=== PATIENT | male | born 1975 | race Caucasian/White ===

== ENCOUNTER 2019-06-23 11:01 | Emergency (ER) | payer OTHER, SELFPAY ==
--- NOTE | ~2019-06-23 | XR_ITS ---
XR_[id number]_CR DATE: 06/23/2019 11:54 INDICATION: Patient coughed and heard a pop, lower lateral right rib area. TECHNIQUE: PA chest. 3 views of the right ribs. COMPARISON: None FINDINGS: No rib fracture or bone destruction is evident. There is mild infiltrate or atelectasis in the right lower lung zone. The lungs otherwise appear clear. Normal heart size. No pleural effusion or pulmonary vascular congestion or pneumothorax. No hilar or mediastinal enlargement. IMPRESSION: Nonspecific right lower lung infiltrate or atelectasis No displaced rib fracture is evident Reviewed, dictated and finalized at [facility]. Reviewed, dictated and finalized at [facility]. LITIES DIRECTOR
[2019-06-23 11:10] VITALS: BP 139/75; PULSE 96; RESP 20; TEMP 36.7; O2SAT 91
--- NOTE | 2019-06-23 11:43 | ED.URI ---
HPI - URI/Sore Throat General Chief Complaint: Upper Respiratory Infection Stated Complaint: Hurts to Breathe Time Seen by Provider: 06/23/19 11:38 Source: patient and RN notes reviewed Mode of arrival: ambulatory Limitations: no limitations History of Present Illness HPI Narrative: Patient presents today complaining of right lower rib pain that started acutely after coughing strongly this morning. States he heard and felt a pop. Pain increases with deep breath or coughing. Patient has primary ciliary dyskinesia and is currently on the lung transplant list. He wears 8 L of oxygen at baseline, increases to 10 with ambulation. States he has not been ill recently and has actually been healthy since last September. MD elicited complaint: other (Rib pain) Related Data Home Medications Medication Instructions Recorded Confirmed albuterol sulfate 2.5 mg INHALATION Q4-6H 03/23/19 06/23/19 amlodipine 5 mg tablet 5 mg PO BID 03/23/19 06/23/19 furosemide 80 mg tablet 80 mg PO QAM 03/23/19 06/23/19 ipratropium bromide 0.02 % 2.5 ml CONTINUOUS NEBULIZATION QID 03/23/19 06/23/19 solution for inhalation lansoprazole 30 mg delayed 30 mg PO DAILY 03/23/19 06/23/19 release,disintegrating tablet losartan 50 mg tablet 50 mg PO DAILY 03/23/19 06/23/19 metolazone 5 mg tablet 5 mg PO DAILY 03/23/19 06/23/19 montelukast 10 mg tablet 10 mg PO DAILY 03/23/19 06/23/19 Allergies Allergy/AdvReac Type Severity Reaction Status Date / Time povidone-iodine Allergy Unknown Unknown Verified 06/23/19 11:14 tetracycline Allergy Unknown Unknown Verified 06/23/19 11:14 SOAP Allergy Unknown Unknown Uncoded 06/23/19 11:14 THEOPHYLLINE ANHYDROUS AdvReac Mild GETS Uncoded 10/06/18 17:39 NERVOUS Review of Systems Review of Systems: Narrative: CONSTITUTIONAL: Denies body aches, fever, chills, or sweats. EYES: Denies visual changes, redness, or discharge. ENT: Denies rhinorrhea, congestion, sore throat, or otalgia. CARDIOVASCULAR: Denies chest pain, palpitations, or edema. RESPIRATORY: Denies cough or dyspnea. GASTROINTESTINAL: Denies abdominal pain, nausea, vomiting, or diarrhea. GENITOURINARY: Denies dysuria or hematuria. SKIN: Denies rash, itching, or wounds. MUSCULOSKELETAL: Denies back pain, joint pain, or myalgia. Right rib pain NEUROLOGIC: Denies headache, numbness, tingling, or weakness. PSYCH: Denies depression or anxiety. [facility] Family History Family History Father Hypertension Grandparent Hypertension Cerebrovascular accident Family history of coronary artery disease Family history of malignant neoplasm of urinary bladder Diabetes mellitus Other Family history of malignant neoplasm of breast Social History Social History Smoking status: Never smoker Tobacco type: smokeless tobacco Smokeless tobacco user: chewing tobacco Second hand tobacco smoke exposure: No Alcohol intake: never Gender identity (if verbalized by the patient): Male Comments At time of signature, I have reviewed and agree with nursing past medical, surgical, social and family history unless otherwise noted. Please see nursing chart for further information. There is no relevant family history pertinent to the presenting complaint Exam Narrative: Exam Narrative: GENERAL: Chronically ill-appearing, well-nourished, and in no acute distress. Wearing a nasal cannula. HEAD: Normocephalic, atraumatic. EYES: EOMI. No redness or drainage. Conjunctivae normal. ENT: Mucous membranes pink and moist. NECK: Normal AROM. Supple. No lymphadenopathy. CHEST: No respiratory distress. Rhonchi in the lower lobes. Diminished in the lower lobes. Tenderness to the right lower lateral rib line and soft tissue HEART: Regular rate and rhythm. No murmur appreciated. Normal peripheral pulses. ABDOMEN: Soft, nontender, nondistended, normal active bowel
== END 2019-06-23 12:22 | disposition home or self-care (01) ==
PROVIDERS: Emergency Provider Nurse Practitioner; PCP Family Medicine
DX: S29.011A Strain of muscle and tendon of front wall of thorax, initial encounter (principal); X58.XXXA Exposure to other specified factors, initial encounter; G24.9 Dystonia, unspecified; Z99.81 Dependence on supplemental oxygen; F17.220 Nicotine dependence, chewing tobacco, uncomplicated; J45.909 Unspecified asthma, uncomplicated
CPT/HCPCS: 71101; 99213; G0463

== ENCOUNTER 2020-02-05 10:45 | Observation (INO) | payer BC, SELFPAY ==
[2020-02-05] VITALS (12 sets, daily range): BP systolic 104–151; BP diastolic 61–87; PULSE 86–107; RESP 18–22; TEMP 36.1–36.8; O2SAT 4–100; BMI 37.0
--- NOTE | ~2020-02-05 | XR_ITS ---
EXAMINATION: XR chest 1V portable EXAM DATE: 02/05/2020 12:54 INDICATION: Shortness of breath. TECHNIQUE: Portable AP frontal chest x-ray was obtained. Comparison is made to prior examination from 10/06/2018, 07/10/2018. Correlation was made with chest CT 07/11/2018. FINDINGS: Chronic right lower lobe atelectasis and reticulonodular opacities, most likely chronic inf ectious process. This is improved compared to 10/06/2018. The lungs are otherwise clear. There are no pleural effusions. The cardiomediastinal silhouette is within normal limits. There is no pneumotho rax suspected. The bones and soft tissues are unremarkable. IMPRESSION: Right basilar reticulonodular opacities probably chronic infectious process; correlate wi th prior CT 2019 report. No acute findings suspected. Reviewed, dictated and finalized at location [facility]. IMPRESSION: Right basilar reticulonodular opacities probably chronic infectious process; correlate with prior CT 2019 report. No acute findings suspected.
--- NOTE | 2020-02-05 11:05 | ECG_ITS ---
Measurements Intervals [place] Rate: 101 P: 85 CT: 155 QRS: 80 QRSD: 122 T: 57 QT: 340 QTc: 442 Interpretive Statements SINUS TACHYCARDIA INTRAVENTRICULAR CONDUCTION DELAY BORDERLINE ST ABNORMALITY- ANTEROLAT/INF LEADS BASELINE ARTIFACT- I, II, III, AVR ABNORMAL ECG Electronically Signed On 02-05-2020 11:37:49 CDT by Aguila Issa D.O.
[2020-02-05 11:09] LABS: Glucose Point of Care > 500 (65-105)
[2020-02-05 11:29] LABS: INR 0.9; Prothrombin Time 11.9 Seconds (11.1-14.7)
[2020-02-05 11:30] LABS: Partial Thromboplastin Time 23.8 SECONDS (22.3-36.8)
[2020-02-05 11:30] LABS: Basophils Percent Auto 0.3 % (0.2-1.2); Eosinophils Absolute Auto 0.3 K/mm3 (0-0.3); Eosinophils Percent Auto 3.2 % (0-4.4); Hematocrit 37.1 % (42.0-52.0); Hemoglobin 12.4 g/dL (14.0-18.0); Immature Granulocyte Absolute 0.03 K/mm3 (0.00-0.031); Immature Granulocyte Percent A 0.3 % (0-0.5); Lymphocytes Absolute Auto 2.88 K/mm3 (0.9-3.2); Lymphocytes Percent Auto 31.7 % (18.3-44.2); Mean Corpuscular HGB Conc 33.4 g/dl (32-36); Mean Corpuscular Hemoglobin 28.1 pg (26-34); Mean Corpuscular Volume 83.9 fl (80-100); Monocytes Absolute Auto 0.7 K/mm3 (0.1-0.6); Monocytes Percent Auto 7.5 % (2.6-8.5); Neutrophils Absolute Auto 5.2 K/mm3 (1.3-6.7); Platelet Count Result 296 k/mm3 (150-375); Red Blood Count 4.42 M/mm3 (4.6-6.20); Red Cell Distribution Width 11.9 % (11.5-14.5); White Blood Count 9.1 K/mm3 (4.5-10.0)
[2020-02-05] MEDS: SODIUM CHLORIDE 0.9% IV 1,000 ML 100 ML IV CONT (11:32)
[2020-02-05 11:34] LABS: Alanine Aminotransferase 32 U/L (4-50); Albumin Level 4.4 g/dL (3.5-5.1); Alkaline Phosphatase 149 U/L (38-126); Anion Gap 11.99999 mmol/L (8-16); Aspartate Amino Transferase 36 U/L (17-59); Bilirubin,Total 0.6 mg/dL (0.2-1.3); Blood Urea Nitrogen 63 mg/dL (9-20); CRP 2.2 mg/dL (<1.0); Carbon Dioxide > 40 mmol/L (22-30); Chloride 75 mmol/L (98-107); Estimated CRCL calculation 77 ml/min; Estimated Glomerular Filt Rate 55; Glucose 554 mg/dL (75-110); Potassium 3.8 mmol/L (3.4-5.0); Sodium 127 mmol/L (137-145)
[2020-02-05] MEDS: INSULIN HUMAN REGULAR (*BKC) 100 UNITS/ML 10 UNITS IV PUSH (11:35)
[2020-02-05 11:40] LABS: Alveolar/Arterial O2 Gradient 56.5 mmHg; Base Excess ABG 12.2 mEq/l (+/-2.0); Carboxyhemoglobin 0.1 % THb (0-2.0); Fractional Inspired Oxygen 36 %; Methemoglobin ABG 0.2 %THb (0-1.5); Oxygen Content ABG 17.7 %vol (16.0-22.0); Oxygen Saturation ABG 98.2 % (95.0-100.0); Oxyhemoglobin 97.4 % THb (90.0-100.0); PO2 ABG 121.7 mmHg (80.0-100.0); PO2 FiO2 Ratio Arterial Blood 3.38 %; Reduced Hemoglobin 2.3 %THb (0-5.0); Total Hemoglobin 12.8 g/dL (12.0-18.0); pH ABG 7.389 (7.350-7.450)
[2020-02-05 11:41] LABS: Modified Allen's Test Pass; PCO2 ABG 67.7 mmHg (35.0-45.0); Site Drawn LEFT RADIAL
[2020-02-05 11:42] LABS: Device NASAL CANNULA
[2020-02-05 11:43] LABS: Magnesium 1.8 mg/dL (1.6-2.3); Phosphorus 4.3 mg/dL (2.5-4.5)
[2020-02-05 11:45] LABS: Beta-Hydroxybutyrate/Acetoacetate 0.82 mmol/L (0.02-0.27)
[2020-02-05 11:47] LABS: NT Pro B Type Natriuretic Pept 28 PG/ML (5-100)
--- NOTE | 2020-02-05 11:52 | ED.GENADULT ---
HPI - General Adult General Chief complaint: Recheck/Abnormal Lab/Rx Stated complaint: . family being tested for covid Time Seen by Provider: 02/05/20 10:50 Source: patient, old records reviewed and other Limitations: no limitations History of Present Illness HPI narrative: Patient is a 44-year-old male who presents for request of primary care for having been found to have electrolyte abnormalities coupled with hyperglycemia patient has been having some excessive thirst and urination with some blurred vision and trembling of the hands patient denies similar occurrence in the past notes that he is otherwise felt fine denies illness or other complaints. Patient was found to have electrolyte abnormality and hyperglycemia is noted had follow-up with primary care in the last few days outpatient blood work results led to the patient being referred to the emergency department. On arrival patient has no complaints and denies any pain Related Data Allergies Allergy/AdvReac Type Severity Reaction Status Date / Time povidone-iodine Allergy Unknown Unknown Verified 02/05/20 10:58 tetracycline Allergy Unknown Unknown Verified 02/05/20 10:58 SOAP Allergy Unknown Unknown Uncoded 02/05/20 10:58 THEOPHYLLINE ANHYDROUS AdvReac Mild GETS Uncoded 02/05/20 10:58 NERVOUS Review of Systems Review of Systems: All systems reviewed & are unremarkable except as noted in HPI and below PMFSH Past Medical History Medical History (Updated 02/05/20 @ 12:53 by Jose Luis Machado PA-C) Essential (primary) hypertension Medial epicondylitis, left elbow Primary ciliary dyskinesia Pulmonary emphysema Sleep apnea in adult Tremor of both hands Surgical History Surgical History (Updated 02/05/20 @ 11:54 by Jose Luis Machado PA-C) History of appendectomy History of orthopedic surgery Family History Family History Father Hypertension Grandparent Hypertension Cerebrovascular accident Family history of coronary artery disease Family history of malignant neoplasm of urinary bladder Diabetes mellitus Other Family history of malignant neoplasm of breast Social History Social History Smoking status: Never smoker Tobacco type: smokeless tobacco Smokeless tobacco user: chewing tobacco Second hand tobacco smoke exposure: No Alcohol intake: never Gender identity (if verbalized by the patient): Male Exam Narrative: Exam Narrative: GENERAL: Well-appearing, obese, and in no acute distress. HEAD: Normocephalic, atraumatic. EYES: PERRLA and EOMI. ENT: Nares clear, no rhinorrhea or epistaxis. Mucous membranes moist. Oropharynx without tonsillar hypertrophy exudate or other lesions. CHEST: Clear to auscultation. No respiratory distress. No wheezes rales or rhonchi HEART: Regular rate and rhythm. No murmur heard. Normal peripheral pulses. ABDOMEN: Soft, nontender, distended EXTREMITIES: Normal range of motion. No edema. SKIN: Warm, dry, no rash. NEURO: No focal deficits. Alert and oriented x3. Cranial nerves II through XII grossly intact PSYCH: Normal mood and affect. Course Course Emergency Course: Patient in the room at this time is been hydrated given insulin will be brought into the hospital for his new onset diabetes mellitus is aware of the discussion with hospitalist and agrees the plan Consultations Consultation #1: Discussed case with hospitalist who is agreed to accept the patient Patient to be admitted to medical floor with sliding scale insulin Date: 02/05/20 Time: 12:19 Vital Signs Vital signs: Vital Signs Pulse Rate 106 H 02/05/20 10:54 Respiratory Rate 02/05/20 10:54 Blood Pressure 151/81 H 02/05/20 10:54 Pulse Oximetry 98 02/05/20 10:54 Temperature 98.2 F 02/05/20 11:41 Pulse Rate 106 H 02/05/20 10:54 Respiratory Rate 02/05/20 10:54 Blood Pressure 151/81 H 02/05/20 10:54
[2020-02-05 11:56] LABS: Add Urine Microscopic? YES; Appearance Urine Clear (Clear); Bilirubin Urine Negative (Negative); Blood Urine Negative (Negative); Color Urine Straw (Yellow); Glucose Urine UA 3+ mg/dL (Negative); Ketones Urine Negative (Negative); Leukocyte Esterase Ur Negative LEU/UL (Negative); Nitrate Urine Negative (Negative); Protein Urine Negative (Negative); RBC Urine 0-2 /hpf (0-2); Specific Grav Ur 1.012 (1.001-1.035); Urobilinogen Urine Negative mg/dL (<2.0); WBC Urine 0-3 /hpf
[2020-02-05 12:51] LABS: Lactic Acid Reflex 0.9 mmol/L (0.7-2.1)
[2020-02-05 12:59] LABS: Glucose Point of Care > 500 (65-105)
--- NOTE | 2020-02-05 13:37 | PC.NURSE ---
Called to give report on pt. Was told by Beatris that nurse receiving pt is at lunch and will call me back
--- NOTE | 2020-02-05 14:39 | PM.IMHP ---
H&P: HPI History of Present Illness Date/Time: 02/05/20 14:39 Chief complaint: Hyperglycemia/dehydration/hyponatremia Narrative: Braydon Cole is a 44 year old male with PMHx significant for Primary Ciliary Dyskinesia, Chronic Hypoxic Respiratory Failure on supplemental oxygen by [place], [place], Lung Emphysema, Hand tremor. Patient presented to ED after he had been in to see his PCP for ventral hernia wanted to have it checked labs were ordered and came back abnormal, he was told to come to ED.Patient had elevated blood sugar and low sodium, he has been very thirsty drinking two Gallons of water a day, 1 gallon of milk, no weight loss, but was recently evaluated for lung transplant and was seen by dietitian, he is on a 1400 calorie diet. Denies any fevers, rigors, chills, no n/v/abdominal pain/diarrhea, no chest pain, no pnd, no orthopnea, has had some blurry vision, no cough, no sputum production, no leg swelling. Preliminary work up was significant for a sugar in the 500's. Patient had been started on diuretics as well, he was urinating frequently. Review of Systems Review of Systems: Narrative: No fevers, no weight loss. Constitutional: Constitutional: Reports as per HPI and Reports no additional constitutional complaints ENT: Reports system reviewed and no additional complaints, except as documented and Reports as per HPI Cardiovascular: Cardiovascular: Reports as per HPI and Reports no additional cardiovascular complaints Respiratory: Respiratory: Reports as per HPI and Reports no additional respiratory complaints Gastrointestinal: Gastrointestinal: Reports as per HPI and Reports no additional gastrointestinal complaints Musculoskeletal: Musculoskeletal: Reports no additional musculoskeletal complaints and Reports as per HPI Neurologic: Reports system reviewed and no additional complaints, except as documented and Reports as per HPI [facility] Past Medical History Medical History (Updated 02/05/20 @ 16:46 by Ashlyn Castillo MD) Essential (primary) hypertension Medial epicondylitis, left elbow Primary ciliary dyskinesia Pulmonary emphysema Sleep apnea in adult Tremor of both hands Surgical History Surgical History (Updated 02/05/20 @ 11:54 by Jose Luis Machado PA-C) History of appendectomy History of orthopedic surgery Family History Family History Father Hypertension Grandparent Hypertension Cerebrovascular accident Family history of coronary artery disease Family history of malignant neoplasm of urinary bladder Diabetes mellitus Other Family history of malignant neoplasm of breast Social History Social History Smoking status: Never smoker Tobacco type: smokeless tobacco Smokeless tobacco user: chewing tobacco Second hand tobacco smoke exposure: No Alcohol intake: never Gender identity (if verbalized by the patient): Male Meds Home Medications and Allergies Home Medications Medication Instructions Recorded Confirmed Type meloxicam 15 mg disintegrating 15 mg PO DAILY #30 tablet 07/30/19 02/04/20 Rx tablet lansoprazole 30 mg delayed 30 mg PO DAILY #30 tablet 08/03/19 02/04/20 Rx release,disintegrating tablet montelukast 10 mg tablet 10 mg PO DAILY #30 tablet 08/03/19 02/04/20 Rx ipratropium bromide 0.02 % 2.5 ml CONTINUOUS NEBULIZATION QID 08/06/19 02/04/20 Rx solution for inhalation #150 ml furosemide 80 mg tablet 80 mg PO QAM #30 tablet 10/29/19 02/04/20 Rx metolazone 5 mg tablet 5 mg PO DAILY #30 tablet 10/29/19 02/04/20 Rx albuterol sulfate 2.5 mg INHALATION Q4-6H #200 vial 12/08/19 02/04/20 Rx amlodipine 10 mg tablet 10 mg PO DAILY #90 tablet 12/08/19 02/04/20 Rx modafinil 200 mg tablet 200 mg PO QAM #30 tablet 01/20/20 02/04/20 Rx losartan 50 mg tablet See Rx Instructions .ROUTE 02/01/20 02/04/20 Rx .COMPLEX #90 unspecified Allergies Allergy/AdvReac Ty
[2020-02-05] MEDS: LACTATED RINGERS 1,000 ML 125 ML IV CONT (17:21)
[2020-02-05 17:52] LABS: Basophils Percent Auto 0.4 % (0.2-1.2); Eosinophils Absolute Auto 0.2 K/mm3 (0-0.3); Eosinophils Percent Auto 2.3 % (0-4.4); Hematocrit 36.5 % (42.0-52.0); Hemoglobin 12.4 g/dL (14.0-18.0); Immature Granulocyte Absolute 0.03 K/mm3 (0.00-0.031); Immature Granulocyte Percent A 0.4 % (0-0.5); Lymphocytes Absolute Auto 1.75 K/mm3 (0.9-3.2); Lymphocytes Percent Auto 21.4 % (18.3-44.2); Mean Corpuscular Hemoglobin 28.4 pg (26-34); Mean Corpuscular Volume 83.7 fl (80-100); Mean Platelet Volume 10.2 fl (7.4-10.4); Monocytes Absolute Auto 0.6 K/mm3 (0.1-0.6); Neutrophils Absolute Auto 5.6 K/mm3 (1.3-6.7); Neutrophils Percent Auto 68.5 % (45.5-73.1); Platelet Count Result 255 k/mm3 (150-375); Red Blood Count 4.36 M/mm3 (4.6-6.20); Red Cell Distribution Width 11.8 % (11.5-14.5); White Blood Count 8.2 K/mm3 (4.5-10.0)
[2020-02-05 18:06] LABS: Anion Gap 12.99999 mmol/L (8-16); Blood Urea Nitrogen 66 mg/dL (9-20); Calcium 9.8 mg/dL (8.4-10.2); Carbon Dioxide > 40 mmol/L (22-30); Chloride 75 mmol/L (98-107); Estimated CRCL calculation 76 ml/min; Estimated Glomerular Filt Rate 55; Glucose 489 mg/dL (75-110); Potassium 3.7 mmol/L (3.4-5.0); Sodium 128 mmol/L (137-145)
[2020-02-05] MEDS: INSULIN ASPART (*BKC) 100 UNITS/ML 10 UNITS SUB-Q (18:29)
[2020-02-05 18:38] LABS: Glucose Point of Care 462 (65-105)
--- NOTE | 2020-02-05 18:45 | ADMGEN ---
This patient, Braydon Cole, was admitted to IMU Room 206-01. Patient/family oriented to hospital policies and general routines including ID bracelet, bed and alarms, visiting hours, pain management, procedures, bathroom and other care routines, personal items, smoking policy, room service/diet, and visiting hours. Valuables list has been completed. Information on how to activate the Rapid Response Team has been discussed. Patient/Family are encouraged to report perceived risks to care and to ask questions if they do not understand what they are told or what they should do.
[2020-02-05 21:35] LABS: Glucose Point of Care 278 (65-105)
[2020-02-05] MEDS: ALBUTEROL SULFATE NEB 2.5 MG/3 ML INH (21:57)
[2020-02-05] MEDS: IPRATROPIUM BR 0.02% INH SOLN 0.5 MG/2.5 ML VIAL (21:57)
[2020-02-05] MEDS: MONTELUKAST SODIUM 10 MG TABLET PO (23:01)
[2020-02-05] MEDS: amLODIPine BESYLATE 5 MG TABLET 10 MG PO (23:01)
[2020-02-05] MEDS: FAMOTIDINE 20 MG/2 ML VIAL IV PUSH (23:02)
[2020-02-05 23:23] LABS: Anion Gap 12.99999 mmol/L (8-16); Blood Urea Nitrogen 66 mg/dL (9-20); Calcium 9.9 mg/dL (8.4-10.2); Carbon Dioxide > 40 mmol/L (22-30); Chloride 76 mmol/L (98-107); Estimated CRCL calculation 67 ml/min; Estimated Glomerular Filt Rate 47; Glucose 307 mg/dL (75-110); Potassium 3.4 mmol/L (3.4-5.0); Sodium 129 mmol/L (137-145)
[2020-02-06] VITALS (21 sets, daily range): BP systolic 101–126; BP diastolic 53–64; PULSE 76–101; RESP 16–20; TEMP 36.1–36.6; O2SAT 91–99
[2020-02-06] MEDS: LACTATED RINGERS 1,000 ML 125 ML IV CONT ×2 (03:52→15:01)
[2020-02-06 06:37] LABS: Glucose Point of Care 377 (65-105)
[2020-02-06 08:26] LABS: Glucose Point of Care 360 (65-105)
[2020-02-06] MEDS: ALBUTEROL SULFATE NEB 2.5 MG/0.5 ML INH INHALATION (08:47)
[2020-02-06] MEDS: IPRATROPIUM BR 0.02% INH SOLN 0.5 MG/2.5 ML VIAL INHALATION ×4 (08:48→20:32)
[2020-02-06] MEDS: INSULIN HUMAN NPH (*BKC) 100 UNITS/ML 17 UNITS SUB-Q (08:48)
[2020-02-06] MEDS: INSULIN ASPART (*BKC) 100 UNITS/ML SUB-Q ×3 (08:49→17:26)
[2020-02-06] MEDS: LOSARTAN POTASSIUM 50 MG TABLET PO (10:36)
[2020-02-06] MEDS: PANTOPRAZOLE 40 MG TABLET PO (10:36)
[2020-02-06] MEDS: modafiniL (*CRX) 200 MG TABLET PO (10:39)
[2020-02-06 12:19] LABS: Glucose Point of Care 378 (65-105)
--- NOTE | 2020-02-06 12:39 | PM.IMPN ---
Progress Note: A&P Assessment and Plan (1) Diabetic hyperosmolar non-ketotic state: Code(s): E11.00 - Type 2 diabetes mellitus with hyperosmolarity without nonketotic hyperglycemic-hyperosmolar coma ([facility]) Status: Acute Assessment and Plan: Still with high sugars in the 300 + Continue gentle hydration Accuchecks ACHS Carb consistent diet 1800 (2) Acute dehydration: Code(s): E86.0 - Dehydration Status: Acute Assessment and Plan: Continue gentle hydration. Daily I/O's (3) Acute kidney injury: Code(s): N17.9 - Acute kidney failure, unspecified Status: Acute Assessment and Plan: Daily BMP Continue to monitor Bun/Cr. Holding Lasix and Metolazone (4) Tremor of both hands: Code(s): R25.1 - Tremor, unspecified Status: Acute Assessment and Plan: Unchanged (5) Essential (primary) hypertension: Code(s): I10 - Essential (primary) hypertension Status: Acute Assessment and Plan: Re started home meds (6) Pulmonary emphysema: Code(s): J43.9 - Emphysema, unspecified Status: Acute Assessment and Plan: Continue nebs Stable Does not appear to be excerbated. (7) Primary ciliary dyskinesia: Code(s): Q34.8 - Other specified congenital malformations of respiratory system Status: Acute Assessment and Plan: Supportive care On transplant list Follow up with transplant team (8) Sleep apnea in adult: Code(s): G47.30 - Sleep apnea, unspecified Status: Acute Assessment and Plan: On oxygen by [place] BiPAP at night time Subjective Date/time seen: 02/06/20 12:39 No issues overnight, afebrile. Sugars still in the 300's Review of Systems Constitutional: Constitutional: Reports as per HPI and Reports no additional constitutional complaints Eyes: Eyes: Reports as per HPI ENT: Reports system reviewed and no additional complaints, except as documented and Reports as per HPI Cardiovascular: Cardiovascular: Reports as per HPI and Reports no additional cardiovascular complaints Respiratory: Respiratory: Reports as per HPI and Reports no additional respiratory complaints Gastrointestinal: Gastrointestinal: Reports as per HPI and Reports no additional gastrointestinal complaints Musculoskeletal: Musculoskeletal: Reports no additional musculoskeletal complaints and Reports as per HPI Neurologic: Reports system reviewed and no additional complaints, except as documented and Reports as per HPI Exam Narrative: Exam Narrative: Chronically ill looking. Const: General: no acute distress Nutritional Appearance: overweight Orientation/consciousness: patient oriented x3 HENMT: Head: normocephalic Ears: hearing grossly normal bilaterally Face and sinus: normal facial exam Mouth: Yes Normal oral and palatal mucosa present Eyes: General: appearance normal, both eyes and all related structures Pupils: Equal, round and reactive pupils present EOM: EOMs intact bilaterally Neck: Neck: no lymphadenopathy and no JVD Resp: Effort & Inspection: able to speak in complete sentences Auscultation: diminished lung sounds (Throughout.) Cardio: Rate: regular rate Rhythm: regular rhythm Heart sounds: S1 normal heart sound present and S2 normal heart sound present GI: Inspection: Pannus present and obesity GI Palp: Yes Soft to palpation and Yes No hepatosplenomegaly present Auscultation: normal bowel sounds Skin: General skin exam: normal color Lesions: no lesions Rashes: no rashes Wounds: no wounds Neuro: General: patient oriented x3 Cranial nerves: Yes CN's II-XII intact bilaterally and Yes Equal, round and reactive pupils present Objective Data Vital Signs Vital Signs: Vital Signs - 24 hr 02/05/20 13:36 02/05/20 14:25 02/05/20 14:30 Temperature Pulse Rate 102 H 87 Respiratory Rate 20 18 Blood Pressure 129/70 141/87 H Pulse Oximetry 100 100 4 L 02/05/20 15:00 02/05/20
[2020-02-06] MEDS: ALBUTEROL SULFATE NEB 2.5 MG/3 ML INH INHALATION ×3 (13:00→20:32)
[2020-02-06 13:31] LABS: Basophils Percent Auto 0.3 % (0.2-1.2); Eosinophils Absolute Auto 0.2 K/mm3 (0-0.3); Eosinophils Percent Auto 2.6 % (0-4.4); Hematocrit 34.4 % (42.0-52.0); Hemoglobin 11.7 g/dL (14.0-18.0); Immature Granulocyte Absolute 0.04 K/mm3 (0.00-0.031); Immature Granulocyte Percent A 0.5 % (0-0.5); Lymphocytes Absolute Auto 1.55 K/mm3 (0.9-3.2); Lymphocytes Percent Auto 19.8 % (18.3-44.2); Mean Corpuscular Hemoglobin 28.5 pg (26-34); Mean Corpuscular Volume 83.9 fl (80-100); Mean Platelet Volume 10.5 fl (7.4-10.4); Monocytes Absolute Auto 0.4 K/mm3 (0.1-0.6); Monocytes Percent Auto 5.6 % (2.6-8.5); Neutrophils Absolute Auto 5.6 K/mm3 (1.3-6.7); Neutrophils Percent Auto 71.2 % (45.5-73.1); Platelet Count Result 257 k/mm3 (150-375); Red Cell Distribution Width 11.6 % (11.5-14.5); White Blood Count 7.8 K/mm3 (4.5-10.0)
[2020-02-06 16:33] LABS: Glucose Point of Care 369 (65-105)
[2020-02-06 16:43] LABS: Basophils Percent Auto 0.3 % (0.2-1.2); Eosinophils Absolute Auto 0.2 K/mm3 (0-0.3); Eosinophils Percent Auto 2.3 % (0-4.4); Hematocrit 36.6 % (42.0-52.0); Hemoglobin 12.3 g/dL (14.0-18.0); Immature Granulocyte Absolute 0.03 K/mm3 (0.00-0.031); Immature Granulocyte Percent A 0.4 % (0-0.5); Lymphocytes Absolute Auto 1.49 K/mm3 (0.9-3.2); Lymphocytes Percent Auto 20.5 % (18.3-44.2); Mean Corpuscular HGB Conc 33.6 g/dl (32-36); Mean Corpuscular Hemoglobin 28.9 pg (26-34); Mean Corpuscular Volume 85.9 fl (80-100); Mean Platelet Volume 10.6 fl (7.4-10.4); Monocytes Absolute Auto 0.4 K/mm3 (0.1-0.6); Monocytes Percent Auto 5.9 % (2.6-8.5); Neutrophils Absolute Auto 5.1 K/mm3 (1.3-6.7); Neutrophils Percent Auto 70.6 % (45.5-73.1); Platelet Count Result 262 k/mm3 (150-375); Red Blood Count 4.26 M/mm3 (4.6-6.20); Red Cell Distribution Width 11.8 % (11.5-14.5); White Blood Count 7.3 K/mm3 (4.5-10.0)
[2020-02-06 17:05] LABS: Anion Gap 6.99999 mmol/L (8-16); Blood Urea Nitrogen 52 mg/dL (9-20); Carbon Dioxide > 40 mmol/L (22-30); Chloride 83 mmol/L (98-107); Estimated CRCL calculation 72 ml/min; Estimated Glomerular Filt Rate 51; Glucose 376 mg/dL (75-110); Potassium 3.6 mmol/L (3.4-5.0); Sodium 130 mmol/L (137-145)
[2020-02-06] MEDS: INSULIN HUMAN NPH (*BKC) 100 UNITS/ML 20 UNITS SUB-Q (17:26)
[2020-02-06 20:14] LABS: Anion Gap 7.99999 mmol/L (8-16); Blood Urea Nitrogen 56 mg/dL (9-20); Calcium 9.1 mg/dL (8.4-10.2); Carbon Dioxide > 40 mmol/L (22-30); Chloride 81 mmol/L (98-107); Estimated CRCL calculation 82 ml/min; Estimated Glomerular Filt Rate 60; Glucose 359 mg/dL (75-110); Potassium 3.5 mmol/L (3.4-5.0); Sodium 129 mmol/L (137-145)
[2020-02-06 20:35] LABS: Glucose Point of Care 314 (65-105)
[2020-02-06] MEDS: MONTELUKAST SODIUM 10 MG TABLET PO (21:02)
[2020-02-06] MEDS: amLODIPine BESYLATE 5 MG TABLET 10 MG PO (21:02)
[2020-02-07] VITALS (20 sets, daily range): BP systolic 120–131; BP diastolic 55–68; PULSE 65–103; RESP 18–24; TEMP 36.2–37.1; O2SAT 92–99
[2020-02-07] MEDS: ALBUTEROL SULFATE NEB 2.5 MG/3 ML INH INHALATION ×4 (00:09→12:42)
[2020-02-07] MEDS: LACTATED RINGERS 1,000 ML 125 ML IV CONT ×2 (03:18→10:00)
[2020-02-07] MEDS: LOSARTAN POTASSIUM 50 MG TABLET PO (08:32)
[2020-02-07] MEDS: PANTOPRAZOLE 40 MG TABLET PO (08:32)
[2020-02-07] MEDS: INSULIN ASPART (*BKC) 100 UNITS/ML SUB-Q ×3 (08:32→18:19)
[2020-02-07] MEDS: modafiniL (*CRX) 200 MG TABLET PO (08:32)
[2020-02-07 08:35] LABS: Glucose Point of Care 257 (65-105)
[2020-02-07] MEDS: IPRATROPIUM BR 0.02% INH SOLN 0.5 MG/2.5 ML VIAL INHALATION ×2 (08:43→12:43)
[2020-02-07 08:49] LABS: Basophils Percent Auto 0.5 % (0.2-1.2); Eosinophils Absolute Auto 0.2 K/mm3 (0-0.3); Eosinophils Percent Auto 3.9 % (0-4.4); Hematocrit 34.4 % (42.0-52.0); Hemoglobin 11.2 g/dL (14.0-18.0); Immature Granulocyte Absolute 0.02 K/mm3 (0.00-0.031); Immature Granulocyte Percent A 0.3 % (0-0.5); Lymphocytes Absolute Auto 1.83 K/mm3 (0.9-3.2); Lymphocytes Percent Auto 29.6 % (18.3-44.2); Mean Corpuscular HGB Conc 32.6 g/dl (32-36); Mean Corpuscular Hemoglobin 28.3 pg (26-34); Mean Corpuscular Volume 86.9 fl (80-100); Monocytes Absolute Auto 0.4 K/mm3 (0.1-0.6); Monocytes Percent Auto 7.1 % (2.6-8.5); Neutrophils Absolute Auto 3.6 K/mm3 (1.3-6.7); Neutrophils Percent Auto 58.6 % (45.5-73.1); Platelet Count Result 201 k/mm3 (150-375); Red Blood Count 3.96 M/mm3 (4.6-6.20); Red Cell Distribution Width 11.7 % (11.5-14.5); White Blood Count 6.2 K/mm3 (4.5-10.0)
[2020-02-07 08:59] LABS: Anion Gap 4.99999 mmol/L (8-16); Blood Urea Nitrogen 34 mg/dL (9-20); Carbon Dioxide > 40 mmol/L (22-30); Chloride 88 mmol/L (98-107); Estimated CRCL calculation 97 ml/min; Estimated Glomerular Filt Rate > 60; Glucose 283 mg/dL (75-110); Potassium 3.6 mmol/L (3.4-5.0); Sodium 133 mmol/L (137-145)
--- NOTE | 2020-02-07 12:40 | PM.IMPN ---
Progress Note: A&P Assessment and Plan (1) Diabetic hyperosmolar non-ketotic state: Code(s): E11.00 - Type 2 diabetes mellitus with hyperosmolarity without nonketotic hyperglycemic-hyperosmolar coma ([facility]) Status: Acute Assessment and Plan: Resolved Discontinue iv fluids Daily BMP (2) Acute dehydration: Code(s): E86.0 - Dehydration Status: Acute Assessment and Plan: Resolved (3) Acute kidney injury: Code(s): N17.9 - Acute kidney failure, unspecified Status: Acute Assessment and Plan: Resolved Likely secondary to pre renal azotemia. (4) Tremor of both hands: Code(s): R25.1 - Tremor, unspecified Status: Acute Assessment and Plan: Chronic Continue to monitor (5) Essential (primary) hypertension: Code(s): I10 - Essential (primary) hypertension Status: Acute Assessment and Plan: Continue home meds Lasix and Spironolactone on hold due to above (6) Pulmonary emphysema: Code(s): J43.9 - Emphysema, unspecified Status: Acute Assessment and Plan: Unchanged Breathing treatments Supplemental O2 (7) Primary ciliary dyskinesia: Code(s): Q34.8 - Other specified congenital malformations of respiratory system Status: Acute Assessment and Plan: On transplant list (8) Sleep apnea in adult: Code(s): G47.30 - Sleep apnea, unspecified Status: Acute Assessment and Plan: Continue to use CPAP at night time (9) Hyperosmolar syndrome: Code(s): E87.0 - Hyperosmolality and hypernatremia Status: Acute Assessment and Plan: Resolved. (10) T2DM (type 2 diabetes mellitus): Code(s): E11.9 - Type 2 diabetes mellitus without complications Status: Acute Assessment and Plan: New onset Started on 70/30 Accuchecks [facility] Diabetic teaching A1C = 12 Analysis Evaluator consult in the outpatient setting. Follow up [facility] PCP Subjective Date/time seen: 02/07/20 12:40 Patient seen and examined, discussed plan of care as well. Afebrile, no new issues overnight. Review of Systems Review of Systems: Narrative: Feeling much better. Constitutional: Constitutional: Reports as per HPI and Reports no additional constitutional complaints ENT: Reports system reviewed and no additional complaints, except as documented and Reports as per HPI Cardiovascular: Cardiovascular: Reports as per HPI and Reports no additional cardiovascular complaints Gastrointestinal: Gastrointestinal: Reports as per HPI and Reports no additional gastrointestinal complaints Musculoskeletal: Musculoskeletal: Reports no additional musculoskeletal complaints and Reports as per HPI Neurologic: Reports system reviewed and no additional complaints, except as documented and Reports as per HPI Exam Narrative: Exam Narrative: Sitting in bed NAD. Const: General: comfortable and no acute distress Nutritional Appearance: overweight HENMT: Head: normal to inspection and normocephalic Ears: hearing grossly normal bilaterally General nose exam: Normal external nose present Face and sinus: normal facial exam Mouth: Yes Normal oral and palatal mucosa present Eyes: General: appearance normal, both eyes and all related structures Pupils: Equal, round and reactive pupils present EOM: EOMs intact bilaterally Neck: Neck: normal visual inspection, full ROM, no lymphadenopathy, trachea midline and no JVD Resp: Effort & Inspection: normal respiratory effort Auscultation: diminished lung sounds Other: Throughout Cardio: Jugular venous distension: no JVD Rate: regular rate Rhythm: regular rhythm Heart sounds: S1 normal heart sound present and S2 normal heart sound present GI: Inspection: Pannus present and obesity GI Palp: Yes Soft to palpation and Yes No hepatosplenomegaly present Skin: General skin exam: normal color Lesions: no lesions Rashes: no rashes Wounds: no wounds Neuro: General: pat
[2020-02-07 12:42] LABS: Glucose Point of Care 314 (65-105)
--- NOTE | 2020-02-07 15:29 | PC.NURSE ---
This patient, Braydon Cole, was transferred to [[id number] ] on 02/07/20 at 1515. Personal belongings sent with patient. . Report given to [ RUDY Roberts]. Appropriate documentation sent with patient.
[2020-02-07 16:34] LABS: Basophils Percent Auto 0.3 % (0.2-1.2); Eosinophils Absolute Auto 0.2 K/mm3 (0-0.3); Eosinophils Percent Auto 2.9 % (0-4.4); Hematocrit 32.4 % (42.0-52.0); Hemoglobin 10.6 g/dL (14.0-18.0); Immature Granulocyte Absolute 0.04 K/mm3 (0.00-0.031); Immature Granulocyte Percent A 0.6 % (0-0.5); Lymphocytes Absolute Auto 1.34 K/mm3 (0.9-3.2); Lymphocytes Percent Auto 21.7 % (18.3-44.2); Mean Corpuscular HGB Conc 32.7 g/dl (32-36); Mean Corpuscular Hemoglobin 28.4 pg (26-34); Mean Corpuscular Volume 86.9 fl (80-100); Mean Platelet Volume 10.5 fl (7.4-10.4); Monocytes Absolute Auto 0.4 K/mm3 (0.1-0.6); Monocytes Percent Auto 7.1 % (2.6-8.5); Neutrophils Absolute Auto 4.2 K/mm3 (1.3-6.7); Neutrophils Percent Auto 67.4 % (45.5-73.1); Platelet Count Result 205 k/mm3 (150-375); Red Blood Count 3.73 M/mm3 (4.6-6.20); Red Cell Distribution Width 11.8 % (11.5-14.5); White Blood Count 6.2 K/mm3 (4.5-10.0)
[2020-02-07 17:02] LABS: Anion Gap 5 mmol/L (8-16); Blood Urea Nitrogen 31 mg/dL (9-20); Calcium 8.6 mg/dL (8.4-10.2); Carbon Dioxide 34 mmol/L (22-30); Chloride 91 mmol/L (98-107); Estimated CRCL calculation 106 ml/min; Estimated Glomerular Filt Rate > 60; Glucose 388 mg/dL (75-110); Potassium 4.3 mmol/L (3.4-5.0); Sodium 130 mmol/L (137-145)
[2020-02-07] MEDS: ALBUTEROL SULFATE (*SP) AEROSOL 1 PUFF 2 PUFF INHALATION ×2 (17:30→20:23)
[2020-02-07 17:59] LABS: Glucose Point of Care 348 (65-105)
--- NOTE | 2020-02-07 19:28 | PC.NURSE ---
pt arrived to 3 med surg at 1515. No distress noted. No pain at this time.
[2020-02-07 20:43] LABS: Glucose Point of Care 288 (65-105)
[2020-02-07] MEDS: INSULIN HUMAN NPH (*BKC) 100 UNITS/ML 28 UNITS SUB-Q (22:07)
[2020-02-07] MEDS: amLODIPine BESYLATE 5 MG TABLET 10 MG PO (22:07)
[2020-02-07] MEDS: MONTELUKAST SODIUM 10 MG TABLET PO (22:07)
[2020-02-07 22:22] LABS: Glucose Point of Care 337 (65-105)
[2020-02-08] VITALS (7 sets, daily range): BP systolic 111; BP diastolic 62; PULSE 68–103; RESP 20; TEMP 36.6; O2SAT 90–96
[2020-02-08] MEDS: ALBUTEROL SULFATE (*SP) AEROSOL 1 PUFF 2 PUFF INHALATION ×5 (03:57→15:44)
[2020-02-08 05:59] LABS: Hemoglobin 10.2 g/dL (14.0-18.0); Mean Corpuscular HGB Conc 31.9 g/dl (32-36); Mean Corpuscular Hemoglobin 27.9 pg (26-34); Mean Corpuscular Volume 87.7 fl (80-100); Mean Platelet Volume 10.2 fl (7.4-10.4); Platelet Count Result 198 k/mm3 (150-375); Red Blood Count 3.65 M/mm3 (4.6-6.20); Red Cell Distribution Width 11.8 % (11.5-14.5)
[2020-02-08 06:11] LABS: Anion Gap 4 mmol/L (8-16); Blood Urea Nitrogen 21 mg/dL (9-20); Calcium 8.9 mg/dL (8.4-10.2); Carbon Dioxide 35 mmol/L (22-30); Chloride 95 mmol/L (98-107); Estimated CRCL calculation 97 ml/min; Estimated Glomerular Filt Rate > 60; Glucose 216 mg/dL (75-110); Potassium 3.6 mmol/L (3.4-5.0); Sodium 134 mmol/L (137-145)
[2020-02-08] MEDS: INSULIN ASPART (*BKC) 100 UNITS/ML SUB-Q (08:55)
[2020-02-08] MEDS: LOSARTAN POTASSIUM 50 MG TABLET PO (08:56)
[2020-02-08] MEDS: PANTOPRAZOLE 40 MG TABLET PO (08:56)
[2020-02-08] MEDS: INSULIN HUMAN NPH (*BKC) 100 UNITS/ML 38 UNITS SUB-Q (08:56)
[2020-02-08] MEDS: modafiniL (*CRX) 200 MG TABLET PO (09:00)
--- NOTE | 2020-02-08 10:23 | PM.DS ---
DS: Admitting Diagnosis Admitting Diagnosis Admitting Diagnosis: Hyperglycemia/dehydration/hyponatremia DS: Discharge Diagnosis Discharge Diagnosis (1) T2DM (type 2 diabetes mellitus): Code(s): E11.9 - Type 2 diabetes mellitus without complications Status: Acute Assessment and Plan: Started on Novolog Received diabetic education Will follow up with Bilingual Account Manager at [address] (2) Diabetic hyperosmolar non-ketotic state: Code(s): E11.00 - Type 2 diabetes mellitus with hyperosmolarity without nonketotic hyperglycemic-hyperosmolar coma ([facility]) Status: Acute Assessment and Plan: Resolved. (3) Acute hyperglycemia: Code(s): R73.9 - Hyperglycemia, unspecified Status: Acute Assessment and Plan: Resolved (4) Acute dehydration: Code(s): E86.0 - Dehydration Status: Acute Assessment and Plan: Fluid resuscitated. (5) Acute kidney injury: Code(s): N17.9 - Acute kidney failure, unspecified Status: Acute Assessment and Plan: Back to his baseline. (6) Essential (primary) hypertension: Code(s): I10 - Essential (primary) hypertension Status: Acute Assessment and Plan: Well controlled Continue home meds (7) Pulmonary emphysema: Code(s): J43.9 - Emphysema, unspecified Status: Acute Assessment and Plan: Patient on transplant list Continue supplemental oxygen (8) Primary ciliary dyskinesia: Code(s): Q34.8 - Other specified congenital malformations of respiratory system Status: Acute Assessment and Plan: Unchanged (9) Sleep apnea in adult: Code(s): G47.30 - Sleep apnea, unspecified Status: Acute Assessment and Plan: CPAP at night time. DS: Summary Time Spent with Patient Time attestation: Total time spent providing and/or coordinating discharge services:45 + minutes. Exam Narrative: Exam Narrative: Chronically ill looking, NAD. Const: General: no acute distress Nutritional Appearance: overweight HENMT: Head: normocephalic Ears: hearing grossly normal bilaterally General nose exam: Normal external nose present Face and sinus: normal facial exam Eyes: Pupils: Equal, round and reactive pupils present EOM: EOMs intact bilaterally Neck: Neck: no lymphadenopathy and no JVD Resp: Auscultation: clear to auscultation bilaterally and diminished lung sounds Cardio: Jugular venous distension: no JVD Rate: regular rate Rhythm: regular rhythm Heart sounds: S1 normal heart sound present and S2 normal heart sound present GI: GI Palp: Yes Soft to palpation and Yes No hepatosplenomegaly present Skin: General skin exam: normal color Trauma: no lacerations or abrasions Wounds: no wounds Neuro: Cranial nerves: Yes CN's II-XII intact bilaterally and Yes Equal, round and reactive pupils present Extrem: General: full ROM Other: No edema. DS: Data Data Completed and Pending Labs on day of discharge: Labs from last 24 hours 02/08/20 02/08/20 02/07/20 05:51 05:51 22:03 WBC 5.0 RBC 3.65 L Hgb 10.2 L Hct 32.0 L MCV 87.7 MCH 27.9 MCHC 31.9 L RDW 11.8 Plt Count 198 MPV 10.2 Immature Gran % (Auto) Neut % (Auto) Lymph % (Auto) Gentry % (Auto) Eos % (Auto) Baso % (Auto) Lymph # (Auto) Gentry # (Auto) Eos # (Auto) Baso # (Auto) Abs Immat Gran (auto) Absolute Neuts (auto) Absolute Nucleated RBC Nucleated RBC % Sodium 134 L Potassium 3.6 Chloride 95 L Carbon Dioxide 35 H Anion Gap 4 L BUN 21 H D Creatinine 1.10 Estim Creat Clear Calc 97 Estimated GFR > 60 Glucose 216 H POC Capillary Glucose 337 H Calcium 8.9 02/07/20 02/07/20 02/07/20 20:40 17:35 16:29 WBC RBC Hgb Hct MCV MCH MCHC RDW Plt Count MPV Immature Gran % (Auto) Neut % (Auto) Lymph % (Auto) Gentry % (Auto) Eos
[2020-02-08 10:31] LABS: Glucose Point of Care 228 (65-105)
--- NOTE | 2020-02-08 10:45 | PC.NURSE ---
Called special education paraeducator in response to pt request for further education information.Michelle said she will call this patient over lunch hour to try and help him.
--- NOTE | 2020-02-08 12:42 | PCCDE ---
1045 RECEIV[facility] FROM RUDY KNOWLES THAT PT HAS QUESTIONS ABOUT DM BEFORE DISCHARGE TODAY. 1210: REVIEWED CHART AND NOTED THAT PT HAS BEEN RECEIVING NPH INSTEAD OF 70/30 DISCUSSED WITH MD ON SATURDAY. NOTED BG RANGE YESTERDAY WAS [phone]. CALLED DR DRISCOLL AND CLARIFIED THAT SHE DID INDEED INTEND TO PRESCRIBE PREMIXED INSULIN. RECOMMENDED A RAPID ACTING/NPH COMBO SUCH NOVOLOG MIX 70/30. SPOKE TO PT OVER THE PHONE AND ANSWERED QUESTIONS ABOUT WHEN TO TEST AND TAKE INSULIN. PT STS HE PLANS TO SEE ENDO AT [facility]/ THAT IS WHERE THE REST OF HIS DOCTORS ARE. ENCOURAGED TO MAKE APPT [facility]IE WAIT TIMES CAN BE 90 DAYS. REPORT GIVEN TO RUDY TAYLOR.
[2020-02-08 12:53] LABS: Glucose Point of Care 193 (65-105)
--- NOTE | 2020-02-08 16:16 | PC.NURSE ---
Pt refused to have [employer] Certified Concierge apt made. He was wanting to work through his Lung transplant doctor at [facility] ([place]) [facility].
== END 2020-02-08 13:30 | disposition home or self-care (01) ==
LOC: ANHED 12:53 → ANH3MEDSUR 02-08 10:23 → ANHIMU 02-09 13:12
PROVIDERS: Emergency Medicine Emergency Medical Services; Admitting Provider Internal Medicine; Emergency Provider Emergency Medicine; PCP Family Medicine; Visit Provider Internal Medicine
DX: E11.65 Type 2 diabetes mellitus with hyperglycemia (principal); N17.9 Acute kidney failure, unspecified; E87.1 Hypo-osmolality and hyponatremia; E86.0 Dehydration; E11.00 Type 2 diabetes mellitus with hyperosmolarity without nonketotic hyperglycemic-hyperosmolar coma (NKHHC); E87.8 Other disorders of electrolyte and fluid balance, not elsewhere classified; J43.9 Emphysema, unspecified; I10 Essential (primary) hypertension; G47.33 Obstructive sleep apnea (adult) (pediatric); R25.1 Tremor, unspecified; Q34.8 Other specified congenital malformations of respiratory system
CPT/HCPCS: 36415; 36600; 71045; 80048; 80053; 81001; 82010; 82375; 82805; 82948; 83036; 83050; 83605; 83735; 83880; 84100; 85025; 85027; 85610; 85730; 86140; 87040; 93005; 94640; 96361; 96374; 96375; 99285; A9270; G0378; J1815; J7030; J7120

== ENCOUNTER 2020-02-15 17:29 | Inpatient (IN) | payer BC, SELFPAY ==
--- NOTE | ~2020-02-15 | XR_ITS ---
EXAMINATION: XR chest 1V portable DATE: 02/15/2020 19:12 INDICATION: COPD. Shortness of breath. Potential COVID 19 TECHNIQUE: frontal view of the chest was obtained. COMPARISON: Chest radiograph dated 02/05/2020 FINDINGS: New patchy airspace opacities in the bilateral lower lung zones on the lateral right midlung zone. No pleural effusion or pneumothorax. The cardiomediastinal silhouette is normal. Visualized bones and s oft tissues are unremarkable. IMPRESSION: 1. New patchy bilateral airspace opacities consistent with pneumonia. Reviewed, dictated and finalized at location A.
--- NOTE | ~2020-02-15 | XR_ITS ---
EXAMINATION: XR chest 1V portable EXAM DATE: 02/18/2020 05:57 INDICATION: Hypercapnic respiratory failure. TECHNIQUE: Portable AP frontal chest x-ray was obtained. Comparison is made to prior examination from 02/17/2020. FINDINGS: There is some chronic right basilar reticulonodular opacities, correlate with prior exams. Probable superimposed acute component in the right mid and lower lung zones. Cardiomediastinal silho uette is normal. There is no pneumothorax suspected. There are no pleural effusions. There are no oss eous abnormalities identified. Compared to 02/16, mild continued interval improvement in the acute on chronic airspace disease. IMPRESSION: Improving acute on chronic reticulonodular airspace disease likely infectious process. Reviewed, dictated and finalized at location A.
--- NOTE | ~2020-02-15 | XR_ITS ---
EXAMINATION: XR chest 1V portable EXAM DATE: 02/17/2020 06:00 INDICATION: Hypercapnic respiratory failure. TECHNIQUE: Portable AP frontal chest x-ray was obtained. Comparison is made to prior examination from 02/14, 02/04, 10/06. FINDINGS: There is some chronic right basilar reticulonodular opacities correlate with prior exams. S uperimposed acute component in the right mid and lower lung zones and left lower lung zone had develo ped on examination from 02/14. These are stable or slightly improved compared to that exam. Cardiomedi astinal silhouette is normal. There is no pneumothorax suspected. There are no pleural effusions. The re are no osseous abnormalities identified. IMPRESSION: Acute on chronic reticulonodular airspace disease likely infectious process. Reviewed, dictated and finalized at location A.
--- NOTE | ~2020-02-15 | XR_ITS ---
EXAMINATION: XR chest 1V portable EXAM DATE: 02/21/2020 06:20 INDICATION: Hypercapnic respiratory failure. TECHNIQUE: Portable AP frontal chest x-ray was obtained. Comparison is made to prior examination from 02/19/2020. FINDINGS: There is some chronic right basilar reticulonodular opacities. Probable superimposed acute component in the right mid and lower lung zones. Cardiomediastinal silhouette is normal. There is no pneumothorax suspected. There are no pleural effusions. There are no osseous abnormalities identifie d. Compared to yesterday, no significant interval change. IMPRESSION: Acute on chronic reticulonodular airspace disease likely infectious process. Reviewed, dictated and finalized at location A.
--- NOTE | ~2020-02-15 | XR_ITS ---
EXAMINATION: XR chest 1V portable EXAM DATE: 02/19/2020 06:30 INDICATION: Hypercapnic respiratory failure. TECHNIQUE: Portable AP frontal chest x-ray was obtained. Comparison is made to prior examination from 02/17/2020, 02/17. FINDINGS: There is some chronic right basilar reticulonodular opacities, correlate with prior exams. Probable superimposed acute component in the right mid and lower lung zones. Cardiomediastinal silho uette is normal. There is no pneumothorax suspected. There are no pleural effusions. There are no oss eous abnormalities identified. Compared to yesterday, no significant interval change. IMPRESSION: acute on chronic reticulonodular airspace disease likely infectious process. Reviewed, dictated and finalized at location A.
[2020-02-15 17:35] VITALS: BP 137/80; PULSE 110; RESP 24; TEMP 36.8; O2SAT 81
--- NOTE | 2020-02-15 17:42 | ECG_ITS ---
Measurements Intervals [place] Rate: 110 P: 70 OK: 135 QRS: 82 QRSD: 113 T: 54 QT: 317 QTc: 429 Interpretive Statements SINUS TACHYCARDIA INTRAVENTRICULAR CONDUCTION DELAY BASELINE ARTIFACT- I, II, III, AVR, AVL, AVF, V3-V6 ABNORMAL ECG Electronically Signed On 02-15-2020 21:08:04 CDT by Aguila Issa D.O.
[2020-02-15 17:56] LABS: Basophils Percent Auto 0.4 % (0.2-1.2); Eosinophils Percent Auto 0.4 % (0-4.4); Hematocrit 38.5 % (42.0-52.0); Hemoglobin 11.4 g/dL (14.0-18.0); Immature Granulocyte Absolute 0.14 K/mm3 (0.00-0.031); Immature Granulocyte Percent A 2.1 % (0-0.5); Lymphocytes Absolute Auto 0.79 K/mm3 (0.9-3.2); Lymphocytes Percent Auto 11.6 % (18.3-44.2); Mean Corpuscular HGB Conc 29.6 g/dl (32-36); Mean Corpuscular Hemoglobin 27.5 pg (26-34); Mean Corpuscular Volume 92.8 fl (80-100); Mean Platelet Volume 11.5 fl (7.4-10.4); Monocytes Absolute Auto 0.4 K/mm3 (0.1-0.6); Monocytes Percent Auto 6.5 % (2.6-8.5); Neutrophils Absolute Auto 5.4 K/mm3 (1.3-6.7); Platelet Count Result 216 k/mm3 (150-375); Red Blood Count 4.15 M/mm3 (4.6-6.20); Red Cell Distribution Width 12.3 % (11.5-14.5); White Blood Count 6.8 K/mm3 (4.5-10.0)
[2020-02-15 18:05] LABS: Base Excess ABG 7.4 mEq/l (+/-2.0); Fractional Inspired Oxygen 32 %; HCO3 ABG 35.6 mEq/l (22.0-26.0); Oxygen Content ABG 14.8 %vol (16.0-22.0); Oxyhemoglobin 91.8 % THb (90.0-100.0); PO2 ABG 67.3 mmHg (80.0-100.0); Total Hemoglobin 11.4 g/dL (12.0-18.0); pH ABG 7.314 (7.350-7.450)
[2020-02-15 18:07] LABS: Device NASAL CANNULA; Modified Allen's Test Pass; PCO2 ABG 71.7 mmHg (35.0-45.0); Site Drawn RIGHT RADIAL
[2020-02-15 18:19] VITALS: BP 132/79; PULSE 110; RESP 24; TEMP 37.6; O2SAT 94
--- NOTE | 2020-02-15 18:36 | ED.SOB ---
HPI - SOB/Dyspnea General Chief Complaint: Shortness of Breath/Dyspnea Stated Complaint: sob Time Seen by Provider: 02/15/20 18:21 Source: patient History of Present Illness HPI Narrative: Patient is a 44 y/o male complaining of moderate SOB today. He states that he has chronic SOB and he is home O2 for primary ciliary dyskinesia. He states that exertion aggravates SOB. He denies any cough or fever. His family including his reportedly tested positive for COVID recently. Related Data Home Medications Medication Instructions Recorded Confirmed losartan 50 mg PO DAILY 02/05/20 02/16/20 Allergies Allergy/AdvReac Type Severity Reaction Status Date / Time povidone-iodine Allergy Unknown Unknown Verified 02/09/20 12:29 tetracycline Allergy Unknown Unknown Verified 02/09/20 12:29 SOAP Allergy Unknown Unknown Uncoded 02/09/20 12:29 THEOPHYLLINE ANHYDROUS AdvReac Mild GETS Uncoded 02/09/20 12:29 NERVOUS Review of Systems Constitutional: Constitutional: Denies chills, Denies fever(s), Denies headache(s) and Denies weakness Eyes: Eyes: Denies blurry vision ENT: Denies headache(s) and Denies neck pain Cardiovascular: Cardiovascular: Denies chest pain and Reports dyspnea Respiratory: Respiratory: Denies cough and Reports dyspnea Gastrointestinal: Gastrointestinal: Denies abdominal pain, Denies diarrhea, Denies nausea and Denies vomiting Genitourinary: Genitourinary: Denies hematuria and Denies dysuria Musculoskeletal: Musculoskeletal: Denies back pain and Denies neck pain Neurologic: Denies headache(s) and Denies weakness PMFSH Past Medical History Medical History Essential (primary) hypertension Medial epicondylitis, left elbow Primary ciliary dyskinesia Pulmonary emphysema Sleep apnea in adult Tremor of both hands Surgical History Surgical History History of appendectomy History of orthopedic surgery Family History Family History Father Hypertension Grandparent Hypertension Cerebrovascular accident Family history of coronary artery disease Family history of malignant neoplasm of urinary bladder Diabetes mellitus Other Family history of malignant neoplasm of breast Social History Social History Smoking status: Never smoker Tobacco type: smokeless tobacco Smokeless tobacco user: chewing tobacco Second hand tobacco smoke exposure: No Alcohol intake: never Substance use: never Substance use type: does not use Gender identity (if verbalized by the patient): Male Spiritual care concerns: No Exam Const: General: no acute distress and well developed Orientation/consciousness: oriented to person, oriented to place, oriented to time and patient oriented x3 HENMT: Head: normocephalic Ears: external ears normal General nose exam: Normal external nose present Eyes: General: appearance normal, both eyes and all related structures Conjunctivae: conjunctivae normal Neck: Neck: normal visual inspection and full ROM Chest: Chest palpation & inspection: normal inspection of the chest and no tenderness Resp: Effort & Inspection: normal respiratory effort and tachypneic Cardio: Rate: tachycardic Rhythm: regular rhythm GI: GI Palp: No abdominal tenderness and Yes Soft to palpation Skin: General skin exam: normal color and turgor normal Neuro: General: oriented to person, oriented to place, oriented to time and patient oriented x3 Cognition (Neuro): normal cognition Extrem: General: normal to inspection, full ROM and no pedal edema Psych: Appearance: grossly normal Mental Status: mental status grossly normal Affect: normal affect Course Consultations Consultation #1: Discussed with Dr. Hua, who agrees to admit. Date: 02/15/20 Time: 20:42 Vital Signs
[2020-02-15 19:42] LABS: Anion Gap 8.99999 mmol/L (8-16); Blood Urea Nitrogen 23 mg/dL (9-20); Calcium 8.3 mg/dL (8.4-10.2); Carbon Dioxide > 40 mmol/L (22-30); Chloride 91 mmol/L (98-107); Estimated CRCL calculation 87 ml/min; Estimated Glomerular Filt Rate > 60; Glucose 206 mg/dL (75-110); Potassium 4.9 mmol/L (3.4-5.0); Sodium 140 mmol/L (137-145)
[2020-02-15 20:20] VITALS: BP 142/76; PULSE 106; RESP 22; O2SAT 97
--- NOTE | 2020-02-15 21:46 | PC.NURSE ---
unable to obtain second set of blood cultures after multiple attempts. patient refuses further attempts
[2020-02-15 22:24] VITALS: BP 174/100; PULSE 90; RESP 20; O2SAT 95
[2020-02-15 23:48] VITALS: BP 137/68; PULSE 108; RESP 20; TEMP 37.2; O2SAT 95
[2020-02-16] VITALS (26 sets, daily range): BP systolic 112–153; BP diastolic 56–94; PULSE 74–111; RESP 18–95; TEMP 35.5–36.9; O2SAT 23–97; BMI 35.8
--- NOTE | 2020-02-16 00:31 | PM.IMHP ---
H&P: HPI History of Present Illness Date/Time: 02/16/20 00:31 Chief complaint: pneumonia, acute on chronic respiratory Narrative: This is a 44 year old morbidly obese with known chronic respiratory failure on 4L of oxygen at home when sedentary and 8L of oxygen when doing activity secondary to ciliary dyskinesia who tonight presented to the hospital with increased shortness of breath. The patient denied any fevers, chills, or cough. He also denies any chest pain, palpitations, abdominal pain, LE swelling, nausea, vomiting, diarrhea, rectal bleeding. The patient has been at a hotel for the past 2 weeks as both his and daughter both contracted Coronavirus. today the patient's called him on the phone and found that he sounded somewhat confused. She went to visit him at the hotel and decided to bring him to the hospital as she notice that he did not seem like his usual self. The patient was evaluated emergency room this evening and found to be in acute respiratory failure. The patient has received bronchodilators and chest x-ray that was obtained was suspicious for possible pneumonia. On my encounter with the patient shaina he does appear to be in acute respiratory failure and is complaining of shortness of breath. He denies any other significant symptoms at this time. Review of Systems Review of Systems: All systems reviewed & are unremarkable except as noted in HPI and below PMFSH Past Medical History Medical History Essential (primary) hypertension Medial epicondylitis, left elbow Primary ciliary dyskinesia Pulmonary emphysema Sleep apnea in adult Tremor of both hands Surgical History Surgical History History of appendectomy History of orthopedic surgery Family History Family History Father Hypertension Grandparent Hypertension Cerebrovascular accident Family history of coronary artery disease Family history of malignant neoplasm of urinary bladder Diabetes mellitus Other Family history of malignant neoplasm of breast Social History Social History Smoking status: Never smoker Tobacco type: smokeless tobacco Smokeless tobacco user: chewing tobacco Second hand tobacco smoke exposure: No Alcohol intake: never Substance use: never Substance use type: does not use Gender identity (if verbalized by the patient): Male Spiritual care concerns: No Meds Home Medications and Allergies Home Medications Medication Instructions Recorded Confirmed Type lansoprazole 30 mg delayed 30 mg PO DAILY #30 tablet 08/03/19 02/16/20 Rx release,disintegrating tablet montelukast 10 mg tablet 10 mg PO DAILY #30 tablet 08/03/19 02/16/20 Rx furosemide 80 mg tablet 80 mg PO QAM #30 tablet 10/29/19 02/16/20 Rx metolazone 5 mg tablet 5 mg PO DAILY #30 tablet 10/29/19 02/16/20 Rx albuterol sulfate 2.5 mg INHALATION Q4-6H #200 vial 12/08/19 02/16/20 Rx amlodipine 10 mg tablet 10 mg PO DAILY #90 tablet 12/08/19 02/16/20 Rx modafinil 200 mg tablet 200 mg PO QAM #30 tablet 01/20/20 02/16/20 Rx losartan 50 mg PO DAILY 02/05/20 02/16/20 History insulin asp prt-insulin aspart 28 units SUBCUT DAILY@0630 #0 ml 02/08/20 02/16/20 Rx [Novolog Mix 70-30 U-100 Insuln] ipratropium bromide 0.02 % 2.5 ml CONTINUOUS NEBULIZATION QID 02/09/20 02/16/20 Rx solution for inhalation #150 ml Allergies Allergy/AdvReac Type Severity Reaction Status Date / Time povidone-iodine Allergy Unknown Unknown Verified 02/09/20 12:29 tetracycline Allergy Unknown Unknown Verified 02/09/20 12:29 SOAP Allergy Unknown Unknown Uncoded 02/09/20 12:29 THEOPHYLLINE ANHYDROUS AdvReac Mild GETS Uncoded 02/09/20 12:29 NERVOUS Vital Signs Vital Signs - 24 hr 02/15/20 17:35 02/15/20 18:19 02/15/20 20:20 Temperat
--- NOTE | 2020-02-16 00:32 | ADMGEN ---
This patient, Braydon Cole, was admitted to Intensive Care Unit-7. Patient/family oriented to hospital policies and general routines including ID bracelet, bed and alarms, visiting hours, pain management, procedures, bathroom and other care routines, personal items, smoking policy, room service/diet, and visiting hours. Valuables list has been completed. Information on how to activate the Rapid Response Team has been discussed. Patient/Family are encouraged to report perceived risks to care and to ask questions if they do not understand what they are told or what they should do.
[2020-02-16 00:34] LABS: Alveolar/Arterial O2 Gradient 121.4 mmHg; Base Excess ABG 5.9 mEq/l (+/-2.0); Fractional Inspired Oxygen 40 %; HCO3 ABG 35.2 mEq/l (22.0-26.0); Oxygen Content ABG 14.5 %vol (16.0-22.0); Oxygen Saturation ABG 90.7 % (95.0-100.0); Oxyhemoglobin 91.6 % THb (90.0-100.0); PO2 ABG 70.7 mmHg (80.0-100.0); PO2 FiO2 Ratio Arterial Blood 1.77 %; Total Hemoglobin 11.2 g/dL (12.0-18.0)
[2020-02-16 00:36] LABS: Device NASAL CANNULA; Site Drawn LEFT BRACHIAL; pH ABG 7.256 (7.350-7.450)
[2020-02-16 02:20] LABS: Glucose Point of Care 211 (65-105)
[2020-02-16 02:51] LABS: Base Excess ABG 7.8 mEq/l (+/-2.0); Fractional Inspired Oxygen 50 %; HCO3 ABG 39.4 mEq/l (22.0-26.0); Oxygen Saturation ABG 93.4 % (95.0-100.0); PO2 ABG 82.2 mmHg (80.0-100.0); PO2 FiO2 Ratio Arterial Blood 1.64 %
[2020-02-16 02:54] LABS: PCO2 ABG 94.5 mmHg (35.0-45.0); pH ABG 7.238 (7.350-7.450)
[2020-02-16 02:55] LABS: Device NON-INVASIVE VENT; Modified Allen's Test Pass; Site Drawn RIGHT RADIAL
[2020-02-16 02:56] LABS: Non-Invasive Expiratory Pressure 6 CMH2O; Non-Invasive Inspiratory Pressure 12 CMH2O; Non-Invasive Vent Rate 20 /MIN
[2020-02-16 04:54] LABS: Alveolar/Arterial O2 Gradient 149.7 mmHg; Base Excess ABG 8.9 mEq/l (+/-2.0); Carboxyhemoglobin 0.3 % THb (0-2.0); Fractional Inspired Oxygen 45 %; HCO3 ABG 38.5 mEq/l (22.0-26.0); Methemoglobin ABG 0.5 %THb (0-1.5); Oxygen Content ABG 14.6 %vol (16.0-22.0); Oxygen Saturation ABG 91.9 % (95.0-100.0); Oxyhemoglobin 92.6 % THb (90.0-100.0); PO2 ABG 73.9 mmHg (80.0-100.0); PO2 FiO2 Ratio Arterial Blood 1.64 %; Reduced Hemoglobin 6.6 %THb (0-5.0); Total Hemoglobin 11.2 g/dL (12.0-18.0)
[2020-02-16 04:55] LABS: Modified Allen's Test Pass; PCO2 ABG 85.5 mmHg (35.0-45.0); Site Drawn RIGHT RADIAL; pH ABG 7.271 (7.350-7.450)
[2020-02-16 04:56] LABS: Device NON-INVASIVE VENT; Non-Invasive Expiratory Pressure 10 CMH2O; Non-Invasive Inspiratory Pressure 20 CMH2O; Non-Invasive Vent Rate 20 /MIN
[2020-02-16 06:54] LABS: Basophils Percent Auto 0.2 % (0.2-1.2); Hematocrit 33.3 % (42.0-52.0); Immature Granulocyte Absolute 0.49 K/mm3 (0.00-0.031); Immature Granulocyte Percent A 7.4 % (0-0.5); Lymphocytes Absolute Auto 0.51 K/mm3 (0.9-3.2); Lymphocytes Percent Auto 7.7 % (18.3-44.2); Mean Corpuscular Hemoglobin 27.5 pg (26-34); Mean Corpuscular Volume 91.7 fl (80-100); Mean Platelet Volume 9.9 fl (7.4-10.4); Monocytes Absolute Auto 0.3 K/mm3 (0.1-0.6); Monocytes Percent Auto 5.2 % (2.6-8.5); Neutrophils Absolute Auto 5.2 K/mm3 (1.3-6.7); Neutrophils Percent Auto 79.5 % (45.5-73.1); Platelet Count Result 245 k/mm3 (150-375); Red Blood Count 3.63 M/mm3 (4.6-6.20); Red Cell Distribution Width 12.2 % (11.5-14.5); White Blood Count 6.6 K/mm3 (4.5-10.0)
[2020-02-16 07:07] LABS: Anion Gap 9.99999 mmol/L (8-16); Blood Urea Nitrogen 26 mg/dL (9-20); Calcium 8.5 mg/dL (8.4-10.2); Carbon Dioxide > 40 mmol/L (22-30); Chloride 94 mmol/L (98-107); Estimated CRCL calculation 80 ml/min; Estimated Glomerular Filt Rate 60; Glucose 223 mg/dL (75-110); Potassium 5.7 mmol/L (3.4-5.0); Sodium 144 mmol/L (137-145)
[2020-02-16 08:45] LABS: Alveolar/Arterial O2 Gradient 132.8 mmHg; Base Excess ABG 9.8 mEq/l (+/-2.0); Carboxyhemoglobin 0.3 % THb (0-2.0); Fractional Inspired Oxygen 45 %; HCO3 ABG 40.3 mEq/l (22.0-26.0); Methemoglobin ABG 0.4 %THb (0-1.5); Oxygen Content ABG 14.8 %vol (16.0-22.0); Oxygen Saturation ABG 92.1 % (95.0-100.0); Oxyhemoglobin 92.9 % THb (90.0-100.0); PO2 ABG 77.5 mmHg (80.0-100.0); PO2 FiO2 Ratio Arterial Blood 1.72 %; Reduced Hemoglobin 6.4 %THb (0-5.0); Total Hemoglobin 11.3 g/dL (12.0-18.0)
[2020-02-16] MEDS: ENOXAPARIN 40 MG/0.4 ML SYRINGE SUB-Q (08:45)
[2020-02-16] MEDS: PANTOPRAZOLE SODIUM IV 40 MG VIAL IV PUSH (08:46)
[2020-02-16 08:47] LABS: Device NON-INVASIVE VENT; Modified Allen's Test Pass; PCO2 ABG 97.2 mmHg (35.0-45.0); Site Drawn RIGHT RADIAL; pH ABG 7.236 (7.350-7.450)
[2020-02-16 08:48] LABS: Non-Invasive Expiratory Pressure 10 CMH2O; Non-Invasive Inspiratory Pressure 20 CMH2O; Non-Invasive Vent Rate 20 /MIN
--- NOTE | 2020-02-16 08:50 | PCRCNOTE ---
PT IS UNABLE TO DO MDI AT THIS TIME
[2020-02-16] MEDS: acetaZOLAMIDE SODIUM FOR INJ 500 MG VIAL IV PUSH (09:11)
[2020-02-16] MEDS: methylPREDNISolone SOD SUCC 125 MG VIAL IV PUSH (09:55)
[2020-02-16] MEDS: DORNASE ALFA INH SOLN 1 MG/ML 2.5 ML AMP 2.5 MG INHALATION ×2 (12:15→20:29)
[2020-02-16] MEDS: ALBUTEROL SULFATE NEB 2.5 MG/0.5 ML INH 20 MG (12:15)
--- NOTE | 2020-02-16 12:17 | PM.IMPN ---
Progress Note: A&P Assessment and Plan (1) Acute respiratory failure with hypercapnia: Code(s): J96.02 - Acute respiratory failure with hypercapnia Status: Acute Assessment and Plan: patient acute hypercapnic respiratory failure could be related to emphysema worsening of ciliary dyskinesia - patient on BiPAP, BiPAP setting adjusted - will repeat ABGs, in no distress, started him on Solu-Medrol, Pulmozyme, bronchodilators - will have phlebotomy instructor follow the patient - continue azithromycin and ceftriaxone - chest x-ray showed new patchy bilateral airspace opacities consistent with pneumonia (2) Suspected 2019 novel coronavirus infection: Code(s): Z20.828 - Contact with and (suspected) exposure to other viral communicable diseases Status: Acute Assessment and Plan: patient's family including his has been positive for COVID-19 19, patient has been living in a hotel for the last 2 weeks - SAS-CoV-2 PCR has been obtained and pending - continue airborne, droplet, contact isolation/precautions (3) Chronic anemia: Code(s): D64.9 - Anemia, unspecified Status: Chronic Assessment and Plan: anemia of chronic disease, will continue to monitor hemoglobin (4) Primary ciliary dyskinesia: Code(s): Q34.8 - Other specified congenital malformations of respiratory system Status: Chronic Assessment and Plan: patient history of ciliary dyskinesia on oxygen at home, 4 L nasal cannula when sedentary and on 8 L nasal cannula with activity. - Continue bronchodilators, added Pulmozyme - will have pulmonology evaluate the patient (5) Essential (primary) hypertension: Code(s): I10 - Essential (primary) hypertension Status: Chronic Assessment and Plan: blood pressures have been stable, continue to monitor - will give a dose of Diamox as patient takes furosemide and metolazone at home (6) T2DM (type 2 diabetes mellitus): Qualifiers: Diabetes mellitus terminal worker insulin use: with halfway use Diabetes mellitus complication status: without complication Qualified Code(s): E11.9 - Type 2 diabetes mellitus without complications; Z79.4 - correction (current) use of insulin Code(s): E11.9 - Type 2 diabetes mellitus without complications Status: Chronic Assessment and Plan: continue sliding scale insulin Accu-Cheks Subjective Date/time seen: 02/16/20 12:17 Interval history: hypercarbic respiratory failure, pneumonia, suspect COVID-19 44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 Patient presented to the ED 02/15/2020 with complains of shortness of breath /dyspnea which has been worsening 1 day prior to admission. He denies any cough, fevers pain his family including his were tested positive for COVID-19 he has been living in a hotel for the last 2 weeks. While stocking to his she found that he was somewhat confused and brought into the ED. 02/16/2020: Patient seen and examined this morning, is awake, alert, oriented x3, follows simple commands . Patient remains in hypercapnic respiratory failure with worsening pCO2, on BiPAP, settings were changed. Patient in no respiratory distress, still awake, talking and follows commands and re-evaluate with another ABG later today. Patient denies chest pain, pain, nausea vomiting at this time Review of Systems Review of Systems: All systems reviewed & are unremarkable except as noted in HPI and below Exam Const: General: comfortable and no acute distress HENMT: Other: BiPAP mask in place Eyes: Sclera: sclerae normal Pupils: Equal, round and reactive pupils present Neck: Neck: supple Resp: Other: patient not moving much air bilaterally, mild expiratory wheezes Cardio: Rate: regular rate Rhythm: regular rhythm GI: Other: abdominal is sof
[2020-02-16 12:33] LABS: Alveolar/Arterial O2 Gradient 130.2 mmHg; Base Excess ABG 6.9 mEq/l (+/-2.0); Fractional Inspired Oxygen 45 %; Oxygen Content ABG 15.1 %vol (16.0-22.0); Oxygen Saturation ABG 94.4 % (95.0-100.0); Oxyhemoglobin 94.5 % THb (90.0-100.0); PO2 ABG 87.7 mmHg (80.0-100.0); PO2 FiO2 Ratio Arterial Blood 1.95 %; Total Hemoglobin 11.3 g/dL (12.0-18.0)
[2020-02-16 12:35] LABS: Device NON-INVASIVE VENT; Modified Allen's Test Pass; Non-Invasive Expiratory Pressure 10 CMH2O; Non-Invasive Inspiratory Pressure 20 CMH2O; Non-Invasive Vent Rate 24 /MIN; PCO2 ABG 90.5 mmHg (35.0-45.0); Site Drawn RIGHT RADIAL
[2020-02-16] MEDS: INSULIN ASPART (*BKC) 100 UNITS/ML SUB-Q ×2 (12:42→17:33)
[2020-02-16] MEDS: methylPREDNISolone SOD SUCC 125 MG VIAL 60 MG IV PUSH (12:42)
[2020-02-16 12:52] LABS: Glucose Point of Care 277 (65-105)
[2020-02-16 13:12] LABS: SARS-CoV-2 RNA PCR Positive
--- NOTE | 2020-02-16 13:40 | PM.CNPUL ---
Assessment and Plan Assessment and plan (1) Nosocomial pneumonia: Code(s): J18.9 - Pneumonia, unspecified organism; Y95 - Nosocomial condition Status: Acute Assessment and Plan: - would recommend switching from Ceftriaxone to Cefipime and Vancomycin due to recent hospitalization > 48 hours and severe illness with underlying immune compromised state - continue Azithromycin for atypical coverage - Agree [facility] SARS-CoV-2 testing, if positive, he would benefit from Remdisivir treatment (2) Acute respiratory failure with hypoxia and hypercapnia: Code(s): J96.01 - Acute respiratory failure with hypoxia; J96.02 - Acute respiratory failure with hypercapnia Status: Acute Assessment and Plan: change BIPAP to 20/5 repeat ABG a few hours later. If no improvement clinically and by ABG consider intubation and mechanical ventilation with low tidal volume strategy (3) Primary ciliary dyskinesia: Code(s): Q34.8 - Other specified congenital malformations of respiratory system Status: Chronic Assessment and Plan: - nebulized Albuterol 2.5 mg and Atrovent 0.5 mg Q4h for now History of Present Illness History of Present Illness Consult date: 02/16/20 Chief complaint: pneumonia, acute on chronic respiratory Narrative: 44 y/o male with primary ciliary dyskinesia who was recently hospitalized a few weeks ago here for hyponatremia presents with acute hypercapnic and hypoxic respiratory failure with bilateral multilobar pneumnia worse on the right than the left. He is currently on BIPAP 20/10, systemic steroids were started along with nebulized bronchodilators. Ceftriaxone and Azithromycin have also been started. He's still very lethergic and unable to give me a history. Review of Systems Review of Systems: All systems reviewed & are unremarkable except as noted in HPI and below PMFSH Past Medical History Medical History Essential (primary) hypertension Medial epicondylitis, left elbow Primary ciliary dyskinesia Pulmonary emphysema Sleep apnea in adult Tremor of both hands Surgical History Surgical History History of appendectomy History of orthopedic surgery Family History Family History Father Hypertension Grandparent Hypertension Cerebrovascular accident Family history of coronary artery disease Family history of malignant neoplasm of urinary bladder Diabetes mellitus Other Family history of malignant neoplasm of breast Social History Social History Smoking status: Never smoker Tobacco type: smokeless tobacco Smokeless tobacco user: chewing tobacco Second hand tobacco smoke exposure: No Alcohol intake: never Substance use: never Substance use type: does not use Gender identity (if verbalized by the patient): Male Spiritual care concerns: No Meds Home Medications and Allergies Home Medications Medication Instructions Recorded Confirmed Type lansoprazole 30 mg delayed 30 mg PO DAILY #30 tablet 08/03/19 02/16/20 Rx release,disintegrating tablet montelukast 10 mg tablet 10 mg PO DAILY #30 tablet 08/03/19 02/16/20 Rx furosemide 80 mg tablet 80 mg PO QAM #30 tablet 10/29/19 02/16/20 Rx metolazone 5 mg tablet 5 mg PO DAILY #30 tablet 10/29/19 02/16/20 Rx albuterol sulfate 2.5 mg INHALATION Q4-6H #200 vial 12/08/19 02/16/20 Rx amlodipine 10 mg tablet 10 mg PO DAILY #90 tablet 12/08/19 02/16/20 Rx modafinil 200 mg tablet 200 mg PO QAM #30 tablet 01/20/20 02/16/20 Rx losartan 50 mg PO DAILY 02/05/20 02/16/20 History insulin asp prt-insulin aspart 28 units SUBCUT DAILY@0630 #0 ml 02/08/20 02/16/20 Rx [Novolog Mix 70-30 U-100 Insuln] ipratropium bromide 0.02 % 2.5 ml CONTINUOUS NEBULIZATION QID 02/09/20 02/16/20 Rx solution for inhalation #150 ml
[2020-02-16] MEDS: IPRATROPIUM BR 0.02% INH SOLN 0.5 MG/2.5 ML VIAL INHALATION ×3 (13:58→20:29)
[2020-02-16 16:59] LABS: Alveolar/Arterial O2 Gradient 130.1 mmHg; Base Excess ABG 7.5 mEq/l (+/-2.0); Carboxyhemoglobin 0.3 % THb (0-2.0); Fractional Inspired Oxygen 45 %; HCO3 ABG 37.8 mEq/l (22.0-26.0); Methemoglobin ABG 0.4 %THb (0-1.5); Oxygen Content ABG 15.7 %vol (16.0-22.0); Oxygen Saturation ABG 94.3 % (95.0-100.0); Oxyhemoglobin 94.9 % THb (90.0-100.0); PO2 FiO2 Ratio Arterial Blood 1.93 %; Reduced Hemoglobin 4.4 %THb (0-5.0); Total Hemoglobin 11.7 g/dL (12.0-18.0)
[2020-02-16 17:01] LABS: Device NON-INVASIVE VENT; Modified Allen's Test Pass; Non-Invasive Inspiratory Pressure 20 CMH2O; Non-Invasive Vent Rate 18 /MIN; PCO2 ABG 91.2 mmHg (35.0-45.0); Site Drawn LEFT RADIAL; pH ABG 7.235 (7.350-7.450)
[2020-02-16 17:02] LABS: Non-Invasive Expiratory Pressure 5 CMH2O
[2020-02-16] MEDS: REMDESIVIR 200 MG/NS 250 ML 200 MG/250 ML BAG 250 MG IVPB (17:21)
[2020-02-16 17:30] LABS: Glucose Point of Care 338 (65-105)
[2020-02-16] MEDS: ALBUTEROL SULFATE NEB 2.5 MG/0.5 ML INH 5 MG INHALATION ×2 (17:43→20:28)
[2020-02-16 20:51] LABS: Base Excess ABG 5.2 mEq/l (+/-2.0); Fractional Inspired Oxygen 45 %; HCO3 ABG 33.8 mEq/l (22.0-26.0); Oxygen Content ABG 15.8 %vol (16.0-22.0); Oxygen Saturation ABG 90.7 % (95.0-100.0); Oxyhemoglobin 92.1 % THb (90.0-100.0); PO2 FiO2 Ratio Arterial Blood 1.51 %; Total Hemoglobin 12.2 g/dL (12.0-18.0)
[2020-02-16 20:54] LABS: Device NON-INVASIVE VENT; Modified Allen's Test Pass; Non-Invasive Expiratory Pressure 5 CMH2O; Non-Invasive Inspiratory Pressure 24 CMH2O; Non-Invasive Vent Rate 22 /MIN; Site Drawn LEFT RADIAL
[2020-02-17] VITALS (28 sets, daily range): BP systolic 116–148; BP diastolic 66–90; PULSE 68–98; RESP 16–936; TEMP 35.9–36.6; O2SAT 92–99
[2020-02-17] MEDS: IPRATROPIUM BR 0.02% INH SOLN 0.5 MG/2.5 ML VIAL INHALATION ×5 (00:14→21:25)
[2020-02-17] MEDS: ALBUTEROL SULFATE NEB 2.5 MG/0.5 ML INH 5 MG INHALATION ×5 (00:14→21:25)
[2020-02-17 00:42] LABS: Glucose Point of Care 437 (65-105)
[2020-02-17] MEDS: INSULIN ASPART (*BKC) 100 UNITS/ML 11 UNITS SUB-Q (01:23)
[2020-02-17 04:30] LABS: Alveolar/Arterial O2 Gradient 166.7 mmHg; Carboxyhemoglobin 0.3 % THb (0-2.0); Fractional Inspired Oxygen 45 %; HCO3 ABG 35.6 mEq/l (22.0-26.0); Methemoglobin ABG 0.1 %THb (0-1.5); Oxygen Content ABG 13.6 %vol (16.0-22.0); Oxygen Saturation ABG 93.8 % (95.0-100.0); Oxyhemoglobin 93.5 % THb (90.0-100.0); PO2 ABG 75.9 mmHg (80.0-100.0); PO2 FiO2 Ratio Arterial Blood 1.69 %; Reduced Hemoglobin 6.1 %THb (0-5.0); Total Hemoglobin 10.3 g/dL (12.0-18.0); pH ABG 7.332 (7.350-7.450)
[2020-02-17 04:33] LABS: Device NON-INVASIVE VENT; Modified Allen's Test Pass; PCO2 ABG 68.8 mmHg (35.0-45.0); Site Drawn RIGHT RADIAL
[2020-02-17 04:34] LABS: Non-Invasive Expiratory Pressure 5 CMH2O; Non-Invasive Inspiratory Pressure 24 CMH2O; Non-Invasive Vent Rate 22 /MIN
[2020-02-17 06:36] LABS: D Dimer 0.78 ug/mL (<0.48)
[2020-02-17 06:55] LABS: Alanine Aminotransferase 40 U/L (4-50); Anion Gap 9 mmol/L (8-16); Blood Urea Nitrogen 43 mg/dL (9-20); Calcium 8.5 mg/dL (8.4-10.2); Carbon Dioxide 37 mmol/L (22-30); Chloride 92 mmol/L (98-107); Estimated CRCL calculation 70 ml/min; Estimated Glomerular Filt Rate 51; Glucose 503 mg/dL (75-110); Lactate Dehydrogenase 601 U/L (313-618); Magnesium 2.1 mg/dL (1.6-2.3); Phosphorus 1.6 mg/dL (2.5-4.5); Potassium 4.1 mmol/L (3.4-5.0); Sodium 138 mmol/L (137-145)
[2020-02-17 07:05] LABS: Hematocrit 29.8 % (42.0-52.0); Mean Corpuscular HGB Conc 30.2 g/dl (32-36); Mean Corpuscular Hemoglobin 27.7 pg (26-34); Mean Corpuscular Volume 91.7 fl (80-100); Mean Platelet Volume 10.9 fl (7.4-10.4); Platelet Count Result 256 k/mm3 (150-375); Red Blood Count 3.25 M/mm3 (4.6-6.20); Red Cell Distribution Width 12.1 % (11.5-14.5); White Blood Count 4.1 K/mm3 (4.5-10.0)
[2020-02-17 07:19] LABS: CRP 12.1 mg/dL (<1.0)
[2020-02-17] MEDS: DORNASE ALFA INH SOLN 1 MG/ML 2.5 ML AMP 2.5 MG INHALATION ×2 (08:16→21:26)
[2020-02-17] MEDS: ENOXAPARIN 40 MG/0.4 ML SYRINGE SUB-Q ×2 (09:33→20:57)
[2020-02-17] MEDS: PANTOPRAZOLE SODIUM IV 40 MG VIAL IV PUSH (09:34)
[2020-02-17] MEDS: INSULIN DETEMIR 100 UNITS/ML 8 UNITS SUB-Q ×2 (09:34→20:58)
[2020-02-17] MEDS: INSULIN HUMAN REGULAR (*BKC) 100 UNITS/ML 10 UNITS IV PUSH (11:42)
[2020-02-17 11:47] LABS: Glucose Point of Care 485 (65-105)
--- NOTE | 2020-02-17 13:26 | PM.PNPUL ---
Progress Note: A&P Assessment and Plan (1) Pneumonia: Qualifiers: Laterality: bilateral Lung location: unspecified part of lung Pneumonia type: due to unspecified organism Qualified Code(s): J18.9 - Pneumonia, unspecified organism Code(s): J18.9 - Pneumonia, unspecified organism Status: Acute (2) Acute respiratory failure with hypoxia and hypercapnia: Code(s): J96.01 - Acute respiratory failure with hypoxia; J96.02 - Acute respiratory failure with hypercapnia Status: Acute Assessment and Plan: - change BIPAP settings to 20/5 today from 24/5 - continue duonebs Q6h (3) Nosocomial pneumonia: Code(s): J18.9 - Pneumonia, unspecified organism; Y95 - Nosocomial condition Status: Acute Assessment and Plan: Even though this is COVID-19, he may have superimposed bacterial infection. Due to high risk features and baseline immuncompromised state I would recommend continuing current antibiotics for seven days (4) COVID-19: Code(s): U07.1 - COVID-19 Status: Acute Assessment and Plan: agree wtiht Dexamethasone 6 mg daily for 10 days along with Remdisivir for 5-10 days based on clinical response to lack thereof. Time Spent With Patient Time with patient: 25 - 35 minutes Subjective Date/time seen: 02/17/20 13:26 Interval history: Feeling slightly better today. More awake and alert. Blood gas is improving on current BIPAP settings of 24/5, backup rate of 22. CXR slightly improved today. SARS-CoV-2 is postive and Remdesivir was started yesterday afternoon. Review of Systems Review of Systems: All systems reviewed & are unremarkable except as noted in HPI and below Exam Const: General: in distress Neck: Neck: supple and no JVD Resp: Auscultation: clear to auscultation bilaterally, rhonchi, wheezes and diminished lung sounds Other: right> left Cardio: Rate: regular rate Rhythm: regular rhythm Heart sounds: no murmurs Skin: General skin exam: normal color and no rashes or lesions noted Neuro: Other: lethargic, GCS is 13 Extrem: General: normal to inspection, no edema and no pedal edema Objective Data Vital Signs Vital Signs: Vital Signs - 24 hr 02/16/20 14:00 02/16/20 14:18 02/16/20 14:20 Temperature Pulse Rate 80 82 81 Respiratory Rate 18 18 22 H Blood Pressure Pulse Oximetry 94 02/16/20 16:00 02/16/20 16:46 02/16/20 17:43 Temperature 35.5 C L Pulse Rate 79 80 79 Respiratory Rate 18 18 22 H Blood Pressure 120/56 L Pulse Oximetry 92 96 02/16/20 18:00 02/16/20 20:00 02/16/20 20:35 Temperature 36.2 C L Pulse Rate 84 74 74 Respiratory Rate 22 H 22 H Blood Pressure 112/66 Pulse Oximetry 90 91 02/16/20 20:45 02/16/20 21:05 02/16/20 22:00 Temperature Pulse Rate 74 83 79 Respiratory Rate 22 H 24 H Blood Pressure Pulse Oximetry 02/17/20 00:00 02/17/20 00:15 02/17/20 00:16 Temperature 36.3 C L Pulse Rate 92 96 81 Respiratory Rate 24 H 22 H 20 Blood Pressure 136/90 Pulse Oximetry 98 93 02/17/20 00:25 02/17/20 02:00 02/17/20 04:00 Temperature 36.3 C L Pulse Rate 98 97 87 Respiratory Rate 22 H 18 Blood Pressure 117/88 Pulse Oximetry 92 02/17/20 04:16 02/17/20 04:17 02/17/20 06:00 Temperature Pulse Rate 86 86 90 Respiratory Rate 936 H 23 H Blood Pressure Pulse Oximetry 92 02/17/20 08:00 02/17/20 08:16 02/17/20 08:30 Temperature 35.9 C L Pulse Rate 78 90 79 Respiratory Rate 20 23 H 22 H Blood Pressure 128/72 Pulse Oximetry 98 98 02/17/20 11:37 02/17/20 11:38 Temperature Pulse Rate 74 77 Respiratory Rate 22 H 26 H Blood Pressure Pulse Oximetry 95 Intake/Output Intake/Output: Intake & Output 02/14/20 02/15/20 02/16/20 02/17/20 23:59 23:59 23:59 23:59 Intake Total 300 1050 600 Output Total 1550 2625 Balance 300 -330 -5305 Meds/Results Medications: Active Medications Generic Name Dose Route Start Last A
[2020-02-17] MEDS: INSULIN HUMAN REGULAR (*BKC) 100 UNITS in SODIUM CHLORIDE 0.9% IV 99 ML 8.5 UNITS IV CONT (13:55)
--- NOTE | 2020-02-17 18:17 | PM.IMPN ---
Progress Note: A&P Assessment and Plan (1) Acute respiratory failure with hypercapnia: Code(s): J96.02 - Acute respiratory failure with hypercapnia Status: Acute Assessment and Plan: patient acute hypercapnic respiratory failure could be related to emphysema worsening of ciliary dyskinesia, COVID-19 pneumonia - patient on BiPAP, BiPAP setting adjusted - appreciate pulmonology evaluation and recommendations - BiPAP settings per financial business analyst - continue azithromycin and ceftriaxone - chest x-ray showed new patchy bilateral airspace opacities consistent with pneumonia (2) COVID-19: Code(s): U07.1 - COVID-19 Status: Acute Assessment and Plan: patient's family including his has been positive for COVID-19 19, patient has been living in a hotel for the last 2 weeks - SAS-CoV-2 PCR positive - patient with: 19 pneumonia - LDH is normal, elevated D-dimer and CRP - continue airborne, droplet, contact isolation/precautions - started patient on dexamethasone and Remdesivir on 02/17/2020 (3) Chronic anemia: Code(s): D64.9 - Anemia, unspecified Status: Chronic Assessment and Plan: anemia of chronic disease, will continue to monitor hemoglobin (4) Primary ciliary dyskinesia: Code(s): Q34.8 - Other specified congenital malformations of respiratory system Status: Chronic Assessment and Plan: patient history of ciliary dyskinesia on oxygen at home, 4 L nasal cannula when sedentary and on 8 L nasal cannula with activity. - Continue bronchodilators, added Pulmozyme - pulmonology following (5) Essential (primary) hypertension: Code(s): I10 - Essential (primary) hypertension Status: Chronic Assessment and Plan: blood pressures have been stable, continue to monitor - will give a dose of Diamox as patient takes furosemide and metolazone at home (6) T2DM (type 2 diabetes mellitus): Qualifiers: Diabetes mellitus watermaster insulin use: with watermaster use Diabetes mellitus complication status: without complication Qualified Code(s): E11.9 - Type 2 diabetes mellitus without complications; Z79.4 - MCC (current) use of insulin Code(s): E11.9 - Type 2 diabetes mellitus without complications Status: Chronic Assessment and Plan: continue sliding scale insulin Accu-Cheks - significant hyperglycemia started patient on insulin infusion for better blood sugar control (7) DVT prophylaxis: Code(s): Z29.9 - Encounter for prophylactic measures, unspecified Status: Acute Assessment and Plan: Lovenox subcu 40 mg q.12 Additional Plan discussed with patient updated with his condition and plan of care code status: Full code Subjective Date/time seen: 02/17/20 18:17 Interval history: hypercarbic respiratory failure, pneumonia, suspect COVID-19 44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 Patient presented to the ED 02/15/2020 with complains of shortness of breath /dyspnea which has been worsening 1 day prior to admission. He denies any cough, fevers pain his family including his were tested positive for COVID-19 he has been living in a hotel for the last 2 weeks. While stocking to his she found that he was somewhat confused and brought into the ED. 02/17/2020: Patient seen examined this morning, is awake, alert, oriented, nonfocal, follows simple commands. ABGs with much improved gases. Patient afebrile, good urine output, hemodynamically stable, denies any chest pain, abdominal pain, nausea vomiting at this time - SARS-CoV-2 PCR positive for COVID-19 pneumonia Review of Systems Review of Systems: All systems reviewed & are unremarkable except as noted in HPI and below Exam Const: General: comfortable and no acute distress HENMT: Other: BiPAP mask
[2020-02-17] MEDS: REMDESIVIR 100 MG/NS 250 ML 100 MG/250 ML BAG 250 MG IVPB (18:29)
[2020-02-17 19:54] LABS: Glucose Point of Care 195 (65-105)
[2020-02-17 21:05] LABS: Glucose Point of Care 138 (65-105)
[2020-02-17 23:19] LABS: Glucose Point of Care 380 (65-105)
[2020-02-17 23:19] LABS: Glucose Point of Care 187 (65-105)
[2020-02-17 23:19] LABS: Glucose Point of Care 442 (65-105)
[2020-02-17 23:19] LABS: Glucose Point of Care 348 (65-105)
[2020-02-17 23:19] LABS: Glucose Point of Care 433 (65-105)
[2020-02-17 23:19] LABS: Glucose Point of Care 169 (65-105)
[2020-02-17 23:20] LABS: Glucose Point of Care 290 (65-105)
[2020-02-18] VITALS (31 sets, daily range): BP systolic 102–132; BP diastolic 64–81; PULSE 59–78; RESP 15–28; TEMP 36.2–36.8; O2SAT 92–98
[2020-02-18] MEDS: INSULIN HUMAN REGULAR (*BKC) 100 UNITS in SODIUM CHLORIDE 0.9% IV 99 ML 6.5 UNITS IV CONT (00:02)
[2020-02-18 01:25] LABS: Glucose Point of Care 169 (65-105)
[2020-02-18 01:25] LABS: Glucose Point of Care 133 (65-105)
[2020-02-18 02:35] LABS: Glucose Point of Care 120 (65-105)
--- NOTE | 2020-02-18 02:41 | PCRCNOTE ---
Window of time for administration has passed. See next scheduled administration.
[2020-02-18 03:43] LABS: Glucose Point of Care 123 (65-105)
[2020-02-18 04:41] LABS: Glucose Point of Care 186 (65-105)
[2020-02-18] MEDS: IPRATROPIUM BR 0.02% INH SOLN 0.5 MG/2.5 ML VIAL INHALATION ×7 (04:59→23:05)
[2020-02-18] MEDS: ALBUTEROL SULFATE NEB 2.5 MG/0.5 ML INH 5 MG INHALATION ×4 (05:00→12:50)
[2020-02-18 05:42] LABS: Hematocrit 29.5 % (42.0-52.0); Hemoglobin 9.3 g/dL (14.0-18.0); Mean Corpuscular HGB Conc 31.5 g/dl (32-36); Mean Corpuscular Hemoglobin 28.4 pg (26-34); Mean Corpuscular Volume 89.9 fl (80-100); Mean Platelet Volume 10.3 fl (7.4-10.4); Platelet Count Result 281 k/mm3 (150-375); Red Blood Count 3.28 M/mm3 (4.6-6.20); Red Cell Distribution Width 12.1 % (11.5-14.5); White Blood Count 5.8 K/mm3 (4.5-10.0)
[2020-02-18 05:54] LABS: Alveolar/Arterial O2 Gradient 141.2 mmHg; Base Excess ABG 4.8 mEq/l (+/-2.0); Carboxyhemoglobin 0.3 % THb (0-2.0); Fractional Inspired Oxygen 40 %; HCO3 ABG 30.9 mEq/l (22.0-26.0); Methemoglobin ABG 0.3 %THb (0-1.5); Oxygen Content ABG 17.2 %vol (16.0-22.0); Oxyhemoglobin 95.2 % THb (90.0-100.0); PCO2 ABG 52.3 mmHg (35.0-45.0); PO2 ABG 83.9 mmHg (80.0-100.0); Reduced Hemoglobin 4.2 %THb (0-5.0); Total Hemoglobin 12.8 g/dL (12.0-18.0); pH ABG 7.389 (7.350-7.450)
[2020-02-18 05:55] LABS: Device BIPAP; Expiratory Pressure 5 cmH2O; Inspiratory Pressure 20 cmH2O; Site Drawn RIGHT BRACHIAL
[2020-02-18 06:07] LABS: Alanine Aminotransferase 36 U/L (4-50); Anion Gap 7 mmol/L (8-16); Blood Urea Nitrogen 46 mg/dL (9-20); Calcium 8.9 mg/dL (8.4-10.2); Carbon Dioxide 37 mmol/L (22-30); Chloride 101 mmol/L (98-107); Estimated CRCL calculation 69 ml/min; Estimated Glomerular Filt Rate 51; Glucose 210 mg/dL (75-110); Magnesium 2.3 mg/dL (1.6-2.3); Phosphorus 2.3 mg/dL (2.5-4.5); Potassium 3.5 mmol/L (3.4-5.0); Sodium 145 mmol/L (137-145)
[2020-02-18 06:35] LABS: Glucose Point of Care 193 (65-105)
[2020-02-18 06:35] LABS: Glucose Point of Care 153 (65-105)
[2020-02-18 07:58] LABS: Glucose Point of Care 121 (65-105)
[2020-02-18] MEDS: PANTOPRAZOLE SODIUM IV 40 MG VIAL IV PUSH (08:40)
[2020-02-18] MEDS: ENOXAPARIN 40 MG/0.4 ML SYRINGE SUB-Q ×2 (08:40→20:01)
[2020-02-18] MEDS: DORNASE ALFA INH SOLN 1 MG/ML 2.5 ML AMP 2.5 MG INHALATION ×2 (08:45→19:11)
[2020-02-18 08:50] LABS: Glucose Point of Care 126 (65-105)
--- NOTE | 2020-02-18 13:03 | PM.IMPN ---
Progress Note: A&P Assessment and Plan (1) Acute respiratory failure with hypercapnia: Code(s): J96.02 - Acute respiratory failure with hypercapnia Status: Acute Assessment and Plan: patient acute hypercapnic respiratory failure could be related to emphysema worsening of ciliary dyskinesia, COVID-19 pneumonia - currently on BiPAP, with switched to high-flow nasal cannula with intermittent BiPAP as needed - appreciate pulmonology evaluation and recommendations - continue azithromycin and ceftriaxone - chest x-ray with improving acute on chronic reticulonodular airspace disease, likely infectious process (2) COVID-19: Code(s): U07.1 - COVID-19 Status: Acute Assessment and Plan: patient's family including his has been positive for COVID-19 19, patient has been living in a hotel for the last 2 weeks - SAS-CoV-2 PCR positive - patient with: 19 pneumonia - LDH is normal, elevated D-dimer and CRP - continue airborne, droplet, contact isolation/precautions - started patient on dexamethasone and Remdesivir on 02/17/2020 (3) Chronic anemia: Code(s): D64.9 - Anemia, unspecified Status: Chronic Assessment and Plan: anemia of chronic disease, will continue to monitor hemoglobin (4) Primary ciliary dyskinesia: Code(s): Q34.8 - Other specified congenital malformations of respiratory system Status: Chronic Assessment and Plan: patient history of ciliary dyskinesia on oxygen at home, 4 L nasal cannula when sedentary and on 8 L nasal cannula with activity. - Continue bronchodilators, added Pulmozyme - pulmonology following (5) Essential (primary) hypertension: Code(s): I10 - Essential (primary) hypertension Status: Chronic Assessment and Plan: blood pressures have been stable, continue to monitor - (6) T2DM (type 2 diabetes mellitus): Qualifiers: Diabetes mellitus terminal carman insulin use: with terminal carman use Diabetes mellitus complication status: without complication Qualified Code(s): E11.9 - Type 2 diabetes mellitus without complications; Z79.4 - rat exterminator (current) use of insulin Code(s): E11.9 - Type 2 diabetes mellitus without complications Status: Chronic Assessment and Plan: continue sliding scale insulin Accu-Cheks - significant hyperglycemia started patient on insulin infusion for better blood sugar control (7) DVT prophylaxis: Code(s): Z29.9 - Encounter for prophylactic measures, unspecified Status: Acute Assessment and Plan: Lovenox subcu 40 mg q.12 Additional Plan discussed with patient updated with his condition and plan of care code status: Full code Subjective Date/time seen: 02/18/20 13:03 Interval history: Hypercarbic respiratory failure, pneumonia, SARS-CoV-2 PCR positive for COVID-19 44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 Patient presented to the ED 02/15/2020 with complains of shortness of breath /dyspnea which has been worsening 1 day prior to admission. He denies any cough, fevers pain his family including his were tested positive for COVID-19 he has been living in a hotel for the last 2 weeks. While stocking to his she found that he was somewhat confused and brought into the ED. 02/18/2020: patient seen examined this morning, is much more awake, alert, oriented, nonfocal and follows simple commands. PCO2 was 52 this morning on the ABG ,, urine output has been adequate, hemodynamically, afebrile Review of Systems Review of Systems: All systems reviewed & are unremarkable except as noted in HPI and below Exam Const: General: comfortable, no acute distress and in distress HENMT: Other: BiPAP mask in place Eyes: Sclera: sclerae normal Pupils: Equal, round and reactive pupils present Neck: Neck: suppl
--- NOTE | 2020-02-18 14:59 | PM.PNPUL ---
Progress Note: A&P Assessment and Plan (1) Pneumonia: Qualifiers: Laterality: bilateral Lung location: unspecified part of lung Pneumonia type: due to unspecified organism Qualified Code(s): J18.9 - Pneumonia, unspecified organism Code(s): J18.9 - Pneumonia, unspecified organism Status: Acute (2) Acute respiratory failure with hypoxia and hypercapnia: Code(s): J96.01 - Acute respiratory failure with hypoxia; J96.02 - Acute respiratory failure with hypercapnia Status: Acute Assessment and Plan: - ABG has normalized, recommend changing his BIPAP back to home settings of 16/11 cm H20 QHS and while napping. - continue daily AM ABGs - continue duonebs Q6h - PT/OT and mobilzation, up into chair daily - avoid sedatives and narcotics if possible (3) Nosocomial pneumonia: Code(s): J18.9 - Pneumonia, unspecified organism; Y95 - Nosocomial condition Status: Acute Assessment and Plan: Even though this is COVID-19, he may have superimposed bacterial infection. Due to high risk features and baseline immuncompromised state I would recommend continuing current antibiotics for seven days (4) COVID-19: Code(s): U07.1 - COVID-19 Status: Acute Assessment and Plan: agree wtiht Dexamethasone 6 mg daily for 10 days along with Remdisivir for 5-10 days based on clinical response to lack thereof. Time Spent With Patient Time with patient: 25 - 35 minutes Subjective Date/time seen: 02/18/20 14:59 Interval history: Feeling better. Off BIPAP when seen this afternoon and on high flow, napping. Says he's feeling better. Appetite is still poor, no significant sputum production. He says he wears BIPAP at home for [place] with pressures of 16/11 cm H20 Review of Systems Review of Systems: All systems reviewed & are unremarkable except as noted in HPI and below Exam Const: General: in distress Neck: Neck: supple and no JVD Resp: Auscultation: rhonchi, wheezes and diminished lung sounds Other: right> left Cardio: Rate: regular rate Rhythm: regular rhythm Heart sounds: no murmurs Skin: General skin exam: normal color and no rashes or lesions noted Neuro: Other: lethargic, GCS is 13 Extrem: General: normal to inspection, no edema and no pedal edema Objective Data Vital Signs Vital Signs: Vital Signs - 24 hr 02/17/20 16:00 02/17/20 16:19 02/17/20 16:22 Temperature 36.6 C Pulse Rate 84 79 79 Respiratory Rate 16 21 H 22 H Blood Pressure 141/77 H Pulse Oximetry 94 94 02/17/20 17:50 02/17/20 18:00 02/17/20 19:45 Temperature 36.2 C L Pulse Rate 68 86 70 Respiratory Rate 22 H 20 Blood Pressure 133/82 Pulse Oximetry 94 97 02/17/20 20:00 02/17/20 21:26 02/17/20 21:28 Temperature Pulse Rate 85 72 72 Respiratory Rate 22 H 22 H Blood Pressure Pulse Oximetry 98 02/17/20 21:34 02/17/20 22:00 02/18/20 00:00 Temperature 36.4 C L Pulse Rate 70 70 76 Respiratory Rate 22 H 17 22 H Blood Pressure 148/70 H 123/76 Pulse Oximetry 98 97 02/18/20 02:00 02/18/20 04:00 02/18/20 04:56 Temperature 36.4 C Pulse Rate 67 74 64 Respiratory Rate 21 H 17 23 H Blood Pressure 128/68 122/79 Pulse Oximetry 97 95 95 02/18/20 05:00 02/18/20 05:19 02/18/20 06:00 Temperature Pulse Rate 59 L 76 73 Respiratory Rate 23 H 24 H 20 Blood Pressure 117/72 Pulse Oximetry 92 02/18/20 07:42 02/18/20 08:00 02/18/20 08:45 Temperature 36.5 C Pulse Rate 68 78 Respiratory Rate 22 H 23 H Blood Pressure 132/71 Pulse Oximetry 96 96 02/18/20 08:50 02/18/20 08:55 02/18/20 09:55 Temperature Pulse Rate 72 76 76 Respiratory Rate 28 H 20 20 Blood Pressure Pulse Oximetry 97 92 02/18/20 10:00 02/18/20 12:00 02/18/20 14:00 Temperature 36.2 C L Pulse Rate 76 67 70 Respiratory Rate 15 15 18 Blood Pressure 125/75 124/69 102/64 Pulse Oximetry 97 98 92 Intake/Output Intake/Output: Intake & Output 02/14
[2020-02-18] MEDS: ALBUTEROL SULFATE NEB 2.5 MG/0.5 ML INH INHALATION ×3 (16:00→23:05)
[2020-02-18] MEDS: INSULIN HUMAN REGULAR (*BKC) 100 UNITS in SODIUM CHLORIDE 0.9% IV 99 ML 11.9 UNITS IV CONT (16:25)
[2020-02-18] MEDS: REMDESIVIR 100 MG/NS 250 ML 100 MG/250 ML BAG 250 MG IVPB (16:39)
[2020-02-18 16:53] LABS: Vancomycin Trough 19.4 ug/mL (10.0-20.0)
[2020-02-18 18:47] LABS: Glucose Point of Care 192 (65-105)
[2020-02-18 18:47] LABS: Glucose Point of Care 96 (65-105)
[2020-02-18 18:47] LABS: Glucose Point of Care 173 (65-105)
[2020-02-18 18:47] LABS: Glucose Point of Care 120 (65-105)
[2020-02-18 18:47] LABS: Glucose Point of Care 177 (65-105)
[2020-02-18 18:47] LABS: Glucose Point of Care 145 (65-105)
[2020-02-18 18:47] LABS: Glucose Point of Care 151 (65-105)
[2020-02-18 18:47] LABS: Glucose Point of Care 156 (65-105)
[2020-02-18 18:47] LABS: Glucose Point of Care 133 (65-105)
[2020-02-18 18:47] LABS: Glucose Point of Care 124 (65-105)
[2020-02-18 20:25] LABS: Glucose Point of Care 100 (65-105)
[2020-02-18 20:49] LABS: Glucose Point of Care 166 (65-105)
[2020-02-18 22:00] LABS: Glucose Point of Care 206 (65-105)
[2020-02-19] VITALS (28 sets, daily range): BP systolic 109–143; BP diastolic 48–98; PULSE 63–88; RESP 13–22; TEMP 36.4–36.7; O2SAT 89–100
[2020-02-19 00:22] LABS: Glucose Point of Care 130 (65-105)
[2020-02-19 02:08] LABS: Glucose Point of Care 92 (65-105)
[2020-02-19] MEDS: ALBUTEROL SULFATE NEB 2.5 MG/0.5 ML INH INHALATION ×4 (04:23→19:56)
[2020-02-19] MEDS: IPRATROPIUM BR 0.02% INH SOLN 0.5 MG/2.5 ML VIAL INHALATION ×4 (04:23→19:57)
[2020-02-19 04:41] LABS: Alveolar/Arterial O2 Gradient 112.3 mmHg; Base Excess ABG 4.7 mEq/l (+/-2.0); Carboxyhemoglobin 0.3 % THb (0-2.0); Fractional Inspired Oxygen 35 %; HCO3 ABG 28.8 mEq/l (22.0-26.0); Methemoglobin ABG 0.3 %THb (0-1.5); Oxygen Content ABG 14.5 %vol (16.0-22.0); Oxygen Saturation ABG 97.2 % (95.0-100.0); Oxyhemoglobin 95.9 % THb (90.0-100.0); PCO2 ABG 41.2 mmHg (35.0-45.0); PO2 ABG 89.4 mmHg (80.0-100.0); PO2 FiO2 Ratio Arterial Blood 2.55 %; Reduced Hemoglobin 3.5 %THb (0-5.0); Total Hemoglobin 10.7 g/dL (12.0-18.0); pH ABG 7.463 (7.350-7.450)
[2020-02-19 04:42] LABS: Device BIPAP; Expiratory Pressure 11 cmH2O; Inspiratory Pressure 16 cmH2O; Modified Allen's Test Pass; Site Drawn RIGHT RADIAL
[2020-02-19 04:44] LABS: Hematocrit 27.4 % (42.0-52.0); Hemoglobin 8.5 g/dL (14.0-18.0); Mean Corpuscular Hemoglobin 27.8 pg (26-34); Mean Corpuscular Volume 89.5 fl (80-100); Mean Platelet Volume 10.2 fl (7.4-10.4); Platelet Count Result 331 k/mm3 (150-375); Red Blood Count 3.06 M/mm3 (4.6-6.20); Red Cell Distribution Width 12.3 % (11.5-14.5); White Blood Count 8.6 K/mm3 (4.5-10.0)
[2020-02-19 04:56] LABS: D Dimer 0.39 ug/mL (<0.48)
[2020-02-19 05:08] LABS: Glucose Point of Care 116 (65-105)
[2020-02-19 06:06] LABS: Glucose Point of Care 125 (65-105)
[2020-02-19] MEDS: INSULIN HUMAN REGULAR (*BKC) 100 UNITS in SODIUM CHLORIDE 0.9% IV 99 ML 5.4 UNITS IV CONT (07:55)
[2020-02-19] MEDS: FUROSEMIDE INJ 40 MG/4 ML VIAL IV PUSH (08:12)
[2020-02-19] MEDS: PANTOPRAZOLE SODIUM IV 40 MG VIAL IV PUSH (08:13)
[2020-02-19] MEDS: ENOXAPARIN 40 MG/0.4 ML SYRINGE SUB-Q ×2 (08:13→20:28)
[2020-02-19] MEDS: DORNASE ALFA INH SOLN 1 MG/ML 2.5 ML AMP 2.5 MG INHALATION ×2 (08:23→19:56)
[2020-02-19 10:05] LABS: Alanine Aminotransferase 32 U/L (4-50); Anion Gap 9 mmol/L (8-16); Blood Urea Nitrogen 40 mg/dL (9-20); CRP 3.3 mg/dL (<1.0); Calcium 8.9 mg/dL (8.4-10.2); Carbon Dioxide 34 mmol/L (22-30); Chloride 97 mmol/L (98-107); Estimated CRCL calculation 75 ml/min; Estimated Glomerular Filt Rate 55; Glucose 168 mg/dL (75-110); Lactate Dehydrogenase 512 U/L (313-618); Magnesium 1.8 mg/dL (1.6-2.3); Phosphorus 3.2 mg/dL (2.5-4.5); Potassium 3.7 mmol/L (3.4-5.0); Sodium 140 mmol/L (137-145)
[2020-02-19] MEDS: INSULIN DETEMIR 100 UNITS/ML 40 UNITS SUB-Q ×2 (10:30→20:28)
[2020-02-19 11:58] LABS: Glucose Point of Care 128 (65-105)
[2020-02-19 11:58] LABS: Glucose Point of Care 203 (65-105)
[2020-02-19 11:58] LABS: Glucose Point of Care 181 (65-105)
--- NOTE | 2020-02-19 12:07 | WPDINTPN ---
Progress Note: A&P Assessment and Plan (1) Acute respiratory failure with hypercapnia: Code(s): J96.02 - Acute respiratory failure with hypercapnia Status: Acute Assessment and Plan: patient acute hypercapnic respiratory failure could be related to emphysema worsening of ciliary dyskinesia, COVID-19 pneumonia - currently on high flow 8 L nasal cannula, BiPAP at home settings at night. - appreciate pulmonology evaluation and recommendations - continue azithromycin and ceftriaxone - chest x-ray with improving acute on chronic reticulonodular airspace disease, likely infectious process (2) COVID-19: Code(s): U07.1 - COVID-19 Status: Acute Assessment and Plan: patient's family including his has been positive for COVID-19 19, patient has been living in a hotel for the last 2 weeks - SAS-CoV-2 PCR positive - patient with: 19 pneumonia - LDH is normal, elevated D-dimer and CRP - continue airborne, droplet, contact isolation/precautions - started patient on dexamethasone and Remdesivir on 02/17/2020 (3) Chronic anemia: Code(s): D64.9 - Anemia, unspecified Status: Chronic Assessment and Plan: Hemoglobin stable, will continue to monitor (4) Primary ciliary dyskinesia: Code(s): Q34.8 - Other specified congenital malformations of respiratory system Status: Chronic Assessment and Plan: patient history of ciliary dyskinesia on oxygen at home, 4 L nasal cannula when sedentary and on 8 L nasal cannula with activity. - Continue bronchodilators, added Pulmozyme - pulmonology following (5) Essential (primary) hypertension: Code(s): I10 - Essential (primary) hypertension Status: Chronic Assessment and Plan: blood pressures have been stable, continue to monitor (6) T2DM (type 2 diabetes mellitus): Qualifiers: Diabetes mellitus group home insulin use: with group home use Diabetes mellitus complication status: without complication Qualified Code(s): E11.9 - Type 2 diabetes mellitus without complications; Z79.4 - ad terminal makeup operator (current) use of insulin Code(s): E11.9 - Type 2 diabetes mellitus without complications Status: Chronic (7) DVT prophylaxis: Code(s): Z29.9 - Encounter for prophylactic measures, unspecified Status: Acute Assessment and Plan: patient has been on insulin infusion for the last 48 hours, will switch to Levemir 40 units subcu q.12 hours - continue monitor blood sugars closely Additional Plan discussed with patient updated with his condition and plan of care - will get PT/OT to follow the patient - up in chair code status: Full code critical care time spent: 33 minutes Subjective Date/time seen: 02/19/20 12:07 Interval history: Hypercarbic respiratory failure, pneumonia, SARS-CoV-2 PCR positive for COVID-19 44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 Patient presented to the ED 02/15/2020 with complains of shortness of breath /dyspnea which has been worsening 1 day prior to admission. He denies any cough, fevers pain his family including his were tested positive for COVID-19 he has been living in a hotel for the last 2 weeks. While stocking to his she found that he was somewhat confused and brought into the ED. 02/19/2020: Patient is awake, alert, oriented, nonfocal, follows simple commands. PCO2 1 ABGs this morning was 41. Patient wants to sit up in the chair and use the restroom. patient did wear his BiPAP with home settings overnight. Is currently on 8 L high-flow oxygen. Urine output has been adequate, hemodynamically stable, afebrile. Review of Systems Review of Systems: All systems reviewed & are unremarkable except as noted in HPI and below Exam Const: General: comfortable, no acute distress and in distress HENMT:
[2020-02-19] MEDS: INSULIN ASPART (*BKC) 100 UNITS/ML SUB-Q (12:29)
--- NOTE | 2020-02-19 13:23 | PCPTNOTE ---
Attempted PT eval at 13:20- just received and eating his lunch. Will try later.
[2020-02-19] MEDS: REMDESIVIR 100 MG/NS 250 ML 100 MG/250 ML BAG 250 MG IVPB (16:09)
[2020-02-19] MEDS: INSULIN ASPART (*BKC) 100 UNITS/ML 10 UNITS SUB-Q (17:45)
--- NOTE | 2020-02-19 17:45 | PM.IMPN ---
Progress Note: A&P Assessment and Plan (1) Acute respiratory failure with hypercapnia: Code(s): J96.02 - Acute respiratory failure with hypercapnia Status: Acute Assessment and Plan: Repeat ABG demonstrated worsening hypercapnia. The patient will be admitted to IMU. We will initiate BiPAP support and obtain another ABG in 1 hour. Will titrate BiPAP and consider endotracheal intubation and mechanical ventilation if necessary overnight. Continue bronchodilators. We will initiate dexamethasone 6 mg IV daily. NPO overnight. RT assess and treat. 02/19/20 17:45 patient is a 44-year-old male with history of primary ciliary dyskinesia and chronic respiratory failure on home oxygen and BiPAP he presented emergency department with hypercapnic respiratory failure patient was found to be positive for COVID-19 has been treated with dexamethasone and remdesivir he seen by recruiting administrator and cupola melter helper symptoms are improving, I spoke with alisia over the phone outside is last currently sitting in the chair is feeling much better compared to when he arrived, he denies any fevers, spoke with cupola melter helper his clinically has improved and will be transferred out of ICU to medical floor will continue to monitor. (2) Suspected 2019 novel coronavirus infection: Code(s): Z20.828 - Contact with and (suspected) exposure to other viral communicable diseases Status: Deleted Assessment and Plan: Patient has been swab for ambrosio virus. Continue droplet isolation. Continue supportive care. COVID results are pending. (3) Chronic anemia: Code(s): D64.9 - Anemia, unspecified Status: Chronic Assessment and Plan: Likely anemia of chronic disease. No signs of acute blood loss at this time. Monitor H&H. Transfuse p.r.n.. (4) Primary ciliary dyskinesia: Code(s): Q34.8 - Other specified congenital malformations of respiratory system Status: Chronic (5) Pulmonary emphysema: Qualifiers: Emphysema type: unspecified Qualified Code(s): J43.9 - Emphysema, unspecified Code(s): J43.9 - Emphysema, unspecified Status: Chronic Assessment and Plan: continue bronchodilators. (6) Essential (primary) hypertension: Code(s): I10 - Essential (primary) hypertension Status: Chronic Assessment and Plan: Monitor blood pressure. Continue home losartan and amlodipine. (7) T2DM (type 2 diabetes mellitus): Qualifiers: Diabetes mellitus nursing home insulin use: with manager terminal use Diabetes mellitus complication status: without complication Qualified Code(s): E11.9 - Type 2 diabetes mellitus without complications; Z79.4 - manager terminal (current) use of insulin Code(s): E11.9 - Type 2 diabetes mellitus without complications Status: Chronic Assessment and Plan: Accu-Cheks, sliding scale insulin coverage, hypoglycemia protocol. Resume home insulin therapy when the patient is eating again. Subjective Date/time seen: 02/19/20 17:45 patient is a 44-year-old male with history of primary ciliary dyskinesia and chronic respiratory failure on home oxygen and BiPAP he presented emergency department with hypercapnic respiratory failure patient was found to be positive for COVID-19 has been treated with dexamethasone and remdesivir he seen by recruiting administrator and cupola melter helper symptoms are improving, I spoke with alisia over the phone outside is last currently sitting in the chair is feeling much better compared to when he arrived, he denies any fevers, spoke with cupola melter helper his clinically has improved and will be transferred out of ICU to medical floor will continue to monitor. Review of Systems Review of Systems: All systems reviewed & are unremarkable except as noted in HPI and below Exam Narrative: Exam Narrative: patient is sitting in the chair I spoke with the patient is feeling much better not a short of breath as when he arrived Const: General
[2020-02-19 17:54] LABS: Glucose Point of Care 403 (65-105)
--- NOTE | 2020-02-19 19:02 | PC.NURSE ---
Pt arrived to floor 1845.
[2020-02-19 21:44] LABS: Glucose Point of Care 345 (65-105)
[2020-02-20] VITALS (16 sets, daily range): BP systolic 117–129; BP diastolic 59–84; PULSE 57–84; RESP 18–20; TEMP 36.4–37.1; O2SAT 94–100
[2020-02-20] MEDS: IPRATROPIUM BR 0.02% INH SOLN 0.5 MG/2.5 ML VIAL INHALATION ×4 (02:21→20:52)
[2020-02-20] MEDS: ALBUTEROL SULFATE NEB 2.5 MG/0.5 ML INH INHALATION ×4 (02:21→20:51)
[2020-02-20 06:21] LABS: Mean Corpuscular HGB Conc 31.4 g/dl (32-36); Mean Corpuscular Hemoglobin 27.8 pg (26-34); Mean Corpuscular Volume 88.6 fl (80-100); Platelet Count Result 297 k/mm3 (150-375); Red Blood Count 3.95 M/mm3 (4.6-6.20); Red Cell Distribution Width 12.2 % (11.5-14.5); White Blood Count 10.4 K/mm3 (4.5-10.0)
[2020-02-20 06:44] LABS: Alanine Aminotransferase 26 U/L (4-50); Anion Gap 8 mmol/L (8-16); Blood Urea Nitrogen 45 mg/dL (9-20); Carbon Dioxide 33 mmol/L (22-30); Chloride 97 mmol/L (98-107); Estimated CRCL calculation 79 ml/min; Estimated Glomerular Filt Rate 60; Glucose 232 mg/dL (75-110); Magnesium 1.9 mg/dL (1.6-2.3); Phosphorus 4.1 mg/dL (2.5-4.5); Potassium 4.2 mmol/L (3.4-5.0); Sodium 138 mmol/L (137-145)
[2020-02-20] MEDS: DORNASE ALFA INH SOLN 1 MG/ML 2.5 ML AMP 2.5 MG INHALATION ×2 (08:17→20:51)
[2020-02-20 08:27] LABS: Glucose Point of Care 195 (65-105)
[2020-02-20] MEDS: INSULIN DETEMIR 100 UNITS/ML 40 UNITS SUB-Q ×2 (09:13→20:14)
[2020-02-20] MEDS: PANTOPRAZOLE SODIUM IV 40 MG VIAL IV PUSH (09:15)
[2020-02-20] MEDS: ENOXAPARIN 40 MG/0.4 ML SYRINGE SUB-Q ×2 (09:16→20:13)
--- NOTE | 2020-02-20 12:14 | PM.PNPUL ---
Progress Note: A&P Assessment and Plan (1) Pneumonia: Qualifiers: Laterality: bilateral Lung location: unspecified part of lung Pneumonia type: due to unspecified organism Qualified Code(s): J18.9 - Pneumonia, unspecified organism Code(s): J18.9 - Pneumonia, unspecified organism Status: Acute (2) Acute respiratory failure with hypoxia and hypercapnia: Code(s): J96.01 - Acute respiratory failure with hypoxia; J96.02 - Acute respiratory failure with hypercapnia Status: Acute Assessment and Plan: - ABG has normalized, recommend changing his BIPAP back to home settings of 16/11 cm H20 QHS and while napping. - continue daily AM ABGs - continue duonebs Q6h - PT/OT and mobilzation, up into chair daily - avoid sedatives and narcotics if possible (3) Nosocomial pneumonia: Code(s): J18.9 - Pneumonia, unspecified organism; Y95 - Nosocomial condition Status: Acute Assessment and Plan: Even though this is COVID-19, he may have superimposed bacterial infection. Due to high risk features and baseline immuncompromised state I would recommend continuing current antibiotics for seven days (4) COVID-19: Code(s): U07.1 - COVID-19 Status: Acute Assessment and Plan: - five days of Remdisivir is adquate, no need for more than that in my opinion - continue dexamethasone 6 mg, switch to PO dose for total of 7 days - continue duonebs Q6h - can switch to Augmentin and oral azithromycin to complete total of 7 days of antibiotics - ready to be discharged from pulmonary point of view. May need PT/OT assessment prior to discharge Time Spent With Patient Time with patient: 15 - 25 minutes Subjective Date/time seen: 02/20/20 12:14 Interval history: Doing well. Appetite is improving. He is down to 4 liters nasal cannula which is his baseline at home. He is on 8 liters on exertion and 4 liters at rest at home. Review of Systems Review of Systems: All systems reviewed & are unremarkable except as noted in HPI and below Exam Const: General: comfortable and no acute distress Eyes: General: appearance normal, both eyes and all related structures Neck: Neck: supple and no JVD Resp: Auscultation: no crackles, no rales, no rhonchi, no wheezes and diminished lung sounds Cardio: Rate: regular rate Rhythm: regular rhythm Heart sounds: no murmurs GI: Auscultation: normal bowel sounds : Male General Exam: Yes normal external exam Skin: General skin exam: normal color and no rashes or lesions noted Neuro: Speech: normal speech Extrem: General: normal to inspection Psych: Mental Status: mental status grossly normal Objective Data Vital Signs Vital Signs: Vital Signs - 24 hr 02/19/20 12:20 02/19/20 14:00 02/19/20 16:00 Temperature 36.5 C Pulse Rate 75 72 67 Respiratory Rate 18 17 17 Blood Pressure 143/67 H 109/48 L Pulse Oximetry 96 96 02/19/20 19:50 02/19/20 19:58 02/19/20 19:59 Temperature Pulse Rate 77 77 77 Respiratory Rate 18 18 18 Blood Pressure Pulse Oximetry 95 02/19/20 20:00 02/19/20 23:45 02/20/20 00:00 Temperature 36.7 C 36.6 C Pulse Rate 65 69 57 L Respiratory Rate 18 18 20 Blood Pressure 130/66 124/78 Pulse Oximetry 100 97 100 02/20/20 02:21 02/20/20 02:22 02/20/20 04:00 Temperature 36.8 C Pulse Rate 84 68 60 Respiratory Rate 20 20 18 Blood Pressure 129/84 Pulse Oximetry 96 100 02/20/20 08:00 02/20/20 08:17 02/20/20 08:35 Temperature 36.8 C Pulse Rate 68 68 68 Respiratory Rate 18 18 18 Blood Pressure 118/65 Pulse Oximetry 96 100 02/20/20 09:14 02/20/20 10:17 Temperature Pulse Rate Respiratory Rate Blood Pressure Pulse Oximetry 96 94 Intake/Output Intake/Output: Intake & Output 02/17/20 02/18/20 02/19/20 02/20/20 23:59 23:59 23:59 23:59 Intake Total 1700 3330 3358.0 970 Output Total 3425 1175 3350 Balance -1725 2155 8.0 970 Meds/Results Medications:
[2020-02-20 13:20] LABS: Glucose Point of Care 402 (65-105)
[2020-02-20] MEDS: INSULIN DETEMIR 100 UNITS/ML 20 UNITS SUB-Q (13:37)
[2020-02-20] MEDS: INSULIN ASPART (*BKC) 100 UNITS/ML SUB-Q ×2 (13:37→17:40)
--- NOTE | 2020-02-20 13:42 | PM.IMPN ---
Progress Note: A&P Assessment and Plan (1) Acute respiratory failure with hypercapnia: Code(s): J96.02 - Acute respiratory failure with hypercapnia Status: Acute Assessment and Plan: 02/20/20 13:42 Repeat ABG demonstrated worsening hypercapnia. The patient will be admitted to IMU. We will initiate BiPAP support and obtain another ABG in 1 hour. Will titrate BiPAP and consider endotracheal intubation and mechanical ventilation if necessary overnight. Continue bronchodilators. We will initiate dexamethasone 6 mg IV daily. NPO overnight. RT assess and treat. 02/19/20 17:45 patient is a 44-year-old male with history of primary ciliary dyskinesia and chronic respiratory failure on home oxygen and BiPAP he presented emergency department with hypercapnic respiratory failure patient was found to be positive for COVID-19 has been treated with dexamethasone and remdesivir he seen by maintenance porter and back sizer symptoms are improving, On 02/18 patient's symptoms had improved he was seen by maintenance porter and back sizer and moved out of ICU. today on 02/19 patient on medical floor under isolation is feeling much better not a short of breath as when he arrived he denies any fever or chills he has been afebrile, has been treated with dexamethasone 5/10 and patient will complete remdesivir 5 day course today, beside COVID pneumonia patient also has superimposed bilateral pneumonia and being treated with cefepime, azithromycin and vancomycin, still requiring 5 L of oxygen nasal cannula, patient is seen by maintenance porter, will have a PT OT evaluate the patient and do the discharge planning. (2) Suspected 2019 novel coronavirus infection: Code(s): Z20.828 - Contact with and (suspected) exposure to other viral communicable diseases Status: Deleted Assessment and Plan: Patient has been swab for ambrosio virus. Continue droplet isolation. Continue supportive care. COVID results are pending. (3) Chronic anemia: Code(s): D64.9 - Anemia, unspecified Status: Chronic Assessment and Plan: Likely anemia of chronic disease. No signs of acute blood loss at this time. Monitor H&H. Transfuse p.r.n.. (4) Primary ciliary dyskinesia: Code(s): Q34.8 - Other specified congenital malformations of respiratory system Status: Chronic (5) Pulmonary emphysema: Qualifiers: Emphysema type: unspecified Qualified Code(s): J43.9 - Emphysema, unspecified Code(s): J43.9 - Emphysema, unspecified Status: Chronic Assessment and Plan: continue bronchodilators. (6) Essential (primary) hypertension: Code(s): I10 - Essential (primary) hypertension Status: Chronic Assessment and Plan: Monitor blood pressure. Continue home losartan and amlodipine. (7) T2DM (type 2 diabetes mellitus): Qualifiers: Diabetes mellitus rn long term care insulin use: with rn long term care use Diabetes mellitus complication status: without complication Qualified Code(s): E11.9 - Type 2 diabetes mellitus without complications; Z79.4 - supervisor intermediates (current) use of insulin Code(s): E11.9 - Type 2 diabetes mellitus without complications Status: Chronic Assessment and Plan: Accu-Cheks, sliding scale insulin coverage, hypoglycemia protocol. Resume home insulin therapy when the patient is eating again. Subjective Date/time seen: 02/20/20 13:42 Repeat ABG demonstrated worsening hypercapnia. The patient will be admitted to IMU. We will initiate BiPAP support and obtain another ABG in 1 hour. Will titrate BiPAP and consider endotracheal intubation and mechanical ventilation if necessary overnight. Continue bronchodilators. We will initiate dexamethasone 6 mg IV daily. NPO overnight. RT assess and treat. 02/19/20 17:45 patient is a 44-year-old male with history of primary ciliary dyskinesia and chronic respiratory failure on home oxygen and BiPAP he present
[2020-02-20] MEDS: REMDESIVIR 100 MG/NS 250 ML 100 MG/250 ML BAG 250 MG IVPB (16:43)
[2020-02-20] MEDS: LOSARTAN POTASSIUM 50 MG TABLET PO (16:43)
[2020-02-20 21:57] LABS: Glucose Point of Care 296 (65-105)
[2020-02-21] VITALS (12 sets, daily range): BP systolic 103–110; BP diastolic 53–63; PULSE 66–78; RESP 18–20; TEMP 36.6–36.8; O2SAT 92–96
[2020-02-21 00:22] LABS: Glucose Point of Care 307 (65-105)
[2020-02-21] MEDS: ALBUTEROL SULFATE NEB 2.5 MG/0.5 ML INH INHALATION ×3 (01:36→13:59)
[2020-02-21] MEDS: IPRATROPIUM BR 0.02% INH SOLN 0.5 MG/2.5 ML VIAL INHALATION ×3 (01:36→13:59)
[2020-02-21 02:43] LABS: Hematocrit 30.7 % (42.0-52.0); Mean Corpuscular HGB Conc 32.6 g/dl (32-36); Mean Corpuscular Hemoglobin 28.2 pg (26-34); Mean Corpuscular Volume 86.5 fl (80-100); Platelet Count Result 284 k/mm3 (150-375); Red Blood Count 3.55 M/mm3 (4.6-6.20); Red Cell Distribution Width 12.2 % (11.5-14.5)
[2020-02-21 02:58] LABS: Anion Gap 6 mmol/L (8-16); Blood Urea Nitrogen 46 mg/dL (9-20); Calcium 9.3 mg/dL (8.4-10.2); Carbon Dioxide 31 mmol/L (22-30); Chloride 97 mmol/L (98-107); Estimated CRCL calculation 85 ml/min; Estimated Glomerular Filt Rate > 60; Glucose 225 mg/dL (75-110); Lactate Dehydrogenase 478 U/L (313-618); Magnesium 1.6 mg/dL (1.6-2.3); Phosphorus 3.2 mg/dL (2.5-4.5); Potassium 4.6 mmol/L (3.4-5.0); Sodium 134 mmol/L (137-145)
[2020-02-21 02:59] LABS: D Dimer 0.45 ug/mL (<0.48)
[2020-02-21 03:12] LABS: Alveolar/Arterial O2 Gradient 180.8 mmHg; Base Excess ABG 6.1 mEq/l (+/-2.0); Carboxyhemoglobin 0.2 % THb (0-2.0); Fractional Inspired Oxygen 40 %; HCO3 ABG 32.4 mEq/l (22.0-26.0); Methemoglobin ABG 0.3 %THb (0-1.5); Oxygen Content ABG 12.8 %vol (16.0-22.0); Oxyhemoglobin 75.9 % THb (90.0-100.0); PCO2 ABG 54.8 mmHg (35.0-45.0); PO2 FiO2 Ratio Arterial Blood 1.04 %; Reduced Hemoglobin 23.6 %THb (0-5.0); pH ABG 7.389 (7.350-7.450)
[2020-02-21 03:17] LABS: Oxygen Saturation ABG 75.3 % (95.0-100.0); PO2 ABG 41.4 mmHg (80.0-100.0)
[2020-02-21 03:18] LABS: Device NON-INVASIVE VENT; Modified Allen's Test Pass; Site Drawn RIGHT RADIAL
[2020-02-21 03:19] LABS: Non-Invasive Expiratory Pressure 11 CMH2O; Non-Invasive Inspiratory Pressure 16 CMH2O; Non-Invasive Vent Rate 4 /MIN
[2020-02-21 03:22] LABS: Vancomycin Trough 11.7 ug/mL (10.0-20.0)
--- NOTE | 2020-02-21 04:08 | PC.NURSE ---
Addendum entered by Racheal Mcdonald RN 02/21/20 04:09: Patient is getting daily ABGs drawn by respiratory therapy. On 02/20 at 0335 Nikolai LYN notified this nurse of critical o2 sat and critical Po2 because of venous blood in the ABG draw. Notified Dr. Shafer at 0405 and ordered a ABG redraw. Patient refused redraw. Original Note: Patient is getting ABG
--- NOTE | 2020-02-21 04:10 | PCRCNOTE ---
Patient refused second ABG
[2020-02-21 08:29] LABS: Glucose Point of Care 179 (65-105)
[2020-02-21] MEDS: DORNASE ALFA INH SOLN 1 MG/ML 2.5 ML AMP 2.5 MG INHALATION (08:48)
[2020-02-21] MEDS: INSULIN DETEMIR 100 UNITS/ML 40 UNITS SUB-Q (08:59)
[2020-02-21] MEDS: PANTOPRAZOLE SODIUM IV 40 MG VIAL IV PUSH (08:59)
[2020-02-21] MEDS: LOSARTAN POTASSIUM 50 MG TABLET PO (09:00)
[2020-02-21] MEDS: ENOXAPARIN 40 MG/0.4 ML SYRINGE SUB-Q (09:00)
[2020-02-21 13:03] LABS: Glucose Point of Care 344 (65-105)
[2020-02-21] MEDS: INSULIN ASPART (*BKC) 100 UNITS/ML SUB-Q (13:55)
--- NOTE | 2020-02-21 14:01 | PM.DS ---
DS: Admitting Diagnosis Admitting Diagnosis Admitting Diagnosis: pneumonia, acute on chronic respiratory DS: Discharge Diagnosis Discharge Diagnosis (1) Acute respiratory failure with hypercapnia: Code(s): J96.02 - Acute respiratory failure with hypercapnia Status: Acute Assessment and Plan: 02/20/20 13:42 Repeat ABG demonstrated worsening hypercapnia. The patient will be admitted to IMU. We will initiate BiPAP support and obtain another ABG in 1 hour. Will titrate BiPAP and consider endotracheal intubation and mechanical ventilation if necessary overnight. Continue bronchodilators. We will initiate dexamethasone 6 mg IV daily. NPO overnight. RT assess and treat. 02/19/20 17:45 patient is a 44-year-old male with history of primary ciliary dyskinesia and chronic respiratory failure on home oxygen and BiPAP he presented emergency department with hypercapnic respiratory failure patient was found to be positive for COVID-19 has been treated with dexamethasone and remdesivir he seen by zipper ironer and glueline worker symptoms are improving, On 02/18 patient's symptoms had improved he was seen by zipper ironer and glueline worker and moved out of ICU. today on 02/19 patient on medical floor under isolation is feeling much better not a short of breath as when he arrived he denies any fever or chills he has been afebrile, has been treated with dexamethasone 5/10 and patient will complete remdesivir 5 day course today, beside COVID pneumonia patient also has superimposed bilateral pneumonia and being treated with cefepime, azithromycin and vancomycin, still requiring 5 L of oxygen nasal cannula, patient is seen by zipper ironer, will have a PT OT evaluate the patient and do the discharge planning. (2) Suspected 2019 novel coronavirus infection: Code(s): Z20.828 - Contact with and (suspected) exposure to other viral communicable diseases Status: Deleted Assessment and Plan: Patient has been swab for amborsio virus. Continue droplet isolation. Continue supportive care. COVID results are pending. (3) Chronic anemia: Code(s): D64.9 - Anemia, unspecified Status: Chronic Assessment and Plan: Likely anemia of chronic disease. No signs of acute blood loss at this time. Monitor H&H. Transfuse p.r.n.. (4) Primary ciliary dyskinesia: Code(s): Q34.8 - Other specified congenital malformations of respiratory system Status: Chronic (5) Pulmonary emphysema: Qualifiers: Emphysema type: unspecified Qualified Code(s): J43.9 - Emphysema, unspecified Code(s): J43.9 - Emphysema, unspecified Status: Chronic Assessment and Plan: continue bronchodilators. (6) Essential (primary) hypertension: Code(s): I10 - Essential (primary) hypertension Status: Chronic Assessment and Plan: Monitor blood pressure. Continue home losartan and amlodipine. (7) T2DM (type 2 diabetes mellitus): Qualifiers: Diabetes mellitus marine oil terminal superintendent insulin use: with marine oil terminal superintendent use Diabetes mellitus complication status: without complication Qualified Code(s): E11.9 - Type 2 diabetes mellitus without complications; Z79.4 - oil heaterman (current) use of insulin Code(s): E11.9 - Type 2 diabetes mellitus without complications Status: Chronic Assessment and Plan: Accu-Cheks, sliding scale insulin coverage, hypoglycemia protocol. Resume home insulin therapy when the patient is eating again. DS: Summary Hospital Course Reason for hospitalization: Chief complaint: pneumonia, acute on chronic respiratory Narrative: This is a 44 year old morbidly obese with known chronic respiratory failure on 4L of oxygen at home when sedentary and 8L of oxygen when doing activity secondary to ciliary dyskinesia who tonight presented to the hospital with increased shortness of breath. The patient denied any fevers, chills, or cough. He also denies a
== END 2020-02-21 15:50 | disposition home or self-care (01) | DRG 177 ==
LOC: ANHED 21:14 → ANHICU 22:39 → ANH3MEDSUR 02-21 14:01 → ANHICU 02-23 15:14
PROVIDERS: Emergency Medicine; Internal Medicine; Internal Medicine Critical Care Medicine; Admitting Provider Family Medicine; Emergency Provider Emergency Medicine; PCP Family Medicine; Visit Provider Family Medicine
DX: U07.1 COVID-19 (principal); J12.89 Other viral pneumonia; J96.22 Acute and chronic respiratory failure with hypercapnia; J96.21 Acute and chronic respiratory failure with hypoxia; E87.1 Hypo-osmolality and hyponatremia; J43.9 Emphysema, unspecified; D63.8 Anemia in other chronic diseases classified elsewhere; E11.9 Type 2 diabetes mellitus without complications; I10 Essential (primary) hypertension; G47.30 Sleep apnea, unspecified; Q34.8 Other specified congenital malformations of respiratory system; F17.220 Nicotine dependence, chewing tobacco, uncomplicated; E66.01 Morbid (severe) obesity due to excess calories; Z68.35 Body mass index [BMI] 35.0-35.9, adult; Z79.4 Long term (current) use of insulin; Z99.81 Dependence on supplemental oxygen
CPT/HCPCS: 36415; 36600; 71045; 80048; 80202; 82375; 82728; 82805; 83050; 83615; 83735; 84100; 84460; 85025; 85027; 85055; 85380; 86140; 87040; 87635; 93005; 94002; 94003; 94640; 97110; 97116; 97161; 97165; 99291; A9270; C9113; C9803; J0456; J0692; J0696; J1100; J1120; J1650; J1815; J1940; J2930; J3370; U0003

== ENCOUNTER → 2020-03-04 15:10 | Outpatient (CLI) | payer BC, SELFPAY ==
--- NOTE | ~2020-03-04 | CT_ITS ---
EXAMINATION: CT abdomen pelvis w con EXAM DATE: 03/04/2020 16:09 INDICATION: Abdominal and pelvic swelling, mass, lump. History appendectomy. TECHNIQUE: Spiral CT of the abdomen and pelvis was performed following intravenous injection of 100 m L Omnipaque 350. Axial, coronal and sagittal images were reviewed. The dose-length product (DLP) fo r this examination was 1087.54 mGy-cm. The exposure was tailored according to patient size (auto mA exposure control), and iterative reconstruction (ASIR) was used as additional dose reduction techniqu e. Comparison is made to prior examination from 07/11/2018. FINDINGS: The liver, spleen, adrenal glands and pancreas are unremarkable. Multiple stones contained in the gallbladder fossa, without apparent surrounding gallbladder wall identified. Absent left ki dney. The right kidney is unremarkable, no hydronephrosis. The prostate is unremarkable. The bladde r is unremarkable. There is no retroperitoneal or pelvic lymphadenopathy. There is small umbilical fat-containing hernia. Small inguinal fat-containing hernias. The appendix is not positively visualized. There is no pericecal inflammatory change to suggest appe ndicitis. The stomach and small bowel are unremarkable. There is expected amount of colonic stool. No free intraperitoneal gas. Trace right pleural effusion unchanged. Again there is extensive bibasilar reticulonodular airspace disease most consistent with endobronchia l spread of chronic infectious process. There is some regions of confluence, unchanged at the right l mitzi base, improvement in some previously seen in the left lung base but development of new regions. F ungal infection, Tuberculosis or ANN should be considered. There are no osteoblastic or osteolytic le sions identified. IMPRESSION: 1. Small umbilical fat-containing hernia. 2. Absent left kidney. 3. Chronic basilar bronchiectasis, tree-in-bud pattern airspace disease with waxing, waning regions of confluence. 4. Small fat-containing hernias. Reviewed, dictated and finalized at location A. IMPRESSION: 1. Small umbilical fat-containing hernia. 2. Absent left kidney. 3. Chronic basilar bronchiectasis, tree-in-bud pattern airspace disease with w axing, waning regions of confluence. 4. Small fat-containing hernias.
[2020-03-04 15:37] LABS: Estimated Glomerular Filt Rate > 60
== END ==
PROVIDERS: Visit Provider Family Medicine
DX: K42.9 Umbilical hernia without obstruction or gangrene (principal); K44.9 Diaphragmatic hernia without obstruction or gangrene
CPT/HCPCS: 74177; Q9967

== ENCOUNTER 2020-03-24 08:40 | Outpatient (CLI) | payer BC, SELFPAY ==
--- NOTE | 2020-04-03 15:21 | WPDSIXMINUTE ---
Six Minute Walk Six Minute Walk: The patients O2 sats started at 93% and dropped as low as 89% Total walk distance 900 feet conclusion: Although there was exertional hypoxia, he did meet criteria for home oxygen therapy. Would recommend repeating annually or if symptoms decline.
== END 2020-03-24 08:41 | disposition home or self-care (01) ==
PROVIDERS: PCP Family Medicine; Visit Provider Family Medicine
DX: J43.9 Emphysema, unspecified (principal); Q34.8 Other specified congenital malformations of respiratory system; J96.01 Acute respiratory failure with hypoxia; J96.02 Acute respiratory failure with hypercapnia
CPT/HCPCS: 94618

== ENCOUNTER → 2021-06-08 09:31 | Outpatient (CLI) | payer BC, SELFPAY ==
[2021-06-08 21:13] LABS: SARS-CoV-2 RNA PCR Negative
== END ==
PROVIDERS: PCP Family Medicine; Visit Provider Nurse Practitioner Family
DX: R68.89 Other general symptoms and signs (principal); Z20.822 Contact with and (suspected) exposure to COVID-19
CPT/HCPCS: C9803; U0003; U0005

== ENCOUNTER 2021-09-28 08:33 | Emergency (ER) | payer BC, SELFPAY ==
[2021-09-28] VITALS (23 sets, daily range): BP systolic 110–166; BP diastolic 68–98; PULSE 97–113; RESP 18–26; TEMP 36.2; O2SAT 76–100
--- NOTE | ~2021-09-28 | XR_ITS ---
EXAMINATION: XR chest 1V portable INDICATION: Hypoxia TECHNIQUE: Portable AP chest at 0917 hours COMPARISON: 02/21/2020 FINDINGS: There are patchy bilateral airspace opacities. There is no pleural effusion or pneumothorax . The heart size is normal for technique. IMPRESSION: 1. Patchy bilateral airspace opacities, consistent with pneumonia and/or pulmonary edema. Reviewed, dictated and finalized at location A. IMPRESSION: 1. Patchy bilateral airspace opacities, consistent with pneumonia and/or pulmon dori edema.
--- NOTE | 2021-09-28 08:36 | ECG_ITS ---
Measurements Intervals [place] Rate: 109 P: 66 MD: 128 QRS: 88 QRSD: 121 T: 67 QT: 322 QTc: 435 Interpretive Statements SINUS TACHYCARDIA INTRAVENTRICULAR CONDUCTION DELAY MINIMAL Q WAVES- INFERIOR LEADS BASELINE WANDER- I, II, III, AVR ABNORMAL ECG Electronically Signed On 09-28-2021 9:15:56 CDT by Aguila Issa D.O.
[2021-09-28 08:49] LABS: Alveolar/Arterial O2 Gradient 410.4 mmHg; Base Excess ABG 19.6 mEq/l (+/-2.0); Fractional Inspired Oxygen 100 %; HCO3 ABG 51.7 mEq/l (22.0-26.0); Oxygen Content ABG 16.1 %vol (16.0-22.0); Oxygen Saturation ABG 98.9 % (95.0-100.0); Oxyhemoglobin 98.2 % THb (90.0-100.0); PO2 ABG 182.5 mmHg (80.0-100.0); PO2 FiO2 Ratio Arterial Blood 1.83 %; Total Hemoglobin 11.4 g/dL (12.0-18.0)
[2021-09-28 08:51] LABS: Device NON-REBREATHER MASK; Modified Allen's Test Pass; PCO2 ABG 120.1 mmHg (35.0-45.0); Site Drawn LEFT RADIAL; pH ABG 7.252 (7.350-7.450)
--- NOTE | 2021-09-28 08:51 | ED.SOB ---
HPI - SOB/Dyspnea General Chief Complaint: Shortness of Breath/Dyspnea Stated Complaint: SOB Time Seen by Provider: 09/28/21 08:51 Source: patient, family, EMS and RN notes reviewed Mode of arrival: EMS Limitations: clinical condition History of Present Illness HPI Narrative: 46 years old white male came to the emergency room because of difficulty breathing and shortness of breath started last night. His home AC went out yesterday, try to fix it without any success. Patient was not able to sleep all night long because of the hot house. This morning his shortness of breath got worse. History of primary ciliary dyskinesia, COPD, diabetes, sleep apnea, hyperosmolar syndrome, kidney failure. Patient was at [facility] for 2 weeks 1 month ago for similar symptoms Related Data Home Medications Medication Instructions Recorded Confirmed furosemide 20 mg tablet 20 mg PO QAM tablet 08/25/21 09/20/21 albuterol sulfate 90 mcg/actuation 1 inh INHALATION Q4H PRN 09/11/21 09/20/21 aerosol inhaler Allergies Allergy/AdvReac Type Severity Reaction Status Date / Time povidone-iodine Allergy Unknown rash Verified 09/28/21 08:35 tetracycline Allergy Unknown Rash Verified 09/28/21 08:35 SOAP Allergy Unknown Rash Uncoded 09/11/21 10:31 THEOPHYLLINE ANHYDROUS AdvReac Mild GETS Uncoded 08/07/21 09:28 NERVOUS PMFSH Past Medical History Medical History Abdominal wall hernia Change in vision Decreased renal function Essential (primary) hypertension Hyperosmolar syndrome Localized edema Poor concentration Primary ciliary dyskinesia Pulmonary emphysema Sleep apnea in adult Tremor of both hands Type 2 diabetes mellitus with hyperglycemia Surgical History Surgical History History of appendectomy History of knee surgery History of nasal surgery History of orthopedic surgery History of tonsillectomy and adenoidectomy Family History Family History Father Hypertension Grandparent Hypertension Cerebrovascular accident Family history of coronary artery disease Family history of malignant neoplasm of urinary bladder Diabetes mellitus Mother Cholecystectomy planned Sibling Thyroid cancer Other Family history of malignant neoplasm of breast Social History Social History Tobacco type: cigarettes Second hand tobacco smoke exposure: Yes Alcohol intake: former Substance use: never Substance use type: does not use Additional occupation/education comments: disabled Gender identity (if verbalized by the patient): Male Sexual Orientation (if Verbalized by the Patient): Straight or Heterosexual Spiritual care concerns: No Course Consultations Consultation #1: DR LIRIANO, ICU, [facility] Date: 09/28/21 Time: 10:16 Vital Signs Vital signs: Vital Signs Temperature 36.2 C L 09/28/21 08:29 Pulse Rate 113 H 09/28/21 08:29 Respiratory Rate 24 H 09/28/21 08:29 Blood Pressure 154/90 H 09/28/21 08:29 Pulse Oximetry 76 L 09/28/21 08:29 Temperature 36.2 C L 09/28/21 08:29 Pulse Rate 106 H 09/28/21 08:37 Respiratory Rate 24 H 09/28/21 08:29 Blood Pressure 154/90 H 09/28/21 08:29 Pulse Oximetry 76 L 09/28/21 08:29 MDM - SOB/Dyspnea ABG Data ABG results: 09/28/21 08:41 Puncture Site Left radial ABG pH 7.252 L* ABG pCO2 120.1 H* ABG pO2 182.5 H ABG PO2/FiO2 Ratio 1.83 ABG HCO3 51.7 H ABG O2 Saturation 98.9 ABG O2 Content 16.1 ABG Base Excess 19.6 A-a Gradient 410.4 Oxyhemoglobin 98.2 Total Hemoglobin 11.4 L O2 Delivery Device Non-rebreather mask O2 Liters/Min 15.0 FiO2 100 Imaging Data Radiologist's impression: Impressions Chest X-Ray 09/28/21 09:24 IMPRESSION: 1. Patchy bilateral airspace opacities
[2021-09-28 08:57] LABS: Basophils Percent Auto 0.3 % (0.2-1.2); Eosinophils Absolute Auto 0.1 K/mm3 (0-0.3); Eosinophils Percent Auto 0.8 % (0-4.4); Hematocrit 36.9 % (42.0-52.0); Hemoglobin 10.4 g/dL (14.0-18.0); Immature Granulocyte Absolute 0.05 K/mm3 (0.00-0.031); Immature Granulocyte Percent A 0.5 % (0-0.5); Lymphocytes Absolute Auto 1.45 K/mm3 (0.9-3.2); Lymphocytes Percent Auto 15.2 % (18.3-44.2); Mean Corpuscular HGB Conc 28.2 g/dl (32-36); Mean Corpuscular Hemoglobin 26.9 pg (26-34); Mean Corpuscular Volume 95.3 fl (80-100); Mean Platelet Volume 10.1 fl (7.4-10.4); Monocytes Absolute Auto 0.6 K/mm3 (0.1-0.6); Monocytes Percent Auto 6.2 % (2.6-8.5); Neutrophils Absolute Auto 7.4 K/mm3 (1.3-6.7); Platelet Count Result 212 k/mm3 (150-375); Red Blood Count 3.87 M/mm3 (4.6-6.20); Red Cell Distribution Width 13.3 % (11.5-14.5); White Blood Count 9.6 K/mm3 (4.5-10.0)
[2021-09-28 09:08] LABS: Lactic Acid Reflex 0.8 mmol/L (0.7-2.0)
[2021-09-28 09:11] LABS: Alanine Aminotransferase 19 U/L (6-50); Albumin Level 4.5 g/dL (3.5-5.1); Alkaline Phosphatase 98 U/L (38-126); Aspartate Amino Transferase 29 U/L (17-59); Bilirubin,Total 0.4 mg/dL (0.2-1.3); Blood Urea Nitrogen 29 mg/dL (9-20); Calcium 8.9 mg/dL (8.4-10.2); Carbon Dioxide > 40 mmol/L (22-30); Chloride 89 mmol/L (98-107); Estimated CRCL calculation 90 ml/min; Estimated Glomerular Filt Rate > 60; Glucose 183 mg/dL (65-110); Hypochromasia 2+ (NORMAL); Platelet Estimate Adequate (Adequate); Potassium 4.4 mmol/L (3.4-5.0); Sodium 141 mmol/L (137-145)
[2021-09-28 09:19] LABS: Troponin I 0.013 ng/mL (0.000-0.034)
[2021-09-28 09:33] LABS: SARS-CoV-2 RNA PCR Negative
--- NOTE | 2021-09-28 09:34 | PC.NURSE ---
called lab to confirm redraw sent and add on of c-reactive pro.
[2021-09-28 09:47] LABS: CRP 2.2 mg/dL (<1.0)
[2021-09-28 09:50] LABS: Prothrombin Time 13.8 Seconds (11.1-14.7)
[2021-09-28 09:51] LABS: INR 1.1; Partial Thromboplastin Time 26.1 SECONDS (22.3-36.8)
[2021-09-28 10:04] LABS: Alveolar/Arterial O2 Gradient 179.3 mmHg; Base Excess ABG 16.5 mEq/l (+/-2.0); Fractional Inspired Oxygen 50 %; HCO3 ABG 47.1 mEq/l (22.0-26.0); Oxygen Content ABG 13.8 %vol (16.0-22.0); Oxyhemoglobin 89.3 % THb (90.0-100.0); PO2 ABG 62.3 mmHg (80.0-100.0); PO2 FiO2 Ratio Arterial Blood 1.25 %
[2021-09-28 10:05] LABS: Device NON-INVASIVE VENT; Modified Allen's Test Pass; Oxygen Saturation ABG 86.9 % (95.0-100.0); PCO2 ABG 102.1 mmHg (35.0-45.0); Site Drawn LEFT RADIAL; pH ABG 7.282 (7.350-7.450)
[2021-09-28 10:06] LABS: Non-Invasive Expiratory Pressure 6 CMH2O; Non-Invasive Inspiratory Pressure 12 CMH2O; Non-Invasive Vent Rate 16 /MIN
[2021-09-28 10:15] LABS: D Dimer 0.45 ug/mL (<0.48)
--- NOTE | 2021-09-28 10:28 | PC.NURSE ---
Jai 84Barbara at [facility] accepted transfer to [id number] at [facility] 11a Trip # [id number]
== END 2021-09-28 10:47 | disposition short-term general hospital (02) ==
PROVIDERS: Emergency Provider Emergency Medicine; PCP Family Medicine
DX: J96.22 Acute and chronic respiratory failure with hypercapnia (principal); J96.21 Acute and chronic respiratory failure with hypoxia; J18.9 Pneumonia, unspecified organism; E11.9 Type 2 diabetes mellitus without complications; I10 Essential (primary) hypertension; F17.200 Nicotine dependence, unspecified, uncomplicated; Z20.822 Contact with and (suspected) exposure to COVID-19
CPT/HCPCS: 36415; 36600; 71045; 80053; 82805; 83605; 84484; 85025; 85380; 85610; 85730; 86140; 87040; 93005; 96365; 99291; C9803; J1956; U0003; U0005

== ENCOUNTER → 2022-02-08 10:10 | Outpatient (CLI) | payer BC, SELFPAY ==
--- NOTE | ~2022-02-08 | XR_ITS ---
EXAMINATION: XR foot RT min 3V DATE: 02/08/2022 10:22 INDICATION: Right foot pain TECHNIQUE: Dorsoplantar, lateral, and 2 oblique views of the right foot were obtained. COMPARISON: 04/07/2019 FINDINGS: There is no fracture, dislocation, or subluxation. The bones, soft tissues, and joint space s are normal. IMPRESSION: 1. No acute osseous abnormality. Reviewed, dictated and finalized at location A.
== END ==
PROVIDERS: PCP Family Medicine; Visit Provider Family Medicine
DX: M79.671 Pain in right foot (principal)
CPT/HCPCS: 73630

== ENCOUNTER 2022-02-20 08:51 | Outpatient (CLI) | payer BC, SELFPAY ==
--- NOTE | ~2022-02-20 | NM_ITS ---
EXAMINATION: NM bone scan limited area DATE: 02/20/2022 13:20 INDICATION: One month of plantar right foot pain. Assess for osteomyelitis or stress fracture. TECHNIQUE: 23.8 mCi Tc-99m HDP by intravenous route. Scintigrams of the bilateral feet and ankles we re obtained in angiographic, blood pool, and delayed phases. COMPARISON: Right foot radiographs dated 02/08/2022 FINDINGS: Normal symmetric distribution of soft tissue activity at the bilateral feet and ankles on the angiogr aphic and immediate blood pool images with no hyperemic foci to suggest infection or fracture. There is mild uptake at the right midfoot which may be related to mild osteoarthritis at the second and thi rd tarsal metatarsal joints as seen on the prior radiographs. IMPRESSION: 1. No hyperemic foci on the angiographic or immediate blood pool images to suggest acute inflammator y process such as osteomyelitis or fracture. 2. Mild increased delayed uptake in the right midfoot which may relate to the mild osteoarthritis at the second and third metatarsophalangeal joints as seen on prior radiographs. Reviewed, dictated and finalized at location A. IMPRESSION: 1. No hyperemic foci on the angiographic or immediate blood pool images to sug gest acute inflammatory process such as osteomyelitis or fracture. 2. Mild increased delayed uptake in the right midfoot which may relate to the m ild osteoarthritis at the second and third metatarsophalangeal joints as seen o n prior radiographs.
== END 2022-02-20 08:52 | disposition home or self-care (01) ==
LOC: ANHIMG 08:54
PROVIDERS: PCP Family Medicine; Visit Provider Family Medicine
DX: M79.671 Pain in right foot (principal); Z87.312 Personal history of (healed) stress fracture
CPT/HCPCS: 78300; A9561

== ENCOUNTER 2022-03-27 13:42 | Inpatient (IN) | payer BC, MEDICARE, SELFPAY ==
[2022-03-27] VITALS (16 sets, daily range): BP systolic 107–175; BP diastolic 51–94; PULSE 110–126; RESP 16–34; TEMP 36.8–37.7; O2SAT 88–100; BMI 40.7
--- NOTE | ~2022-03-27 | CT_ITS ---
EXAMINATION: CT diagnostic chest wo con DATE: 03/27/2022 17:26 INDICATION: Pneumonia TECHNIQUE: Computed tomography (CT) of the chest was performed in stomach indicating the intravenous contrast. Automated exposure control and iterative reconstruction technique were employed. The dose-l ength product was 689.13 mGy-cm. COMPARISON: X-ray, same date, CT chest 07/11/2018 FINDINGS: CHEST: Respiratory motion artifact. Thoracic aorta: No significant dilation or calcification. Lung parenchyma and airways: Diffuse bilateral tree-in-bud opacities, most severe in the inferior por tions of the right upper lobe, right middle lobe, and right lower lobe, with focal areas of atelectas is or consolidation and bronchiectasis in the right middle lobe and dependent right lower lobe. Right lower lobe consolidation likely represents a component of rounded atelectasis. Thoracic inlet, axillae and chest wall: No thyroid or soft tissue mass. No axillary lymphadenopathy. Mediastinum: Mediastinal lymphadenopathy. Heart and pericardium: Normal heart size. No pericardial effusion. Coronary artery calcifications: Absent. Pleura: No effusion or mass. Upper abdomen: No significant finding. Thoracic bones: No acute osseous finding in the chest. IMPRESSION: Worsening chronic endobronchial spread of atypical infection. Mediastinal lymphadenopathy. Reviewed, dictated and finalized at location K. DELIVERER IMPRESSION: Worsening chronic endobronchial spread of atypical infection. Mediastinal lymph adenopathy.
--- NOTE | ~2022-03-27 | XR_ITS ---
EXAMINATION: XR chest 2V Exam Date/Time: 03/27/2022 14:28 HAIR MIXER HISTORY: sob, WHEEZING, COUGH. HX COPD Comparison: CT abdomen and pelvis 03/04/2020, CT chest 07/11/2018, x-ray chest 09/28/2021. RESULT: Lines, tubes, and devices: None. Lungs and pleura: Worsened mid and lower lung reticulonodular opacities, worse on the right patchy s ubsegmental airspace disease in the bilateral lower lungs, also worse on the right. Cardiomediastinal silhouette: Stable. Other: No acute osseous or upper abdominal finding. IMPRESSION: Worsened bilateral mid and lower lung opacities, likely reflecting worsened chronic endobronchial spr ead of atypical infection (fungal, tuberculous, ANN, etc.). Reviewed, dictated and finalized at location K. MIXER IMPRESSION: Worsened bilateral mid and lower lung opacities, likely reflecting worsened chr onic endobronchial spread of atypical infection (fungal, tuberculous, ANN, etc. ).
--- NOTE | 2022-03-27 13:56 | ECG_ITS ---
Measurements Intervals [place] Rate: 120 P: 63 NM: 136 QRS: 77 QRSD: 112 T: 57 QT: 302 QTc: 428 Interpretive Statements SINUS TACHYCARDIA INTRAVENTRICULAR CONDUCTION DELAY BASELINE ARTIFACT- AVR, AVL, AVF, V1-V2 ABNORMAL ECG COMPARED TO ECG 09/28/2021 08:35:15 NO SIGNIFICANT CHANGES Electronically Signed On 03-27-2022 16:23:56 SHOT MAN by Aguila Issa D.O.
--- NOTE | 2022-03-27 14:12 | PC.NURSE ---
patient on non-rebreather mask at this time 15L. patient reports that he has been told by his lung care group to not be placed on bi-pap due to it making him worse overall. patient is alert x4 and EDP is aware.
[2022-03-27 14:16] LABS: Basophils Percent Auto 0.2 % (0.2-1.2); Eosinophils Absolute Auto 0.1 K/mm3 (0-0.3); Eosinophils Percent Auto 0.6 % (0-4.4); Hematocrit 36.6 % (42.0-52.0); Hemoglobin 10.5 g/dL (14.0-18.0); Immature Granulocyte Absolute 0.08 K/mm3 (0.00-0.031); Immature Granulocyte Percent A 0.7 % (0-0.5); Lymphocytes Absolute Auto 1.67 K/mm3 (0.9-3.2); Lymphocytes Percent Auto 14.6 % (18.3-44.2); Mean Corpuscular HGB Conc 28.7 g/dl (32-36); Mean Corpuscular Hemoglobin 26.4 pg (26-34); Mean Platelet Volume 9.4 fl (7.4-10.4); Monocytes Absolute Auto 0.8 K/mm3 (0.1-0.6); Monocytes Percent Auto 6.9 % (2.6-8.5); Neutrophils Absolute Auto 8.8 K/mm3 (1.3-6.7); Platelet Count Result 199 k/mm3 (150-375); Red Blood Count 3.98 M/mm3 (4.6-6.20); Red Cell Distribution Width 12.7 % (11.5-14.5); White Blood Count 11.4 K/mm3 (4.5-10.0)
[2022-03-27 14:21] LABS: Alveolar/Arterial O2 Gradient 531.1 mmHg; Base Excess ABG 17.2 mEq/l (+/-2.0); Carboxyhemoglobin 0.2 % THb (0-2.0); Fractional Inspired Oxygen 100 %; HCO3 ABG 46.7 mEq/l (22.0-26.0); Methemoglobin ABG 0.1 %THb (0-1.5); Oxygen Content ABG 15.4 %vol (16.0-22.0); Oxygen Saturation ABG 96.2 % (95.0-100.0); Oxyhemoglobin 96.1 % THb (90.0-100.0); PO2 ABG 93.2 mmHg (80.0-100.0); PO2 FiO2 Ratio Arterial Blood 0.93 %; Reduced Hemoglobin 3.6 %THb (0-5.0); Total Hemoglobin 11.3 g/dL (12.0-18.0); pH ABG 7.339 (7.350-7.450)
--- NOTE | 2022-03-27 14:23 | ED.SOB ---
HPI - SOB/Dyspnea General Chief Complaint: Shortness of Breath/Dyspnea Stated Complaint: sob, low 02 sats Time Seen by Provider: 03/27/22 14:08 Related Data Home Medications Medication Instructions Recorded Confirmed albuterol sulfate 90 mcg/actuation 1 inh inhalation Q4H PRN 09/11/21 03/14/22 aerosol inhaler (ProAir HFA) Allergies Allergy/AdvReac Type Severity Reaction Status Date / Time povidone-iodine Allergy Unknown rash Verified 03/27/22 14:05 tetracycline Allergy Unknown Rash Verified 03/27/22 14:05 SOAP Allergy Unknown Rash Uncoded 03/27/22 14:05 THEOPHYLLINE ANHYDROUS AdvReac Mild GETS Uncoded 03/27/22 14:05 NERVOUS PMFSH Past Medical History Medical History Abdominal wall hernia Change in vision Decreased renal function Essential (primary) hypertension Hyperosmolar syndrome Localized edema Poor concentration Primary ciliary dyskinesia Pulmonary emphysema Sleep apnea in adult Tremor of both hands Type 2 diabetes mellitus with hyperglycemia Surgical History Surgical History History of appendectomy History of knee surgery History of nasal surgery History of orthopedic surgery History of tonsillectomy and adenoidectomy Family History Family History Father Hypertension Grandparent Hypertension Cerebrovascular accident Family history of coronary artery disease Family history of malignant neoplasm of urinary bladder Diabetes mellitus Mother Cholecystectomy planned Sibling Thyroid cancer Other Family history of malignant neoplasm of breast Social History Social History Smoking status: Former smoker Tobacco type: cigarettes Second hand tobacco smoke exposure: Yes Alcohol intake: former Substance use: never Substance use type: does not use Additional occupation/education comments: disabled Gender identity (if verbalized by the patient): Male Sexual Orientation (if Verbalized by the Patient): Straight or Heterosexual Spiritual care concerns: No Course Course Emergency Course: Patient came to the emergency room with shortness of breath and the hypoxia on his chronic 8 L by nasal cannula, work-up showed bilateral atypical pneumonia, acute hypoxic, hypercapnic respiratory failure, patient got better on 100% nonrebreather, albuterol, Atrovent inhaler, cefepime, vancomycin and azithromycin started. Patient is improving, currently on 8 L by nasal cannula with saturation at 93 to 94% he feels much better, looks better than on arrival. No bed available at [facility] for transfer at this time. Patient will be admitted to IMU in the meantime. Patient and going back home to BRING his trilogy machine. Patient have the home setting for his trilogy machine. Consultations Consultation #1: DR BRICEÑO, image assembler at [facility], accepted patient transfer, waiting for a bed. Patient sputum culture in the past showed Pseudomonas, start cefepime, Vanco and azithromycin AVAPS setting during his hospitalization at [facility] at that time was: SaO2 50%, RR 12, TV 500, peak 10, minimum inspiratory pressure 12, maximum inspiratory pressure 20 Date: 03/27/22 Time: 16:02 Consultation #2: DR ABARCA Patient will be okay to be admitted to IMU. Date: 03/27/22 Time: 16:03 Consultation #3: Casi/nurse practitioner accepted patient admission Date: 03/27/22 Time: 18:00 Vital Signs Vital signs: Vital Signs Temperature 36.8 C 03/27/22 13:53 Pulse Rate 126 H 03/27/22 13:53 Respiratory Rate 28 H 03/27/22 13:53 Blood Pressure 131/70 03/27/22 13:53 Pulse Oximetry 88 L 03/27/22 13:53 Oxygen Delivery Nasal Cannula 03/27/22 13:53 Oxygen Flow Rate 8 03/27/22 13:53 Temperature 36.8 C 03/27/22 13:53 Pulse Rate 117 H 03/27/22
[2022-03-27 14:27] LABS: Device NON-REBREATHER MASK; Modified Allen's Test Pass; PCO2 ABG 88.7 mmHg (35.0-45.0); Site Drawn LEFT RADIAL
[2022-03-27 14:31] LABS: Alanine Aminotransferase 30 U/L (6-50); Albumin Level 4.3 g/dL (3.5-5.1); Alkaline Phosphatase 115 U/L (38-126); Aspartate Amino Transferase 27 U/L (17-59); Bilirubin,Total 0.6 mg/dL (0.2-1.3); Blood Urea Nitrogen 19 mg/dL (9-20); Calcium 8.2 mg/dL (8.4-10.2); Carbon Dioxide > 40 mmol/L (22-30); Chloride 86 mmol/L (98-107); Estimated CRCL calculation 90 ml/min; Estimated Glomerular Filt Rate > 60; Glucose 223 mg/dL (65-110); Potassium 4.2 mmol/L (3.4-5.0); Sodium 139 mmol/L (137-145)
--- NOTE | 2022-03-27 14:32 | PCRCNOTE ---
NO BIPAP FOR NOW PER DR. ALBRIGHT. PT. STATES HIS LUNG SAYS BIPAP IT MAKES HIM WORSE.
[2022-03-27 14:53] LABS: NT Pro B Type Natriuretic Pept 176 pg/mL (5-100); Troponin I < 0.012 ng/mL (0.000-0.034)
[2022-03-27 14:54] LABS: SARS-CoV-2 RNA PCR Negative
[2022-03-27 15:11] LABS: Influenza A QL RT-PCR Negative (Negative); Influenza B QL RT-PCR Negative (Negative); RSV RNA, RT-PCR Negative (Negative)
[2022-03-27 16:17] LABS: INR 1.1
[2022-03-27 16:18] LABS: Partial Thromboplastin Time 31.2 SECONDS (22.3-36.8)
[2022-03-27] MEDS: ALBUTEROL SULFATE NEB 2.5 MG/3 ML INH 5 MG INHALATION (16:26)
[2022-03-27] MEDS: IPRATROPIUM BR 0.02% INH SOLN 0.5 MG/2.5 ML VIAL INHALATION (16:26)
--- NOTE | 2022-03-27 16:37 | PC.NURSE ---
Dinner tray ordered for patient at this time, heart healthy
[2022-03-27 18:02] LABS: Procalcitonin 0.3 ng/mL
[2022-03-27 18:21] LABS: Troponin I 0.022 ng/mL (0.000-0.034)
--- NOTE | 2022-03-27 19:00 | PM.IMHP ---
H&P: HPI History of Present Illness Date/Time: 03/27/22 19:00 Chief Complaint: Shortness of breath. Narrative: This is a 46-year-old male with primary ciliary dyskinesia, chronic hypoxic and hypercarbic respiratory failure, nonischemic cardiomyopathy, hypertension, type 2 diabetes mellitus, and GERD who presented to the emergency department from home for evaluation of shortness of breath. He is supposed to be on 5 liters of oxygen however he admits that he feels better when it is on 8 liters and that is typically what he uses throughout the day. He does vest therapy twice a day, scheduled nebulizers 4 times a day, and he uses a trilogy at nighttime. This seems to keep him pretty stable and he has not been hospitalized recently. It should be noted that he was previously hospitalized at [place] several years ago at which time he required intubation. In any event his son came home last week with upper respiratory symptoms and the last couple of days the patient has not been feeling well with chills, nausea, occasional emesis, and a productive cough. He made appointment with his doctor today to get tested for COVID and influenza ( both were negative) however at that time he was found to have an SpO2 of 74% on his 8 liters and he was instead directed to the emergency department. He was placed on a non-rebreather on arrival with improvement in his shortness of breath and oxygen saturations. Chest x-ray showed worsened bilateral mid and lower lung opacities and a subsequent chest CT showed worsening chronic endobronchial spread of atypical infection and mediastinal lymphadenopathy. Due to his complicated history, transfer was initiated to [place] and he was accepted by Dr. Lavonne Sanchez recommended treating the patient with cefepime, vancomycin, and azithromycin as the patient apparently has a history of Pseudomonas in his sputum. He also gave AVAPS settings ( tidal volume 500, peak 10, minimum inspiratory pressure 12, maximum inspiratory pressure 20, rate 12). As no bed is projected to be available until tomorrow he is being admitted to the IMU for close monitoring and aggressive care. At the time my evaluation he is once again feeling nauseated and he had an episode of emesis while I was in the room. He continues to have a productive cough which is occasionally productive of dark brown, yellow, green, and even creamy colored sputum. He has not had a documented fever. He denies chest pain and pleuritic pain although he has sensations of racing heart since receiving a continuous nebulizer in the ER. No diarrhea. Review of Systems Review of Systems: Twelve systems were reviewed and are negative except for as per HPI. [facility], [facility] Past Medical History Medical History (Updated 03/27/22 @ 21:53 by Melanie Lanier PA-C) Abdominal wall hernia Chronic respiratory failure with hypoxia and hypercapnia Congenital solitary kidney Essential (primary) hypertension Gastroesophageal reflux disease Nonischemic cardiomyopathy per report, this is poorly documented in our system. Primary ciliary dyskinesia Pulmonary emphysema Sleep apnea in adult Type 2 diabetes mellitus Surgical History Surgical History History of appendectomy History of knee surgery History of nasal surgery History of orthopedic surgery History of tonsillectomy and adenoidectomy Family History Family History Father Hypertension Grandparent Hypertension Cerebrovascular accident Family history of coronary artery disease Family history of malignant neoplasm of urinary bladder Diabetes mellitus Mother Cholecystectomy planned Sibling Thyroid cancer Other Family history of malignant neoplasm of breast Social History Social History (Updated 03/27/22 @ 21:49 by Melanie Lanier PA-C) Social History: Surrogate medical decision maker: Sujey Cole, spouse. Code
[2022-03-27] MEDS: ONDANSETRON INJ 4 MG/2 ML VIAL (19:39)
[2022-03-27 21:05] LABS: Glucose Point of Care 252 mg/dl (65-105)
--- NOTE | 2022-03-27 21:23 | ADMGEN ---
This patient, Braydon Cole, was admitted to IMU Room 201-01 at 1945. Patient/family oriented to hospital policies and general routines including ID bracelet, bed and alarms, visiting hours, pain management, procedures, bathroom and other care routines, personal items, smoking policy, room service/diet, and visiting hours. Information on how to activate the Rapid Response Team has been discussed. Patient/Family are encouraged to report perceived risks to care and to ask questions if they do not understand what they are told or what they should do.
--- NOTE | 2022-03-27 21:42 | PCRCNOTE ---
Pt refused AVAPS after wearing it for five minutes @2135, RT placed pt back on NRB 15 liters sp02 97% RR-16. No increased WOB or SOB present at this time. pt wants to wear his home unit but his oxygen needed want allow him to do so. pt was found on home unit by RN with 8 liters bleed in sp02 68% at 2100. RT placed pt on NRB 15 Liters saturation improved sp02 96% @ 2105.
[2022-03-27 22:11] LABS: Alveolar/Arterial O2 Gradient 501.2 mmHg; Base Excess ABG 11.3 mEq/l (+/-2.0); Carboxyhemoglobin 0.3 % THb (0-2.0); Fractional Inspired Oxygen 100 %; HCO3 ABG 41.4 mEq/l (22.0-26.0); Methemoglobin ABG 0.3 %THb (0-1.5); Oxygen Content ABG 15.3 %vol (16.0-22.0); Oxygen Saturation ABG 97.4 % (95.0-100.0); PO2 ABG 117.8 mmHg (80.0-100.0); PO2 FiO2 Ratio Arterial Blood 1.18 %; Reduced Hemoglobin 2.4 %THb (0-5.0); Total Hemoglobin 11.1 g/dL (12.0-18.0)
[2022-03-27 22:16] LABS: Device NON-REBREATHER MASK; Modified Allen's Test Pass; Site Drawn RIGHT RADIAL; pH ABG 7.262 (7.350-7.450)
--- NOTE | 2022-03-27 22:35 | PCRCNOTE ---
Pt found with his home BIPAP unit on after RT informed him his oxygen level demand increased. Pt on home BIPAP with 10 liters bleed in sp02 87%. Pt is noncompliant to any suggested/ordered respiratory therapy. RT will continue to monitor pt and inform RN and MD on pt status.
[2022-03-27] MEDS: INSULIN GLARGINE (*BKC) 100 UNITS/ML 64 UNITS SUB-Q (22:40)
--- NOTE | 2022-03-27 22:47 | PCRCNOTE ---
RT increased pt oxygen to 15 L with his home BIPAP unit, sp02 97%, RR-16. Pt is alert x4.
--- NOTE | 2022-03-27 22:51 | PCRCNOTE ---
PT refused CPT therapy.
[2022-03-28] VITALS (27 sets, daily range): BP systolic 101–139; BP diastolic 60–78; PULSE 78–114; RESP 14–24; TEMP 36.3–37.2; O2SAT 90–100
[2022-03-28] MEDS: ALBUTEROL SULFATE NEB 2.5 MG/3 ML INH 5 MG INHALATION ×3 (04:34→11:19)
[2022-03-28] MEDS: IPRATROPIUM BR 0.02% INH SOLN 0.5 MG/2.5 ML VIAL INHALATION ×5 (04:34→20:33)
[2022-03-28 05:19] LABS: Hematocrit 33.4 % (42.0-52.0); Hemoglobin 9.8 g/dL (14.0-18.0); Mean Corpuscular HGB Conc 29.3 g/dl (32-36); Mean Corpuscular Hemoglobin 26.8 pg (26-34); Mean Corpuscular Volume 91.3 fl (80-100); Mean Platelet Volume 10.5 fl (7.4-10.4); Platelet Count Result 216 k/mm3 (150-375); Red Blood Count 3.66 M/mm3 (4.6-6.20); Red Cell Distribution Width 13.2 % (11.5-14.5); White Blood Count 10.7 K/mm3 (4.5-10.0)
[2022-03-28 05:23] LABS: Alveolar/Arterial O2 Gradient 248.1 mmHg; Base Excess ABG 18.2 mEq/l (+/-2.0); Carboxyhemoglobin 0.3 % THb (0-2.0); Fractional Inspired Oxygen 80 %; HCO3 ABG 50.5 mEq/l (22.0-26.0); Methemoglobin ABG 0.4 %THb (0-1.5); Oxyhemoglobin 97.8 % THb (90.0-100.0); PO2 ABG 193.5 mmHg (80.0-100.0); PO2 FiO2 Ratio Arterial Blood 2.42 %; Reduced Hemoglobin 1.5 %THb (0-5.0); Total Hemoglobin 11.3 g/dL (12.0-18.0)
[2022-03-28 05:27] LABS: pH ABG 7.232 (7.350-7.450)
[2022-03-28 05:28] LABS: Modified Allen's Test Pass; PCO2 ABG 122.7 mmHg (35.0-45.0); Site Drawn RIGHT RADIAL
[2022-03-28 05:29] LABS: Device OTHER DEVICE
[2022-03-28 05:44] LABS: Blood Urea Nitrogen 26 mg/dL (9-20); Calcium 7.9 mg/dL (8.4-10.2); Carbon Dioxide > 40 mmol/L (22-30); Chloride 87 mmol/L (98-107); Estimated CRCL calculation 65 ml/min; Estimated Glomerular Filt Rate 44; Glucose 159 mg/dL (65-110); Potassium 4.4 mmol/L (3.4-5.0); Sodium 140 mmol/L (137-145)
--- NOTE | 2022-03-28 05:44 | PC.NURSE ---
Called Dr. Castillo and updated the regarding the patient's blood gas results. Patient informed, once again, of the importance of keeping the AVAPS on in order to improve his ABG results.
[2022-03-28] MEDS: DORNASE ALFA INH SOLN 1 MG/ML 2.5 ML AMP 2.5 MG INHALATION (07:53)
[2022-03-28 08:39] LABS: Glucose Point of Care 226 mg/dl (65-105)
[2022-03-28 08:48] LABS: Alveolar/Arterial O2 Gradient 19.4 mmHg; Base Excess ABG 17.8 mEq/l (+/-2.0); Fractional Inspired Oxygen 30 %; HCO3 ABG 48.6 mEq/l (22.0-26.0); Oxygen Content ABG 14.5 %vol (16.0-22.0); Oxygen Saturation ABG 90.8 % (95.0-100.0); Oxyhemoglobin 92.6 % THb (90.0-100.0); PO2 ABG 71.2 mmHg (80.0-100.0); PO2 FiO2 Ratio Arterial Blood 2.37 %; Total Hemoglobin 11.1 g/dL (12.0-18.0)
[2022-03-28 08:50] LABS: Modified Allen's Test Pass; PCO2 ABG 104.9 mmHg (35.0-45.0); Site Drawn RIGHT RADIAL; pH ABG 7.284 (7.350-7.450)
[2022-03-28 08:53] LABS: Non-Invasive Expiratory Pressure 10 CMH2O; Non-Invasive Vent Rate 18 /MIN
[2022-03-28 08:54] LABS: Device NON-INVASIVE VENT
--- NOTE | 2022-03-28 09:58 | PM.IMPN ---
Progress Note: A&P Assessment and Plan (1) Acute on chronic respiratory failure with hypoxia and hypercapnia: Code(s): J96.21 - Acute and chronic respiratory failure with hypoxia; J96.22 - Acute and chronic respiratory failure with hypercapnia Status: Acute (2) Pulmonary infection: Code(s): J18.9 - Pneumonia, unspecified organism Status: Acute (3) Primary ciliary dyskinesia: Code(s): Q34.8 - Other specified congenital malformations of respiratory system Status: Chronic (4) Type 2 diabetes mellitus: Code(s): E11.9 - Type 2 diabetes mellitus without complications Status: Acute (5) Viral upper respiratory infection: Code(s): J06.9 - Acute upper respiratory infection, unspecified Status: Acute (6) Essential (primary) hypertension: Code(s): I10 - Essential (primary) hypertension Status: Chronic Plan # Acute on chronic hypoxic hypercapnic respiratory failure on trilogy home settings. Increased oxygen requirement normally at 5 L nasal cannula baseline on 8 L was found to be in 70% SpO2. Chest x-ray with worsening bilateral mid and lower lung opacities likely reflecting worsened chronic endobronchial spread of atypical infection fungal tuberculosis ANN etc. CT chest with worsening chronic endobronchial spread of atypical infection with mediastinal lymphadenopathy noted. Continue oxygen supplementation and trilogy as ordered. Pulmonary consultation Awaiting transfer to [place] excepted by escalator installer there # bilateral pneumonia: Broad-spectrum antibiotics empirically azithromycin cefepime and vancomycin. Sputum culture vest therapy as ordered with scheduled bronchodilators. # type 2 diabetes mellitus home medication continue to monitor Accu-Cheks # SABRINA creatinine bumped up to 1.7 today. On admission it was 1 2. Will hold metolazone and losartan today. Recheck in a.m. # hypertension # hyperlipidemia # DVT prophylaxis start Lovenox # history of primary ciliary dyskinesia # nonischemic cardiomyopathy # GERD # full code Subjective Date/time seen: 03/28/22 09:58 Interval history: HPI:This is a 46-year-old male with primary ciliary dyskinesia, chronic hypoxic and hypercarbic respiratory failure, nonischemic cardiomyopathy, hypertension, type 2 diabetes mellitus, and GERD who presented to the emergency department from home for evaluation of shortness of breath. He is supposed to be on 5 liters of oxygen however he admits that he feels better when it is on 8 liters and that is typically what he uses throughout the day. He does vest therapy twice a day, scheduled nebulizers 4 times a day, and he uses a trilogy at nighttime. This seems to keep him pretty stable and he has not been hospitalized recently.? It should be noted that he was previously hospitalized at [place] several years ago at which time he required intubation. In any event his son came home last week with upper respiratory symptoms and the last couple of days the patient has not been feeling well with chills, nausea, occasional emesis, and a productive cough. He made appointment with his doctor today to get tested for COVID and influenza ( both were negative) however at that time he was found to have an SpO2 of 74% on his 8 liters and he was instead directed to the emergency department. He was placed on a non-rebreather on arrival with improvement in his shortness of breath and oxygen saturations. Chest x-ray showed worsened bilateral mid and lower lung opacities and a subsequent chest CT showed worsening chronic endobronchial spread of atypical infection and mediastinal lymphadenopathy. Due to his complicated history, transfer was initiated to [place] and he was accepted by Dr. Banerjee? Laura recommended treating the patient with cefepime, vancomycin, and azithromycin as the patient apparently has a history of Pseudomonas in his sputum.? He also gave AVAPS settings ( tidal volume 500, peak 10, minimum inspiratory pressure 12
[2022-03-28] MEDS: INSULIN ASPART (*BKC) 100 UNITS/ML SUB-Q ×2 (10:35→17:18)
[2022-03-28] MEDS: FAMOTIDINE 20 MG TABLET 40 MG PO (10:36)
[2022-03-28] MEDS: MONTELUKAST SODIUM 10 MG TABLET PO (10:36)
[2022-03-28] MEDS: ATORVASTATIN 20 MG TABLET PO (10:36)
[2022-03-28] MEDS: modafiniL (*CRX) 200 MG TABLET PO (10:52)
[2022-03-28] MEDS: ENOXAPARIN 40 MG/0.4 ML SYRINGE SUB-Q (10:52)
[2022-03-28] MEDS: ALBUTEROL SULFATE NEB 2.5 MG/3 ML INH INHALATION ×3 (11:16→20:33)
[2022-03-28 11:22] LABS: Glucose Point of Care 203 mg/dl (65-105)
--- NOTE | 2022-03-28 12:40 | PM.CNPUL ---
Assessment and Plan Assessment and plan (1) Pulmonary infection: Code(s): J18.9 - Pneumonia, unspecified organism Status: Acute Assessment and Plan: Patient presents with a 1 week history of worsening cough, congestion, dyspnea on exertion after being exposed to his kids who had cough and congestion. Patient had a white blood cell count of 11.4, procalcitonin is 0.3, negative COVID RT PCR, negative RSV RT PCR, negative influenza swab. Blood cultures are negative, urine Legionella, urine pneumococcal and serum mycoplasma IgM studies are pending. Patient has a history of Pseudomonas in his sputum from the [facility] report. Will continue vancomycin, cefepime and azithromycin all started on 03/27/2022. the patient tells me his baseline is 8 L with rest and with ambulation and we will maintain his oxygenation with noninvasive ventilation or high flow nasal cannula to maintain saturations greater than 88%. Patient receives his respiratory care at [facility] and they have accepted the patient in transfer and we are awaiting a bed. (2) Acute on chronic respiratory failure with hypoxia and hypercapnia: Code(s): J96.21 - Acute and chronic respiratory failure with hypoxia; J96.22 - Acute and chronic respiratory failure with hypercapnia Status: Acute Assessment and Plan: Patient has a history of hypoxemic and hypercarbic respiratory failure with a blood gas on on 4 L of 7.38//67. He has been taking on a noninvasive ventilator with an AVAPS mode and per the reported [place] he is on a rate of 12, tidal volume 500, peep of 10, minimal inspiratory pressure 12, maximal inspiratory pressure 20 and he tells me he uses 8 L bleed in. We will attempt to call IV respiratory care to obtain a recent download to confirm the settings. Currently the patient is awaken says that he is breathing back to his normal and we will attempt to discontinue the noninvasive ventilation through the day and use it at night. Regarding his bronchiectasis will continue albuterol and ipratropium nebulizers q.4 hours. Patient is also on dornase and I will continue this and reassess tomorrow. History of Present Illness History of Present Illness Consult date: 03/28/22 Chief complaint: Atypical Pneumonia,Acute Hypoxic,Hypercapnic Resp Narrative: 03/28/2022: This is a new pulmonary consult for acute on chronic hypercarbic and hypoxemic respiratory failure. 46-year-old man with a history of primary ciliary dyskinesia followed at [facility] and last seen on 12/06/2021. That note states the patient has severe bronchiectasis and severe obstructive abnormality. spirometry on 01/07/2019 list an FVC of 2.47 L, 51% predicted. An FEV1 of 0.83 L, 21% predicted. Patient had a blood gas on 12/06 2021 on 4 L nasal cannula the pH of 7.38/78/67. The patient is maintained on home noninvasive ventilator with an AVAPS mode. the impression and plan for the notes state that he feels significantly improved since being switched to a VATS. Ultimately Mr. Johnston rule require lung transplantation. We again discussed attempts at weight loss and hopefully the 0 does M back will be of some benefit we card to this. Per the patient's was in the room now they have been evaluated by the lung transplant team and he does qualify but he is not actively listed as his activity level has been good and he is overweight. One week ago the patient was exposed to his children who had cough and congestion and he developed shortness of breath, low-grade fever and worsening dyspnea on exertion to only 10 ft. He denied hemoptysis or chest pain. stated he was also lethargic. He was wearing his noninvasive ventilation at night and with naps. Patient presented to the emergency room on 03 27 with a white blood cell count of 11.4, creatinine of 1.20 and a blood gas on 15 L nasal cannula 7.34/89/93. COVID RT PCR, RSV RT PCR, inf
[2022-03-28] MEDS: INSULIN GLARGINE (*BKC) 100 UNITS/ML 64 UNITS SUB-Q (17:19)
[2022-03-28] MEDS: INSULIN ASPART (*BKC) 100 UNITS/ML 15 UNITS SUB-Q (17:19)
[2022-03-28] MEDS: ACETAMINOPHEN ELIXIR 325 MG/10.15 ML UDC 650 MG PO (17:19)
[2022-03-28 17:57] LABS: Glucose Point of Care 208 mg/dl (65-105)
--- NOTE | 2022-03-28 20:16 | PM.TDS ---
Transfer Discharge Sum: Prov Provider Date of admission: 03/27/22 18:00 Primary care physician: El Breen MD Admitting clinician: Janny Lui MD Consults: 03/28/22 Consult to Physician Routine Comment: Consulting Provider: Dante Shelley Reason for consultation: Hypercabnia Has provider been notified: Yes DS: Admitting Diagnosis Discharge Date 03/29/22 Admitting Diagnosis pneumonia, resp failure DS: Discharge Diagnosis Discharge Diagnosis (1) Acute on chronic respiratory failure with hypoxia and hypercapnia: Code(s): J96.21 - Acute and chronic respiratory failure with hypoxia; J96.22 - Acute and chronic respiratory failure with hypercapnia Status: Acute (2) Pulmonary infection: Code(s): J18.9 - Pneumonia, unspecified organism Status: Acute (3) Primary ciliary dyskinesia: Code(s): Q34.8 - Other specified congenital malformations of respiratory system Status: Chronic (4) Type 2 diabetes mellitus: Code(s): E11.9 - Type 2 diabetes mellitus without complications Status: Acute (5) Viral upper respiratory infection: Code(s): J06.9 - Acute upper respiratory infection, unspecified Status: Acute (6) Essential (primary) hypertension: Code(s): I10 - Essential (primary) hypertension Status: Chronic Transfer Discharge Sum: Med Medications Active and Home Medications: Home Medications metolazone 5 mg tablet 5 mg PO DAILY #90 tabs 08/01/21 [Rx Confirmed 03/27/22] albuterol sulfate 90 mcg/actuation aerosol inhaler (ProAir HFA) 1 inh inhalation Q4H PRN Shortness Of Breath Or Wheezing 09/11/21 [History Confirmed 03/27/22] glucagon 3 mg/actuation nasal spray (Baqsimi) 3 mg intranasal ONCE PRN hypoglycemia #1 ea 10/10/21 [Rx Confirmed 03/27/22] atorvastatin 20 mg tablet 20 mg PO DAILY #30 tabs 11/10/21 [Rx Confirmed 03/27/22] famotidine 40 mg tablet 40 mg PO DAILY #90 tabs 12/08/21 [Rx Confirmed 03/27/22] losartan 50 mg tablet 50 mg PO DAILY #90 tabs 12/27/21 [Rx Confirmed 03/27/22] modafinil 200 mg tablet (Provigil) 200 mg PO QAM #90 tabs 12/27/21 [Rx Confirmed 03/27/22] montelukast 10 mg tablet (Singulair) 10 mg PO DAILY #90 tabs 12/27/21 [Rx Confirmed 03/27/22] insulin glargine-yfgn 100 unit/mL (3 mL) subcutaneous pen (Semglee (insulin glargine-yfgn) Pen) 64 unit (0.64 mL) subcut QPM 90 days #57.6 mL 03/14/22 [Rx Confirmed 03/27/22] semaglutide 1 mg/dose (4 mg/3 mL) subcutaneous pen injector (Ozempic) 1 mg (0.75 mL) subcut WEEKLY 84 days #9 mL 03/21/22 [Rx Confirmed 03/27/22] insulin aspart U-100 100 unit/mL (3 mL) subcutaneous pen See Rx Instructions .Route .COMPLEX 03/27/22 [History Confirmed 03/27/22] ipratropium 0.5 mg-albuterol 3 mg (2.5 mg base)/3 mL nebulization soln 3 ml inhalation QID PRN Shortness Of Breath Or Wheezing 03/27/22 [History Confirmed 03/27/22] Transfer Discharge Sum: Hosp Hospital Course Hospital course: Braydon Cole is a 46 year old male # Acute on chronic hypoxic hypercapnic respiratory failure on [facility] home settings.? Increased oxygen requirement normally at 5 L nasal cannula baseline on 8 L was found to be in 70% SpO2.? Chest x-ray with worsening bilateral mid and lower lung opacities likely reflecting worsened chronic endobronchial spread of atypical infection fungal tuberculosis ANN etc.? CT chest with worsening chronic endobronchial spread of atypical infection with mediastinal lymphadenopathy noted.? Continue oxygen supplementation and trilogy as ordered.? Pulmonary consulted during the hosptial stay. started on broad spectrum antibiotcs. vest therapy as well as scheduled bronchodilators. he has his usual pulmonary care at [place] and hence planned for transfer to [facility], accepted at [facility] and was trasnferred on 03/28/2022. # bilateral pneumonia: Broad-spectrum antibiotics empirically azithromycin cefepime and vancomycin.? Sputum culture vest therapy as ordered with scheduled bronchodilators. # typ
[2022-03-28 20:49] LABS: Glucose Point of Care 245 mg/dl (65-105)
--- NOTE | 2022-03-28 23:05 | PC.NURSE ---
2230 [facility] called with a bed. Report was called to RUDY Smith. Patient going to room 8412. Sujey, , called and given an update. Patient's belongings packed up and awaiting ambulance for transport
[2022-03-29] VITALS: BP 117/55; PULSE 101; PULSE 102; PULSE 94; RESP 18; RESP 20; TEMP 36.7; O2SAT 93; O2SAT 96
--- NOTE | 2022-03-29 01:21 | PC.NURSE ---
0110 [facility] here to take patient to [facility]. asset protection managerArmin made aware. RUDY Smith informed that patient is en route.
[2022-03-30 23:14] LABS: Pneumococcal Antigen Urine Not Detected (Not Detected)
[2022-03-31 18:59] LABS: Mycoplasma IgM Antibody Titer 169 U/mL (<770)
[2022-03-31 20:07] LABS: Legionella pneumophila Ag Ur Not Detected (Not Detected)
== END 2022-03-29 00:15 | disposition short-term general hospital (02) | DRG 189 ==
LOC: ANHED 17:57 → ANHIMU 19:01
PROVIDERS: Physician Assistant; Admitting Provider Hospitalist; Emergency Provider Emergency Medicine; PCP Family Medicine; Visit Provider Internal Medicine
DX: J96.21 Acute and chronic respiratory failure with hypoxia (principal); J14 Pneumonia due to Hemophilus influenzae; E87.0 Hyperosmolality and hypernatremia; I42.8 Other cardiomyopathies; Q60.0 Renal agenesis, unilateral; J96.22 Acute and chronic respiratory failure with hypercapnia; I10 Essential (primary) hypertension; J06.9 Acute upper respiratory infection, unspecified; J43.9 Emphysema, unspecified; E11.9 Type 2 diabetes mellitus without complications; R25.1 Tremor, unspecified; G47.30 Sleep apnea, unspecified; Z20.822 Contact with and (suspected) exposure to COVID-19; Q34.8 Other specified congenital malformations of respiratory system; Z87.891 Personal history of nicotine dependence; Z99.81 Dependence on supplemental oxygen; Z79.4 Long term (current) use of insulin
CPT/HCPCS: 36415; 36600; 71046; 71250; 80048; 80053; 82375; 82805; 82948; 83050; 83605; 83880; 84145; 84484; 85025; 85027; 85610; 85730; 86738; 87040; 87070; 87077; 87205; 87449; 87502; 87634; 87899; 93005; 94640; 94660; 94669; 96365; 96367; 96375; 99291; A9270; J0456; J0692; J1650; J1815; J2405; J3370; U0003; U0005

== ENCOUNTER 2022-05-10 08:20 | Outpatient (CLI) | payer BC, SELFPAY ==
[2022-05-10] VITALS (8 sets, daily range): PULSE 108–126; O2SAT 78–92
--- NOTE | 2022-05-10 09:19 | HOMEO2EVAL ---
Evaluation was performed at [facility] Home Oxygen Evaluation RC: Home Oxygen (O2) Evaluation Start: 05/10/22 09:13 Freq: Status: Active Protocol: RPE Activity Type Activity Date Activity User E-sign Co-sign Detail Recorded Client Recorded Date Recorded By Document 05/10/22 08:30 LORI [id number] 05/10/22 09:19 LORI Document 05/10/22 08:31 LORI [id number] 05/10/22 09:19 LORI Document 05/10/22 08:32 LORI [id number] 05/10/22 09:19 LORI Document 05/10/22 08:33 LORI [email or web address] 05/10/22 09:19 LORI Document 05/10/22 08:36 LORI [email or web address] 05/10/22 09:19 LORI Document 05/10/22 08:38 LORI [email or web address] 05/10/22 09:19 LORI Document 05/10/22 08:40 LORI [email or web address] 05/10/22 09:19 LORI Document 05/10/22 08:45 LORI [id number] 05/10/22 09:19 LORI 05/10/22 05/10/22 05/10/22 08:30 08:31 08:32 Home O2 Evaluation [Oxygen] -Test Phase Resting Resting Resting -Oxygen Delivery Room Air Nasal Cannula Nasal Cannula -Oxygen Flow Rate (L/min) 2 3 [Pulse Oximetry] -Pulse Oximetry (90-100 %) 88 L 88 L 88 L [Pulse Rate] -Pulse Rate (60-100 beats/min) 108 H [Exercise] -Ambulation Distance (meters) [Comments] -Home Oxygen Evaluation Comments [Charges] -Treatment Charges O2 Evaluation - Outpatient 05/10/22 05/10/22 05/10/22 08:33 08:36 08:38 Home O2 Evaluation [Oxygen] -Test Phase Resting Exercise Exercise -Oxygen Delivery Nasal Cannula Nasal Cannula Nasal Cannula -Oxygen Flow Rate (L/min) 4 4 6 [Pulse Oximetry] -Pulse Oximetry (90-100 %) 92 78 L 82 L [Pulse Rate] -Pulse Rate (60-100 beats/min) 126 H [Exercise] -Ambulation Distance (meters) [Comments] -Home Oxygen Evaluation Comments [Charges] -Treatment Charges 05/10/22 05/10/22 08:40 08:45 Home O2 Evaluation [Oxygen] -Test Phase Exercise Resting -Oxygen Delivery Nasal Cannula Nasal Cannula -Oxygen Flow Rate (L/min) 8 4 [Pulse Oximetry] -Pulse Oximetry (90-100 %) 89 L 91 [Pulse Rate] -Pulse Rate (60-100 beats/min) 111 H [Exercise] -Ambulation Distance (meters) 500 [Comments] -Home Oxygen Evaluation Comments ATTEMPTED TO USE AN OXIMIZER , OXYGEN CONSERVING DEVICE. DIDNT ALLOW LITER FLOW TO STAY BELOW 8 WITH EXERTION. PT REQUIRES 4 L REST AND 6-8 LITERS WITH EXERTION. PT WALKED 6 MINUTES WITH BREAKS FOR O2 TITRATION [Charges] -Treatment Charges
--- NOTE | 2022-05-10 09:23 | PCRCNOTE ---
FAXED HOME O2 EVAL TO [facility].
== END 2022-05-10 08:21 | disposition home or self-care (01) ==
LOC: ANHPFT 08:21
PROVIDERS: PCP Family Medicine; Visit Provider Nurse Practitioner Family
DX: J96.21 Acute and chronic respiratory failure with hypoxia (principal); J96.22 Acute and chronic respiratory failure with hypercapnia
CPT/HCPCS: 94618

== ENCOUNTER 2022-05-11 08:46 | Emergency (ER) | payer BC, SELFPAY ==
[2022-05-11] VITALS (43 sets, daily range): BP systolic 106–165; BP diastolic 66–97; PULSE 86–115; RESP 14–34; TEMP 36.2; O2SAT 87–100
--- NOTE | ~2022-05-11 | XR_ITS ---
Portable chest x-ray Comparison: 03/27/2022 Clinical History: Hypoxia Findings: There is hazy bibasilar airspace disease, right worse than left. Cardiomediastinal silhou ette is stable. Bones and soft tissues are unremarkable. Impression: Hazy bibasilar airspace disease, improved from prior exam. Correlate for mild pulmonary edema versus residual pneumonia. Underlying chronic interstitial disease is a consideration. Reviewed, dictated and finalized at location . [facility] [employer] Impression: Hazy bibasilar airspace disease, improved from prior exam. Correlate for mild p ulmonary edema versus residual pneumonia. Underlying chronic interstitial disea se is a consideration.
--- NOTE | 2022-05-11 09:01 | ECG_ITS ---
Measurements Intervals [place] Rate: 98 P: 77 HI: 146 QRS: 81 QRSD: 114 T: 66 QT: 337 QTc: 430 Interpretive Statements SINUS RHYTHM MODERATE INTRAVENTRICULAR CONDUCTION DELAY [110+ ms QRS DURATION] ABNORMAL ECG COMPARED TO ECG 03/27/2022 13:57:34 NO SIGNIFICANT CHANGE Electronically Signed On 05-11-2022 19:58:26 ADJUNCT BUSINESS INSTRUCTOR by Dante Wright M.D.
--- NOTE | 2022-05-11 09:16 | ED.AMS ---
HPI - Altered Mental Status General Chief Complaint: Altered Mental Status Stated Complaint: altered Time Seen by Provider: 05/11/22 09:01 History of Present Illness HPI narrative: Patient is a 47-year-old male with a history of primary ciliary dyskinesia complicated by chronic respiratory failure on 8 L nasal cannula baseline, hyperlipidemia, diabetes, hypertension presenting with altered mental status. History is obtained primarily from the patient's . She states that starting yesterday he seemed a little more confused than normal. States that this sometimes happens whenever his CO2 was too high. Today, he continued to be somewhat confused and then he had 2 episodes where he was too weak to walk and his knees buckled and he fell to the ground. Patient's states he did not strike his head or lose consciousness. She became concerned and checked his pulse ox and found it to be 84% on his baseline 8 L nasal cannula so brought him in for evaluation. Currently, the patient reports cough and shortness of breath. He denies headache, chills, chest pain, lightheadedness, abdominal pain, nausea or vomiting, diarrhea, leg swelling. Related Data Home Medications Medication Instructions Recorded Confirmed albuterol sulfate 90 mcg/actuation 1 inh inhalation Q4H PRN Shortness 09/11/21 04/25/22 aerosol inhaler (ProAir HFA) Of Breath Or Wheezing insulin aspart U-100 100 unit/mL See Rx Instructions .Route .COMPLEX 03/27/22 04/25/22 (3 mL) subcutaneous pen ipratropium 0.5 mg-albuterol 3 mg 3 ml inhalation QID PRN Shortness 03/27/22 04/25/22 (2.5 mg base)/3 mL nebulization Of Breath Or Wheezing soln Allergies Allergy/AdvReac Type Severity Reaction Status Date / Time povidone-iodine Allergy Unknown rash Verified 05/11/22 09:10 tetracycline Allergy Unknown Rash Verified 05/11/22 09:10 theophylline AdvReac Mild Nervousness Verified 05/11/22 09:19 Review of Systems Review of Systems: All systems reviewed & are unremarkable except as noted in HPI and below PMFSH Past Medical History Medical History Abdominal wall hernia Chronic respiratory failure with hypoxia and hypercapnia Congenital solitary kidney Essential (primary) hypertension Gastroesophageal reflux disease Nonischemic cardiomyopathy per report, this is poorly documented in our system. Primary ciliary dyskinesia Pulmonary emphysema Sleep apnea in adult Type 2 diabetes mellitus Surgical History Surgical History History of appendectomy History of knee surgery History of nasal surgery History of orthopedic surgery History of tonsillectomy and adenoidectomy Family History Family History Father Hypertension Grandparent Hypertension Cerebrovascular accident Family history of coronary artery disease Family history of malignant neoplasm of urinary bladder Diabetes mellitus Mother Cholecystectomy planned H/O: hysterectomy Sibling Thyroid cancer Diverticulitis Other Family history of malignant neoplasm of breast Social History Social History Social History: Surrogate medical decision maker: Sujey Mirston, spouse. Code status: Full code. Smoking status: Former smoker Tobacco type: cigarettes Smokeless tobacco user: chewing tobacco Second hand tobacco smoke exposure: No Alcohol intake: former Substance use: never Substance use type: does not use Lack of Transportation: No Lack of Food: Never True Current Housing: I Have Housing Concerned About Future Housing: No Difficulty Paying Gas/Electric Bills: No Difficulty Paying for Meds: No Currently Unemployed: No Education: Associate Degree Difficulty w/ Childcare or Family Care: No Additional living arrangements comments: The patient delfino
[2022-05-11 09:19] LABS: Basophils Percent Auto 0.2 % (0.2-1.2); Eosinophils Percent Auto 0.4 % (0-4.4); Hematocrit 35.5 % (42.0-52.0); Immature Granulocyte Absolute 0.09 K/mm3 (0.00-0.031); Immature Granulocyte Percent A 0.8 % (0-0.5); Lymphocytes Absolute Auto 1.57 K/mm3 (0.9-3.2); Lymphocytes Percent Auto 14.4 % (18.3-44.2); Mean Corpuscular HGB Conc 28.2 g/dl (32-36); Mean Corpuscular Hemoglobin 26.5 pg (26-34); Mean Corpuscular Volume 93.9 fl (80-100); Monocytes Absolute Auto 0.5 K/mm3 (0.1-0.6); Monocytes Percent Auto 4.9 % (2.6-8.5); Neutrophils Absolute Auto 8.6 K/mm3 (1.3-6.7); Neutrophils Percent Auto 79.3 % (45.5-73.1); Platelet Count Result 247 k/mm3 (150-375); Red Blood Count 3.78 M/mm3 (4.6-6.20); Red Cell Distribution Width 13.1 % (11.5-14.5); White Blood Count 10.9 K/mm3 (4.5-10.0)
[2022-05-11 09:29] LABS: Prothrombin Time 12.6 Seconds (11.1-14.7)
[2022-05-11 09:35] LABS: Add Urine Microscopic? YES; Appearance Urine Clear (Clear); Bilirubin Urine Negative (Negative); Blood Urine 1+ (Negative); Color Urine Light Yellow (Yellow); Glucose Urine UA Negative (Negative); Ketones Urine Negative (Negative); Leukocyte Esterase Ur Negative LEU/UL (Negative); Nitrate Urine Negative (Negative); Protein Urine 2+ mg/dL (Negative); Specific Grav Ur >= 1.030 (1.001-1.035); Urobilinogen Urine 0.2 mg/dL (<2.0)
[2022-05-11] MEDS: ALBUTEROL SULFATE NEB 2.5 MG/3 ML INH 10 MG INHALATION (09:35)
[2022-05-11] MEDS: IPRATROPIUM BR 0.02% INH SOLN 0.5 MG/2.5 ML VIAL INHALATION (09:37)
[2022-05-11 09:44] LABS: Hypochromasia 1+ (NORMAL); Platelet Estimate Adequate (Adequate); Schistocytes None Seen (NORMAL)
[2022-05-11 09:45] LABS: Stomatocytes 2+ (NORMAL)
[2022-05-11 09:52] LABS: Bacteria Urine Trace /hpf; RBC Urine 0-2 /hpf (0-2); WBC Urine 0-3 /hpf
[2022-05-11 09:54] LABS: Lactic Acid Reflex 1.2 mmol/L (0.7-2.0)
[2022-05-11 10:02] LABS: Base Excess ABG 21.8 mEq/l (+/-2.0); Fractional Inspired Oxygen 52 %; HCO3 ABG 54.8 mEq/l (22.0-26.0); Oxygen Saturation ABG 99.5 % (95.0-100.0); Oxyhemoglobin 98.3 % THb (90.0-100.0); PO2 ABG 301.6 mmHg (80.0-100.0); Total Hemoglobin 10.3 g/dL (12.0-18.0)
[2022-05-11 10:08] LABS: pH ABG 7.199 (7.350-7.450)
[2022-05-11 10:09] LABS: Device HIGH FLOW NASAL CANN; Modified Allen's Test Pass; PCO2 ABG 143.8 mmHg (35.0-45.0); Site Drawn LEFT RADIAL
[2022-05-11 10:18] LABS: Alanine Aminotransferase 21 U/L (6-50); Albumin Level 4.5 g/dL (3.5-5.1); Alkaline Phosphatase 100 U/L (38-126); Anion Gap 18 mmol/L (8-16); Aspartate Amino Transferase 24 U/L (17-59); Bilirubin,Total 0.3 mg/dL (0.2-1.3); Blood Urea Nitrogen 29 mg/dL (9-20); Calcium 9.1 mg/dL (8.4-10.2); Carbon Dioxide 39 mmol/L (22-30); Chloride 91 mmol/L (98-107); Estimated CRCL calculation 70 ml/min; Estimated Glomerular Filt Rate 50; Glucose 168 mg/dL (65-110); Sodium 148 mmol/L (137-145)
[2022-05-11 10:30] LABS: NT Pro B Type Natriuretic Pept 258 pg/mL (5-100); Troponin I 0.034 ng/mL (0.000-0.034)
[2022-05-11 10:38] LABS: Influenza A QL RT-PCR Negative (Negative); Influenza B QL RT-PCR Negative (Negative); RSV RNA, RT-PCR Negative (Negative); SARS-CoV-2 RNA PCR Negative
--- NOTE | 2022-05-11 11:18 | PC.NURSE ---
1100 Assumed pt care from Valeria Burleson RN
[2022-05-11 13:22] LABS: Alveolar/Arterial O2 Gradient 170.5 mmHg; Base Excess ABG 19.7 mEq/l (+/-2.0); Fractional Inspired Oxygen 50 %; HCO3 ABG 50.2 mEq/l (22.0-26.0); Oxygen Content ABG 13.3 %vol (16.0-22.0); Oxygen Saturation ABG 89.6 % (95.0-100.0); Oxyhemoglobin 91.5 % THb (90.0-100.0); PO2 ABG 67.5 mmHg (80.0-100.0); PO2 FiO2 Ratio Arterial Blood 1.35 %; Total Hemoglobin 10.3 g/dL (12.0-18.0)
[2022-05-11 13:25] LABS: pH ABG 7.296 (7.350-7.450)
[2022-05-11 13:26] LABS: Modified Allen's Test Pass; PCO2 ABG 105.3 mmHg (35.0-45.0); Site Drawn LEFT RADIAL
[2022-05-11 13:27] LABS: Device NON-INVASIVE VENT; Non-Invasive Expiratory Pressure 12 CMH2O; Non-Invasive Inspiratory Pressure 20 CMH2O
--- NOTE | 2022-05-11 15:14 | PC.NURSE ---
1505 Spoke with Amira, shipping and receiving coordinator from [facility], updated her on pt status for room placement.
[2022-05-11 19:25] LABS: Base Excess ABG 18.7 mEq/l (+/-2.0); Fractional Inspired Oxygen 52 %; HCO3 ABG 47.3 mEq/l (22.0-26.0); Oxygen Content ABG 10.6 %vol (16.0-22.0); PO2 FiO2 Ratio Arterial Blood 0.81 %; Total Hemoglobin 9.8 g/dL (12.0-18.0); pH ABG 7.361 (7.350-7.450)
[2022-05-11 19:30] LABS: PCO2 ABG 85.4 mmHg (35.0-45.0)
[2022-05-11 19:31] LABS: Oxygen Saturation ABG 72.4 % (95.0-100.0); PO2 ABG 42.1 mmHg (80.0-100.0)
[2022-05-11 19:32] LABS: Device OTHER DEVICE; Modified Allen's Test Pass; Site Drawn LEFT RADIAL
--- NOTE | 2022-05-11 23:11 | PC.NURSE ---
Report received from RUDY Oliveira. Assumed care of patient at this time.
[2022-05-12] VITALS (33 sets, daily range): BP systolic 120–152; BP diastolic 74–93; PULSE 70–106; RESP 15–45; O2SAT 91–100
--- NOTE | 2022-05-12 00:26 | PC.NURSE ---
Patient states he is feeling better at this time. Patient resting on stretcher wearing own cpap/bipap. Call light within reach.
[2022-05-12 06:54] LABS: Alveolar/Arterial O2 Gradient 184.4 mmHg; Base Excess ABG 18.1 mEq/l (+/-2.0); Fractional Inspired Oxygen 50 %; HCO3 ABG 46.8 mEq/l (22.0-26.0); Oxygen Content ABG 13.5 %vol (16.0-22.0); Oxygen Saturation ABG 94.3 % (95.0-100.0); Oxyhemoglobin 93.6 % THb (90.0-100.0); PO2 ABG 77.7 mmHg (80.0-100.0); PO2 FiO2 Ratio Arterial Blood 1.55 %; Total Hemoglobin 10.2 g/dL (12.0-18.0); pH ABG 7.364 (7.350-7.450)
[2022-05-12 06:59] LABS: Modified Allen's Test Pass; PCO2 ABG 83.9 mmHg (35.0-45.0); Site Drawn LEFT RADIAL
[2022-05-12 12:21] LABS: Alveolar/Arterial O2 Gradient 18.9 mmHg; Base Excess ABG 18.3 mEq/l (+/-2.0); Fractional Inspired Oxygen 32 %; HCO3 ABG 47.2 mEq/l (22.0-26.0); Oxygen Content ABG 13.9 %vol (16.0-22.0); Oxygen Saturation ABG 97.3 % (95.0-100.0); Oxyhemoglobin 96.7 % THb (90.0-100.0); PO2 ABG 107.1 mmHg (80.0-100.0); PO2 FiO2 Ratio Arterial Blood 3.35 %; Total Hemoglobin 10.1 g/dL (12.0-18.0); pH ABG 7.351 (7.350-7.450)
[2022-05-12 12:22] LABS: PCO2 ABG 87.3 mmHg (35.0-45.0)
[2022-05-12 12:23] LABS: Device NASAL CANNULA; Modified Allen's Test Pass; Site Drawn LEFT RADIAL
[2022-05-12] MEDS: CIPROFLOXACIN 500 MG TAB PO (14:56)
[2022-05-14 09:18] LABS: Device NON-INVASIVE VENT
== END 2022-05-12 15:20 | disposition home or self-care (01) ==
PROVIDERS: Emergency Medicine; Emergency Provider Emergency Medicine; PCP Family Medicine
DX: J96.02 Acute respiratory failure with hypercapnia (principal); J96.01 Acute respiratory failure with hypoxia; Q34.8 Other specified congenital malformations of respiratory system; Z99.81 Dependence on supplemental oxygen; Z20.822 Contact with and (suspected) exposure to COVID-19
CPT/HCPCS: 36415; 36600; 51701; 71045; 80053; 81001; 82805; 83605; 83880; 84484; 85025; 85610; 85730; 87637; 93005; 94002; 94640; 96365; 96366; 96367; 96368; 99284; A9270; J0456; J0692; J3370

== ENCOUNTER 2022-05-29 07:06 | Inpatient (IN) | payer BC, MEDICARE, SELFPAY ==
[2022-05-29] VITALS (41 sets, daily range): BP systolic 130–187; BP diastolic 69–131; PULSE 92–123; RESP 16–26; TEMP 37–37.4; O2SAT 88–100; BMI 40.2
--- NOTE | ~2022-05-29 | XR_ITS ---
EXAMINATION: XR chest 1V portable DATE: 05/30/2022 05:58 INDICATION: Hypercapnic respiratory failure. TECHNIQUE: A single frontal view of the chest was obtained. COMPARISON: Chest single view 05/29/2022, chest CT 03/27/2022 FINDINGS: There is a reticulonodular pattern in the mid and lower lung zones. There are airspace opac ities in the lower lung zones. No pleural effusion or pneumothorax. The heart size is normal. IMPRESSION: 1. Stable diffuse lung disease with a basilar predominance, consistent with chronic pneumonia. Reviewed, dictated and finalized at location A. PHONE DIRECTORY DELIVERER IMPRESSION: 1. Stable diffuse lung disease with a basilar predominance, consistent with chr onic pneumonia.
--- NOTE | ~2022-05-29 | XR_ITS ---
EXAMINATION: XR chest 1V portable DATE: 05/29/2022 08:43 INDICATION: Shortness of breath. TECHNIQUE: A single frontal view of the chest was obtained on 2 radiographs. COMPARISON: Chest single view 05/11/2022, chest CT 03/27/2022, 07/11/2018 FINDINGS: There is a diffuse reticulonodular pattern in the lungs with a lower lung predominance. The re are airspace opacities in right lower lung zone. No pleural effusion or pneumothorax. The heart si ze is normal. IMPRESSION: 1. Diffuse lung disease with a lower lung predominance, consistent with chronic pneumonia. Reviewed, dictated and finalized at location A. SULFIDE OPERATOR
--- NOTE | ~2022-05-29 | CT_ITS ---
EXAMINATION: CT brain wo con INDICATION: Altered mental status COMPARISON: None TECHNIQUE: Standard unenhanced head CT. The dose-length product (DLP) was 605.33 mGy-cm. The mA was a djusted according to patient size. Iterative reconstruction technique was employed. FINDINGS: There is no intracranial hemorrhage, acute infarction, or abnormal mass lesion. The ventric les are normal. There is no abnormal mass effect or midline shift. The adair-white matter differentiat ion is normal. The basal cisterns are patent. The orbits are normal. There are surgical changes in th e maxillary sinuses. High density material in the left maxillary sinuses consistent with chronic sinu sitis. There is mucosal thickening of the sphenoid sinuses and ethmoid air cells. IMPRESSION: 1. No acute intracranial abnormality. 2. Sinus disease. Reviewed, dictated and finalized at location L. EAR REACTOR ENGINEER
--- NOTE | ~2022-05-29 | XR_ITS ---
EXAMINATION: XR chest 1V portable DATE: 05/31/2022 05:32 INDICATION: Hypercapnic respiratory failure. TECHNIQUE: A single frontal view of the chest was obtained. COMPARISON: Chest single view 05/30/2022, chest CT 03/27/2022 FINDINGS: There is a reticulonodular pattern in the lungs with a lower lung predominance. There are m ild airspace opacities in right lower lung zone. No pleural effusion or pneumothorax. The heart size is normal. IMPRESSION: 1. Stable diffuse lung disease with a lower lung predominance, consistent with chronic pneumonia. Reviewed, dictated and finalized at location A. NESS SERVICES ASSISTANT
--- NOTE | 2022-05-29 07:23 | ECG_ITS ---
Measurements Intervals [place] Rate: 96 P: 87 WA: 143 QRS: 93 QRSD: 112 T: 81 QT: 335 QTc: 425 Interpretive Statements SINUS RHYTHM RIGHT AXIS DEVIATION INTRAVENTRICULAR CONDUCTION DELAY BASELINE WANDER- II, III BORDERLINE ECG COMPARED TO ECG 05/11/2022 08:57:52 NO SIGNIFICANT CHANGES Electronically Signed On 05-29-2022 9:13:02 EXECUTIVE VICE PRESIDENT BUSINESS DEVELOPMENT by Aguila Issa D.O.
--- NOTE | 2022-05-29 07:26 | ED.GENADULT ---
HPI - General Adult General Chief complaint: Altered Mental Status Stated complaint: CONFUSION,?ELEVATED CO2 Time Seen by Provider: 05/29/22 07:15 Source: RN notes reviewed and old records reviewed History of Present Illness HPI narrative: Patient presents emergency department from home for altered mental status. Patient has primary ciliary dyskinesia and is chronically on 8 L nasal cannula. He is followed by Dr. Grant at [facility]. Per the and the patient's carbon dioxide levels rise he becomes a little more confused she states that this morning take a little longer than normal to wake him up and he seemed a little more shaky than normal and then caused her to be concerned and brought him to the emergency department the patient is currently awake and alert x4 and has no complaints he denies any recent illness and was most recently admitted to the hospital over [place] for hypercapnia. He denies any fevers or chills chest pain abdominal pain nausea or vomiting Related Data Home Medications Medication Instructions Recorded Confirmed albuterol sulfate 90 mcg/actuation 1 inh inhalation Q4H PRN Shortness 09/11/21 04/25/22 aerosol inhaler (ProAir HFA) Of Breath Or Wheezing insulin aspart U-100 100 unit/mL See Rx Instructions .Route .COMPLEX 03/27/22 04/25/22 (3 mL) subcutaneous pen ipratropium 0.5 mg-albuterol 3 mg 3 ml inhalation QID PRN Shortness 03/27/22 04/25/22 (2.5 mg base)/3 mL nebulization Of Breath Or Wheezing soln Allergies Allergy/AdvReac Type Severity Reaction Status Date / Time povidone-iodine Allergy Unknown rash Verified 05/11/22 09:10 tetracycline Allergy Unknown Rash Verified 05/11/22 09:10 theophylline AdvReac Mild Nervousness Verified 05/11/22 09:19 Review of Systems Review of Systems: Gen.: Denies fevers or chills ENT: Denies congestion Respiratory: See HPI CV: Denies chest pain or palpitations GI: Denies abdominal pain nausea, emesis or diarrhea Musculoskeletal: Denies back pain or muscle pain Neuro: Denies numbness, tingling, weakness or focal weakness Skin: Denies rash Except as documented, all other systems reviewed and negative PMFSH Past Medical History Medical History Abdominal wall hernia Chronic respiratory failure with hypoxia and hypercapnia Congenital solitary kidney Essential (primary) hypertension Gastroesophageal reflux disease Nonischemic cardiomyopathy per report, this is poorly documented in our system. Primary ciliary dyskinesia Pulmonary emphysema Sleep apnea in adult Type 2 diabetes mellitus Surgical History Surgical History History of appendectomy History of knee surgery History of nasal surgery History of orthopedic surgery History of tonsillectomy and adenoidectomy Family History Family History Father Hypertension Grandparent Hypertension Cerebrovascular accident Family history of coronary artery disease Family history of malignant neoplasm of urinary bladder Diabetes mellitus Mother Cholecystectomy planned H/O: hysterectomy Sibling Thyroid cancer Diverticulitis Other Family history of malignant neoplasm of breast Social History Social History Social History: Surrogate medical decision maker: Sujey Cole, spouse. Code status: Full code. Smoking status: Former smoker Tobacco type: cigarettes Smokeless tobacco user: chewing tobacco Second hand tobacco smoke exposure: No Alcohol intake: former Substance use: never Substance use type: does not use Lack of Transportation: No Lack of Food: Never True Current Housing: I Have Housing Concerned About Future Housing: No Difficulty Paying Gas/Electric Bills: No Difficulty Paying for Meds: No Currently Unemployed: No Ed
[2022-05-29 07:39] LABS: Glucose Point of Care 229 mg/dl (65-105)
[2022-05-29 07:52] LABS: Alveolar/Arterial O2 Gradient 179.4 mmHg; Base Excess ABG 15.2 mEq/l (+/-2.0); Carboxyhemoglobin 0.3 % THb (0-2.0); Fractional Inspired Oxygen 50 %; HCO3 ABG 46.7 mEq/l (22.0-26.0); Methemoglobin ABG 0.3 %THb (0-1.5); Oxygen Content ABG 10.3 %vol (16.0-22.0); PO2 FiO2 Ratio Arterial Blood 0.86 %; Reduced Hemoglobin 27.1 %THb (0-5.0); Total Hemoglobin 10.1 g/dL (12.0-18.0)
[2022-05-29 07:54] LABS: PCO2 ABG 119.1 mmHg (35.0-45.0); pH ABG 7.211 (7.350-7.450)
[2022-05-29 07:55] LABS: Oxygen Saturation ABG 64.3 % (95.0-100.0); Oxyhemoglobin 72.3 % THb (90.0-100.0); PO2 ABG 43.1 mmHg (80.0-100.0)
[2022-05-29 07:56] LABS: Device NASAL CANNULA; Modified Allen's Test Pass; Site Drawn RIGHT RADIAL
[2022-05-29] MEDS: ALBUTEROL SULFATE NEB 2.5 MG/3 ML INH 5 MG INHALATION (08:17)
[2022-05-29] MEDS: IPRATROPIUM BR 0.02% INH SOLN 0.5 MG/2.5 ML VIAL INHALATION ×3 (08:17→20:22)
[2022-05-29 08:18] LABS: Influenza A QL RT-PCR Negative (Negative); Influenza B QL RT-PCR Negative (Negative); SARS-CoV-2 RNA PCR Negative
[2022-05-29 08:23] LABS: Basophils Percent Auto 0.3 % (0.2-1.2); Eosinophils Absolute Auto 0.2 K/mm3 (0-0.3); Hematocrit 32.2 % (42.0-52.0); Hemoglobin 9.1 g/dL (14.0-18.0); Immature Granulocyte Absolute 0.12 K/mm3 (0.00-0.031); Immature Granulocyte Percent A 1.3 % (0-0.5); Lymphocytes Absolute Auto 1.78 K/mm3 (0.9-3.2); Lymphocytes Percent Auto 18.8 % (18.3-44.2); Mean Corpuscular HGB Conc 28.3 g/dl (32-36); Mean Corpuscular Hemoglobin 26.8 pg (26-34); Mean Corpuscular Volume 94.7 fl (80-100); Mean Platelet Volume 10.1 fl (7.4-10.4); Monocytes Absolute Auto 0.5 K/mm3 (0.1-0.6); Monocytes Percent Auto 5.3 % (2.6-8.5); Neutrophils Absolute Auto 6.9 K/mm3 (1.3-6.7); Neutrophils Percent Auto 72.3 % (45.5-73.1); Platelet Count Result 194 k/mm3 (150-375); Red Cell Distribution Width 13.1 % (11.5-14.5); White Blood Count 9.5 K/mm3 (4.5-10.0)
[2022-05-29] MEDS: ONDANSETRON INJ 4 MG/2 ML VIAL IV PUSH (08:25)
[2022-05-29 08:33] LABS: Alanine Aminotransferase 24 U/L (6-50); Albumin Level 4.2 g/dL (3.5-5.1); Alkaline Phosphatase 103 U/L (38-126); Aspartate Amino Transferase 23 U/L (17-59); Bilirubin,Total 0.2 mg/dL (0.2-1.3); Blood Urea Nitrogen 33 mg/dL (9-20); Calcium 9.1 mg/dL (8.4-10.2); Carbon Dioxide > 40 mmol/L (22-30); Chloride 87 mmol/L (98-107); Estimated CRCL calculation 77 ml/min; Estimated Glomerular Filt Rate 55; Glucose 239 mg/dL (65-110); Sodium 140 mmol/L (137-145)
[2022-05-29 08:51] LABS: Anisocytosis 1+ (NORMAL); Basophilic Stippling 1+ (NORMAL); Hypochromasia 1+ (NORMAL); Platelet Estimate Adequate (Adequate); Schistocytes None Seen (NORMAL); Stomatocytes 1+ (NORMAL)
[2022-05-29 10:25] LABS: Alveolar/Arterial O2 Gradient 146.8 mmHg; Base Excess ABG 25.3 mEq/l (+/-2.0); Carboxyhemoglobin 0.3 % THb (0-2.0); Fractional Inspired Oxygen 50 %; HCO3 ABG 57.7 mEq/l (22.0-26.0); Methemoglobin ABG 0.1 %THb (0-1.5); PO2 ABG 60.6 mmHg (80.0-100.0); PO2 FiO2 Ratio Arterial Blood 1.21 %; Reduced Hemoglobin 11.9 %THb (0-5.0); Total Hemoglobin 10.5 g/dL (12.0-18.0)
[2022-05-29 10:29] LABS: PCO2 ABG 132.5 mmHg (35.0-45.0); pH ABG 7.257 (7.350-7.450)
[2022-05-29 10:30] LABS: Oxygen Saturation ABG 83.8 % (95.0-100.0)
[2022-05-29 10:31] LABS: Device NON-INVASIVE VENT; Modified Allen's Test Pass; Non-Invasive Expiratory Pressure 12 CMH2O; Non-Invasive Inspiratory Pressure 20 CMH2O; Non-Invasive Vent Rate 20 /MIN; Oxyhemoglobin 87.7 % THb (90.0-100.0); Site Drawn RIGHT RADIAL
[2022-05-29 11:34] LABS: Lactic Acid Reflex 0.7 mmol/L (0.7-2.0)
--- NOTE | 2022-05-29 12:55 | WPDCNINT ---
Assessment and Plan Assessment and plan (1) Altered mental status: Code(s): R41.82 - Altered mental status, unspecified Status: Acute Assessment and Plan: Altered mental status most likely related to hypercapnic respiratory failure secondary to primary ciliary dyskinesia, possible pneumonia, hypercapnia -according the patient was slow to respond this morning along with confusion. -will continue to monitor -will obtain CT head -continue to monitor (2) Acute and chronic respiratory failure with hypercapnia: Code(s): J96.22 - Acute and chronic respiratory failure with hypercapnia Status: Acute Assessment and Plan: Patient presented with altered mental status, hypercapnic respiratory failure -Our ER physician discussed with [facility] agency trainer who has accepted the patient under Dr. Bradley, will transfer patient to [facility] when bed is available -they also recommended patient be placed on AVAPS mode of ventilation and start vancomycin and cefepime since he has a history of growing Pseudomonas respiratory cultures -ABGs and chest x-ray reviewed -will repeat ABGs after he has been placed on AVAPS -will start patient on bronchodilators, azelastine, fluticasone, saline 0.65 nasal solution, (he takes these at home) -CPT with vest therapy (also does this at home) (3) Primary ciliary dyskinesia: Code(s): Q34.8 - Other specified congenital malformations of respiratory system Status: Chronic Assessment and Plan: As above (4) Type 2 diabetes mellitus: Code(s): E11.9 - Type 2 diabetes mellitus without complications Status: Acute Assessment and Plan: Continue sliding scale insulin and Accu-Chek (5) Hyperlipidemia LDL goal <100: Code(s): E78.5 - Hyperlipidemia, unspecified Status: Acute Assessment and Plan: On atorvastatin you, will restart once patient starts taking p.o. (6) SABRINA (acute kidney injury): Code(s): N17.9 - Acute kidney failure, unspecified Status: Acute Assessment and Plan: Could be related to hypoxia, decreased oral intake and hypovolemia, also patient on metolazone, losartan at home -creatinine is increased to 1.4 on admission (baseline is 1.0-1.20) -will gently hydrate with maintenance IV fluid normal saline at 75 mL for 1 L -continue to monitor renal function, electrolytes and urine output (7) Essential (primary) hypertension: Code(s): I10 - Essential (primary) hypertension Status: Chronic Assessment and Plan: Patient has a history hypertension, on ventilatory and losartan at home -given his elevation in creatinine and, will continue to hold these medications for now -p.r.n. hydralazine Plan DVT prophylaxis: Lovenox SQ Stress ulcer prophylaxis: Protonix Nutrition: NPO for now Discussed with patient's , Sujey at bedside and updated her with patient's condition and plan of care. She is aware that the ER physician discussed with [facility] and he has been axillary in the ICU, awaiting bed Code Status: Full code Critical Care Time Spent: 48 minute Due to a high probability of clinically significant, life threatening deterioration, the patient required my highest level of preparedness to intervene emergently and I personally spent this critical care time directly and personally managing the patient. This critical care time included obtaining a history; examining the patient; pulse oximetry; ordering and review of studies; arranging urgent treatment with development of a management plan; evaluation of patient's response to treatment; frequent reassessment; and discussions with other providers. It was exclusive of separately billable procedures and treating other patients and teaching time. Please see Assessment and Plan section and the rest of the note for further information on patient assessment and treatment This dictation may have been done utilizin
--- NOTE | 2022-05-29 13:02 | ADMGEN ---
This patient, Braydon Cole, was admitted to Intensive Care Unit-3 at 1250. Patient/family oriented to hospital policies and general routines including ID bracelet, bed and alarms, visiting hours, pain management, procedures, bathroom and other care routines, personal items, smoking policy, room service/diet, and visiting hours. Information on how to activate the Rapid Response Team has been discussed. Patient/Family are encouraged to report perceived risks to care and to ask questions if they do not understand what they are told or what they should do.
[2022-05-29 13:26] LABS: Glucose Point of Care 285 mg/dl (65-105)
[2022-05-29] MEDS: SODIUM CHLORIDE 0.9% IV 1,000 ML 75 ML IV CONT (13:53)
[2022-05-29 14:43] LABS: Base Excess ABG 28.1 mEq/l (+/-2.0); Fractional Inspired Oxygen 50 %; HCO3 ABG 61.8 mEq/l (22.0-26.0); Oxyhemoglobin 89.1 % THb (90.0-100.0); PO2 ABG 64.1 mmHg (80.0-100.0); PO2 FiO2 Ratio Arterial Blood 1.28 %; Total Hemoglobin 10.3 g/dL (12.0-18.0)
[2022-05-29 14:47] LABS: PCO2 ABG 155.9 mmHg (35.0-45.0); pH ABG 7.216 (7.350-7.450)
[2022-05-29 14:49] LABS: Modified Allen's Test Pass; Oxygen Saturation ABG 83.9 % (95.0-100.0); Site Drawn RIGHT RADIAL
[2022-05-29 14:50] LABS: Expiratory Pressure 11 cmH2O
[2022-05-29 14:51] LABS: Device BIPAP; Inspiratory Pressure 18 cmH2O
[2022-05-29] MEDS: hydrALAZINE HCL 20 MG/ML VIAL 10 MG IV PUSH (15:09)
--- NOTE | 2022-05-29 15:30 | PM.IMHP ---
H&P: HPI History of Present Illness Date/Time: 05/29/22 15:30 Chief Complaint: Confusion. Narrative: This is a 46-year-old male with primary ciliary dyskinesia, chronic hypoxic and hypercarbic respiratory failure, hypertension, type 2 diabetes mellitus, nonischemic cardiomyopathy, and GERD who presented to the emergency department from home for evaluation of confusion. He is currently on NIPPV and is still somewhat somnolent albeit improving and most majority of found history is obtained via a review of his electronic medical records as well as history provided by his . Braydon was difficult to wake up this morning and once awake he was confused, slow to respond, and he had difficulty staying awake. He has acted in this way previously when his carbon dioxide levels were elevated and she brought him in for evaluation. ABG on arrival to the ER showed a pH of 7.21, pCO2 119, bicarb 46 and he was started on BiPAP 20/12 rate of 20. PH improved on subsequent blood gas though his pCO2 continued to rise. Case was discussed with [facility] MIC[facility] team and he was accepted under Dr. Bradley though no beds are currently available and he is being admitted to our ICU in the interim. He recommended transitioning the patient to AVAPS and starting cefepime and vancomycin due to the patient's history of Pseudomonas. At the time my evaluation he will open his eyes to name and follow simple commands. He has been afebrile with stable vital signs. Review of Systems Review of Systems: Unable to assess accurately given somnolence. [facility] Past Medical History Medical History (Updated 05/29/22 @ 21:33 by Melanie Lanier PA-C) Abdominal wall hernia Chronic respiratory failure with hypoxia and hypercapnia Congenital solitary kidney Essential (primary) hypertension Gastroesophageal reflux disease Insulin dependent type 2 diabetes mellitus Nonischemic cardiomyopathy per report, this is poorly documented in our system. Primary ciliary dyskinesia Pseudomonas infection Pulmonary emphysema Renal failure Sleep apnea in adult Surgical History Surgical History History of appendectomy History of knee surgery History of nasal surgery History of orthopedic surgery History of tonsillectomy and adenoidectomy Family History Family History Father Hypertension Grandparent Hypertension Cerebrovascular accident Family history of coronary artery disease Family history of malignant neoplasm of urinary bladder Diabetes mellitus Mother Cholecystectomy planned H/O: hysterectomy Sibling Thyroid cancer Diverticulitis Other Family history of malignant neoplasm of breast Social History Social History Social History: Surrogate medical decision maker: Sujey Cole, spouse. Code status: Full code. Smoking status: Never smoker Tobacco type: cigarettes Smokeless tobacco user: chewing tobacco Second hand tobacco smoke exposure: No Alcohol intake: never Substance use: never Substance use type: does not use Lack of Transportation: No Lack of Food: Never True Current Housing: I Have Housing Concerned About Future Housing: No Difficulty Paying Gas/Electric Bills: No Difficulty Paying for Meds: No Currently Unemployed: No Education: Associate Degree Difficulty w/ Childcare or Family Care: No Additional living arrangements comments: The patient lives with his and children in [place]. Additional occupation/education comments: Disabled. Spiritual care concerns: No Meds Home Medications and Allergies Home Medications Medication Instructions Recorded Confirmed Type metolazone 5 mg tablet 5 mg PO DAILY #90 tabs 08/01/21 05/29/22 Rx albuterol sulfate 90 mcg/actuation 1 inh inhalation Q4H PRN Shortness 09/11/21 05/29/22 History aerosol inha
--- NOTE | 2022-05-29 16:53 | PM.CNPUL ---
Assessment and Plan Assessment and plan (1) Pulmonary infection: Code(s): J18.9 - Pneumonia, unspecified organism Status: Acute Assessment and Plan: Patient has a history of Pseudomonas in his sputum from the [facility] report. COVID and influenza RT PCR studies negativ Will continue vancomycin and cefepime and azithromycin all started on 03/27/2022. Patient receives his respiratory care at [facility] and they have accepted the patient in transfer and we are awaiting a bed. (2) Acute on chronic respiratory failure with hypoxia and hypercapnia: Code(s): J96.21 - Acute and chronic respiratory failure with hypoxia; J96.22 - Acute and chronic respiratory failure with hypercapnia Status: Acute Assessment and Plan: Patient has a history of hypoxemic and hypercarbic respiratory failure with a blood gas on 11/18/2021 on 4 L of 7.38/78/67. He has been using a noninvasive ventilator with an AVAPS mode and per the report On last admission from [place] he is on a rate of 12, tidal volume 500, peep of 10, minimal inspiratory pressure 12, maximal inspiratory pressure 20 and he tells me he uses 8 L bleed in. Currently the patient is in the ICU on full face mask with an AVAPS mode rate of 16, tidal volume set 540, tidal volume on the machine 1000 mL, minute ventilation 20, EPAP 10, minimal inspiratory pressure 18, maximal inspiratory pressure 25, 60% FiO2, inspiratory time 0.75, rise of 1 which is our fast this and 99% sats. repeat blood gas in 1 hour. Discussed with school custodian, Dr. Santiago. will follow with you. History of Present Illness History of Present Illness Consult date: 05/29/22 Chief complaint: Acute Respiratory Failure w/Hypercapnia Narrative: 05/29/2022: This is a new pulmonary consult for primary ciliary dyskinesia with acute on chronic hypercarbic and hypoxemic respiratory failure. Previously patient seen on 03/28/2022 46-year-old man with a history of primary ciliary dyskinesia followed at [facility] and last seen on 12/06/2021.? That note states the patient has severe bronchiectasis and severe obstructive abnormality. ? spirometry on 01/07/2019 list an FVC of 2.47 L, 51% predicted.? An FEV1 of 0.83 L, 21% predicted.? Patient had a blood gas on 12/06/2021 on 4 L nasal cannula the pH of 7.38/78/67. ? The patient is maintained on home noninvasive ventilator with an AVAPS mode.? The impression and plan for the notes state that he feels significantly improved since being switched to AVAPS.? Ultimately Mr. Cole will require lung transplantation.? We again discussed attempts at weight loss. ? Per the patient's was in the room now they have been evaluated by the lung transplant team and he does qualify but he is not actively listed as his activity level has been good and he is overweight. patient was transferred to [facility] on 03/28/2022. Of 05/29/2021 the patient had altered mental status and was brought to the emergency room and his blood gas was 7.21/119/43 on 7 L nasal cannula. He was started on BiPAP 20/12 50% FiO2 and blood gas was 7.25/132/60. [facility] was contacted and he was accepted in transfer but awaiting a bed. The Pulmonary team at [facility] suggested placing him on a VATS mode of ventilation and treating him with Vanco and cefepime. His COVID and influenza test were negative. Patient was transferred to the ICU and had a blood gas on AVAPS of 7.22/156/64 and the school custodian increased his tidal volume from 500-540, decreased his EPAP and decreased his respiratory rate and repeat blood gas is pending. Currently the patient is in the ICU on full face mask with an AVAPS mode rate of 16, tidal volume set 540, tidal volume on the machine 1000 mL, minute ventilation 20, EPAP 10, minimal inspiratory pressure 18, maximal inspiratory pressure 25, 60% FiO2, inspiratory time 0.75, rise of 1 which is our fast this and 99% sats. The p
[2022-05-29] MEDS: SALINE 0.65% NAS SOLN 44 ML BTL 1 SPRAY NASAL (18:00)
[2022-05-29 18:10] LABS: Glucose Point of Care 199 mg/dl (65-105)
[2022-05-29] MEDS: INSULIN GLARGINE (*BKC) 100 UNITS/ML 64 UNITS SUB-Q (18:10)
[2022-05-29 18:13] LABS: Iron 50 ug/dL (49-181)
[2022-05-29 18:23] LABS: Percent Iron Saturation 12 % (20-50)
[2022-05-29 18:32] LABS: Alveolar/Arterial O2 Gradient 213.1 mmHg; Fractional Inspired Oxygen 60 %; HCO3 ABG 59.8 mEq/l (22.0-26.0); Oxygen Content ABG 13.3 %vol (16.0-22.0); Oxygen Saturation ABG 92.1 % (95.0-100.0); Oxyhemoglobin 93.3 % THb (90.0-100.0); PO2 ABG 76.8 mmHg (80.0-100.0); PO2 FiO2 Ratio Arterial Blood 1.28 %; Total Hemoglobin 10.1 g/dL (12.0-18.0)
[2022-05-29 18:34] LABS: pH ABG 7.296 (7.350-7.450)
[2022-05-29 18:35] LABS: Modified Allen's Test Pass; PCO2 ABG 125.4 mmHg (35.0-45.0)
[2022-05-29 18:37] LABS: Device NON-INVASIVE VENT; Non-Invasive Inspiratory Pressure 25 CMH2O; Non-Invasive Vent Rate 16 /MIN; Site Drawn RIGHT RADIAL
[2022-05-29 18:38] LABS: Non-Invasive Expiratory Pressure 10 CMH2O
[2022-05-29 18:45] LABS: Thyroid Stimulating Hormone Reflex 0.752 uIU/mL (0.465-4.68)
[2022-05-29 19:10] LABS: Folic Acid 6.9 ng/mL (2.76->20)
[2022-05-29] MEDS: FLUTICASONE PROPIONATE 0.05% NA SPR 16 GM BTL (*BKC) 1 SPRAY NASAL (20:45)
[2022-05-29] MEDS: AZELASTINE HCL NASAL 0.1% 137 MCG/SPR 30 ML BTL 1 SPRAY NASAL (20:45)
[2022-05-30] VITALS (28 sets, daily range): BP systolic 114–143; BP diastolic 60–80; PULSE 74–104; RESP 16–22; TEMP 36.4–37.1; O2SAT 64–97
[2022-05-30 00:23] LABS: Glucose Point of Care 175 mg/dl (65-105)
[2022-05-30] MEDS: IPRATROPIUM BR 0.02% INH SOLN 0.5 MG/2.5 ML VIAL INHALATION ×4 (02:30→20:26)
[2022-05-30 05:45] LABS: Glucose Point of Care 177 mg/dl (65-105)
[2022-05-30 05:49] LABS: Alveolar/Arterial O2 Gradient 109.6 mmHg; Carboxyhemoglobin 0.3 % THb (0-2.0); Fractional Inspired Oxygen 40 %; HCO3 ABG 54.5 mEq/l (22.0-26.0); Methemoglobin ABG 0.3 %THb (0-1.5); Oxygen Content ABG 13.1 %vol (16.0-22.0); Oxygen Saturation ABG 90.8 % (95.0-100.0); Oxyhemoglobin 91.6 % THb (90.0-100.0); PO2 ABG 65.8 mmHg (80.0-100.0); PO2 FiO2 Ratio Arterial Blood 1.65 %; Reduced Hemoglobin 7.8 %THb (0-5.0); Total Hemoglobin 10.1 g/dL (12.0-18.0); pH ABG 7.374 (7.350-7.450)
[2022-05-30 05:53] LABS: Device NON-INVASIVE VENT; Modified Allen's Test Pass; PCO2 ABG 95.5 mmHg (35.0-45.0); Site Drawn RIGHT RADIAL
[2022-05-30 05:54] LABS: Non-Invasive Expiratory Pressure 10 CMH2O; Non-Invasive Vent Rate 16 /MIN
[2022-05-30 06:43] LABS: Basophils Percent Auto 0.3 % (0.2-1.2); Eosinophils Absolute Auto 0.2 K/mm3 (0-0.3); Hematocrit 29.4 % (42.0-52.0); Hemoglobin 8.5 g/dL (14.0-18.0); Immature Granulocyte Absolute 0.08 K/mm3 (0.00-0.031); Immature Granulocyte Percent A 1.1 % (0-0.5); Lymphocytes Absolute Auto 1.21 K/mm3 (0.9-3.2); Mean Corpuscular HGB Conc 28.9 g/dl (32-36); Mean Corpuscular Hemoglobin 27.2 pg (26-34); Mean Corpuscular Volume 94.2 fl (80-100); Mean Platelet Volume 9.7 fl (7.4-10.4); Monocytes Absolute Auto 0.5 K/mm3 (0.1-0.6); Monocytes Percent Auto 6.1 % (2.6-8.5); Neutrophils Absolute Auto 5.7 K/mm3 (1.3-6.7); Neutrophils Percent Auto 74.5 % (45.5-73.1); Platelet Count Result 171 k/mm3 (150-375); Red Blood Count 3.12 M/mm3 (4.6-6.20); Red Cell Distribution Width 13.2 % (11.5-14.5); White Blood Count 7.6 K/mm3 (4.5-10.0)
[2022-05-30 07:00] LABS: Alanine Aminotransferase 20 U/L (6-50); Albumin Level 3.8 g/dL (3.5-5.1); Alkaline Phosphatase 91 U/L (38-126); Aspartate Amino Transferase 19 U/L (17-59); Bilirubin,Total 0.4 mg/dL (0.2-1.3); Blood Urea Nitrogen 27 mg/dL (9-20); Calcium 8.5 mg/dL (8.4-10.2); Carbon Dioxide > 40 mmol/L (22-30); Chloride 88 mmol/L (98-107); Estimated CRCL calculation 83 ml/min; Estimated Glomerular Filt Rate 59; Glucose 180 mg/dL (65-110); Magnesium 1.1 mg/dL (1.6-2.3); Phosphorus 2.2 mg/dL (2.5-4.5); Potassium 4.2 mmol/L (3.4-5.0); Sodium 140 mmol/L (137-145)
[2022-05-30 07:02] LABS: Hypochromasia 1+ (NORMAL); Platelet Estimate Adequate (Adequate); Schistocytes None Seen (NORMAL); Stomatocytes 2+ (NORMAL)
[2022-05-30] MEDS: MAGNESIUM SULFATE 3GM/D5W100ML 3 GM/100 ML BAG IVPB (07:42)
[2022-05-30] MEDS: LOSARTAN POTASSIUM 50 MG TABLET PO (08:29)
[2022-05-30] MEDS: FLUTICASONE PROPIONATE 0.05% NA SPR 16 GM BTL (*BKC) 1 SPRAY NASAL ×2 (08:29→21:30)
[2022-05-30] MEDS: AZELASTINE HCL NASAL 0.1% 137 MCG/SPR 30 ML BTL 1 SPRAY NASAL ×2 (08:29→21:30)
[2022-05-30] MEDS: ATORVASTATIN 20 MG TABLET PO (08:29)
[2022-05-30] MEDS: FAMOTIDINE 20 MG TABLET 40 MG PO (08:29)
[2022-05-30] MEDS: MONTELUKAST SODIUM 10 MG TABLET PO (08:29)
[2022-05-30] MEDS: ENOXAPARIN 40 MG/0.4 ML SYRINGE SUB-Q (08:30)
[2022-05-30] MEDS: modafiniL (*CRX) 200 MG TABLET PO (08:31)
--- NOTE | 2022-05-30 10:35 | PM.PNPUL ---
Progress Note: A&P Assessment and Plan (1) Pulmonary infection: Code(s): J18.9 - Pneumonia, unspecified organism Status: Acute Assessment and Plan: 05/29 Patient has a history of Pseudomonas in his sputum from the [facility] report. COVID and influenza RT PCR studies negative. Will continue vancomycin and cefepime both started on 05/29/2021. Patient receives his respiratory care at [facility] and they have accepted the patient in transfer and we are awaiting a bed. 05/30 Patient remains afebrile, white blood cell count 7.6 and chest x-ray is stable. Today is day 2 vancomycin and cefepime. (2) Acute on chronic respiratory failure with hypoxia and hypercapnia: Code(s): J96.21 - Acute and chronic respiratory failure with hypoxia; J96.22 - Acute and chronic respiratory failure with hypercapnia Status: Acute Assessment and Plan: Patient has a history of hypoxemic and hypercarbic respiratory failure with a blood gas on 11/18/2021 on 4 L of 7.38/78/67. He has been using a noninvasive ventilator with an AVAPS mode and per the report On last admission from [place] he is on a rate of 12, tidal volume 500, peep of 10, minimal inspiratory pressure 12, maximal inspiratory pressure 20 and he tells me he uses 8 L bleed in. Currently the patient is in the ICU on full face mask with an AVAPS mode rate of 16, tidal volume set 540, tidal volume on the machine 1000 mL, minute ventilation 20, EPAP 10, minimal inspiratory pressure 18, maximal inspiratory pressure 25, 60% FiO2, inspiratory time 0.75, rise of 1 which is our fast this and 99% sats. repeat blood gas in 1 hour. Repeat ABG demonstrated pH of 7.30/125/77 05/30 patient wore the noninvasive ventilator with the AVAPS mode overnight and his blood gas this morning was 7.37/96/66. Patient is awake and alert tells me he is feeling better. He has no wheezing on exam. His white blood cell count is 7.6, his creatinine is 1.30. His chest x-ray shows diffuse interstitial alveolar infiltrates with no change. will try the patient off of the noninvasive ventilator as tolerated through the day. Consider decreasing the minimal inspiratory pressure to 11 as his tidal volumes were in the 900 range with a minimal inspiratory pressure of 18. Awaiting transfer to [facility]. Discussed with window draper, Dr. Santiago. will sign off, call with questions. Subjective Date/time seen: 05/30/22 10:35 Interval history: 05/29/2022:? This is a new pulmonary consult for primary ciliary dyskinesia with acute on chronic hypercarbic and hypoxemic respiratory failure. ? Previously patient seen as inpatient consult on 03/28/2022 46-year-old man with a history of primary ciliary dyskinesia followed at [facility] and last seen on 12/06/2021.? That note states the patient has severe bronchiectasis and severe obstructive abnormality. ? spirometry on 01/07/2019 list an FVC of 2.47 L, 51% predicted.? An FEV1 of 0.83 L, 21% predicted.? Patient had a blood gas on 12/06/2021 on 4 L nasal cannula the pH of 7.38/78/67. ? The patient is maintained on home noninvasive ventilator with an AVAPS mode.? The impression and plan for the notes state that he feels significantly improved since being switched to AVAPS.? Ultimately Mr. Cole will require lung transplantation.? We again discussed attempts at weight loss. ? Per the patient's was in the room now they have been evaluated by the lung transplant team and he does qualify but he is not actively listed as his activity level has been good and he is overweight.? patient was transferred to [facility] on 03/28/2022. ? Of 05/29/2021 the patient had altered mental status and was brought to the emergency room and his blood gas was 7.21/119/43 on 7 L nasal cannula.? He was started on BiPAP 20/12 50% FiO2 and blood gas was 7.25/132/60.? [facility] was contacted and he was accepted in transfer but awaiting a bed.? The
--- NOTE | 2022-05-30 10:52 | WPDINTPN ---
Progress Note: A&P Assessment and Plan (1) Altered mental status: Code(s): R41.82 - Altered mental status, unspecified Status: Acute Assessment and Plan: Altered mental status most likely related to hypercapnic respiratory failure secondary to primary ciliary dyskinesia, possible pneumonia, hypercapnia -according the patient was slow to respond this morning along with confusion. -will continue to monitor -05/29/2022: CT brain - no acute intracranial abnormalities, sinus disease -continue to monitor (2) Acute and chronic respiratory failure with hypercapnia: Code(s): J96.22 - Acute and chronic respiratory failure with hypercapnia Status: Acute Assessment and Plan: Patient presented with altered mental status, hypercapnic respiratory failure -Our ER physician discussed with [facility] method consultant who has accepted the patient under Dr. Bradley, will transfer patient to [facility] when bed is available -they also recommended patient be placed on AVAPS mode of ventilation and start vancomycin and cefepime since he has a history of growing Pseudomonas respiratory cultures -ABGs and chest x-ray reviewed -ABGs improving on AVAPS -will switch to Vapotherm, alternated with AVAPS -continue bronchodilators, azelastine, fluticasone, saline 0.65 nasal solution, (he takes these at home) -CPT with vest therapy (also does this at home) -appreciate pulmonology following the patient (3) Primary ciliary dyskinesia: Code(s): Q34.8 - Other specified congenital malformations of respiratory system Status: Chronic Assessment and Plan: As above (4) Type 2 diabetes mellitus: Code(s): E11.9 - Type 2 diabetes mellitus without complications Status: Acute Assessment and Plan: Continue sliding scale insulin and Accu-Chek (5) Hyperlipidemia LDL goal <100: Code(s): E78.5 - Hyperlipidemia, unspecified Status: Acute Assessment and Plan: On atorvastatin at home, will restart once patient starts taking p.o. (6) SABRINA (acute kidney injury): Code(s): N17.9 - Acute kidney failure, unspecified Status: Acute Assessment and Plan: Could be related to hypoxia, decreased oral intake and hypovolemia, also patient on metolazone, losartan at home -creatinine is increased to 1.4 on admission (baseline is 1.0-1.20) -give patient 1 L IV fluids at 75 mL/hour -creatinine back to baseline -continue to monitor renal function, electrolytes and urine output (7) Essential (primary) hypertension: Code(s): I10 - Essential (primary) hypertension Status: Chronic Assessment and Plan: Patient has a history hypertension, on ventilatory and losartan at home -given his elevation in creatinine and, will continue to hold these medications for now -p.r.n. hydralazine Plan DVT prophylaxis: Lovenox SQ Stress ulcer prophylaxis: Protonix Nutrition: Start clear liquid diet Discussed with patient's , Sujey at bedside and updated her with patient's condition and plan of care. She is aware that patient is waiting for a bed at [facility] Code Status: Full code Critical Care Time Spent: 34 minutes Due to a high probability of clinically significant, life threatening deterioration, the patient required my highest level of preparedness to intervene emergently and I personally spent this critical care time directly and personally managing the patient. This critical care time included obtaining a history; examining the patient; pulse oximetry; ordering and review of studies; arranging urgent treatment with development of a management plan; evaluation of patient's response to treatment; frequent reassessment; and discussions with other providers. It was exclusive of separately billable procedures and treating other patients and teaching time. Please see Assessment and Plan section and the rest of the note for further information on alton
[2022-05-30 11:44] LABS: Glucose Point of Care 284 mg/dl (65-105)
[2022-05-30] MEDS: SALINE 0.65% NAS SOLN 44 ML BTL 1 SPRAY NASAL ×2 (11:45→18:21)
[2022-05-30] MEDS: INSULIN ASPART (*BKC) 100 UNITS/ML SUB-Q ×2 (11:45→21:27)
[2022-05-30] MEDS: ALBUTEROL SULFATE NEB 2.5 MG/3 ML INH INHALATION ×2 (14:36→20:26)
[2022-05-30 16:40] LABS: Glucose Point of Care 168 mg/dl (65-105)
[2022-05-30] MEDS: INSULIN GLARGINE (*BKC) 100 UNITS/ML 64 UNITS SUB-Q (18:21)
[2022-05-30 20:41] LABS: Glucose Point of Care 231 mg/dl (65-105)
[2022-05-30 23:47] LABS: Vancomycin Trough 26.2 ug/mL (10.0-20.0)
[2022-05-31] VITALS (72 sets, daily range): BP systolic 123–165; BP diastolic 50–101; PULSE 72–110; RESP 13–24; TEMP 36.8–37.4; O2SAT 86–98
[2022-05-31] MEDS: ALBUTEROL SULFATE NEB 2.5 MG/3 ML INH INHALATION ×4 (02:34→20:53)
[2022-05-31] MEDS: IPRATROPIUM BR 0.02% INH SOLN 0.5 MG/2.5 ML VIAL INHALATION ×4 (02:34→20:53)
[2022-05-31 04:30] LABS: Basophils Percent Auto 0.3 % (0.2-1.2); Eosinophils Absolute Auto 0.3 K/mm3 (0-0.3); Eosinophils Percent Auto 4.3 % (0-4.4); Hematocrit 28.3 % (42.0-52.0); Hemoglobin 8.7 g/dL (14.0-18.0); Immature Granulocyte Absolute 0.03 K/mm3 (0.00-0.031); Immature Granulocyte Percent A 0.4 % (0-0.5); Lymphocytes Absolute Auto 1.26 K/mm3 (0.9-3.2); Lymphocytes Percent Auto 18.9 % (18.3-44.2); Mean Corpuscular HGB Conc 30.7 g/dl (32-36); Mean Corpuscular Hemoglobin 26.9 pg (26-34); Mean Corpuscular Volume 87.3 fl (80-100); Mean Platelet Volume 9.4 fl (7.4-10.4); Monocytes Absolute Auto 0.5 K/mm3 (0.1-0.6); Monocytes Percent Auto 6.7 % (2.6-8.5); Neutrophils Absolute Auto 4.6 K/mm3 (1.3-6.7); Neutrophils Percent Auto 69.4 % (45.5-73.1); Platelet Count Result 167 k/mm3 (150-375); Red Blood Count 3.24 M/mm3 (4.6-6.20); Red Cell Distribution Width 13.3 % (11.5-14.5); White Blood Count 6.7 K/mm3 (4.5-10.0)
[2022-05-31 04:42] LABS: Alanine Aminotransferase 20 U/L (6-50); Albumin Level 3.9 g/dL (3.5-5.1); Alkaline Phosphatase 92 U/L (38-126); Aspartate Amino Transferase 24 U/L (17-59); Bilirubin,Total 0.4 mg/dL (0.2-1.3); Blood Urea Nitrogen 29 mg/dL (9-20); Calcium 8.8 mg/dL (8.4-10.2); Carbon Dioxide > 40 mmol/L (22-30); Chloride 88 mmol/L (98-107); Estimated CRCL calculation 72 ml/min; Estimated Glomerular Filt Rate 50; Glucose 140 mg/dL (65-110); Magnesium 1.5 mg/dL (1.6-2.3); Phosphorus 2.8 mg/dL (2.5-4.5); Potassium 3.5 mmol/L (3.4-5.0); Sodium 140 mmol/L (137-145)
[2022-05-31 05:44] LABS: Base Excess ABG 23.7 mEq/l (+/-2.0); Carboxyhemoglobin 0.2 % THb (0-2.0); Fractional Inspired Oxygen 40 %; HCO3 ABG 51.5 mEq/l (22.0-26.0); Methemoglobin ABG 0.4 %THb (0-1.5); Oxygen Content ABG 12.6 %vol (16.0-22.0); Oxygen Saturation ABG 92.6 % (95.0-100.0); Oxyhemoglobin 91.8 % THb (90.0-100.0); PO2 ABG 66.7 mmHg (80.0-100.0); PO2 FiO2 Ratio Arterial Blood 1.67 %; Reduced Hemoglobin 7.6 %THb (0-5.0); Total Hemoglobin 9.7 g/dL (12.0-18.0); pH ABG 7.434 (7.350-7.450)
[2022-05-31 05:47] LABS: Device OTHER DEVICE; Modified Allen's Test Pass; PCO2 ABG 78.7 mmHg (35.0-45.0); Site Drawn LEFT RADIAL
[2022-05-31] MEDS: MAGNESIUM SULF 2 GM/WATER 50ML 2 GM/50 ML BAG IVPB (08:29)
[2022-05-31] MEDS: FAMOTIDINE 20 MG TABLET 40 MG PO (08:34)
[2022-05-31] MEDS: ENOXAPARIN 40 MG/0.4 ML SYRINGE SUB-Q (08:34)
[2022-05-31] MEDS: AZELASTINE HCL NASAL 0.1% 137 MCG/SPR 30 ML BTL 1 SPRAY NASAL ×2 (08:35→20:10)
[2022-05-31] MEDS: MONTELUKAST SODIUM 10 MG TABLET PO (08:35)
[2022-05-31] MEDS: ATORVASTATIN 20 MG TABLET PO (08:35)
[2022-05-31] MEDS: POTASSIUM CHLORIDE 20 MEQ TABLET 40 MEQ PO (08:35)
[2022-05-31] MEDS: modafiniL (*CRX) 200 MG TABLET PO (08:35)
[2022-05-31] MEDS: LOSARTAN POTASSIUM 50 MG TABLET PO (08:35)
[2022-05-31] MEDS: FLUTICASONE PROPIONATE 0.05% NA SPR 16 GM BTL (*BKC) 1 SPRAY NASAL ×2 (08:36→20:10)
[2022-05-31 08:49] LABS: Glucose Point of Care 146 mg/dl (65-105)
--- NOTE | 2022-05-31 08:53 | WPDINTPN ---
Progress Note: A&P Assessment and Plan (1) Altered mental status: Code(s): R41.82 - Altered mental status, unspecified Status: Acute Assessment and Plan: Altered mental status most likely related to hypercapnic respiratory failure secondary to primary ciliary dyskinesia, possible pneumonia, hypercapnia -according the patient was slow to respond this morning along with confusion. -will continue to monitor -05/29/2022: CT brain - no acute intracranial abnormalities, sinus disease -continue to monitor (2) Acute and chronic respiratory failure with hypercapnia: Code(s): J96.22 - Acute and chronic respiratory failure with hypercapnia Status: Acute Assessment and Plan: Patient presented with altered mental status, hypercapnic respiratory failure -Our ER physician discussed with [facility] chief engineer who has accepted the patient under Dr. Bradley, will transfer patient to [facility] when bed is available -they also recommended patient be placed on AVAPS mode of ventilation, - continue vancomycin and cefepime (05/29/22) since he has a history of growing Pseudomonas respiratory cultures -ABGs and chest x-ray reviewed -ABGs improving on AVAPS -continue Vapotherm, alternate with AVAPS while asleep during the day and night -continue bronchodilators, azelastine, fluticasone, (he takes these at home) -continue modafinil and and montelukast -CPT with vest therapy (also does this at home) -appreciate pulmonology following the patient (3) Primary ciliary dyskinesia: Code(s): Q34.8 - Other specified congenital malformations of respiratory system Status: Chronic Assessment and Plan: As above (4) Type 2 diabetes mellitus: Code(s): E11.9 - Type 2 diabetes mellitus without complications Status: Acute Assessment and Plan: Continue sliding scale insulin and Accu-Cheks (5) Hyperlipidemia LDL goal <100: Code(s): E78.5 - Hyperlipidemia, unspecified Status: Acute Assessment and Plan: Start atorvastatin (6) SABRINA (acute kidney injury): Code(s): N17.9 - Acute kidney failure, unspecified Status: Acute Assessment and Plan: Could be related to hypoxia, decreased oral intake and hypovolemia, also patient on metolazone, losartan at home -creatinine is increased to 1.4 on admission (baseline is 1.0-1.20) -creatinine had normalized but this morning it is 1.5 -patient tolerating p.o. diet, will continue to monitor -urine output has been adequate -continue to monitor renal function, electrolytes and urine output (7) Essential (primary) hypertension: Code(s): I10 - Essential (primary) hypertension Status: Chronic Assessment and Plan: Patient has a history hypertension, on ventilatory and losartan at home -given his elevation in creatinine and, will continue to hold these medications for now -p.r.n. hydralazine Plan DVT prophylaxis: Lovenox SQ Stress ulcer prophylaxis: Protonix Nutrition: Regular diet Discussed with patient's , Sujey at bedside and updated her with patient's condition and plan of care. She is aware that patient is waiting for a bed at [facility] Code Status: Full code Critical Care Time Spent: 33 minutes Due to a high probability of clinically significant, life threatening deterioration, the patient required my highest level of preparedness to intervene emergently and I personally spent this critical care time directly and personally managing the patient. This critical care time included obtaining a history; examining the patient; pulse oximetry; ordering and review of studies; arranging urgent treatment with development of a management plan; evaluation of patient's response to treatment; frequent reassessment; and discussions with other providers. It was exclusive of separately billable procedures and treating other patients and teaching time. Please see Assessment and P
[2022-05-31 11:42] LABS: Glucose Point of Care 286 mg/dl (65-105)
[2022-05-31] MEDS: INSULIN ASPART (*BKC) 100 UNITS/ML SUB-Q (11:42)
[2022-05-31 16:40] LABS: Glucose Point of Care 177 mg/dl (65-105)
[2022-05-31] MEDS: INSULIN GLARGINE (*BKC) 100 UNITS/ML 64 UNITS SUB-Q (18:14)
[2022-05-31 21:22] LABS: Glucose Point of Care 177 mg/dl (65-105)
[2022-06-01] VITALS (101 sets, daily range): BP systolic 123–151; BP diastolic 65–96; PULSE 66–120; RESP 8–38; TEMP 36.8–37.4; O2SAT 81–100
[2022-06-01] MEDS: SALINE 0.65% NAS SOLN 44 ML BTL 1 SPRAY NASAL ×2 (00:08→05:05)
[2022-06-01] MEDS: ALBUTEROL SULFATE NEB 2.5 MG/3 ML INH INHALATION ×4 (01:42→21:05)
[2022-06-01] MEDS: IPRATROPIUM BR 0.02% INH SOLN 0.5 MG/2.5 ML VIAL INHALATION ×4 (01:42→21:06)
[2022-06-01] MEDS: ATORVASTATIN 20 MG TABLET PO (09:49)
[2022-06-01] MEDS: FAMOTIDINE 20 MG TABLET 40 MG PO (09:49)
[2022-06-01] MEDS: LOSARTAN POTASSIUM 50 MG TABLET PO (09:49)
[2022-06-01] MEDS: MONTELUKAST SODIUM 10 MG TABLET PO (09:49)
[2022-06-01] MEDS: FLUTICASONE PROPIONATE 0.05% NA SPR 16 GM BTL (*BKC) 1 SPRAY NASAL ×2 (09:50→20:37)
[2022-06-01] MEDS: ENOXAPARIN 40 MG/0.4 ML SYRINGE SUB-Q (09:50)
[2022-06-01] MEDS: AZELASTINE HCL NASAL 0.1% 137 MCG/SPR 30 ML BTL 1 SPRAY NASAL ×2 (09:50→20:37)
[2022-06-01] MEDS: modafiniL (*CRX) 200 MG TABLET PO (09:53)
[2022-06-01 09:58] LABS: Glucose Point of Care 186 mg/dl (65-105)
[2022-06-01 10:22] LABS: Basophils Percent Auto 0.3 % (0.2-1.2); Eosinophils Absolute Auto 0.3 K/mm3 (0-0.3); Eosinophils Percent Auto 4.6 % (0-4.4); Hematocrit 31.7 % (42.0-52.0); Hemoglobin 9.5 g/dL (14.0-18.0); Immature Granulocyte Absolute 0.05 K/mm3 (0.00-0.031); Immature Granulocyte Percent A 0.7 % (0-0.5); Lymphocytes Absolute Auto 1.71 K/mm3 (0.9-3.2); Lymphocytes Percent Auto 25.5 % (18.3-44.2); Mean Corpuscular Hemoglobin 26.8 pg (26-34); Mean Corpuscular Volume 89.3 fl (80-100); Mean Platelet Volume 9.4 fl (7.4-10.4); Monocytes Absolute Auto 0.5 K/mm3 (0.1-0.6); Monocytes Percent Auto 6.7 % (2.6-8.5); Neutrophils Absolute Auto 4.2 K/mm3 (1.3-6.7); Neutrophils Percent Auto 62.2 % (45.5-73.1); Platelet Count Result 177 k/mm3 (150-375); Red Blood Count 3.55 M/mm3 (4.6-6.20); Red Cell Distribution Width 13.6 % (11.5-14.5); White Blood Count 6.7 K/mm3 (4.5-10.0)
[2022-06-01 10:49] LABS: Alanine Aminotransferase 25 U/L (6-50); Albumin Level 4.4 g/dL (3.5-5.1); Alkaline Phosphatase 119 U/L (38-126); Aspartate Amino Transferase 30 U/L (17-59); Bilirubin,Total 0.7 mg/dL (0.2-1.3); Blood Urea Nitrogen 32 mg/dL (9-20); Calcium 9.4 mg/dL (8.4-10.2); Carbon Dioxide > 40 mmol/L (22-30); Chloride 87 mmol/L (98-107); Estimated CRCL calculation 71 ml/min; Estimated Glomerular Filt Rate 50; Glucose 183 mg/dL (65-110); Magnesium 1.5 mg/dL (1.6-2.3); Potassium 4.3 mmol/L (3.4-5.0); Sodium 134 mmol/L (137-145)
[2022-06-01] MEDS: INSULIN ASPART (*BKC) 100 UNITS/ML SUB-Q ×2 (11:56→16:40)
[2022-06-01 12:03] LABS: Glucose Point of Care 216 mg/dl (65-105)
--- NOTE | 2022-06-01 14:33 | PM.IMPN ---
Progress Note: A&P Assessment and Plan (1) Altered mental status: Code(s): R41.82 - Altered mental status, unspecified Status: Acute Assessment and Plan: Altered mental status most likely related to hypercapnic respiratory failure secondary to primary ciliary dyskinesia, possible pneumonia, hypercapnia 05/29/2022: CT brain - no acute intracranial abnormalities, sinus disease Back to his normal baseline mental status now. (2) Acute and chronic respiratory failure with hypercapnia: Code(s): J96.22 - Acute and chronic respiratory failure with hypercapnia Status: Acute Assessment and Plan: Patient presented with altered mental status, hypercapnic respiratory failure -Our ER physician discussed with [facility] makeup artistry instructor who has accepted the patient under Dr. Bradley, will transfer patient to [facility] when bed is available -they also recommended patient be placed on AVAPS mode of ventilation, - continue vancomycin and cefepime (05/29/22) since he has a history of growing Pseudomonas respiratory cultures -ABGs and chest x-ray reviewed -ABGs improving on AVAPS -continue Vapotherm, alternate with AVAPS while asleep during the day and night. Will try to taper down Vapotherm to oxygen via nasal cannula 8 L which is his baseline -continue bronchodilators, azelastine, fluticasone, (he takes these at home) MRSA swab negative. Will stop vancomycin and continue on cefepime for now. -continue modafinil and and montelukast -CPT with vest therapy (also does this at home) -appreciate pulmonology following the patient (3) Primary ciliary dyskinesia: Code(s): Q34.8 - Other specified congenital malformations of respiratory system Status: Chronic Assessment and Plan: As above (4) Type 2 diabetes mellitus: Code(s): E11.9 - Type 2 diabetes mellitus without complications Status: Acute Assessment and Plan: Continue sliding scale insulin and Accu-Cheks Lantus and lispro. She states she uses pump at home Advised to get the pump and will check the settings and restart potentially while he is in the hospital. (5) Hyperlipidemia LDL goal <100: Code(s): E78.5 - Hyperlipidemia, unspecified Status: Acute Assessment and Plan: On atorvastatin (6) SABRINA (acute kidney injury): Code(s): N17.9 - Acute kidney failure, unspecified Status: Acute Assessment and Plan: Could be related to hypoxia, decreased oral intake and hypovolemia, also patient on metolazone, losartan at home -creatinine is increased to 1.4 on admission (baseline is 1.0-1.20) Renal function at baseline continue to monitor -patient tolerating p.o. diet, will continue to monitor -urine output has been adequate -continue to monitor renal function, electrolytes and urine output (7) Essential (primary) hypertension: Code(s): I10 - Essential (primary) hypertension Status: Chronic Assessment and Plan: Patient has a history hypertension, on ventilatory and losartan at home -given his elevation in creatinine and, will continue to hold these medications for now -p.r.n. hydralazine Plan DVT prophylaxis: Lovenox SQ Stress ulcer prophylaxis: Protonix Nutrition: Regular diet Chronic anemia baseline hemoglobin 9-10 Hypo magnesemia: Replace Code Status: Full code Subjective Date/time seen: 06/01/22 14:33 Interval history: No overnight events. Remains on Vapotherm. BiPAP at night. Cruz his trilogy unit from home. ABG is improved. Awake and alert. He also uses insulin pump which was removed on admission. Denies any abdominal pain nausea vomiting. Minimal cough. Which is chronic. Denies shortness of breath at rest. Shortness of breath on exertion which is chronic. Remains afebrile. Review of Systems Review of Systems: All systems reviewed & are unremarkable except as noted in HPI and below Exam Narrative: General: Young gentleman,
[2022-06-01 16:47] LABS: Glucose Point of Care 210 mg/dl (65-105)
[2022-06-01] MEDS: INSULIN GLARGINE (*BKC) 100 UNITS/ML 64 UNITS SUB-Q (18:56)
[2022-06-01 20:48] LABS: Glucose Point of Care 199 mg/dl (65-105)
[2022-06-02] VITALS (104 sets, daily range): BP systolic 91–162; BP diastolic 63–88; PULSE 67–177; RESP 10–28; TEMP 36.6–36.8; O2SAT 81–100
[2022-06-02] MEDS: SALINE 0.65% NAS SOLN 44 ML BTL 1 SPRAY NASAL ×3 (00:59→23:40)
[2022-06-02] MEDS: IPRATROPIUM BR 0.02% INH SOLN 0.5 MG/2.5 ML VIAL INHALATION ×4 (02:46→20:16)
[2022-06-02] MEDS: ALBUTEROL SULFATE NEB 2.5 MG/3 ML INH INHALATION ×4 (02:46→20:16)
[2022-06-02 03:41] LABS: Basophils Percent Auto 0.4 % (0.2-1.2); Eosinophils Absolute Auto 0.3 K/mm3 (0-0.3); Eosinophils Percent Auto 3.7 % (0-4.4); Hematocrit 32.2 % (42.0-52.0); Hemoglobin 9.9 g/dL (14.0-18.0); Immature Granulocyte Absolute 0.06 K/mm3 (0.00-0.031); Immature Granulocyte Percent A 0.7 % (0-0.5); Lymphocytes Absolute Auto 2.07 K/mm3 (0.9-3.2); Mean Corpuscular HGB Conc 30.7 g/dl (32-36); Mean Corpuscular Volume 87.7 fl (80-100); Mean Platelet Volume 9.9 fl (7.4-10.4); Monocytes Absolute Auto 0.5 K/mm3 (0.1-0.6); Monocytes Percent Auto 5.8 % (2.6-8.5); Neutrophils Absolute Auto 5.3 K/mm3 (1.3-6.7); Neutrophils Percent Auto 64.4 % (45.5-73.1); Platelet Count Result 216 k/mm3 (150-375); Red Blood Count 3.67 M/mm3 (4.6-6.20); Red Cell Distribution Width 13.6 % (11.5-14.5); White Blood Count 8.3 K/mm3 (4.5-10.0)
[2022-06-02 03:54] LABS: Alanine Aminotransferase 27 U/L (6-50); Albumin Level 4.5 g/dL (3.5-5.1); Alkaline Phosphatase 109 U/L (38-126); Anion Gap 7 mmol/L (8-16); Aspartate Amino Transferase 29 U/L (17-59); Bilirubin,Total 0.5 mg/dL (0.2-1.3); Blood Urea Nitrogen 40 mg/dL (9-20); Calcium 9.7 mg/dL (8.4-10.2); Carbon Dioxide 39 mmol/L (22-30); Chloride 91 mmol/L (98-107); Estimated CRCL calculation 67 ml/min; Estimated Glomerular Filt Rate 47; Glucose 209 mg/dL (65-110); Magnesium 1.5 mg/dL (1.6-2.3); Potassium 4.4 mmol/L (3.4-5.0); Sodium 137 mmol/L (137-145)
[2022-06-02] MEDS: modafiniL (*CRX) 200 MG TABLET PO (09:15)
[2022-06-02] MEDS: FLUTICASONE PROPIONATE 0.05% NA SPR 16 GM BTL (*BKC) 1 SPRAY NASAL ×2 (09:15→21:05)
[2022-06-02] MEDS: AZELASTINE HCL NASAL 0.1% 137 MCG/SPR 30 ML BTL 1 SPRAY NASAL ×2 (09:15→21:05)
[2022-06-02] MEDS: ATORVASTATIN 20 MG TABLET PO (09:16)
[2022-06-02] MEDS: ENOXAPARIN 40 MG/0.4 ML SYRINGE SUB-Q (09:16)
[2022-06-02] MEDS: FAMOTIDINE 20 MG TABLET 40 MG PO (09:16)
[2022-06-02] MEDS: MONTELUKAST SODIUM 10 MG TABLET PO (09:16)
[2022-06-02] MEDS: LOSARTAN POTASSIUM 50 MG TABLET PO (09:16)
[2022-06-02 09:24] LABS: Glucose Point of Care 151 mg/dl (65-105)
[2022-06-02] MEDS: MAGNESIUM SULF 2 GM/WATER 50ML 2 GM/50 ML BAG IVPB (10:14)
[2022-06-02] MEDS: INSULIN ASPART (*BKC) 100 UNITS/ML SUB-Q (12:12)
--- NOTE | 2022-06-02 14:23 | PM.IMPN ---
Progress Note: A&P Assessment and Plan (1) Altered mental status: Code(s): R41.82 - Altered mental status, unspecified Status: Acute Assessment and Plan: Altered mental status most likely related to hypercapnic respiratory failure secondary to primary ciliary dyskinesia, possible pneumonia, hypercapnia 05/29/2022: CT brain - no acute intracranial abnormalities, sinus disease Back to his normal baseline mental status now. (2) Acute and chronic respiratory failure with hypercapnia: Code(s): J96.22 - Acute and chronic respiratory failure with hypercapnia Status: Acute Assessment and Plan: Patient presented with altered mental status, hypercapnic respiratory failure -Our ER physician discussed with [facility] boarding mother who has accepted the patient under Dr. Bradley, will transfer patient to [facility] when bed is available -they also recommended patient be placed on AVAPS mode of ventilation, - continue vancomycin and cefepime (05/29/22) since he has a history of growing Pseudomonas respiratory cultures -ABGs and chest x-ray reviewed -ABGs improving on AVAPS -continue Vapotherm, alternate with AVAPS while asleep during the day and night. Will try to taper down Vapotherm to oxygen via nasal cannula 8 L which is his baseline -continue bronchodilators, azelastine, fluticasone, (he takes these at home) MRSA swab negative. Will stop vancomycin and continue on cefepime for now. -continue modafinil and and montelukast -CPT with vest therapy (also does this at home) -appreciate pulmonology following the patient (3) Primary ciliary dyskinesia: Code(s): Q34.8 - Other specified congenital malformations of respiratory system Status: Chronic Assessment and Plan: As above (4) Type 2 diabetes mellitus: Code(s): E11.9 - Type 2 diabetes mellitus without complications Status: Acute Assessment and Plan: Continue sliding scale insulin and Accu-Cheks Lantus and lispro. She states she uses pump at home Advised to get the pump and will check the settings and restart potentially while he is in the hospital. Reviewed endocrinology note. Since he is back on semglee and NovoLog at. Will recheck with patient if he needs to go back on the pump. (5) Hyperlipidemia LDL goal <100: Code(s): E78.5 - Hyperlipidemia, unspecified Status: Acute Assessment and Plan: On atorvastatin (6) SABRINA (acute kidney injury): Code(s): N17.9 - Acute kidney failure, unspecified Status: Acute Assessment and Plan: Could be related to hypoxia, decreased oral intake and hypovolemia, also patient on metolazone, losartan at home -creatinine is increased to 1.4 on admission (baseline is 1.0-1.20) Renal function at baseline continue to monitor -patient tolerating p.o. diet, will continue to monitor -urine output has been adequate -continue to monitor renal function, electrolytes and urine output (7) Essential (primary) hypertension: Code(s): I10 - Essential (primary) hypertension Status: Chronic Assessment and Plan: Patient has a history hypertension, on ventilatory and losartan at home -given his elevation in creatinine and, will continue to hold these medications for now -p.r.n. hydralazine Plan DVT prophylaxis: Lovenox SQ Stress ulcer prophylaxis: Protonix Nutrition: Regular diet Chronic anemia baseline hemoglobin 9-10 Hypo magnesemia: Replace Code Status: Full code Subjective Date/time seen: 06/02/22 14:23 Interval history: No overnight events. Feels well. His back on his home oxygen level 8 liter/minute. Ambulating. Denies any cough or fever chills. Labs reviewed. Discussed with the nursing staff. He brought his insulin pump. He gets 2 units per hour basal does. One is to 7 insulin to carb ratio. Review of Systems Review of Systems: All systems reviewed & are unremarkable except as noted in HPI and below
[2022-06-02 16:32] LABS: Glucose Point of Care 199 mg/dl (65-105)
--- NOTE | 2022-06-02 16:43 | PCRCNOTE ---
Pt was re-evaluated for home O2 needs, pt was titrated to 6L NC during the day. Pt qualified for 6L at rest and with activity for home O2 needs.
[2022-06-02 18:19] LABS: Glucose Point of Care 285 mg/dl (65-105)
[2022-06-02] MEDS: INSULIN GLARGINE (*BKC) 100 UNITS/ML 64 UNITS SUB-Q (18:29)
[2022-06-02 19:31] LABS: Glucose Point of Care 228 mg/dl (65-105)
[2022-06-03] VITALS (71 sets, daily range): BP systolic 115–146; BP diastolic 70–77; PULSE 70–103; RESP 12–24; TEMP 36.8–37.2; O2SAT 85–100
[2022-06-03] MEDS: IPRATROPIUM BR 0.02% INH SOLN 0.5 MG/2.5 ML VIAL INHALATION ×3 (02:30→14:48)
[2022-06-03] MEDS: ALBUTEROL SULFATE NEB 2.5 MG/3 ML INH INHALATION ×3 (02:30→14:48)
[2022-06-03 04:24] LABS: Basophils Percent Auto 0.5 % (0.2-1.2); Eosinophils Absolute Auto 0.4 K/mm3 (0-0.3); Eosinophils Percent Auto 4.7 % (0-4.4); Hematocrit 31.4 % (42.0-52.0); Hemoglobin 9.6 g/dL (14.0-18.0); Immature Granulocyte Absolute 0.07 K/mm3 (0.00-0.031); Immature Granulocyte Percent A 0.9 % (0-0.5); Lymphocytes Absolute Auto 1.75 K/mm3 (0.9-3.2); Lymphocytes Percent Auto 21.6 % (18.3-44.2); Mean Corpuscular HGB Conc 30.6 g/dl (32-36); Mean Corpuscular Hemoglobin 27.4 pg (26-34); Mean Corpuscular Volume 89.5 fl (80-100); Mean Platelet Volume 9.8 fl (7.4-10.4); Monocytes Absolute Auto 0.6 K/mm3 (0.1-0.6); Monocytes Percent Auto 6.9 % (2.6-8.5); Neutrophils Absolute Auto 5.3 K/mm3 (1.3-6.7); Neutrophils Percent Auto 65.4 % (45.5-73.1); Platelet Count Result 215 k/mm3 (150-375); Red Blood Count 3.51 M/mm3 (4.6-6.20); Red Cell Distribution Width 14.1 % (11.5-14.5); White Blood Count 8.1 K/mm3 (4.5-10.0)
[2022-06-03 04:36] LABS: Alanine Aminotransferase 35 U/L (6-50); Albumin Level 4.6 g/dL (3.5-5.1); Alkaline Phosphatase 110 U/L (38-126); Anion Gap 6 mmol/L (8-16); Aspartate Amino Transferase 34 U/L (17-59); Bilirubin,Total 0.4 mg/dL (0.2-1.3); Blood Urea Nitrogen 44 mg/dL (9-20); Calcium 8.9 mg/dL (8.4-10.2); Carbon Dioxide 36 mmol/L (22-30); Chloride 94 mmol/L (98-107); Estimated CRCL calculation 63 ml/min; Estimated Glomerular Filt Rate 44; Glucose 203 mg/dL (65-110); Magnesium 1.9 mg/dL (1.6-2.3); Potassium 4.3 mmol/L (3.4-5.0); Sodium 136 mmol/L (137-145)
[2022-06-03] MEDS: SALINE 0.65% NAS SOLN 44 ML BTL 1 SPRAY NASAL (05:35)
[2022-06-03 06:21] LABS: Alveolar/Arterial O2 Gradient 203.4 mmHg; Base Excess ABG 8.4 mEq/l (+/-2.0); Fractional Inspired Oxygen 50 %; HCO3 ABG 35.6 mEq/l (22.0-26.0); Oxygen Saturation ABG 95.3 % (95.0-100.0); Oxyhemoglobin 93.9 % THb (90.0-100.0); PO2 ABG 81.2 mmHg (80.0-100.0); PO2 FiO2 Ratio Arterial Blood 1.62 %; Total Hemoglobin 11.3 g/dL (12.0-18.0); pH ABG 7.364 (7.350-7.450)
[2022-06-03 06:23] LABS: Device OTHER DEVICE; Modified Allen's Test Pass; PCO2 ABG 63.9 mmHg (35.0-45.0); Site Drawn RIGHT RADIAL
[2022-06-03] MEDS: INSULIN ASPART (*BKC) 100 UNITS/ML SUB-Q (08:05)
[2022-06-03] MEDS: FLUTICASONE PROPIONATE 0.05% NA SPR 16 GM BTL (*BKC) 1 SPRAY NASAL (08:07)
[2022-06-03] MEDS: ATORVASTATIN 20 MG TABLET PO (08:07)
[2022-06-03] MEDS: AZELASTINE HCL NASAL 0.1% 137 MCG/SPR 30 ML BTL 1 SPRAY NASAL (08:07)
[2022-06-03] MEDS: LOSARTAN POTASSIUM 50 MG TABLET PO (08:07)
[2022-06-03] MEDS: MONTELUKAST SODIUM 10 MG TABLET PO (08:07)
[2022-06-03] MEDS: FAMOTIDINE 20 MG TABLET 40 MG PO (08:07)
[2022-06-03] MEDS: ENOXAPARIN 40 MG/0.4 ML SYRINGE SUB-Q (08:08)
[2022-06-03 08:11] LABS: Glucose Point of Care 208 mg/dl (65-105)
[2022-06-03] MEDS: modafiniL (*CRX) 200 MG TABLET PO (08:12)
--- NOTE | 2022-06-03 10:21 | PM.DS ---
DS: Admitting Diagnosis Discharge Date 06/03/2022 Admitting Diagnosis altere mental status DS: Discharge Diagnosis Discharge Diagnosis (1) Altered mental status: Code(s): R41.82 - Altered mental status, unspecified Status: Acute (2) Acute and chronic respiratory failure with hypercapnia: Code(s): J96.22 - Acute and chronic respiratory failure with hypercapnia Status: Acute (3) Primary ciliary dyskinesia: Code(s): Q34.8 - Other specified congenital malformations of respiratory system Status: Chronic (4) Type 2 diabetes mellitus: Code(s): E11.9 - Type 2 diabetes mellitus without complications Status: Acute (5) Hyperlipidemia LDL goal <100: Code(s): E78.5 - Hyperlipidemia, unspecified Status: Acute (6) SABRINA (acute kidney injury): Code(s): N17.9 - Acute kidney failure, unspecified Status: Acute (7) Essential (primary) hypertension: Code(s): I10 - Essential (primary) hypertension Status: Chronic DS: Summary Hospital Course Hospital Course: # Altered mental status: Altered mental status most likely related to hypercapnic respiratory failure secondary to primary ciliary dyskinesia, possible pneumonia, hypercapnia 05/29/2022: CT brain -? no acute intracranial abnormalities, sinus disease Back to his normal baseline mental status now. # Acute and chronic respiratory failure with hypercapnia: Patient presented with altered mental status, hypercapnic respiratory failure -Our ER physician discussed with [facility] fire lieutenant marine who has accepted the patient under Dr. Bradley, will transfer patient to [facility] when bed is available; however patient imporved. -they also recommended patient be placed on AVAPS mode of ventilation, - continue? vancomycin and cefepime (05/29/22) since he has a history of growing Pseudomonas respiratory cultures -ABGs and chest x-ray reviewed -ABGs improving on AVAPS -continue Vapotherm, alternate with AVAPS while asleep during the day and night.? Will try to taper down Vapotherm to oxygen via nasal cannula 8 L which is his baseline; which was back to his baseline by the time of discharge. -continue bronchodilators, azelastine, fluticasone,? (he takes these at home) MRSA swab negative.? stoped vancomycin. switch to cefdinir to complete 7 days course of treatment for pneumonia. -continue modafinil and and montelukast -CPT with vest therapy (also does this at home) -appreciate pulmonology following the patient # Primary ciliary dyskinesia: As above # Type 2 diabetes mellitus on insulin: Continue sliding scale insulin and Accu-Cheks Lantus and lispro.? She states she uses pump at home which was started since April. he will resume insulin pump at home as previously prescribed and fu with endocrinology. # Hyperlipidemia LDL goal <100: On atorvastatin # SABRINA (acute kidney injury): Could be related to hypoxia, decreased oral intake and hypovolemia, also patient on metolazone, losartan at home -creatinine is increased to 1.4 on admission (baseline is 1.0-1.20). slightly up cr. lower losartan at discahrge. stop metolazone. recehck andmonitor as op basis. # Essential (primary) hypertension: Patient has a history hypertension, on metolazone and losartan at home. lower losartan at discahge due to mild renal insufficiency. # DVT prophylaxis:? Lovenox SQ # Chronic anemia baseline hemoglobin 9-10 # Hypo magnesemia:? Replace # Code Status:? Full code Time Spent with Patient Time attestation: Total time spent providing and/or coordinating discharge services:50 mins Exam Narrative: General: Young gentleman, with morbid obesity, in no acute distress HEENT:? pupils are equal and reactive, sclera is clear Neck:? Thick neck, no cervical lymphadenopathy Respiratory:? Decreased breath sounds bilaterally, no wheezing, no rales Cardiac:? S1-S2 is normal, regular rate and rhythm Abdomen:? Soft, nontender, no
[2022-06-03 12:08] LABS: Glucose Point of Care 198 mg/dl (65-105)
== END 2022-06-03 16:00 | disposition home or self-care (01) | DRG 189 ==
LOC: ANHED 09:01 → ANHICU 11:40
PROVIDERS: Internal Medicine; Physician Assistant; Admitting Provider Family Medicine; Emergency Provider Emergency Medicine; PCP Family Medicine; Visit Provider Internal Medicine
DX: J96.22 Acute and chronic respiratory failure with hypercapnia (principal); J18.9 Pneumonia, unspecified organism; N17.9 Acute kidney failure, unspecified; I42.8 Other cardiomyopathies; J96.21 Acute and chronic respiratory failure with hypoxia; R41.82 Altered mental status, unspecified; Q34.8 Other specified congenital malformations of respiratory system; E11.9 Type 2 diabetes mellitus without complications; E78.5 Hyperlipidemia, unspecified; I10 Essential (primary) hypertension; D64.9 Anemia, unspecified; E83.42 Hypomagnesemia; K21.9 Gastro-esophageal reflux disease without esophagitis; G47.30 Sleep apnea, unspecified; Z20.822 Contact with and (suspected) exposure to COVID-19; Z79.51 Long term (current) use of inhaled steroids; Z79.4 Long term (current) use of insulin; Z79.899 Other long term (current) drug therapy; Z91.041 Radiographic dye allergy status; Z87.891 Personal history of nicotine dependence; Z82.49 Family history of ischemic heart disease and other diseases of the circulatory system; Z80.52 Family history of malignant neoplasm of bladder; Z82.3 Family history of stroke; Z80.3 Family history of malignant neoplasm of breast
CPT/HCPCS: 36415; 36600; 70450; 71045; 80053; 80202; 82375; 82607; 82728; 82746; 82805; 82948; 83050; 83540; 83550; 83605; 83735; 84100; 84443; 85025; 87040; 87081; 87636; 93005; 94002; 94618; 94640; 94660; 94669; 96374; 96375; 97161; 97165; 99285; A9270; G0378; J0360; J0692; J1650; J1815; J2405; J3370; J3475; J7030

== ENCOUNTER 2022-06-11 21:03 | Emergency (ER) | payer BC, SELFPAY ==
--- NOTE | ~2022-06-11 | XR_ITS ---
Portable chest x-ray Comparison: 05/31/2022 Clinical History: Dyspnea Findings: There is minimal residual haziness at the right lung base as compared to prior exam. Left lung is clear. Cardiomediastinal silhouette is stable. Bones and soft tissues are unremarkable. Impression: Probable minimal residual interstitial pattern at the right lung base. Correlate for COPD or other ch ronic interstitial disease, versus possibly minimal interstitial edema or atypical infection. Reviewed, dictated and finalized at location . RONMENTAL SERVICES AIDE Impression: Probable minimal residual interstitial pattern at the right lung base. Correlat e for COPD or other chronic interstitial disease, versus possibly minimal inter stitial edema or atypical infection.
[2022-06-11 21:07] VITALS: BP 174/96; PULSE 107; RESP 20; TEMP 36.8; O2SAT 97
[2022-06-12] VITALS (72 sets, daily range): BP systolic 135–211; BP diastolic 67–107; PULSE 93–123; RESP 12–29; O2SAT 89–100
--- NOTE | 2022-06-12 01:25 | ECG_ITS ---
Measurements Intervals [place] Rate: 100 P: 74 VA: 143 QRS: 83 QRSD: 110 T: 76 QT: 335 QTc: 434 Interpretive Statements SINUS TACHYCARDIA BASELINE ARTIFACT- I, AVR, AVL, AVF, V1-V2 BORDERLINE ECG COMPARED TO ECG 05/29/2022 08:48:28 SINUS TACHYCARDIA NOW PRESENT Electronically Signed On 06-12-2022 7:49:36 REHABILITATION CLERK by Aguila Issa D.O.
[2022-06-12] MEDS: IPRATROPIUM BR 0.02% INH SOLN 0.5 MG/2.5 ML VIAL INHALATION (01:33)
[2022-06-12] MEDS: ALBUTEROL SULFATE NEB 2.5 MG/3 ML INH 5 MG INHALATION (01:33)
[2022-06-12] MEDS: ONDANSETRON INJ 4 MG/2 ML VIAL (01:47)
[2022-06-12] MEDS: methylPREDNISolone SOD SUCC 125 MG VIAL IV PUSH (01:48)
[2022-06-12 01:52] LABS: Alveolar/Arterial O2 Gradient 398.5 mmHg; Base Excess ABG 19.9 mEq/l (+/-2.0); Fractional Inspired Oxygen 100 %; HCO3 ABG 53.4 mEq/l (22.0-26.0); Oxygen Content ABG 15.1 %vol (16.0-22.0); Oxygen Saturation ABG 98.4 % (95.0-100.0); Oxyhemoglobin 97.7 % THb (90.0-100.0); PO2 ABG 167.2 mmHg (80.0-100.0); PO2 FiO2 Ratio Arterial Blood 1.67 %; Total Hemoglobin 10.7 g/dL (12.0-18.0)
[2022-06-12 01:54] LABS: PCO2 ABG 147.3 mmHg (35.0-45.0); Site Drawn RIGHT RADIAL; pH ABG 7.177 (7.350-7.450)
[2022-06-12 01:55] LABS: Device NON-REBREATHER MASK; Modified Allen's Test Unable to perform
[2022-06-12 01:57] LABS: Basophils Percent Auto 0.4 % (0.2-1.2); Eosinophils Absolute Auto 0.2 K/mm3 (0-0.3); Eosinophils Percent Auto 2.3 % (0-4.4); Hematocrit 33.1 % (42.0-52.0); Hemoglobin 9.6 g/dL (14.0-18.0); Immature Granulocyte Absolute 0.11 K/mm3 (0.00-0.031); Immature Granulocyte Percent A 1.2 % (0-0.5); Lymphocytes Absolute Auto 1.72 K/mm3 (0.9-3.2); Mean Corpuscular Hemoglobin 27.1 pg (26-34); Mean Corpuscular Volume 93.5 fl (80-100); Mean Platelet Volume 10.1 fl (7.4-10.4); Monocytes Absolute Auto 0.5 K/mm3 (0.1-0.6); Monocytes Percent Auto 5.1 % (2.6-8.5); Nucleated Red Blood Cells Perc 0.2 % (0.0-0.2); Platelet Count Result 285 k/mm3 (150-375); Red Blood Count 3.54 M/mm3 (4.6-6.20); Red Cell Distribution Width 13.2 % (11.5-14.5); White Blood Count 9.6 K/mm3 (4.5-10.0)
--- NOTE | 2022-06-12 02:06 | PCRCNOTE ---
pt has home trilogy. settings: VT 500/INSP TIME 1.5/RR 12/RISE 3/EPAP MIN 11/EPAP MAX 11/PS MAX 7/PS MIN 4/WITH 7 LPM BLEED IN pt was on these settings when RT came into room. pt became sick to stomach, trilogy removed and pt vomited. pt placed on 5 LPM NC while vomiting where pt desatted into the 70's. pt placed on NRB and recovered back to 100% sp02. RN gave pt MD denny requested pt be put on BIPAP due to pc02 being increased and home trilogy only having a rate of 12. pt placed on 30/11 RR 20.
[2022-06-12 02:11] LABS: INR 1.1; Prothrombin Time 13.4 Seconds (11.1-14.7)
[2022-06-12 02:12] LABS: Partial Thromboplastin Time 27.9 SECONDS (22.3-36.8)
[2022-06-12 02:16] LABS: Alanine Aminotransferase 27 U/L (6-50); Albumin Level 4.7 g/dL (3.5-5.1); Alkaline Phosphatase 119 U/L (38-126); Aspartate Amino Transferase 22 U/L (17-59); Bilirubin,Total 0.4 mg/dL (0.2-1.3); Blood Urea Nitrogen 25 mg/dL (9-20); Calcium 9.2 mg/dL (8.4-10.2); Carbon Dioxide > 40 mmol/L (22-30); Chloride 90 mmol/L (98-107); Estimated CRCL calculation 87 ml/min; Estimated Glomerular Filt Rate > 60; Glucose 255 mg/dL (65-110); Magnesium 1.3 mg/dL (1.6-2.3); Potassium 5.6 mmol/L (3.4-5.0); Sodium 139 mmol/L (137-145)
[2022-06-12 02:26] LABS: NT Pro B Type Natriuretic Pept 154 pg/mL (19.9-100); Troponin I < 0.012 ng/mL (0.000-0.034)
[2022-06-12 02:50] LABS: Procalcitonin 0.1 ng/mL
[2022-06-12 02:56] LABS: Influenza A QL RT-PCR Negative (Negative); Influenza B QL RT-PCR Negative (Negative); RSV RNA, RT-PCR Negative (Negative); SARS-CoV-2 RNA PCR Negative
[2022-06-12] MEDS: MAGNESIUM SULF 2 GM/WATER 50ML 2 GM/50 ML BAG IVPB (03:00)
[2022-06-12 03:01] LABS: Atypical Lymphocytes Present; Microcytosis 2+ (NORMAL); Schistocytes None Seen (NORMAL); Stomatocytes 1+ (NORMAL)
[2022-06-12 03:02] LABS: Hypochromasia 2+ (NORMAL); Platelet Estimate Adequate (Adequate)
[2022-06-12 03:41] LABS: Alveolar/Arterial O2 Gradient 128.1 mmHg; Base Excess ABG 19.7 mEq/l (+/-2.0); Fractional Inspired Oxygen 50 %; HCO3 ABG 53.2 mEq/l (22.0-26.0); Oxygen Content ABG 13.7 %vol (16.0-22.0); Oxyhemoglobin 88.3 % THb (90.0-100.0); PO2 ABG 64.8 mmHg (80.0-100.0)
[2022-06-12 03:44] LABS: Oxygen Saturation ABG 83.8 % (95.0-100.0); PCO2 ABG 145.4 mmHg (35.0-45.0); pH ABG 7.181 (7.350-7.450)
[2022-06-12 03:45] LABS: Device NON-INVASIVE VENT; Modified Allen's Test Unable to perform; Site Drawn RIGHT RADIAL
--- NOTE | 2022-06-12 04:23 | PC.NURSE ---
Spoke with [facility] access center and informed that patient has been accepted for a bed at [facility] ICU. Access center will call back when a bed becomes available.
--- NOTE | 2022-06-12 05:03 | ED.GENADULT ---
HPI - General Adult General Chief complaint: Shortness of Breath/Dyspnea Stated complaint: SOB Time Seen by Provider: 06/12/22 01:20 History of Present Illness HPI narrative: Patient is a 47-year-old gentleman who presents the emergency department with chief complaint of shortness of breath. Patient reports he has prior history of intrinsic lung disease and is followed by pulmonology at [place]. Patient states he uses 8 L of oxygen at home and uses a trilogy at night. Patient states been progressively more short of breath and this feels similar to whenever he gets exacerbations. Related Data Home Medications Medication Instructions Recorded Confirmed albuterol sulfate 90 mcg/actuation 1 inh inhalation Q4H PRN Shortness 09/11/21 05/29/22 aerosol inhaler (ProAir HFA) Of Breath Or Wheezing insulin aspart U-100 100 unit/mL See Rx Instructions .Route .COMPLEX 03/27/22 05/29/22 (3 mL) subcutaneous pen ipratropium 0.5 mg-albuterol 3 mg 3 ml inhalation QID PRN Shortness 03/27/22 05/29/22 (2.5 mg base)/3 mL nebulization Of Breath Or Wheezing soln azelastine 137 mcg (0.1 %) nasal 1 spray intranasal BID 05/29/22 05/29/22 spray aerosol fluticasone furoate 50 1 inh inhalation BID 05/29/22 05/29/22 mcg/actuation blister powder for inhalation semaglutide 1 mg/dose (4 mg/3 mL) 4 mg subcut WEEKLY 05/29/22 05/29/22 subcutaneous pen injector (Ozempic) Allergies Allergy/AdvReac Type Severity Reaction Status Date / Time povidone-iodine Allergy Unknown rash Verified 06/11/22 21:04 tetracycline Allergy Unknown Rash Verified 06/11/22 21:04 theophylline AdvReac Mild Nervousness Verified 06/11/22 21:04 Review of Systems Review of Systems: A 10 system review of systems was completed on the patient and is negative except for what is stated in the HPI. Nursing and ancillary documentation was reviewed. FOR[facility]LY [facility], [facility] Past Medical History Medical History Abdominal wall hernia Chronic respiratory failure with hypoxia and hypercapnia Congenital solitary kidney Essential (primary) hypertension Gastroesophageal reflux disease Insulin dependent type 2 diabetes mellitus Nonischemic cardiomyopathy per report, this is poorly documented in our system. Primary ciliary dyskinesia Pseudomonas infection Pulmonary emphysema Renal failure Sleep apnea in adult Surgical History Surgical History History of appendectomy History of knee surgery History of nasal surgery History of orthopedic surgery History of tonsillectomy and adenoidectomy Family History Family History Father Hypertension Grandparent Hypertension Cerebrovascular accident Family history of coronary artery disease Family history of malignant neoplasm of urinary bladder Diabetes mellitus Mother Cholecystectomy planned H/O: hysterectomy Sibling Thyroid cancer Diverticulitis Other Family history of malignant neoplasm of breast Social History Social History Social History: Surrogate medical decision maker: Sujey Cole, spouse. Code status: Full code. Smoking status: Never smoker Tobacco type: cigarettes Smokeless tobacco user: chewing tobacco Second hand tobacco smoke exposure: No Alcohol intake: never Substance use: never Substance use type: does not use Lack of Transportation: No Lack of Food: Never True Current Housing: I Have Housing Concerned About Future Housing: No Difficulty Paying Gas/Electric Bills: No Difficulty Paying for Meds: No Currently Unemployed: No Education: Associate Degree Difficulty w/ Childcare or Family Care: No Living arrangements: with family Additional living arrangements comments: The patient lives with his and children in [place].
[2022-06-12 06:19] LABS: Troponin I < 0.012 ng/mL (0.000-0.034)
--- NOTE | 2022-06-12 07:28 | PC.NURSE ---
Patient scooted to the end of his bed and stood up. Patient was unsteady and found by RUDY Daniel and KYRA Mariscal tech. They assisted patient up to use urinal. Patient not speaking or answering any questions. Patient assisted back onto stretcher and pulled up on stretcher. Patient reconnected to monitors and soiled pants and underwear removed. Fall prevention pad placed under patient.
[2022-06-12 09:16] LABS: Alveolar/Arterial O2 Gradient 128.4 mmHg; Base Excess ABG 17.3 mEq/l (+/-2.0); Fractional Inspired Oxygen 50 %; HCO3 ABG 50.1 mEq/l (22.0-26.0); Oxygen Content ABG 13.4 %vol (16.0-22.0); Oxyhemoglobin 91.2 % THb (90.0-100.0); PO2 ABG 71.5 mmHg (80.0-100.0); PO2 FiO2 Ratio Arterial Blood 1.43 %; Total Hemoglobin 10.4 g/dL (12.0-18.0)
[2022-06-12 09:18] LABS: pH ABG 7.174 (7.350-7.450)
[2022-06-12 09:19] LABS: Device NON-INVASIVE VENT; Modified Allen's Test Pass; Oxygen Saturation ABG 87.4 % (95.0-100.0); PCO2 ABG 139.2 mmHg (35.0-45.0); Site Drawn RIGHT RADIAL
[2022-06-12 09:20] LABS: Non-Invasive Vent Rate 20 /MIN
[2022-06-12 09:21] LABS: Non-Invasive Expiratory Pressure 10 CMH2O
[2022-06-12 10:46] LABS: Appearance Urine Clear (Clear); Bacteria Urine Trace /hpf; Bilirubin Urine Negative (Negative); Blood Urine Trace-lysed (Negative); Color Urine Yellow (Yellow); Glucose Urine UA 3+ mg/dL (Negative); Ketones Urine Negative (Negative); Leukocyte Esterase Ur Negative LEU/UL (Negative); Nitrate Urine Negative (Negative); Protein Urine 2+ mg/dL (Negative); RBC Urine 0-2 /hpf (0-2); Specific Grav Ur 1.015 (1.001-1.035); Urobilinogen Urine 0.2 mg/dL (<2.0); WBC Urine 0-3 /hpf; pH Urine 5.5 (5.0-9.0)
[2022-06-12 11:05] LABS: Add Urine Microscopic? YES
--- NOTE | 2022-06-12 11:20 | PC.NURSE ---
Patient report received from Cat, RN. All questions answered and care of patient assumed.
--- NOTE | 2022-06-12 11:40 | PC.NURSE ---
Patient resting comfortably in stretcher with call-light in reach. NAD. VSS. Family at bedside. Continue to await transport for transfer to [place]. Will continue to address needs as they arise.
--- NOTE | 2022-06-12 11:50 | PC.NURSE ---
Update provided to Rochelle, MOTOR CARRIER INSPECTOR at [place].
[2022-06-16 11:06] LABS: Non-Invasive Expiratory Pressure 7 CMH2O; Non-Invasive Inspiratory Pressure 14 CMH2O; Non-Invasive Vent Rate 20 /MIN
== END 2022-06-12 13:28 | disposition short-term general hospital (02) ==
PROVIDERS: Emergency Medicine; Emergency Provider Emergency Medicine; PCP Family Medicine
DX: J96.22 Acute and chronic respiratory failure with hypercapnia (principal); Z20.822 Contact with and (suspected) exposure to COVID-19; J96.11 Chronic respiratory failure with hypoxia; I10 Essential (primary) hypertension; E11.9 Type 2 diabetes mellitus without complications; I42.8 Other cardiomyopathies; K21.9 Gastro-esophageal reflux disease without esophagitis; Q60.0 Renal agenesis, unilateral; G47.30 Sleep apnea, unspecified; F17.210 Nicotine dependence, cigarettes, uncomplicated; F17.220 Nicotine dependence, chewing tobacco, uncomplicated; Z86.711 Personal history of pulmonary embolism; Z79.4 Long term (current) use of insulin; Z79.85 Long-term (current) use of injectable non-insulin antidiabetic drugs; R00.0 Tachycardia, unspecified
CPT/HCPCS: 36415; 36600; 71045; 80053; 81001; 82805; 83605; 83735; 83880; 84145; 84484; 85025; 85610; 85730; 87040; 87637; 93005; 94002; 94640; 96365; 96366; 96367; 96375; 99291; J2405; J2543; J2930; J3370; J3475

== ENCOUNTER 2022-10-14 12:26 | Inpatient (IN) | payer BC, MEDICARE, SELFPAY ==
[2022-10-14] VITALS (27 sets, daily range): BP systolic 125–164; BP diastolic 59–82; PULSE 87–109; RESP 18–28; TEMP 36–36.9; O2SAT 92–100; BMI 39.6
--- NOTE | ~2022-10-14 | XR_ITS ---
EXAMINATION: XR chest 1V DATE: 10/14/2022 13:39 INDICATION: Weakness. Emesis. TECHNIQUE: A single frontal view of the chest was obtained on 2 radiographs. COMPARISON: Chest single view 06/12/2022, chest CT 03/27/2022, chest CT 07/11/2018 FINDINGS: There are nodules in right mid and lower lung zones and left lower lung zone. There are mil d airspace opacities in the lower lung zones. No pleural effusion or pneumothorax. The heart size is normal. IMPRESSION: 1. Stable opacities in right mid and lower lung zones and left lower lung zone, consistent with chron ic infection. Reviewed, dictated and finalized at location A. IMPRESSION: 1. Stable opacities in right mid and lower lung zones and left lower lung zone, consistent with chronic infection.
--- NOTE | 2022-10-14 12:40 | ECG_ITS ---
Measurements Intervals [place] Rate: 92 P: 79 [place]: 144 QRS: 82 QRSD: 117 T: 72 QT: 351 QTc: 435 Interpretive Statements SINUS RHYTHM INTRAVENTRICULAR CONDUCTION DELAY BORDERLINE ECG COMPARED TO ECG 06/12/2022 01:38:45 SINUS RHYTHM NOW PRESENT INTRAVENTRICULAR CONDUCTION DELAY NOW PRESENT Electronically Signed On 10-14-2022 13:49:47 CDT by Aguila Issa D.O.
--- NOTE | 2022-10-14 13:01 | ED.WEAKNESS ---
HPI - Weakness General Chief complaint: Weakness Stated complaint: fall, lethargic Time Seen by Provider: 10/14/22 13:01 Source: patient and family Mode of arrival: ambulatory Limitations: no limitations History of Present Illness HPI Narrative: Patient is 47 years old white male brought to the emergency room by his because of weakness, long hours sleep, over the last few days. Currently patient denying any symptoms, he is awake, alert and oriented x4, his main complaint at this time is hungry and would like to have food. He denies any fever, chills, nausea, vomiting, shortness of breath, chest pain, back pain or abdominal pain. Patient was seen by his family physician for regular checkup 3 weeks ago, was seen by her marketing trainee, normal checkup at 4 days ago no new medication, no new treatment. Related Data Home Medications Medication Instructions Recorded Confirmed albuterol sulfate 90 mcg/actuation 1 inh inhalation Q4H PRN Shortness 09/11/21 09/14/22 aerosol inhaler (ProAir HFA) Of Breath Or Wheezing ipratropium 0.5 mg-albuterol 3 mg 3 ml inhalation QID PRN Shortness 03/27/22 09/14/22 (2.5 mg base)/3 mL nebulization Of Breath Or Wheezing soln azithromycin 500 mg tablet 500 mg PO 3XW 07/17/22 09/14/22 insulin aspart U-100 100 unit/mL See Rx Instructions .Route .COMPLEX 08/10/22 09/14/22 (3 mL) subcutaneous pen semaglutide 1 mg/dose (4 mg/3 mL) 2 mg subcut WEEKLY 08/10/22 09/14/22 subcutaneous pen injector (Ozempic) fluticasone furoate 50 1 inh inhalation BID 08/31/22 09/14/22 mcg/actuation blister powder for inhalation Allergies Allergy/AdvReac Type Severity Reaction Status Date / Time povidone-iodine Allergy Unknown rash Verified 08/31/22 11:30 tetracycline Allergy Unknown Rash Verified 08/31/22 11:30 theophylline AdvReac Mild Nervousness Verified 08/31/22 11:30 Review of Systems Review of Systems: All systems reviewed & are unremarkable except as noted in HPI and below PMFSH Past Medical History Medical History Abdominal wall hernia Chronic respiratory failure with hypoxia and hypercapnia Congenital solitary kidney Essential (primary) hypertension Gastroesophageal reflux disease Insulin dependent type 2 diabetes mellitus Nonischemic cardiomyopathy per report, this is poorly documented in our system. Primary ciliary dyskinesia Pseudomonas infection Pulmonary emphysema Renal failure Sleep apnea in adult Surgical History Surgical History History of appendectomy History of knee surgery History of nasal surgery History of orthopedic surgery History of tonsillectomy and adenoidectomy Family History Family History Father Hypertension Grandparent Hypertension Cerebrovascular accident Family history of coronary artery disease Family history of malignant neoplasm of urinary bladder Diabetes mellitus Mother Cholecystectomy planned H/O: hysterectomy Sibling Thyroid cancer Diverticulitis Other Family history of malignant neoplasm of breast Social History Social History Social History: Surrogate medical decision maker: Sujey Douglas, spouse. Code status: Full code. Smoking status: Never smoker Tobacco type: cigarettes Smokeless tobacco user: chewing tobacco Second hand tobacco smoke exposure: No Alcohol intake: never Substance use: never Substance use type: does not use Lack of Transportation: No Lack of Food: Never True Current Housing: I Have Housing Concerned About Future Housing: No Difficulty Paying Gas/Electric Bills: No Difficulty Paying for Meds: No Currently Unemployed: No Education: Associate Degree Difficulty w/ Childcare or Family Care: No Living arrangements: with family Additional living arrangements commen
[2022-10-14 13:15] LABS: Basophils Percent Auto 0.3 % (0.2-1.2); Eosinophils Absolute Auto 0.2 K/mm3 (0-0.3); Hematocrit 36.1 % (42.0-52.0); Hemoglobin 10.2 g/dL (14.0-18.0); Immature Granulocyte Absolute 0.03 K/mm3 (0.00-0.031); Immature Granulocyte Percent A 0.4 % (0-0.5); Lymphocytes Absolute Auto 1.67 K/mm3 (0.9-3.2); Mean Corpuscular HGB Conc 28.3 g/dl (32-36); Mean Corpuscular Volume 92.1 fl (80-100); Mean Platelet Volume 9.9 fl (7.4-10.4); Monocytes Absolute Auto 0.5 K/mm3 (0.1-0.6); Monocytes Percent Auto 6.7 % (2.6-8.5); Neutrophils Absolute Auto 5.2 K/mm3 (1.3-6.7); Neutrophils Percent Auto 68.6 % (45.5-73.1); Platelet Count Result 224 k/mm3 (150-375); Red Blood Count 3.92 M/mm3 (4.6-6.20); Red Cell Distribution Width 13.1 % (11.5-14.5); White Blood Count 7.6 K/mm3 (4.5-10.0)
[2022-10-14 13:23] LABS: Appearance Urine Clear (Clear); Bacteria Urine None Seen /hpf; Bilirubin Urine Negative (Negative); Blood Urine Trace (Negative); Color Urine Yellow (Yellow); Glucose Urine UA Negative (Negative); Ketones Urine Negative (Negative); Leukocyte Esterase Ur Negative LEU/UL (Negative); Nitrate Urine Negative (Negative); Protein Urine 2+ mg/dL (Negative); RBC Urine 0-2 /hpf (0-2); Specific Grav Ur 1.013 (1.001-1.035); Squamous Epithelial Cell Urine None seen /hpf (Few); Urobilinogen Urine 0.2 mg/dL (<2.0); WBC Urine 0-5 /hpf
[2022-10-14 13:28] LABS: Alveolar/Arterial O2 Gradient 52.1 mmHg; Base Excess ABG 29.3 mEq/l (+/-2.0); Fractional Inspired Oxygen 44 %; HCO3 ABG 62.8 mEq/l (22.0-26.0); Oxygen Content ABG 14.8 %vol (16.0-22.0); Oxygen Saturation ABG 95.1 % (95.0-100.0); Oxyhemoglobin 95.4 % THb (90.0-100.0); PO2 ABG 96.2 mmHg (80.0-100.0); PO2 FiO2 Ratio Arterial Blood 2.19 %; Total Hemoglobin 10.9 g/dL (12.0-18.0)
[2022-10-14 13:29] LABS: Alanine Aminotransferase 21 U/L (6-50); Albumin Level 4.6 g/dL (3.5-5.1); Alkaline Phosphatase 112 U/L (38-126); Aspartate Amino Transferase 29 U/L (17-59); Bilirubin,Total 0.5 mg/dL (0.2-1.3); Blood Urea Nitrogen 29 mg/dL (9-20); Calcium 9.7 mg/dL (8.4-10.2); Carbon Dioxide > 40 mmol/L (22-30); Chloride 83 mmol/L (98-107); Estimated CRCL calculation 100 ml/min; Estimated Glomerular Filt Rate > 60; Glucose 150 mg/dL (65-110); Magnesium 1.5 mg/dL (1.6-2.3); Potassium 4.8 mmol/L (3.4-5.0); Sodium 143 mmol/L (137-145)
[2022-10-14 13:31] LABS: Hypochromasia 2+ (NORMAL); Platelet Estimate Adequate (Adequate); Schistocytes None Seen (NORMAL)
[2022-10-14 13:31] LABS: Device NASAL CANNULA; Modified Allen's Test Pass; PCO2 ABG 145.1 mmHg (35.0-45.0); Site Drawn RIGHT RADIAL; pH ABG 7.254 (7.350-7.450)
[2022-10-14 13:36] LABS: Add Urine Microscopic? YES
[2022-10-14] MEDS: IPRATROPIUM BR 0.02% INH SOLN 0.5 MG/2.5 ML VIAL INHALATION ×2 (14:11→20:12)
[2022-10-14] MEDS: LEVALBUTEROL NEB 1.25 MG/3 ML INHALATION (14:11)
[2022-10-14] MEDS: methylPREDNISolone SOD SUCC 125 MG VIAL IV PUSH (14:20)
[2022-10-14 15:22] LABS: Alveolar/Arterial O2 Gradient 126.8 mmHg; Carboxyhemoglobin 0.4 % THb (0-2.0); Fractional Inspired Oxygen 50 %; HCO3 ABG 60.7 mEq/l (22.0-26.0); Methemoglobin ABG 0.3 %THb (0-1.5); Oxygen Saturation ABG 91.7 % (95.0-100.0); Oxyhemoglobin 92.8 % THb (90.0-100.0); PO2 ABG 77.6 mmHg (80.0-100.0); PO2 FiO2 Ratio Arterial Blood 1.55 %; Reduced Hemoglobin 6.5 %THb (0-5.0); Total Hemoglobin 10.7 g/dL (12.0-18.0)
[2022-10-14 15:23] LABS: Modified Allen's Test Pass; PCO2 ABG 135.2 mmHg (35.0-45.0); Site Drawn RIGHT RADIAL
[2022-10-14 15:24] LABS: Device NON-INVASIVE VENT; Non-Invasive Expiratory Pressure 6 CMH2O; Non-Invasive Inspiratory Pressure 18 CMH2O; Non-Invasive Vent Rate 22 /MIN
--- NOTE | 2022-10-14 15:46 | ADMGEN ---
This patient, Braydon Cole, was admitted to IMU Room 207-01 at 1533. Patient/family oriented to hospital policies and general routines including ID bracelet, bed and alarms, visiting hours, pain management, procedures, bathroom and other care routines, personal items, smoking policy, room service/diet, and visiting hours. Information on how to activate the Rapid Response Team has been discussed. Patient/Family are encouraged to report perceived risks to care and to ask questions if they do not understand what they are told or what they should do.
--- NOTE | 2022-10-14 17:01 | PM.IMHP ---
H&P: HPI History of Present Illness Date/Time: 10/14/22 17:01 Chief Complaint: Weakness Narrative: this is a 47-year-old male patient who has a chronic lung disease. The patient came to the emergency room due to weakness and sleeping long hours. This is been occurring over the last few days. The patient is awake and alert and answering questions. He uses a Trelegy at home. The patient is stating that he is hungry and wants to get his BiPAP off. The patient is currently on a BiPAP 18/6 with rate of 25 and O2 bleed in a 50%. The patient denied any fever chills. No nausea vomiting diarrhea. No chest pain. The patient was seen by his family physician 3 weeks ago. H&H is 10.2 and 36.1. Initial ABG pH 7.270 CO2 was 135.2. PO2 was 77.6. Bicarb was 60.7. O2 saturation 91.7 magnesium 1.5. Chest x-ray was read as Stable opacities in right mid and lower lung zones and left lower lung zone, consistent with chronic infection. The patient typically wears oxygen at 6 L per nasal cannula at home and uses a Trelegy. the patient was started on normal saline, Zofran, Atrovent, Xopenex, And Solu-Medrol. the patient is being admitted to inpatient status on the date of service of 10/14/2022. Review of Systems Review of Systems: All systems reviewed & are unremarkable except as noted in HPI and below Constitutional: Constitutional: Reports as per HPI and Reports no additional constitutional complaints Eyes: Eyes: Reports as per HPI and Reports no additional eye complaints ENT: Reports system reviewed and no additional complaints, except as documented and Reports Normal hearing present Cardiovascular: Cardiovascular: Reports no additional cardiovascular complaints Respiratory: Respiratory: Reports no additional respiratory complaints and Reports no additional respiratory complaints Gastrointestinal: Gastrointestinal: Reports as per HPI and Reports no additional gastrointestinal complaints Musculoskeletal: Musculoskeletal: Reports no additional musculoskeletal complaints Integumentary/Breasts: Skin/Breast: Reports system reviewed and no additional complaints, except as docu and Reports as per HPI Neurologic: Reports system reviewed and no additional complaints, except as documented, Reports as per HPI and Reports Normal hearing present Psychiatric: Psychiatric: Reports no additional psychiatric complaints and Reports as per HPI Endocrine: Endocrine: Reports no additional endocrine complaints Hematologic/Lymphatic: Hematologic/Lymphatic: Reports no additional hematologic/lymphatic complaints Allergic/Immunologic: Allergic/Immunologic: Reports no additional allergic/immunologic complaints [facility] Past Medical History Medical History (Updated 10/14/22 @ 20:00 by Kacy Palomo NP) Abdominal wall hernia Chronic respiratory failure with hypoxia and hypercapnia Congenital solitary kidney Essential (primary) hypertension Gastroesophageal reflux disease Hyperlipidemia Insulin dependent type 2 diabetes mellitus Nonischemic cardiomyopathy per report, this is poorly documented in our system. Primary ciliary dyskinesia Pseudomonas infection Pulmonary emphysema Renal failure Sleep apnea in adult Surgical History Surgical History History of appendectomy History of knee surgery History of nasal surgery History of orthopedic surgery History of tonsillectomy and adenoidectomy Family History Family History Father Hypertension Grandparent Hypertension Cerebrovascular accident Family history of coronary artery disease Family history of malignant neoplasm of urinary bladder Diabetes mellitus Mother Cholecystectomy planned H/O: hysterectomy Sibling Thyroid cancer Diverticulitis Other Family history of malignant neoplasm of breast Social History Social History (Updated 10/14/22 @ 19:38 by Kacy Pitts
[2022-10-14 19:49] LABS: Glucose Point of Care 390 mg/dl (65-105)
[2022-10-14] MEDS: LEVALBUTEROL NEB 1.25 MG/3 ML 0.63 MG INHALATION (20:12)
[2022-10-14 20:30] LABS: Alveolar/Arterial O2 Gradient 149.5 mmHg; Base Excess ABG 20.3 mEq/l (+/-2.0); Fractional Inspired Oxygen 50 %; Oxygen Content ABG 15.2 %vol (16.0-22.0); Oxygen Saturation ABG 97.9 % (95.0-100.0); Oxyhemoglobin 97.2 % THb (90.0-100.0); PO2 ABG 114.3 mmHg (80.0-100.0); PO2 FiO2 Ratio Arterial Blood 2.29 %; pH ABG 7.392 (7.350-7.450)
[2022-10-14 20:32] LABS: Device NON-INVASIVE VENT; Modified Allen's Test Pass; Non-Invasive Expiratory Pressure 6 CMH2O; Non-Invasive Inspiratory Pressure 18 CMH2O; Non-Invasive Vent Rate 25 /MIN; PCO2 ABG 82.4 mmHg (35.0-45.0); Site Drawn LEFT RADIAL
[2022-10-14] MEDS: INSULIN ASPART (*BKC) 100 UNITS/ML SUB-Q (20:45)
[2022-10-14] MEDS: INSULIN GLARGINE (*BKC) 100 UNITS/ML 70 UNITS SUB-Q (20:45)
[2022-10-14] MEDS: MAGNESIUM SULF 2 GM/WATER 50ML 2 GM/50 ML BAG IVPB (20:49)
[2022-10-14] MEDS: methylPREDNISolone SOD SUCC 125 MG VIAL 60 MG IV PUSH (20:49)
[2022-10-14 21:39] LABS: Hemoglobin A1C 7.5 % (<5.7)
[2022-10-14 22:41] LABS: Glucose Point of Care 361 mg/dl (65-105)
[2022-10-14] MEDS: INSULIN ASPART (*BKC) 100 UNITS/ML 10 UNITS SUB-Q (23:18)
[2022-10-15] VITALS (13 sets, daily range): BP systolic 144–148; BP diastolic 71–73; PULSE 73–101; RESP 22–25; TEMP 36.3; O2SAT 92–98
[2022-10-15] MEDS: LEVALBUTEROL NEB 1.25 MG/3 ML 0.63 MG INHALATION ×2 (02:19→07:00)
[2022-10-15] MEDS: IPRATROPIUM BR 0.02% INH SOLN 0.5 MG/2.5 ML VIAL INHALATION ×2 (02:19→07:00)
[2022-10-15 04:06] LABS: Basophils Percent Auto 0.1 % (0.2-1.2); Hematocrit 32.8 % (42.0-52.0); Hemoglobin 9.5 g/dL (14.0-18.0); Immature Granulocyte Absolute 0.05 K/mm3 (0.00-0.031); Immature Granulocyte Percent A 0.6 % (0-0.5); Lymphocytes Absolute Auto 0.74 K/mm3 (0.9-3.2); Lymphocytes Percent Auto 9.5 % (18.3-44.2); Mean Corpuscular Hemoglobin 25.9 pg (26-34); Mean Corpuscular Volume 89.4 fl (80-100); Mean Platelet Volume 10.3 fl (7.4-10.4); Monocytes Absolute Auto 0.1 K/mm3 (0.1-0.6); Monocytes Percent Auto 0.6 % (2.6-8.5); Neutrophils Absolute Auto 6.9 K/mm3 (1.3-6.7); Neutrophils Percent Auto 89.2 % (45.5-73.1); Platelet Count Result 213 k/mm3 (150-375); Red Blood Count 3.67 M/mm3 (4.6-6.20); Red Cell Distribution Width 13.1 % (11.5-14.5); White Blood Count 7.8 K/mm3 (4.5-10.0)
[2022-10-15 04:20] LABS: Alanine Aminotransferase 22 U/L (6-50); Albumin Level 4.2 g/dL (3.5-5.1); Alkaline Phosphatase 103 U/L (38-126); Aspartate Amino Transferase 22 U/L (17-59); Bilirubin,Total 0.4 mg/dL (0.2-1.3); Blood Urea Nitrogen 38 mg/dL (9-20); Calcium 9.2 mg/dL (8.4-10.2); Carbon Dioxide > 40 mmol/L (22-30); Chloride 83 mmol/L (98-107); Estimated CRCL calculation 79 ml/min; Estimated Glomerular Filt Rate 59; Glucose 315 mg/dL (65-110); Magnesium 1.8 mg/dL (1.6-2.3); Potassium 4.7 mmol/L (3.4-5.0); Sodium 138 mmol/L (137-145)
[2022-10-15 04:25] LABS: Hypochromasia 1+ (NORMAL); Platelet Estimate Adequate (Adequate)
[2022-10-15 04:27] LABS: Schistocytes None Seen (NORMAL)
[2022-10-15 04:57] LABS: Thyroid Stimulating Hormone Reflex 0.203 uIU/mL (0.465-4.68)
[2022-10-15 05:33] LABS: Free T4 Free Thyroxine Reflex 0.81 ng/dL (0.78-2.19)
[2022-10-15 06:18] LABS: Total Triiodothyronine (T3) 1.11 NG/ML (0.97-1.69)
[2022-10-15] MEDS: methylPREDNISolone SOD SUCC 125 MG VIAL 60 MG IV PUSH (06:21)
[2022-10-15] MEDS: FLUTICASONE PROP 44 MCG (*SP) 10.6 GM 2 PUFF INHALATION (07:00)
[2022-10-15 08:00] LABS: Glucose Point of Care 273 mg/dl (65-105)
[2022-10-15] MEDS: modafiniL (*CRX) 200 MG TABLET PO (08:06)
[2022-10-15] MEDS: FAMOTIDINE 20 MG TABLET 40 MG PO (08:06)
[2022-10-15] MEDS: ENOXAPARIN 40 MG/0.4 ML SYRINGE SUB-Q (08:06)
[2022-10-15] MEDS: MONTELUKAST SODIUM 10 MG TABLET PO (08:06)
[2022-10-15] MEDS: ATORVASTATIN 20 MG TABLET PO (08:06)
[2022-10-15] MEDS: SALINE 0.65% NAS SOLN 44 ML BTL 2 SPRAY NASAL (08:07)
[2022-10-15] MEDS: INSULIN ASPART (*BKC) 100 UNITS/ML SUB-Q (08:07)
--- NOTE | 2022-10-15 09:46 | PM.CNPUL ---
Assessment and Plan Assessment and plan (1) Acute on chronic respiratory failure with hypoxia and hypercapnia: Code(s): J96.21 - Acute and chronic respiratory failure with hypoxia; J96.22 - Acute and chronic respiratory failure with hypercapnia Status: Acute Assessment and Plan: 47-year-old man with primary ciliary dyskinesia followed at [facility] and last seen on 10/10/2022. problem list: Primary ciliary dyskinesia, severe obstructive lung disease, bronchiectasis, pulmonary hypertension, obstructive sleep apnea. The note states the patient has been going to pulmonary rehab 2 to 3 times a week and exercising on his own with up to 12 L nasal cannula oxygen. He is wearing his AVAPS at night and using DuoNebs and vest treatment along with hypertonic saline. he had not had any exacerbations. His FEV1 was 0.52, 13% predicted. His FVC was 1.53 L, 32% predicted. His room air arterial blood gas was 7.37/92/30. His 6 minutes walk was 900 ft and he required 12-15 L. The plan was to continue his current regimen, consider taking naps for 1-2 hours a day with his AVAPS. He was congratulated on his weight lost encouraged to continue exercise and weight loss as lung transplant is his only long-term option. Follow-up in 3 months. Patient presented on 10/14/2022 with acute on chronic hypercarbic and hypoxemic respiratory failure without any evidence of active infection, bronchospasm or fluid overload. The patient does have worsening lung disease when comparing his spirometry from 10/10/2022 to 01/07/2019 so that disease progression is also likely contributing to his worsening hypercarbic respiratory failure. He is in the process of losing weight so that he can qualify for lung transplantation through [facility]. Patient states he has no active issues with his machine and fullface mask. He did take his insulin and skipped breakfast the day of admission and some relative hypoglycemia may have contributed to his worsening hypercarbic respiratory failure. His hypercarbic respiratory failure improved back to his baseline with BiPAP on the last blood gas last night (7.39/82/114). From a pulmonary perspective patient is ready to be discharged home on these pulmonary medications: DuoNebs q.i.d., hypertonic saline nebulization Vest therapy Oxygen 6-8 L with rest and activity. AVAPS noninvasive ventilation through IV respiratory care as directed through the pulmonary division at [facility]. I informed the patient to call [facility] on 10/16/2022 to give them clinical updates so that a recent download on his current settings could be reviewed with consideration for increasing his minute ventilation in the future. I discussed this with the patient and his mother and by speaker phone. Discussed with Dr. Brown, call with questions History of Present Illness History of Present Illness Consult date: 10/15/22 Chief complaint: Acute on Chronic Hypercapnic Resp Failure COPD Exa Narrative: 10/15/2022: This is a new pulmonary consult for primary ciliary dyskinesia with chronic hypercarbic and hypoxemic respiratory failure. 47-year-old man with a history of primary ciliary dyskinesia followed at [facility] and last seen on 10/10/2022. problem list: Primary ciliary kidneys kidney GLENN, severe obstructive lung disease, bronchiectasis, pulmonary hypertension, obstructive sleep apnea. The note states the patient has been going to pulmonary rehab 2 to 3 times a week and exercising on his own with up to 12 L nasal cannula oxygen. He is wearing his AVAPS at night and using DuoNebs and vest treatment along with hypertonic saline. he had not had any exacerbations. His FEV1 was 0.52, 13% predicted. His FVC was 1.53 L, 32% predicted. His room air arterial blood gas was 7.37/92/30. His 6 minutes walk was 900 ft and he
--- NOTE | 2022-10-15 11:30 | PM.DS ---
DS: Admitting Diagnosis Discharge Date 10/15/2022 Admitting Diagnosis Weakness DS: Discharge Diagnosis Discharge Diagnosis (1) Acute and chronic respiratory failure with hypercapnia: Code(s): J96.22 - Acute and chronic respiratory failure with hypercapnia Status: Acute Assessment and Plan: Patient has chronic hypercapnia and hypoxia. The patient has primary ciliary dyskinesia or PCD which is a rare disease that affects a tiny here like structures that line the airways. The patient is chronically on oxygen in at 6 L per nasal cannula at home. The patient uses a Trelegy at home. Continue with Solu-Medrol Continue with nebulizer treatments. consult rubber molder. Further recommendation per pulmonology. The patient was going to have a trial. A putting oxygen on 6 L so that he can eat. repeat abg (2) Hypomagnesemia: Code(s): E83.42 - Hypomagnesemia Status: Acute Assessment and Plan: Replace as necessary. Magnesium is 1.5. (3) Anemia: Code(s): D64.9 - Anemia, unspecified Status: Acute Assessment and Plan: H&H is 10.2 and 36 pt on which is his baseline. (4) Insulin dependent type 2 diabetes mellitus: Code(s): E11.9 - Type 2 diabetes mellitus without complications; Z79.4 - long term care pharmacist (current) use of insulin Status: Acute Assessment and Plan: Accu-Cheks AC and HS with sliding scale insulin check A1c continue with Lantus. (5) Sleep apnea in adult: Code(s): G47.30 - Sleep apnea, unspecified Status: Acute Assessment and Plan: The patient uses a trilogy at home. The patient is currently on a BiPAP. (6) Hyperlipidemia: Code(s): E78.5 - Hyperlipidemia, unspecified Status: Acute Assessment and Plan: continue with atorvastatin. DS: Summary Hospital Course Reason for hospitalization: Weakness Narrative: ?this is a 47-year-old male patient who has a chronic lung disease.? The patient came to the emergency room due to weakness and sleeping long hours.? This is been occurring over the last few days.? The patient is awake and alert and answering questions.? He uses a Trelegy at home.? The patient is stating that he is hungry and wants to get his BiPAP off.? The patient is currently on a BiPAP 18/6? with rate of 25 and O2 bleed in a 50%.? The patient denied any fever chills.? No nausea vomiting diarrhea.? No chest pain.? The patient was seen by his family physician 3 weeks ago.? H&H is 10.2 and 36.1.? Initial ABG? pH? 7.270 CO2 was 135.2.? PO2 was 77.6.? Bicarb was 60.7.? O2 saturation 91.7? magnesium 1.5.? Chest x-ray was read as?Stable opacities in right mid and lower lung zones and left lower lung zone, consistent with chronic infection.? The patient typically wears oxygen at 6 L per nasal cannula at home and uses a Trelegy. the patient was started on normal saline, Zofran, Atrovent, Xopenex, ? And Solu-Medrol. the patient is being admitted to inpatient status on the date of service of 10/14/2022. Hospital Course: Head Refrigeration Engineer notes:47-year-old man with primary ciliary dyskinesia followed at [facility] and last seen on ? 10/10/2022.? problem list:? Primary ciliary dyskinesia, severe obstructive lung disease, bronchiectasis, pulmonary hypertension, obstructive sleep apnea. The note states the patient has been going to pulmonary rehab 2 to 3 times a week and exercising on his own with up to 12 L nasal cannula oxygen.? He is wearing his AVAPS at night and using DuoNebs and vest treatment along with hypertonic saline.? he had not had any exacerbations. His FEV1 was 0.52, 13% predicted.? His FVC was 1.53 L, 32% predicted.? His room air arterial blood gas was 7.37/92/30.? His 6 minutes walk was 900 ft and he required 12-15 L. ? The plan was to continue his current regimen, consider taking naps for 1-2 hours a day with his AVAPS.? He was congratulated on his weight lost encouraged to continue exercise
[2022-10-15 11:35] LABS: Glucose Point of Care 350 mg/dl (65-105)
== END 2022-10-15 12:30 | disposition home or self-care (01) | DRG 189 ==
LOC: ANHED 14:37 → ANHIMU 14:53
PROVIDERS: Nurse Practitioner; Admitting Provider Family Medicine; Emergency Provider Emergency Medicine; PCP Family Medicine; Visit Provider Family Medicine
DX: J96.21 Acute and chronic respiratory failure with hypoxia (principal); J44.1 Chronic obstructive pulmonary disease with (acute) exacerbation; Q60.0 Renal agenesis, unilateral; J96.22 Acute and chronic respiratory failure with hypercapnia; K21.9 Gastro-esophageal reflux disease without esophagitis; I10 Essential (primary) hypertension; E11.9 Type 2 diabetes mellitus without complications; Z90.49 Acquired absence of other specified parts of digestive tract; E78.5 Hyperlipidemia, unspecified; E83.42 Hypomagnesemia; D64.9 Anemia, unspecified; G47.33 Obstructive sleep apnea (adult) (pediatric); Z99.81 Dependence on supplemental oxygen
CPT/HCPCS: 36415; 36600; 71045; 80053; 81001; 82375; 82805; 82948; 83036; 83050; 83605; 83735; 84439; 84443; 84480; 85025; 93005; 94002; 94003; 94640; 96374; 99285; A9270; J1650; J1815; J2930; J3475; J7030

== ENCOUNTER 2022-11-06 09:30 | Outpatient (RCR) | payer BC, SELFPAY ==
[2022-08-17 10:48] LABS: Glucose Point of Care 73 mg/dl (65-105)
[2022-11-06 10:45] LABS: Glucose Point of Care 120 mg/dl (65-105)
== END 2022-11-06 23:59 | disposition home or self-care (01) ==
LOC: ANHCPREHAB 09:30
PROVIDERS: PCP Family Medicine
DX: J44.9 Chronic obstructive pulmonary disease, unspecified (principal)
CPT/HCPCS: 94625; G0239

== ENCOUNTER 2022-11-30 09:30 | Outpatient (RCR) | payer BC, SELFPAY | END 2023-03-04 08:26 | disposition home or self-care (01) | LOC: ANHCPREHAB 09:30 | PROVIDERS: PCP Family Medicine | DX: J44.9 Chronic obstructive pulmonary disease, unspecified (principal) | CPT/HCPCS: 94625; G0239 ==

== ENCOUNTER 2022-12-05 08:06 | Outpatient (CLI) | payer BC, SELFPAY ==
--- NOTE | 2022-12-05 11:37 | WPDSIXMINUTE ---
Six Minute Walk Procedure Procedure Performed Pulmonary Stress Test (6 min walk) Six Minute Walk Six Minute Walk: This is a 6 minute walk test. The test was performed and interpreted in accordance with the 2014 ERS/ATS task force guidelines. Of note the patient walked with 8 L with a walking aid for his O2 tank Findings: The patient's resting room air oxygen saturation measured by pulse oximetry was 93% and heart rate was 91 bpm. Patient ambulated for 244 meters and oxygen saturation remained 92 to 94%. Heart rate at the end of the study was 99 bpm. The patient with adequate saturations using 8 L nasal cannula with ambulation. There are no prior studies for comparison.
== END 2022-12-05 08:07 | disposition home or self-care (01) ==
PROVIDERS: PCP Family Medicine
DX: J44.9 Chronic obstructive pulmonary disease, unspecified (principal)
CPT/HCPCS: 94618

== ENCOUNTER 2023-02-17 19:07 | Emergency (ER) | payer BC, SELFPAY ==
[2023-02-17] VITALS (19 sets, daily range): BP systolic 143–166; BP diastolic 70–84; PULSE 88–98; RESP 17–21; TEMP 36.6; O2SAT 92–99
--- NOTE | ~2023-02-17 | XR_ITS ---
EXAMINATION: XR chest 1V portable Exam Date/Time: 02/17/2023 20:45 CDT HISTORY: sob Comparison: 10/06/2022; CT chest 03/27/2022. RESULT: Lines, tubes, and devices: None. Lungs and pleura: Unchanged right mid and lower and left lower lung reticulonodular opacities. Minim al right costophrenic angle blunting. No focal consolidation or pneumothorax. Cardiomediastinal silhouette: Stable. Other: No acute osseous or upper abdominal finding. IMPRESSION: Stable pulmonary opacities consistent with chronic infection. Chronic right pleural scarring versus t race pleural effusion. Reviewed, dictated and finalized at location K. IMPRESSION: Stable pulmonary opacities consistent with chronic infection. Chronic right ple ural scarring versus trace pleural effusion.
--- NOTE | 2023-02-17 20:20 | ECG_ITS ---
Measurements Intervals [place] Rate: 87 P: 72 [place]: 152 QRS: 81 QRSD: 109 T: 67 QT: 343 QTc: 414 Interpretive Statements SINUS RHYTHM WITHIN NORMAL LIMITS COMPARED TO ECG 10/14/2022 12:35:52 NO SIGNIFICANT CHANGES Electronically Signed On 02-18-2023 13:31:17 CDT by Dante Wright M.D.
[2023-02-17 20:49] LABS: Alveolar/Arterial O2 Gradient 141.1 mmHg; Base Excess ABG 22.8 mEq/l (+/-2.0); Fractional Inspired Oxygen 48 %; HCO3 ABG 55.9 mEq/l (22.0-26.0); PO2 FiO2 Ratio Arterial Blood 0.97 %; Total Hemoglobin 11.2 g/dL (12.0-18.0)
--- NOTE | 2023-02-17 20:52 | ED.GENADULT ---
HPI - General Adult General Chief complaint: Altered Mental Status Stated complaint: CO2 levels up? confused Time Seen by Provider: 02/17/23 19:42 History of Present Illness HPI narrative: Patient presents to the emergency department with his . He has a history of primary cilia dysplasia. He is on 8 L of oxygen at baseline and is followed by pulmonology at [place]. He was seen in the office couple weeks ago and his CO2 levels were in the 120s. However he has been getting more confused over the past couple days. He is concerned his CO2 may be higher than normal. Denies all other review of systems including fevers chills cough and increasing shortness of breath. He is very pleasant and his contributes to the history. He is currently in no distress. Tonight she was concerned because he could not follow the directions on the Helpa helper box Related Data Home Medications Medication Instructions Recorded Confirmed ipratropium 0.5 mg-albuterol 3 mg 3 ml inhalation QID PRN Shortness 03/27/22 12/03/22 (2.5 mg base)/3 mL nebulization Of Breath Or Wheezing soln insulin aspart U-100 100 unit/mL 18 unit subcut QACBREAK 08/10/22 12/03/22 (3 mL) subcutaneous pen semaglutide 1 mg/dose (4 mg/3 mL) 2 mg subcut WEEKLY 08/10/22 12/03/22 subcutaneous pen injector (Ozempic) insulin aspart U-100 100 unit/mL 18 unit subcut QACLUNCH 10/14/22 12/03/22 (3 mL) subcutaneous pen insulin aspart U-100 100 unit/mL 20 unit subcut QACDINNER 10/14/22 12/03/22 (3 mL) subcutaneous pen insulin glargine-yfgn 100 unit/mL 70 unit subcut HS 10/14/22 12/03/22 (3 mL) subcutaneous pen (Semglee (insulin glargine-yfgn) Pen) sodium chloride 0.65 % nasal spray 2 spray intranasal DAILY 10/14/22 12/03/22 aerosol (Nasal [place] (sodium chloride)) Allergies Allergy/AdvReac Type Severity Reaction Status Date / Time povidone-iodine Allergy Unknown rash Verified 12/03/22 12:42 tetracycline Allergy Unknown Rash Verified 12/03/22 12:42 theophylline AdvReac Mild Nervousness Verified 12/03/22 12:42 Review of Systems Review of Systems: CONSTITUTIONAL: Denies fever, chills, or sweats. EYES: Denies visual changes, redness, or discharge. ENT: Denies rhinorrhea, congestion, sore throat, or otalgia. CARDIOVASCULAR: Denies chest pain, palpitations, or edema. RESPIRATORY: Denies cough or dyspnea. GASTROINTESTINAL: Denies abdominal pain, nausea, vomiting, or diarrhea. GENITOURINARY: Denies dysuria or hematuria. SKIN: Denies rash or itching. MUSCULOSKELETAL: Denies back pain, joint pain, or myalgia. NEUROLOGIC: Denies headache, numbness, or weakness. PSYCHIATRIC: Denies anxiety or depression. [facility] Past Medical History Medical History (Updated 02/18/23 @ 00:32 by Tiffanie Barrios MD) Abdominal wall hernia Burn of finger of left hand, second degree Chronic respiratory failure with hypoxia and hypercapnia Congenital solitary kidney Essential (primary) hypertension Gastroesophageal reflux disease Hyperlipidemia Insulin dependent type 2 diabetes mellitus Nonischemic cardiomyopathy per report, this is poorly documented in our system. Primary ciliary dyskinesia Pseudomonas infection Pulmonary emphysema Renal failure Sleep apnea in adult Surgical History Surgical History History of appendectomy History of knee surgery History of nasal surgery History of orthopedic surgery History of tonsillectomy and adenoidectomy Family History Family History Father Hypertension Grandparent Hypertension Cerebrovascular accident Family history of coronary artery disease Family history of malignant neoplasm of urinary bladder Diabetes mellitus Mother Cholecystectomy planned H/O: hysterectomy Sibling Thyroid cancer Diverticulitis Other Family history of malignant neoplasm of breast Social History Social History (R
[2023-02-17 20:54] LABS: PCO2 ABG 136.8 mmHg (35.0-45.0); PO2 ABG 46.6 mmHg (80.0-100.0); pH ABG 7.229 (7.350-7.450)
[2023-02-17 20:55] LABS: Oxyhemoglobin 75.9 % THb (90.0-100.0)
[2023-02-17 21:38] LABS: Basophils Percent Auto 0.3 % (0.2-1.2); Eosinophils Absolute Auto 0.2 K/mm3 (0-0.3); Eosinophils Percent Auto 2.8 % (0-4.4); Hematocrit 35.6 % (42.0-52.0); Immature Granulocyte Absolute 0.06 K/mm3 (0.00-0.031); Immature Granulocyte Percent A 0.9 % (0-0.5); Lymphocytes Absolute Auto 1.39 K/mm3 (0.9-3.2); Lymphocytes Percent Auto 19.8 % (18.3-44.2); Mean Corpuscular HGB Conc 28.1 g/dl (32-36); Mean Corpuscular Hemoglobin 25.8 pg (26-34); Mean Corpuscular Volume 91.8 fl (80-100); Mean Platelet Volume 9.7 fl (7.4-10.4); Monocytes Absolute Auto 0.5 K/mm3 (0.1-0.6); Monocytes Percent Auto 6.5 % (2.6-8.5); Neutrophils Absolute Auto 4.9 K/mm3 (1.3-6.7); Neutrophils Percent Auto 69.7 % (45.5-73.1); Platelet Count Result 228 k/mm3 (150-375); Red Blood Count 3.88 M/mm3 (4.6-6.20); Red Cell Distribution Width 12.7 % (11.5-14.5)
[2023-02-17 21:49] LABS: Alanine Aminotransferase 16 U/L (6-50); Albumin Level 4.3 g/dL (3.5-5.1); Alkaline Phosphatase 99 U/L (38-126); Aspartate Amino Transferase 21 U/L (17-59); Bilirubin,Total 0.5 mg/dL (0.2-1.3); Blood Urea Nitrogen 24 mg/dL (9-20); Calcium 9.1 mg/dL (8.4-10.2); Carbon Dioxide > 40 mmol/L (22-30); Chloride 85 mmol/L (98-107); Estimated CRCL calculation 77 ml/min; Estimated Glomerular Filt Rate 59; Glucose 279 mg/dL (65-110); Potassium 4.8 mmol/L (3.4-5.0); Sodium 140 mmol/L (137-145)
[2023-02-17 22:00] LABS: Troponin I 0.016 ng/mL (0.000-0.034)
[2023-02-17] MEDS: AZITHROMYCIN 250 MG TABLET PO (22:18)
--- NOTE | 2023-02-17 23:07 | PC.NURSE ---
Report given to RUDY Sánchez. All questions addressed, care of pt transferred.
--- NOTE | 2023-02-17 23:10 | PC.NURSE ---
This RN took patient report from Aleah Erickson. THis rn assumed care of patient.
[2023-02-18] VITALS (38 sets, daily range): BP systolic 130–160; BP diastolic 61–138; PULSE 80–96; RESP 15–28; O2SAT 92–100
--- NOTE | 2023-02-18 00:13 | PC.NURSE ---
This RN spoke with Bhumi from the [facility]. This RN gave Bhumi an update on patient and recent set of vital signs. Bhumi stated that pt was going to be admitted to the ICU and was hopeful that pt would have a bed by tomorrow however, there were no beds currently available.
--- NOTE | 2023-02-18 03:02 | PC.NURSE ---
This RN spoke with Dorinda, RUDY at [facility], who stated they would liked to be contacted when pt is on there way to facility. Number to call is [phone]
--- NOTE | 2023-02-18 08:12 | PC.NURSE ---
at 0810 [facility] called for update on transport to [place] as no information from night office secretary passed on [facility] - [facility] ETA 0900 Trip #[id number]
[2023-02-18 14:03] LABS: Device NASAL CANNULA
== END 2023-02-18 09:10 | disposition short-term general hospital (02) ==
PROVIDERS: Emergency Provider Emergency Medicine; PCP Family Medicine
DX: J96.21 Acute and chronic respiratory failure with hypoxia (principal); J96.22 Acute and chronic respiratory failure with hypercapnia; R41.82 Altered mental status, unspecified; Q34.8 Other specified congenital malformations of respiratory system; I10 Essential (primary) hypertension; I42.8 Other cardiomyopathies; E11.9 Type 2 diabetes mellitus without complications; E78.5 Hyperlipidemia, unspecified; N19 Unspecified kidney failure; Q60.0 Renal agenesis, unilateral; F17.220 Nicotine dependence, chewing tobacco, uncomplicated; Z99.81 Dependence on supplemental oxygen; Z86.711 Personal history of pulmonary embolism; Z79.85 Long-term (current) use of injectable non-insulin antidiabetic drugs; Z79.4 Long term (current) use of insulin
CPT/HCPCS: 36415; 36600; 71045; 80053; 82805; 84484; 85025; 93005; 99291; A9270

== ENCOUNTER 2023-04-05 09:30 | Outpatient (RCR) | payer BC, SELFPAY ==
[2023-04-05 10:33] LABS: Glucose Point of Care 189 mg/dl (65-105)
[2023-04-05 10:33] LABS: Glucose Point of Care 150 mg/dl (65-105)
[2023-04-19 12:55] LABS: Glucose Point of Care 464 mg/dl (65-105)
== END 2023-04-05 23:59 | disposition home or self-care (01) ==
LOC: ANHCPREHAB 09:30
PROVIDERS: PCP Family Medicine
DX: J44.9 Chronic obstructive pulmonary disease, unspecified (principal)
CPT/HCPCS: 94625; G0239

== ENCOUNTER 2023-07-09 13:30 | Outpatient (RCR) | payer BC, SELFPAY | END 2023-08-05 23:59 | disposition home or self-care (01) | LOC: ANHDMC 13:30 | PROVIDERS: PCP Family Medicine; Visit Provider Family Medicine | DX: E11.65 Type 2 diabetes mellitus with hyperglycemia (principal); Z79.4 Long term (current) use of insulin; Z71.89 Other specified counseling | CPT/HCPCS: G0108 ==

== ENCOUNTER 2023-07-24 02:35 | Inpatient (IN) | payer BC, MEDICARE, SELFPAY ==
[2023-07-24] VITALS (29 sets, daily range): BP systolic 118–174; BP diastolic 54–86; PULSE 100–145; RESP 17–32; TEMP 36.1–38.8; O2SAT 87–100; BMI 37.7
--- NOTE | ~2023-07-24 | CT_ITS ---
Clinical Indication: Shortness of breath CT Scan of the Chest with Contrast: Technique: Contiguous sections were acquired throughout the chest after intravenous administration of 100 cc of Omnipaque 350. Dose reduction technique was used on this scan by utilizing automated expos ure control and iterative reconstruction technique. The dose-length product (DLP) was 956.63 mGy-cm. COMPARISON: 04/08/2022 Findings: There are mildly enlarged subcarinal and right paratracheal lymph nodes, stable from prior exam. Ther e is no filling defect in the pulmonary arterial tree to suggest pulmonary embolus. There is no evide nce of aortic dissection or aneurysm. Minimal right pleural effusion noted. No left pleural effusion. No pericardial effusion. There is extensive patchy consolidation of the right middle lobe and right lung base, there is associ ated extensive tree-in-bud opacities in the bilateral lower lobes and inferior right upper lobe. Find ings are similar in appearance to prior exam. Images through the upper abdomen reveal multiple calcified gallstones. Impression: No evidence of pulmonary embolus, aortic dissection, or aortic aneurysm. Extensive bibasilar consolidation and tree-in-bud opacities, as detailed above, essentially stable fr om prior exam, consistent with chronic pneumonia. Minimal right pleural effusion. Stable mild mediastinal lymphadenopathy, presumably reactive. Cholelithiasis. Reviewed, dictated and finalized at [facility]. LE ASSEMBLER Impression: No evidence of pulmonary embolus, aortic dissection, or aortic aneurysm. Extensive bibasilar consolidation and tree-in-bud opacities, as detailed above, essentially stable from prior exam, consistent with chronic pneumonia. Minimal right pleural effusion. Stable mild mediastinal lymphadenopathy, presumably reactive. Cholelithiasis.
--- NOTE | ~2023-07-24 | XR_ITS ---
Portable chest x-ray Comparison: 02/17/2023 Clinical History: Shortness of breath Findings: There is hazy pulmonary disease the bilateral lung bases and at the right midlung. No pleu ral effusion or pneumothorax. Cardiomediastinal silhouette is stable. Bones and soft tissues are unr emarkable. Impression: Hazy bibasilar airspace disease, right worse than left. Correlate for asymmetric pulmonary edema vers us bilateral pneumonia. Reviewed, dictated and finalized at location . TOLOGIC TECHNICIAN OPERATOR/ANALYST Impression: Hazy bibasilar airspace disease, right worse than left. Correlate for asymmetri c pulmonary edema versus bilateral pneumonia.
--- NOTE | 2023-07-24 02:47 | ECG_ITS ---
Measurements Intervals [place] Rate: 143 P: 68 MA: 150 QRS: 83 QRSD: 110 T: 63 QT: 339 QTc: 524 Interpretive Statements SINUS TACHYCARDIA BASELINE ARTIFACT- III, AVF, V1 ABNORMAL ECG COMPARED TO ECG 02/17/2023 20:57:47 SINUS TACHYCARDIA NOW PRESENT Electronically Signed On 07-24-2023 16:30:04 COREMAKER MACHINE by Aguila Issa D.O.
--- NOTE | 2023-07-24 03:02 | ED.GENADULT ---
HPI - General Adult General Chief complaint: Shortness of Breath/Dyspnea Stated complaint: SOB, N/V, weakness Time Seen by Provider: 07/24/23 02:43 History of Present Illness HPI narrative: Patient is a 48-year-old male who presents the emergency department this morning due to respiratory insufficiency. is present with the patient at bedside and states that the patient was doing well earlier today but in the evening he started to have worsening shortness of breath. Patient is normally on 8 L around the clock due to history of a lung condition, ciliary dyskinesis which states that he was born with. states that he sleeps with a BiPAP at home every night but once every 6 month he usually ends up hospitalized with an elevated CO2 and requires continuous BiPAP. Patient states that he feels fine, however, states that he always says that even when he is unwell. She noticed that his pulse oxygen did drop below 80% today which prompted her to increase his oxygen level. EMS was called and patient was brought to our facility for further evaluation. Patient was placed on a non-rebreather on route to the emergency department. Patient is going denies any chest pain. There are no other modifying, alleviating, or precipitating factors at this time. Related Data Home Medications Medication Instructions Recorded Confirmed insulin aspart U-100 100 unit/mL 18 unit subcut QACBREAK 08/10/22 04/16/23 (3 mL) subcutaneous pen insulin aspart U-100 100 unit/mL 18 unit subcut QACLUNCH 10/14/22 04/16/23 (3 mL) subcutaneous pen insulin aspart U-100 100 unit/mL 20 unit subcut QACDINNER 10/14/22 04/16/23 (3 mL) subcutaneous pen insulin glargine-yfgn 100 unit/mL 70 unit subcut HS 10/14/22 04/16/23 (3 mL) subcutaneous pen (Semglee (insulin glargine-yfgn) Pen) sodium chloride 0.65 % nasal spray 2 spray intranasal DAILY 10/14/22 04/16/23 aerosol (Nasal [place] (sodium chloride)) azithromycin 500 mg tablet 500 mg PO DAILY 04/16/23 04/16/23 Allergies Allergy/AdvReac Type Severity Reaction Status Date / Time povidone-iodine Allergy Unknown rash Verified 07/24/23 02:54 tetracycline Allergy Unknown Rash Verified 07/24/23 02:54 theophylline AdvReac Mild Nervousness Verified 07/24/23 02:54 Review of Systems Review of Systems: All systems are reviewed and are negative unless stated otherwise in the HPI. [facility] Past Medical History Medical History Abdominal wall hernia Burn of finger of left hand, second degree Chronic respiratory failure with hypoxia and hypercapnia Congenital solitary kidney Essential (primary) hypertension Gastroesophageal reflux disease Hyperlipidemia Insulin dependent type 2 diabetes mellitus Nonischemic cardiomyopathy per report, this is poorly documented in our system. Primary ciliary dyskinesia Pseudomonas infection Pulmonary emphysema Renal failure Sleep apnea in adult Surgical History Surgical History History of appendectomy History of knee surgery History of nasal surgery History of orthopedic surgery History of tonsillectomy and adenoidectomy Family History Family History Father Hypertension Grandparent Hypertension Cerebrovascular accident Family history of coronary artery disease Family history of malignant neoplasm of urinary bladder Diabetes mellitus Mother Cholecystectomy planned H/O: hysterectomy Sibling Thyroid cancer Diverticulitis Other Family history of malignant neoplasm of breast Social History Social History Social History: The patient lives with his and has 4 children. The patient is a lifelong nonsmoker. The patient is disabled. Surrogate medical decision maker: Sujey Douglas, spouse. Code status: Full code.
[2023-07-24 03:14] LABS: Basophils Absolute Auto 0.1 K/mm3 (0.0-0.1); Basophils Percent Auto 0.3 % (0.2-1.2); Eosinophils Absolute Auto 0.2 K/mm3 (0-0.3); Eosinophils Percent Auto 1.1 % (0-4.4); Hematocrit 37.7 % (42.0-52.0); Hemoglobin 10.8 g/dL (14.0-18.0); Immature Granulocyte Percent A 0.5 % (0-0.5); Lymphocytes Absolute Auto 1.59 K/mm3 (0.9-3.2); Lymphocytes Percent Auto 8.4 % (18.3-44.2); Mean Corpuscular HGB Conc 28.6 g/dl (32-36); Mean Corpuscular Hemoglobin 26.3 pg (26-34); Mean Platelet Volume 9.8 fl (7.4-10.4); Monocytes Absolute Auto 0.7 K/mm3 (0.1-0.6); Monocytes Percent Auto 3.8 % (2.6-8.5); Neutrophils Absolute Auto 16.3 K/mm3 (1.3-6.7); Neutrophils Percent Auto 85.9 % (45.5-73.1); Platelet Count Result 221 k/mm3 (150-375); Red Cell Distribution Width 12.5 % (11.5-14.5); White Blood Count 18.9 K/mm3 (4.5-10.0)
[2023-07-24 03:19] LABS: Alveolar/Arterial O2 Gradient 529.1 mmHg; Base Excess ABG 16.2 mEq/l (+/-2.0); Fractional Inspired Oxygen 100 %; HCO3 ABG 46.9 mEq/l (22.0-26.0); Oxygen Content ABG 15.5 %vol (16.0-22.0); Oxygen Saturation ABG 94.1 % (95.0-100.0); Oxyhemoglobin 94.2 % THb (90.0-100.0); PO2 ABG 83.5 mmHg (80.0-100.0); PO2 FiO2 Ratio Arterial Blood 0.83 %; Total Hemoglobin 11.6 g/dL (12.0-18.0)
[2023-07-24 03:21] LABS: Modified Allen's Test Pass; PCO2 ABG 100.4 mmHg (35.0-45.0); Site Drawn RIGHT RADIAL; pH ABG 7.287 (7.350-7.450)
[2023-07-24 03:22] LABS: Device NON-REBREATHER MASK
[2023-07-24 03:34] LABS: Hypochromasia 1+ (NORMAL); Platelet Estimate Adequate (Adequate)
[2023-07-24 03:35] LABS: Lactic Acid Reflex 1.3 mmol/L (0.7-2.0); Schistocytes None Seen (NORMAL); Stomatocytes 1+ (NORMAL)
[2023-07-24 03:36] LABS: Alanine Aminotransferase 18 U/L (6-50); Albumin Level 4.6 g/dL (3.5-5.1); Alkaline Phosphatase 98 U/L (38-126); Aspartate Amino Transferase 29 U/L (17-59); Bilirubin,Total 0.7 mg/dL (0.2-1.3); Blood Urea Nitrogen 35 mg/dL (9-20); Calcium 9.6 mg/dL (8.4-10.2); Carbon Dioxide > 40 mmol/L (22-30); Chloride 89 mmol/L (98-107); Estimated CRCL calculation 86 ml/min; Estimated Glomerular Filt Rate > 60; Glucose 256 mg/dL (65-110); Magnesium 1.4 mg/dL (1.6-2.3); Potassium 4.4 mmol/L (3.4-5.0); Sodium 141 mmol/L (137-145)
[2023-07-24 03:50] LABS: Influenza A QL RT-PCR Negative (Negative); Influenza B QL RT-PCR Negative (Negative); RSV RNA, RT-PCR Negative (Negative); SARS-CoV-2 RNA PCR Positive (Negative)
[2023-07-24] MEDS: MAGNESIUM SULF 1 GM/D5W 100 ML 1 GM/100 ML BAG IVPB (05:00)
[2023-07-24] MEDS: AZITHROMYCIN 500 MG/NS 250 ML 500 MG/250 ML BAG 250 MG IVPB (05:00)
--- NOTE | 2023-07-24 06:46 | ADMGEN ---
This patient, Braydon Cole, was admitted to IMU Room 213-01. Patient/family oriented to hospital policies and general routines including ID bracelet, bed and alarms, visiting hours, pain management, procedures, bathroom and other care routines, personal items, smoking policy, room service/diet, and visiting hours. Information on how to activate the Rapid Response Team has been discussed. Patient/Family are encouraged to report perceived risks to care and to ask questions if they do not understand what they are told or what they should do.
[2023-07-24 10:46] LABS: Alveolar/Arterial O2 Gradient 209.6 mmHg; Base Excess ABG 18.7 mEq/l (+/-2.0); Fractional Inspired Oxygen 60 %; HCO3 ABG 51.6 mEq/l (22.0-26.0); Oxyhemoglobin 90.3 % THb (90.0-100.0); PO2 ABG 68.9 mmHg (80.0-100.0); PO2 FiO2 Ratio Arterial Blood 1.15 %
[2023-07-24 10:47] LABS: pH ABG 7.198 (7.350-7.450)
[2023-07-24 10:48] LABS: Device NON-INVASIVE VENT; Modified Allen's Test Pass; Oxygen Saturation ABG 86.9 % (95.0-100.0); PCO2 ABG 135.7 mmHg (35.0-45.0); Site Drawn RIGHT RADIAL
[2023-07-24 10:49] LABS: Non-Invasive Expiratory Pressure 6 CMH2O; Non-Invasive Inspiratory Pressure 12 CMH2O; Non-Invasive Vent Rate 16 /MIN
--- NOTE | 2023-07-24 11:44 | PM.CNPUL ---
Assessment and Plan Assessment and plan (1) Pneumonia due to COVID-19 virus: Code(s): U07.1 - COVID-19; J12.82 - Pneumonia due to coronavirus disease 2019 Status: Acute Assessment and Plan: Patient tested positive for COVID-19 on 07/24/23 and started on remdesivir, dexamethasone and baricitib on 07/24/23 as patient required noninvasive ventilation. Emperically started on Vancomycin, cefepime and levofloxacin for possible superimposed bacterial infection with structural lung disease. At baseline he is on 8 L nasal cannula Remdesivir for 10 days unless he should recover and tolerate room air with rest, ambulation and while sleeping. - Dexamethasone 6 mg IV for 10 days - Continuous pulse oximetry - Avoid any fluid overload. - emperic Vancomycin, cefepime and levofloxacin - Albuterol inhaler Q 4 for now, no wheezes. Keep saturations are 90-94% with noninvasive ventilation. discussed with Dr. Vogel, will follow with you. (2) Acute and chronic respiratory failure with hypercapnia: Code(s): J96.22 - Acute and chronic respiratory failure with hypercapnia Status: Acute Assessment and Plan: At baseline patient wears 8 L nasal cannula and noninvasive ventilation at night. Etiology of hypoxic respiratory failure is likely COVID pneumonia with possible superimposed bacterial infection. 07/22/23: ABG 7.29/100/84 on 100% non-rebreather. patient was placed on BiPAP rate of 16 pressures 12/6 and 60% FiO2 and repeat blood gas was 7.20/136/70. I went to the room the patient was awake and communicative. He was on increased BiPAP at 17/6 with tidal volumes of 450. Overall he said he was doing a little bit better than yesterday. He was following commands and moving all extremities. I changed the patient to noninvasive ventilation with the AVAPS mode rate of 20, tidal volume 550, EPAP 6, minimal inspiratory pressure 7, maximal inspiratory pressure 30, inspiratory time 1.0, rise of 2 and 60% FiO2 with saturations 96%. I ordered blood gas in 1 hour. Plan: I will check a blood gas in 1 hour and reassess his acute on chronic hypercarbic and hypoxemic respiratory failure. I did discuss the case with the cabinetmaker supervisor so that he is aware of the patient. (3) Ciliary dyskinesia: Code(s): Q34.8 - Other specified congenital malformations of respiratory system Status: Acute Assessment and Plan: history of primary ciliary dyskinesia severe obstructive lung disease, bronchiectasis, pulmonary hypertension, obstructive sleep apnea followed at [facility] and last seen on ? a few months ago. The patient tells me he still is on their transplant list but is ineligible because of his obesity. He weighs 250 lb and has been told he was weigh 195 for the transplant. Plan: If patient deteriorates will transfer to higher level of care. History of Present Illness History of Present Illness Consult date: 07/24/23 Chief complaint: hypercapnic rsp failure,sepsis Narrative: 07/24/2023: This is a new pulmonary consult for chronic hypoxemic and hypercarbic respiratory failure from primary ciliary dyskinesia and COVID pneumonia. 47-year-old man with a history of primary ciliary dyskinesia severe obstructive lung disease, bronchiectasis, pulmonary hypertension, obstructive sleep apnea followed at [facility] and last seen on ? a few months ago. The patient tells me he still is on their transplant list but is ineligible because of his obesity. He weighs 250 lb and has been told he was weigh 195 for the transplant. ?10/10/2022.? problem list:? Primary ciliary kidneys kidney GLENN, severe obstructive lung disease, bronchiectasis, pulmonary hypertension, obstructive sleep apnea. The note states the patient has been going to pulmonary rehab 2 to 3 times a week and exercising on his own with up to 12 L nasal cannula oxygen.? He is wearing his AVAPS at night and using DuoNebs
[2023-07-24 12:57] LABS: Alveolar/Arterial O2 Gradient 223.4 mmHg; Base Excess ABG 17.9 mEq/l (+/-2.0); Fractional Inspired Oxygen 60 %; HCO3 ABG 49.7 mEq/l (22.0-26.0); Methemoglobin ABG 0.5 %THb (0-1.5); Oxygen Content ABG 14.3 %vol (16.0-22.0); Oxygen Saturation ABG 90.1 % (95.0-100.0); Oxyhemoglobin 92.7 % THb (90.0-100.0); PO2 FiO2 Ratio Arterial Blood 1.22 %; Reduced Hemoglobin 6.8 %THb (0-5.0); Total Hemoglobin 10.9 g/dL (12.0-18.0)
[2023-07-24 12:58] LABS: Modified Allen's Test Pass; Non-Invasive Vent Rate 20 /MIN; PCO2 ABG 119.5 mmHg (35.0-45.0); Site Drawn LEFT RADIAL; pH ABG 7.237 (7.350-7.450)
[2023-07-24 12:59] LABS: Device NON-INVASIVE VENT; Non-Invasive Expiratory Pressure 6 CMH2O
--- NOTE | 2023-07-24 13:04 | PM.IMHP ---
H&P: HPI History of Present Illness Date/Time: 07/24/23 13:04 Chief Complaint: Shortness of breath Narrative: 47-year-old man with a history of primary ciliary dyskinesia severe obstructive lung disease, bronchiectasis, pulmonary hypertension, obstructive sleep apnea followed at [facility] He over the last week developed shortness of breath, aggravated by exertion, alleviated by rest, associated wth fatigue and malaise; he denies fevers, chills, nausea, or vomiting. He does not smoke/chew tobacco, drink alcohol or consume recreational/illicit drugs. Currently the patient presented with shortness of breath and acute on chronic hypercarbic and hypoxemic respiratory failure. ? ABG 7.29/100/84 on 100% non-rebreather. ? Creatinine 1.2.? COVID RT PCR positive, influenza and RSV negative.? ? CT angiogram of the chest negative for PE but with bibasilar tree-in-bud opacities similar to 04/08/2022. CT chest: No evidence of pulmonary embolus, aortic dissection, or aortic aneurysm. Extensive bibasilar consolidation and tree-in-bud opacities, as detailed above, essentially stable from prior exam, consistent with chronic pneumonia Minimal right pleural effusion. Stable mild mediastinal lymphadenopathy, presumably reactive. Cholelithiasis. He will be admitted for acute hypoxic respiratory failure with hypercapnia and covid-19 infection Review of Systems Constitutional: Constitutional: Reports difficulty sleeping, Reports fatigue and Reports weakness Eyes: Eyes: Denies blurry vision ENT: Reports Normal hearing present, Denies dysphagia, Denies epistaxis and Denies nasal congestion Respiratory: Respiratory: Reports cough, Reports dyspnea and Reports dyspnea on exertion Gastrointestinal: Gastrointestinal: Denies abdominal pain, Denies heartburn, Denies diarrhea, Denies nausea and Denies vomiting Musculoskeletal: Musculoskeletal: Denies myalgias, Denies arthralgias, Denies joint swelling and Denies neck pain Integumentary/Breasts: Skin/Breast: Reports dry skin Neurologic: Denies Abnormal speech present, Denies abnormal gait and Denies confusion Psychiatric: Psychiatric: Denies behavioral changes, Denies confusion and Denies depression PMFSH Past Medical History Medical History Abdominal wall hernia Burn of finger of left hand, second degree Chronic respiratory failure with hypoxia and hypercapnia Congenital solitary kidney Essential (primary) hypertension Gastroesophageal reflux disease Hyperlipidemia Insulin dependent type 2 diabetes mellitus Nonischemic cardiomyopathy per report, this is poorly documented in our system. Primary ciliary dyskinesia Pseudomonas infection Pulmonary emphysema Renal failure Sleep apnea in adult Surgical History Surgical History History of appendectomy History of knee surgery History of nasal surgery History of orthopedic surgery History of tonsillectomy and adenoidectomy Family History Family History Father Hypertension Grandparent Hypertension Cerebrovascular accident Family history of coronary artery disease Family history of malignant neoplasm of urinary bladder Diabetes mellitus Mother Cholecystectomy planned H/O: hysterectomy Sibling Thyroid cancer Diverticulitis Other Family history of malignant neoplasm of breast Social History Social History Social History: The patient lives with his and has 4 children. The patient is a lifelong nonsmoker. The patient is disabled. Surrogate medical decision maker: Sujey Cole, spouse. Code status: Full code. Smoking status: Never smoker Smokeless tobacco user: chewing tobacco Second hand tobacco smoke exposure: No Alcohol intake: never Substance use: never Substance use
[2023-07-24] MEDS: BARICITINIB 2 MG TABLET 4 MG PO (13:24)
[2023-07-24] MEDS: dexAMETHasone SOD PHOS INJ 10 MG/ML 1 ML VIAL 6 MG IV PUSH (13:24)
[2023-07-24] MEDS: CEFEPIME 1 GM/NS 50 ML 1 GM/50 ML BAG IVPB (13:24)
[2023-07-24 13:43] LABS: INR 1.1; Prothrombin Time 14.3 Seconds (11.1-14.7)
[2023-07-24] MEDS: ENOXAPARIN 40 MG/0.4 ML SYRINGE SUB-Q (14:01)
[2023-07-24 15:28] LABS: MRSA (PCR) NOT DETECTED (NOT DETECTE)
[2023-07-24] MEDS: REMDESIVIR 200 MG/NS 250 ML 200 MG/250 ML BAG 250 MG IVPB (15:30)
[2023-07-24] MEDS: IPRATROPIUM 0.5 MG/ALBUTEROL SULFATE 2.5 MG AMPUL.NEB 3 ML INHALATION ×2 (16:29→20:34)
[2023-07-24] MEDS: VANCOMYCIN 1,250 MG/NS 250 ML 1,250 MG/250 ML BAG 166.67 MG IVPB ×2 (16:53→18:47)
[2023-07-24] MEDS: ONDANSETRON INJ 4 MG/2 ML VIAL IV PUSH (20:16)
[2023-07-24] MEDS: FAMOTIDINE 20 MG TABLET (20:16)
[2023-07-24] MEDS: INSULIN GLARGINE (*BKC) 100 UNITS/ML 70 UNITS SUB-Q (20:27)
[2023-07-24 20:43] LABS: Glucose Point of Care 262 mg/dl (65-105)
[2023-07-24] MEDS: CEFEPIME 2 GM/NS 50 ML 2 GM/50 ML BAG IVPB (22:08)
[2023-07-25] VITALS (25 sets, daily range): BP systolic 120–140; BP diastolic 58–72; PULSE 72–106; RESP 18–23; TEMP 36.4–36.8; O2SAT 91–100
[2023-07-25] MEDS: VANCOMYCIN 1,500 MG/NS 500 ML 1,500 MG/500 ML BAG 250 MG IVPB (02:11)
[2023-07-25 04:42] LABS: Alveolar/Arterial O2 Gradient 193.7 mmHg; Base Excess ABG 23.1 mEq/l (+/-2.0); Fractional Inspired Oxygen 60 %; HCO3 ABG 55.6 mEq/l (22.0-26.0); Oxygen Content ABG 14.4 %vol (16.0-22.0); Oxygen Saturation ABG 93.8 % (95.0-100.0); Oxyhemoglobin 94.7 % THb (90.0-100.0); PO2 FiO2 Ratio Arterial Blood 1.47 %; Total Hemoglobin 10.7 g/dL (12.0-18.0)
[2023-07-25] MEDS: AZITHROMYCIN 500 MG/NS 250 ML 500 MG/250 ML BAG 250 MG IVPB (04:43)
[2023-07-25 04:45] LABS: Modified Allen's Test Pass; PCO2 ABG 132.8 mmHg (35.0-45.0); Site Drawn RIGHT RADIAL
[2023-07-25 05:24] LABS: Basophils Percent Auto 0.2 % (0.2-1.2); Eosinophils Percent Auto 0.1 % (0-4.4); Hematocrit 36.6 % (42.0-52.0); Hemoglobin 10.2 g/dL (14.0-18.0); Immature Granulocyte Absolute 0.06 K/mm3 (0.00-0.031); Immature Granulocyte Percent A 0.5 % (0-0.5); Lymphocytes Percent Auto 3.8 % (18.3-44.2); Mean Corpuscular HGB Conc 27.9 g/dl (32-36); Mean Corpuscular Hemoglobin 26.6 pg (26-34); Mean Corpuscular Volume 95.3 fl (80-100); Mean Platelet Volume 10.3 fl (7.4-10.4); Monocytes Absolute Auto 0.2 K/mm3 (0.1-0.6); Monocytes Percent Auto 1.2 % (2.6-8.5); Neutrophils Absolute Auto 12.3 K/mm3 (1.3-6.7); Neutrophils Percent Auto 94.2 % (45.5-73.1); Platelet Count Result 178 k/mm3 (150-375); Red Blood Count 3.84 M/mm3 (4.6-6.20); Red Cell Distribution Width 12.3 % (11.5-14.5); White Blood Count 13.1 K/mm3 (4.5-10.0)
[2023-07-25 05:49] LABS: Alanine Aminotransferase 18 U/L (6-50); Alkaline Phosphatase 81 U/L (38-126); Aspartate Amino Transferase 25 U/L (17-59); Bilirubin,Total 0.4 mg/dL (0.2-1.3); Blood Urea Nitrogen 36 mg/dL (9-20); Calcium 8.7 mg/dL (8.4-10.2); Carbon Dioxide > 40 mmol/L (22-30); Chloride 90 mmol/L (98-107); Estimated CRCL calculation 86 ml/min; Estimated Glomerular Filt Rate > 60; Glucose 163 mg/dL (65-110); Potassium 4.7 mmol/L (3.4-5.0); Sodium 140 mmol/L (137-145)
[2023-07-25] MEDS: CEFEPIME 2 GM/NS 50 ML 2 GM/50 ML BAG IVPB ×3 (05:59→21:20)
[2023-07-25 06:55] LABS: Hypochromasia 1+ (NORMAL); Platelet Estimate Adequate (Adequate); Schistocytes None Seen (NORMAL)
[2023-07-25 08:06] LABS: Glucose Point of Care 170 mg/dl (65-105)
[2023-07-25] MEDS: ENOXAPARIN 40 MG/0.4 ML SYRINGE SUB-Q (09:39)
[2023-07-25] MEDS: ATORVASTATIN 20 MG TABLET PO (09:39)
[2023-07-25] MEDS: modafiniL (*CRX) 200 MG TABLET PO (09:39)
[2023-07-25] MEDS: amLODIPine BESYLATE 5 MG TABLET PO (09:39)
[2023-07-25] MEDS: MONTELUKAST SODIUM 10 MG TABLET PO (09:39)
[2023-07-25] MEDS: dexAMETHasone SOD PHOS INJ 10 MG/ML 1 ML VIAL 6 MG IV PUSH (09:40)
[2023-07-25] MEDS: FAMOTIDINE 20 MG TABLET PO (09:40)
[2023-07-25] MEDS: IPRATROPIUM 0.5 MG/ALBUTEROL SULFATE 2.5 MG AMPUL.NEB 3 ML INHALATION ×4 (09:59→20:48)
[2023-07-25] MEDS: INSULIN ASPART (*BKC) 100 UNITS/ML 18 UNITS SUB-Q ×2 (09:59→12:57)
[2023-07-25] MEDS: REMDESIVIR 100 MG/NS 250 ML 100 MG/250 ML BAG 250 MG IVPB (09:59)
[2023-07-25] MEDS: BARICITINIB 2 MG TABLET 4 MG PO (10:59)
[2023-07-25 11:17] LABS: Glucose Point of Care 204 mg/dl (65-105)
--- NOTE | 2023-07-25 12:26 | PM.PNPUL ---
Progress Note: A&P Assessment and Plan (1) Pneumonia due to COVID-19 virus: Code(s): U07.1 - COVID-19; J12.82 - Pneumonia due to coronavirus disease 2019 Status: Acute Assessment and Plan: Patient tested positive for COVID-19 on 07/24/23 and started on remdesivir, dexamethasone and baricitib on 07/24/23 as patient required noninvasive ventilation. Emperically started on Vancomycin, cefepime and levofloxacin for possible superimposed bacterial infection with structural lung disease. At baseline he is on 4 L At rest, 8 L with activity and noninvasive ventilation at night with 8 L bleed in. Remdesivir for 10 days unless he should recover and tolerate room air with rest, ambulation and while sleeping. - Dexamethasone 6 mg IV for 10 days - Continuous pulse oximetry - Avoid any fluid overload. - emperic Vancomycin, cefepime and levofloxacin - Albuterol inhaler Q 4 for now, no wheezes. Keep saturations are 90-94% with noninvasive ventilation. 07/25/23: Patient wore the hospital noninvasive ventilator with the above settings last night. He said he did well with these settings. Blood gas prior to removal was 7.24/133/88. patient states he is breathing back to his baseline and denies fever, chills, rigors, cough, phlegm production or hemoptysis. Currently the patient is awake and talking on nasal cannula 12 L when I enter the room. I decreased him to 4 L and his saturations decreased to 88 and I increased him back to 6 L and after 11 minutes his saturations were 93%. His white blood cell count is 13.1, his creatinine is 1.2. He has brought his home ventilator in. Plan: Continue remdesivir, dexamethasone and baricitinib, all day 2. Wean oxygen as tolerated with goal saturation 90-94%. He was empirically started on vancomycin, cefepime and azithromycin for possible bacterial super infection. His MRSA nasal swabs are negative and will discontinue vancomycin today. discussed with Dr. Vogel, will follow with you. (2) Acute and chronic respiratory failure with hypercapnia: Code(s): J96.22 - Acute and chronic respiratory failure with hypercapnia Status: Acute Assessment and Plan: At baseline patient wears 8 L nasal cannula and noninvasive ventilation at night. Etiology of hypoxic respiratory failure is likely COVID pneumonia with possible superimposed bacterial infection. 07/22/23: ABG 7.29/100/84 on 100% non-rebreather. patient was placed on BiPAP rate of 16 pressures 12/6 and 60% FiO2 and repeat blood gas was 7.20/136/70. I went to the room the patient was awake and communicative. He was on increased BiPAP at 17/6 with tidal volumes of 450. Overall he said he was doing a little bit better than yesterday. He was following commands and moving all extremities. I changed the patient to noninvasive ventilation with the AVAPS mode rate of 20, tidal volume 550, EPAP 6, minimal inspiratory pressure 7, maximal inspiratory pressure 30, inspiratory time 1.0, rise of 2 and 60% FiO2 with saturations 96%. I ordered blood gas in 1 hour. Plan: I will check a blood gas in 1 hour and reassess his acute on chronic hypercarbic and hypoxemic respiratory failure. I did discuss the case with the no bake molder so that he is aware of the patient. Blood gas in 1 hour was 7.24/120/73. These settings were continued overnight. 07/25/23: Patient wore the hospital noninvasive ventilator with the above settings last night. He said he did well with these settings. Blood gas prior to removal was 7.24/133/88. Currently the patient is awake and talking on nasal cannula 12 L when I enter the room. I decreased him to 4 L and his saturations decreased to 88 and I increased him back to 6 L and after 11 minutes his saturations were 93%. Plan: Goal saturation 90-94% and wean oxygen accordingly. Will call IV respiratory care and try to reprogrammed his home noninvasive ventilator to increase his overall minute ventilation wi
[2023-07-25] MEDS: INSULIN ASPART (*BKC) 100 UNITS/ML SUB-Q ×2 (12:56→17:41)
--- NOTE | 2023-07-25 13:53 | PM.IMPN ---
Progress Note: A&P Assessment and Plan (1) Pneumonia due to COVID-19 virus: Code(s): U07.1 - COVID-19; J12.82 - Pneumonia due to coronavirus disease 2019 Status: Acute Assessment and Plan: Continue remdesivir, dexamethasone and baricitinib, all day 2.? Wean oxygen as tolerated with goal saturation 90-94%. ? He was empirically started on vancomycin, cefepime and azithromycin for possible bacterial super infection.? His MRSA nasal swabs are negative and will discontinue vancomycin today. 07/25/23 (2) Acute and chronic respiratory failure with hypercapnia: Code(s): J96.22 - Acute and chronic respiratory failure with hypercapnia Status: Acute Assessment and Plan: Treat as above (3) COVID-19 virus infection: Code(s): U07.1 - COVID-19 Status: Acute Assessment and Plan: Remdesivir, Baricitinib, oxygen, Dexamethasone, vancomycin, cefepime, azithromycin (4) Ciliary dyskinesia: Code(s): Q34.8 - Other specified congenital malformations of respiratory system Status: Acute Assessment and Plan: Follows at [place], is on transplant list. (5) Hypomagnesemia: Code(s): E83.42 - Hypomagnesemia Status: Acute Assessment and Plan: Replete and monitor (6) Insulin dependent type 2 diabetes mellitus: Code(s): E11.9 - Type 2 diabetes mellitus without complications; Z79.4 - half-way (current) use of insulin Status: Acute Time Spent With Patient Time with patient: 25 - 35 minutes Subjective Date/time seen: 07/25/23 13:53 Interval history: ?07/24/2023: He is being managed for chronic hypoxemic and hypercarbic respiratory failure from primary ciliary dyskinesia and COVID pneumonia. 07/25/23: Improved; not in painful distress. Will continue anti-biotics. Review of Systems Constitutional: Constitutional: Reports difficulty sleeping, Reports fatigue and Reports weakness Eyes: Eyes: Denies blurry vision ENT: Reports Normal hearing present, Denies dysphagia, Denies epistaxis, Denies nasal congestion and Denies neck pain Cardiovascular: Cardiovascular: Reports dyspnea and Reports dyspnea on exertion Respiratory: Respiratory: Reports cough, Reports dyspnea and Reports dyspnea on exertion Gastrointestinal: Gastrointestinal: Denies abdominal pain, Denies dysphagia, Denies heartburn, Denies diarrhea, Denies nausea and Denies vomiting Musculoskeletal: Musculoskeletal: Denies abnormal gait, Denies myalgias, Denies arthralgias, Denies joint swelling and Denies neck pain Integumentary/Breasts: Skin/Breast: Reports dry skin Neurologic: Reports Normal hearing present, Denies Abnormal speech present, Denies abnormal gait, Denies behavioral changes, Denies confusion and Reports weakness Psychiatric: Psychiatric: Denies behavioral changes, Denies confusion and Denies depression Endocrine: Endocrine: Reports fatigue Exam Const: General: in distress; No confusion Orientation/consciousness: No confusion HENMT: Face/Nose/Sinus: Normal nares present and no epistaxis Eyes: Sclera: sclerae normal and normal sclerae Neck: Neck: supple Resp: Auscultation: wheezes and diminished lung sounds Cardio: Rate: regular rate Skin: General skin exam: normal color Neuro: General: gait normal and No confusion Cranial nerves: Yes Normal hearing present Speech: No Abnormal speech present Motor exam (neuro): 5/5 motor strength present throughout Sensory Exam: normal sensation Extrem: General: normal to inspection Psych: Mental Status: mental status grossly normal Objective Data Vital Signs Vital Signs: Vital Signs - 24 hr 07/24/23 14:00 07/24/23 16:00 07/24/23 16:00 Temperature 98 F Pulse Rate 108 H 103 H 101 H Respiratory Rate 18 Blood Pressure 128/62 Pulse Oximetry 94 Oxygen Delivery Oxygen Flow Rate Fraction of Inspired Oxygen 07/24/23 16:00 07/24/23 16:06 07/24/23 16:29 Temperature Pulse Rate 101 H 101 H
--- NOTE | 2023-07-25 14:59 | PCRCNOTE ---
Dr Shelley requested home Trilogy adjustments, I faxed new order with the requested changes to IV Resp care and they will send out a RT to change on his home trilogy unit today
[2023-07-25 16:48] LABS: Glucose Point of Care 211 mg/dl (65-105)
[2023-07-25] MEDS: INSULIN ASPART (*BKC) 100 UNITS/ML 20 UNITS SUB-Q (17:40)
[2023-07-25] MEDS: INSULIN GLARGINE (*BKC) 100 UNITS/ML 70 UNITS SUB-Q (21:19)
--- NOTE | 2023-07-25 21:20 | PC.NURSE ---
Scanner error for 2100 med pass.
[2023-07-25 23:01] LABS: Glucose Point of Care 162 mg/dl (65-105)
[2023-07-26] VITALS (27 sets, daily range): BP systolic 125–142; BP diastolic 62–79; PULSE 72–101; RESP 18–20; TEMP 36.3–36.7; O2SAT 92–100
[2023-07-26] MEDS: CEFEPIME 2 GM/NS 50 ML 2 GM/50 ML BAG IVPB ×3 (05:20→22:19)
[2023-07-26 05:36] LABS: Alveolar/Arterial O2 Gradient 226.3 mmHg; Base Excess ABG 17.4 mEq/l (+/-2.0); Carboxyhemoglobin 0.3 % THb (0-2.0); Fractional Inspired Oxygen 52 %; HCO3 ABG 45.2 mEq/l (22.0-26.0); Methemoglobin ABG 0.4 %THb (0-1.5); Oxygen Content ABG 14.4 %vol (16.0-22.0); Oxygen Saturation ABG 91.3 % (95.0-100.0); Oxyhemoglobin 91.3 % THb (90.0-100.0); PO2 FiO2 Ratio Arterial Blood 1.21 %; Total Hemoglobin 11.2 g/dL (12.0-18.0)
[2023-07-26 05:38] LABS: Modified Allen's Test Pass; PCO2 ABG 72.7 mmHg (35.0-45.0); Site Drawn LEFT RADIAL
[2023-07-26 05:39] LABS: Device OTHER DEVICE
[2023-07-26 06:02] LABS: pH ABG 7.411 (7.350-7.450)
[2023-07-26 06:39] LABS: Basophils Percent Auto 0.2 % (0.2-1.2); Eosinophils Percent Auto 0.3 % (0-4.4); Hematocrit 32.6 % (42.0-52.0); Hemoglobin 9.3 g/dL (14.0-18.0); Immature Granulocyte Absolute 0.04 K/mm3 (0.00-0.031); Immature Granulocyte Percent A 0.4 % (0-0.5); Lymphocytes Absolute Auto 1.25 K/mm3 (0.9-3.2); Lymphocytes Percent Auto 11.8 % (18.3-44.2); Mean Corpuscular HGB Conc 28.5 g/dl (32-36); Mean Corpuscular Hemoglobin 26.1 pg (26-34); Mean Corpuscular Volume 91.6 fl (80-100); Mean Platelet Volume 9.9 fl (7.4-10.4); Monocytes Absolute Auto 0.4 K/mm3 (0.1-0.6); Monocytes Percent Auto 3.8 % (2.6-8.5); Neutrophils Absolute Auto 8.8 K/mm3 (1.3-6.7); Neutrophils Percent Auto 83.5 % (45.5-73.1); Platelet Count Result 186 k/mm3 (150-375); Red Blood Count 3.56 M/mm3 (4.6-6.20); Red Cell Distribution Width 12.4 % (11.5-14.5); White Blood Count 10.6 K/mm3 (4.5-10.0)
[2023-07-26 06:49] LABS: Prothrombin Time 14.2 Seconds (11.1-14.7)
[2023-07-26 07:01] LABS: Alanine Aminotransferase 27 U/L (6-50); Alkaline Phosphatase 78 U/L (38-126); Aspartate Amino Transferase 26 U/L (17-59); Bilirubin Indirect 0.2 mg/dL (0-1.1); Bilirubin,Total 0.4 mg/dL (0.2-1.3); Blood Urea Nitrogen 42 mg/dL (9-20); Calcium 9.2 mg/dL (8.4-10.2); Carbon Dioxide > 40 mmol/L (22-30); Chloride 90 mmol/L (98-107); Estimated CRCL calculation 75 ml/min; Estimated Glomerular Filt Rate 54; Glucose 137 mg/dL (65-110); Potassium 4.3 mmol/L (3.4-5.0); Sodium 138 mmol/L (137-145)
[2023-07-26] MEDS: IPRATROPIUM 0.5 MG/ALBUTEROL SULFATE 2.5 MG AMPUL.NEB 3 ML INHALATION ×4 (07:48→20:59)
[2023-07-26 08:42] LABS: Glucose Point of Care 155 mg/dl (65-105)
[2023-07-26 08:55] LABS: Hypochromasia 1+ (NORMAL); Platelet Estimate Adequate (Adequate)
[2023-07-26 08:56] LABS: Schistocytes None Seen (NORMAL)
[2023-07-26] MEDS: AZITHROMYCIN 250 MG TABLET 500 MG PO (09:09)
[2023-07-26] MEDS: MONTELUKAST SODIUM 10 MG TABLET PO (09:10)
[2023-07-26] MEDS: modafiniL (*CRX) 200 MG TABLET PO (09:10)
[2023-07-26] MEDS: amLODIPine BESYLATE 5 MG TABLET PO (09:10)
[2023-07-26] MEDS: FAMOTIDINE 20 MG TABLET PO (09:10)
[2023-07-26] MEDS: ENOXAPARIN 40 MG/0.4 ML SYRINGE SUB-Q (09:10)
[2023-07-26] MEDS: ATORVASTATIN 20 MG TABLET PO (09:10)
[2023-07-26] MEDS: INSULIN ASPART (*BKC) 100 UNITS/ML 18 UNITS SUB-Q ×2 (09:11→12:50)
[2023-07-26] MEDS: INSULIN ASPART (*BKC) 100 UNITS/ML SUB-Q ×2 (09:11→17:33)
[2023-07-26] MEDS: dexAMETHasone SOD PHOS INJ 10 MG/ML 1 ML VIAL 6 MG IV PUSH (10:13)
[2023-07-26] MEDS: BARICITINIB 2 MG TABLET PO (10:13)
[2023-07-26] MEDS: REMDESIVIR 100 MG/NS 250 ML 100 MG/250 ML BAG 250 MG IVPB (10:13)
--- NOTE | 2023-07-26 10:20 | PM.PNPUL ---
Progress Note: A&P Assessment and Plan (1) Pneumonia due to COVID-19 virus: Code(s): U07.1 - COVID-19; J12.82 - Pneumonia due to coronavirus disease 2019 Status: Acute Assessment and Plan: Patient tested positive for COVID-19 on 07/24/23 and started on remdesivir, dexamethasone and baricitib on 07/24/23 as patient required noninvasive ventilation. Emperically started on Vancomycin, cefepime and levofloxacin for possible superimposed bacterial infection with structural lung disease. At baseline he is on 4 L At rest, 8 L with activity and noninvasive ventilation at night with 8 L bleed in. Remdesivir for 5 days unless he should recover and tolerate room air with rest, ambulation and while sleeping. - Dexamethasone 6 mg IV for 10 days - Continuous pulse oximetry - Avoid any fluid overload. - emperic Vancomycin, cefepime and levofloxacin - Albuterol inhaler Q 4 for now, no wheezes. Keep saturations are 90-94% with noninvasive ventilation. 07/25/23: Patient wore the hospital noninvasive ventilator with the above settings last night. He said he did well with these settings. Blood gas prior to removal was 7.24/133/88. patient states he is breathing back to his baseline and denies fever, chills, rigors, cough, phlegm production or hemoptysis. Currently the patient is awake and talking on nasal cannula 12 L when I enter the room. I decreased him to 4 L and his saturations decreased to 88 and I increased him back to 6 L and after 11 minutes his saturations were 93%. His white blood cell count is 13.1, his creatinine is 1.2. He has brought his home ventilator in. Plan: Continue remdesivir, dexamethasone and baricitinib, all day 2. Wean oxygen as tolerated with goal saturation 90-94%. He was empirically started on vancomycin, cefepime and azithromycin for possible bacterial super infection. His MRSA nasal swabs are negative and will discontinue vancomycin today. 07/26/23: patient continues to improve and tells me he is breathing normally. His cough is at his baseline. He has no phlegm, no hemoptysis and no chest pain. When I enter the room he was on 8 L nasal cannula saturation 96%. I decreased him to 6 L nasal cannula saturations were 93%. White blood cell count 10.6, creatinine 1.40. Plan: patient continues to improve clinically and his oxygenation is improved as well. Continue remdesivir, dexamethasone and baricitinib all day 3. Baricitinib will be decreased to 2 mg p.o. q.day as his creatinine has increased. Recommend completing 5 days of dexamethasone, remdesivir and baricitinib and then discontinuing all if he is ready to be discharged home.. patient will need a home O2 assessment on the day of discharge. When he naps or sleeps: through IV respiratory care use his home machine AVAPS AE mode was reprogrammed to a backup rate of 20, tidal volume 550, minimal EPAP 5, maximal EPAP 15, minimal pressure support 7, maximal pressure support 20 with bleed in as determined by overnight oximetry which I have ordered for tonight on 9 L. if he still remains with saturation less than or equal to 88 for greater than 5 minutes would increase him to 10 L bleed in and repeat an overnight oximetry. Patient has a 10 L oxygen concentrator at home and this will be the maximum on of oxygen that we can provide him at night. Pulmonary inpatient services will resume on 07/29/2023, call with questions. discussed with Dr. Vogel, will follow with you. (2) Acute and chronic respiratory failure with hypercapnia: Code(s): J96.22 - Acute and chronic respiratory failure with hypercapnia Status: Acute Assessment and Plan: At baseline patient wears 8 L nasal cannula and noninvasive ventilation at night. Etiology of hypoxic respiratory failure is likely COVID pneumonia with possible superimposed bacterial infection. 07/22/23: ABG 7.29/100/84 on 100% non-rebreather. patient was placed on BiPAP rate of 16 pres
[2023-07-26 12:39] LABS: Glucose Point of Care 121 mg/dl (65-105)
[2023-07-26 17:25] LABS: Glucose Point of Care 260 mg/dl (65-105)
[2023-07-26] MEDS: INSULIN ASPART (*BKC) 100 UNITS/ML 20 UNITS SUB-Q (17:34)
--- NOTE | 2023-07-26 17:34 | PM.IMPN ---
Progress Note: A&P Assessment and Plan (1) Pneumonia due to COVID-19 virus: Code(s): U07.1 - COVID-19; J12.82 - Pneumonia due to coronavirus disease 2018 Status: Acute Assessment and Plan: Continue remdesivir, dexamethasone and baricitinib, all day 2.? Wean oxygen as tolerated with goal saturation 90-94%. ? He was empirically started on vancomycin, cefepime and azithromycin for possible bacterial super infection.? His MRSA nasal swabs are negative and will discontinue vancomycin today. 07/25/23 (2) Acute and chronic respiratory failure with hypercapnia: Code(s): J96.22 - Acute and chronic respiratory failure with hypercapnia Status: Acute Assessment and Plan: Treat as above Pulmonology: Recommend completing 5 days of dexamethasone, remdesivir and baricitinib? and then discontinuing all if he is ready to be discharged home.. (3) COVID-19 virus infection: Code(s): U07.1 - COVID-19 Status: Acute Assessment and Plan: Remdesivir, Baricitinib, oxygen, Dexamethasone, vancomycin, cefepime, azithromycin (4) Ciliary dyskinesia: Code(s): Q34.8 - Other specified congenital malformations of respiratory system Status: Acute Assessment and Plan: Follows at [place], is on transplant list. (5) Hypomagnesemia: Code(s): E83.42 - Hypomagnesemia Status: Acute Assessment and Plan: Replete and monitor (6) Insulin dependent type 2 diabetes mellitus: Code(s): E11.9 - Type 2 diabetes mellitus without complications; Z79.4 - halfway (current) use of insulin Status: Acute Time Spent With Patient Time with patient: 25 - 35 minutes Subjective Date/time seen: 07/26/23 17:34 Interval history: ?07/24/2023: He is being managed for chronic hypoxemic and hypercarbic respiratory failure from primary ciliary dyskinesia and COVID pneumonia. 07/25/23: Improved; not in painful distress. Will continue anti-biotics. 07/26/23: Seen and examined; improved breathing. not in pain Review of Systems Constitutional: Constitutional: Reports difficulty sleeping, Reports fatigue and Reports weakness Eyes: Eyes: Denies blurry vision ENT: Reports Normal hearing present, Denies dysphagia, Denies epistaxis, Denies nasal congestion and Denies neck pain Cardiovascular: Cardiovascular: Reports dyspnea and Reports dyspnea on exertion Respiratory: Respiratory: Reports cough, Reports dyspnea and Reports dyspnea on exertion Gastrointestinal: Gastrointestinal: Denies abdominal pain, Denies dysphagia, Denies heartburn, Denies diarrhea, Denies nausea and Denies vomiting Musculoskeletal: Musculoskeletal: Denies abnormal gait, Denies myalgias, Denies arthralgias, Denies joint swelling and Denies neck pain Integumentary/Breasts: Skin/Breast: Reports dry skin Neurologic: Reports Normal hearing present, Denies Abnormal speech present, Denies abnormal gait, Denies behavioral changes, Denies confusion and Reports weakness Psychiatric: Psychiatric: Denies behavioral changes, Denies confusion and Denies depression Endocrine: Endocrine: Reports fatigue Exam Const: General: in distress; No confusion Orientation/consciousness: No confusion HENMT: Face/Nose/Sinus: Normal nares present and no epistaxis Eyes: Sclera: sclerae normal and normal sclerae Neck: Neck: supple Resp: Auscultation: wheezes and diminished lung sounds Cardio: Rate: regular rate Skin: General skin exam: normal color Neuro: General: gait normal and No confusion Cranial nerves: Yes Normal hearing present Speech: No Abnormal speech present Motor exam (neuro): 5/5 motor strength present throughout Sensory Exam: normal sensation Extrem: General: normal to inspection Psych: Mental Status: mental status grossly normal Objective Data Vital Signs Vital Signs: Vital Signs - 24 hr 07/25/23 18:00 07/25/23 20:48 07/25/23 20:50 Temperature Pulse Rate 91 102 H Respiratory Rate 20 Blood Pre
[2023-07-26 20:27] LABS: Glucose Point of Care 284 mg/dl (65-105)
[2023-07-26] MEDS: INSULIN GLARGINE (*BKC) 100 UNITS/ML 70 UNITS SUB-Q (20:42)
[2023-07-27] VITALS (25 sets, daily range): BP systolic 117–151; BP diastolic 66–98; PULSE 64–96; RESP 16–20; TEMP 36.3–36.9; O2SAT 95–100
[2023-07-27 04:54] LABS: Basophils Percent Auto 0.2 % (0.2-1.2); Eosinophils Percent Auto 0.2 % (0-4.4); Hematocrit 31.3 % (42.0-52.0); Immature Granulocyte Absolute 0.06 K/mm3 (0.00-0.031); Immature Granulocyte Percent A 0.7 % (0-0.5); Lymphocytes Absolute Auto 1.18 K/mm3 (0.9-3.2); Lymphocytes Percent Auto 13.8 % (18.3-44.2); Mean Corpuscular HGB Conc 28.8 g/dl (32-36); Mean Corpuscular Hemoglobin 26.3 pg (26-34); Mean Corpuscular Volume 91.5 fl (80-100); Mean Platelet Volume 9.8 fl (7.4-10.4); Monocytes Absolute Auto 0.5 K/mm3 (0.1-0.6); Monocytes Percent Auto 5.5 % (2.6-8.5); Neutrophils Absolute Auto 6.8 K/mm3 (1.3-6.7); Neutrophils Percent Auto 79.6 % (45.5-73.1); Nucleated Red Blood Cells Perc 0.2 % (0.0-0.2); Platelet Count Result 192 k/mm3 (150-375); Red Blood Count 3.42 M/mm3 (4.6-6.20); Red Cell Distribution Width 12.6 % (11.5-14.5); White Blood Count 8.6 K/mm3 (4.5-10.0)
[2023-07-27 05:11] LABS: Alanine Aminotransferase 24 U/L (6-50); Albumin Level 3.9 g/dL (3.5-5.1); Alkaline Phosphatase 73 U/L (38-126); Aspartate Amino Transferase 21 U/L (17-59); Bilirubin,Total 0.4 mg/dL (0.2-1.3); Blood Urea Nitrogen 44 mg/dL (9-20); Calcium 9.4 mg/dL (8.4-10.2); Carbon Dioxide > 40 mmol/L (22-30); Chloride 91 mmol/L (98-107); Estimated CRCL calculation 70 ml/min; Estimated Glomerular Filt Rate 50; Glucose 166 mg/dL (65-110); Potassium 4.3 mmol/L (3.4-5.0); Sodium 137 mmol/L (137-145)
[2023-07-27] MEDS: CEFEPIME 2 GM/NS 50 ML 2 GM/50 ML BAG IVPB ×3 (05:27→21:39)
[2023-07-27] MEDS: IPRATROPIUM 0.5 MG/ALBUTEROL SULFATE 2.5 MG AMPUL.NEB 3 ML INHALATION ×4 (07:38→20:33)
[2023-07-27 08:38] LABS: Glucose Point of Care 145 mg/dl (65-105)
[2023-07-27] MEDS: MONTELUKAST SODIUM 10 MG TABLET PO (09:34)
[2023-07-27] MEDS: amLODIPine BESYLATE 5 MG TABLET PO (09:34)
[2023-07-27] MEDS: AZITHROMYCIN 250 MG TABLET 500 MG PO (09:34)
[2023-07-27] MEDS: ENOXAPARIN 40 MG/0.4 ML SYRINGE SUB-Q (09:35)
[2023-07-27] MEDS: ATORVASTATIN 20 MG TABLET PO (09:35)
[2023-07-27] MEDS: FAMOTIDINE 20 MG TABLET PO (09:37)
[2023-07-27] MEDS: dexAMETHasone SOD PHOS INJ 10 MG/ML 1 ML VIAL 6 MG IV PUSH (09:37)
[2023-07-27] MEDS: modafiniL (*CRX) 200 MG TABLET PO (09:37)
[2023-07-27] MEDS: INSULIN ASPART (*BKC) 100 UNITS/ML 18 UNITS SUB-Q ×2 (09:39→11:50)
[2023-07-27] MEDS: REMDESIVIR 100 MG/NS 250 ML 100 MG/250 ML BAG 250 MG IVPB (10:00)
--- NOTE | 2023-07-27 11:26 | PM.IMPN ---
Progress Note: A&P Assessment and Plan (1) Ciliary dyskinesia: Code(s): Q34.8 - Other specified congenital malformations of respiratory system Status: Acute (2) Pneumonia due to COVID-19 virus: Code(s): U07.1 - COVID-19; J12.82 - Pneumonia due to coronavirus disease 2019 Status: Acute (3) Sepsis: Code(s): A41.9 - Sepsis, unspecified organism Status: Acute (4) Hypomagnesemia: Code(s): E83.42 - Hypomagnesemia Status: Acute (5) Acute hypercapnic respiratory failure: Code(s): J96.02 - Acute respiratory failure with hypercapnia Status: Acute (6) Bilateral interstitial pneumonia: Code(s): J84.9 - Interstitial pulmonary disease, unspecified Status: Acute Plan # COVID-19 pneumonia -d3 remdesivir, dexamethasone, baricitinib, goal complete 5 day course -for possible superimposed infection with chest x-ray showing signs of asymmetry with right greater than left opacity. Will continue cefepime azithromycin, vanc was discontinued with negative MRSA nares -patient clinically improving, continue supportive -wean oxygen as tolerated, on 6 L high-flow -appreciate pulmonology consultation recommendation 5 days inpatient treatment at least. Apnea link done -nebs: DuoNeb q.i.d. -blood cultures no growth today -continue chest PT # hypomagnesemia -replete magnesium as needed # chronic conditions -insulin-dependent type 2 diabetes: Sliding scale insulin, Accu-Cheks a.c. HS, hypoglycemia protocol, aspart 18 units breakfast and lunch, 20 units dinner, 70 units Lantus q.h.s. -history of primary ciliary dyskinesia, following pulmonology at [facility], 1 singular -essential hypertension: Amlodipine -hyperlipidemia: Lipitor -on modafinil Diet: Heart healthy DVT prophylaxis: SCDs, Lovenox GI prophylaxis: Pepcid Code status: Full code Disposition: Likely home in 1-3 days Time Spent With Patient Time: 35 minutes Subjective Date/time seen: 07/27/23 11:26 Interval history: Patient is doing well on the COVID treatment on remdesivir, dexamethasone, baricitinib. Patient will complete 5 days COVID treatment then discharge home. He has outpatient follow-up with the manager risk management at [place] with his ciliary dyskinesia history. He has no new symptoms or concerns. He is anxious to go home. Review of Systems Review of Systems: 10 point ROS complete, negative other than what is specified in HPI. Exam Narrative: - GENERAL: Pleasant male in no acute distress. Well-nourished. - EYES: EOMI. Anicteric. - HENT: Moist mucous membranes. - LUNGS: Clear to auscultation bilaterally, no wheezing, rhonchi, or rales. Nonlabored respirations on oxygen 6L - CARDIOVASCULAR: Regular rate and rhythm. No murmur. No JVD. - ABDOMEN: Soft, non-tender and non-distended. No palpable masses. - EXTREMITIES: No edema. Peripheral pulses 2+. Non-tender. - NEUROLOGIC: No focal neurological deficits. CN II-XII grossly intact. - PSYCHIATRIC: Awake, Alert and oriented x 3. Appropriate mood and affect. - SKIN: No rashes or lesions. Warm. - LYMPH: No cervical lymphadenopathy. Objective Data Vital Signs Vital Signs: Vital Signs - 24 hr 07/26/23 12:33 07/26/23 12:00 07/26/23 12:00 Temperature 36.3 C L Pulse Rate 92 88 Respiratory Rate 20 Blood Pressure 131/62 Pulse Oximetry 94 94 Oxygen Delivery High Flow Nasal Cannula Oxygen Flow Rate 6 07/26/23 14:00 07/26/23 15:18 07/26/23 15:18 Temperature Pulse Rate 95 98 Respiratory Rate 20 Blood Pressure Pulse Oximetry 93 Oxygen Delivery High Flow Nasal Cannula Oxygen Flow Rate 6 07/26/23 15:30 07/26/23 16:00 07/26/23 16:00 Temperature 36.7 C Pulse Rate 99 96 94 Respiratory Rate 20 18 Blood Pressure 126/65 Pulse Oximetry 92 Oxygen Delivery Oxygen Flow Rate 07/26/23 16:00 07/26/23 18:00 07/26/23 20:16 Temperature 36.6 C Pulse Rate 100 85 Respiratory Rate 20 Blood Pressure 1
[2023-07-27] MEDS: BARICITINIB 2 MG TABLET PO (11:50)
[2023-07-27 12:33] LABS: Glucose Point of Care 145 mg/dl (65-105)
[2023-07-27 17:48] LABS: Glucose Point of Care 303 mg/dl (65-105)
[2023-07-27] MEDS: INSULIN ASPART (*BKC) 100 UNITS/ML 20 UNITS SUB-Q (17:57)
[2023-07-27] MEDS: INSULIN ASPART (*BKC) 100 UNITS/ML SUB-Q (17:57)
[2023-07-27] MEDS: INSULIN GLARGINE (*BKC) 100 UNITS/ML 70 UNITS SUB-Q (21:38)
[2023-07-27 21:56] LABS: Glucose Point of Care 268 mg/dl (65-105)
[2023-07-28] VITALS (23 sets, daily range): BP systolic 129–162; BP diastolic 65–93; PULSE 5–124; RESP 16–20; TEMP 36.1–37; O2SAT 86–100
--- NOTE | 2023-07-28 01:53 | PC.NURSE ---
Daylight Savings Time For Daylight Savings Time Ending in the Fall - Clocks are moved back. For Daylight Savings Time Beginning in the Spring - Clocks are moved ahead. For [facility], the time of change occurs at 0200 hrs. Time is taken from the receiver/laborer. This entry on the patient's chart recognizes the change in time reflected during documentation. Example: 2 entries for vital signs may be charted for 0200 hrs.
[2023-07-28 05:02] LABS: Basophils Percent Auto 0.1 % (0.2-1.2); Eosinophils Percent Auto 0.2 % (0-4.4); Hematocrit 30.9 % (42.0-52.0); Hemoglobin 9.1 g/dL (14.0-18.0); Immature Granulocyte Absolute 0.08 K/mm3 (0.00-0.031); Immature Granulocyte Percent A 0.9 % (0-0.5); Lymphocytes Absolute Auto 1.44 K/mm3 (0.9-3.2); Lymphocytes Percent Auto 16.8 % (18.3-44.2); Mean Corpuscular HGB Conc 29.4 g/dl (32-36); Mean Corpuscular Hemoglobin 26.1 pg (26-34); Mean Corpuscular Volume 88.5 fl (80-100); Mean Platelet Volume 9.9 fl (7.4-10.4); Monocytes Absolute Auto 0.6 K/mm3 (0.1-0.6); Monocytes Percent Auto 6.8 % (2.6-8.5); Neutrophils Absolute Auto 6.4 K/mm3 (1.3-6.7); Neutrophils Percent Auto 75.2 % (45.5-73.1); Platelet Count Result 206 k/mm3 (150-375); Red Blood Count 3.49 M/mm3 (4.6-6.20); Red Cell Distribution Width 12.6 % (11.5-14.5); White Blood Count 8.6 K/mm3 (4.5-10.0)
[2023-07-28 05:14] LABS: Alanine Aminotransferase 20 U/L (6-50); Albumin Level 3.8 g/dL (3.5-5.1); Alkaline Phosphatase 71 U/L (38-126); Anion Gap 3 mmol/L (8-16); Aspartate Amino Transferase 17 U/L (17-59); Bilirubin,Total 0.4 mg/dL (0.2-1.3); Blood Urea Nitrogen 43 mg/dL (9-20); Calcium 9.6 mg/dL (8.4-10.2); Carbon Dioxide 39 mmol/L (22-30); Chloride 94 mmol/L (98-107); Estimated CRCL calculation 74 ml/min; Estimated Glomerular Filt Rate 54; Glucose 212 mg/dL (65-110); Potassium 4.4 mmol/L (3.4-5.0); Sodium 136 mmol/L (137-145)
[2023-07-28 05:27] LABS: Hypochromasia 1+ (NORMAL); Large Platelets Present; Platelet Estimate Adequate (Adequate)
[2023-07-28 05:28] LABS: Schistocytes None Seen (NORMAL)
[2023-07-28] MEDS: CEFEPIME 2 GM/NS 50 ML 2 GM/50 ML BAG IVPB ×2 (06:18→12:40)
[2023-07-28 07:42] LABS: Glucose Point of Care 149 mg/dl (65-105)
[2023-07-28] MEDS: IPRATROPIUM 0.5 MG/ALBUTEROL SULFATE 2.5 MG AMPUL.NEB 3 ML INHALATION ×2 (07:54→12:15)
--- NOTE | 2023-07-28 08:44 | HOMEO2EVAL ---
Evaluation was performed at [facility] Home Oxygen Evaluation RC: Home Oxygen (O2) Evaluation Start: 07/28/23 07:58 Freq: ONCE Status: Active Protocol: RPE Activity Type Activity Date Activity User E-sign Co-sign Detail Recorded Client Recorded Date Recorded By Document 07/28/23 08:15 KRM [id number] 07/28/23 08:43 KRM Document 07/28/23 08:16 KRM [id number] 07/28/23 08:43 KRM Document 07/28/23 08:18 KRM [id number] 07/28/23 08:43 KRM Document 07/28/23 08:19 KRM [id number] 07/28/23 08:43 KRM Document 07/28/23 08:20 KRM [id number] 07/28/23 08:43 KRM Document 07/28/23 08:22 KRM [id number] 07/28/23 08:43 KRM Document 07/28/23 08:24 KRM [id number] 07/28/23 08:43 KRM Document 07/28/23 08:43 KRM [id number] 07/28/23 08:43 KRM 07/28/23 07/28/23 07/28/23 08:15 08:16 08:18 Home O2 Evaluation [Oxygen] -Test Phase Resting Resting Resting -Oxygen Delivery Room Air Nasal Cannula Nasal Cannula -Oxygen Flow Rate (L/min) 1 3 [Pulse Oximetry] -Pulse Oximetry (90-100 %) 87 L 86 L 89 L [Pulse Rate] -Pulse Rate (60-100 beats/min) 93 92 92 [Evaluation] -Activity Tolerance [Exercise] -Ambulation Distance (feet) -Ambulation Distance (meters) [Comments] -Home Oxygen Evaluation Comments [Charges] -Evaluation Charges 07/28/23 07/28/23 07/28/23 08:19 08:20 08:22 Home O2 Evaluation [Oxygen] -Test Phase Resting Exercise Exercise -Oxygen Delivery Nasal Cannula Nasal Cannula Nasal Cannula -Oxygen Flow Rate (L/min) 4 4 6 [Pulse Oximetry] -Pulse Oximetry (90-100 %) 91 88 L 87 L [Pulse Rate] -Pulse Rate (60-100 beats/min) 94 110 H 124 H [Evaluation] -Activity Tolerance [Exercise] -Ambulation Distance (feet) -Ambulation Distance (meters) [Comments] -Home Oxygen Evaluation Comments [Charges] -Evaluation Charges 07/28/23 07/28/23 08:24 08:43 Home O2 Evaluation [Oxygen] -Test Phase Exercise Exercise -Oxygen Delivery Nasal Cannula Nasal Cannula -Oxygen Flow Rate (L/min) 7 8 [Pulse Oximetry] -Pulse Oximetry (90-100 %) 86 L 90 [Pulse Rate] -Pulse Rate (60-100 beats/min) 120 H 109 H [Evaluation] -Activity Tolerance Good [Exercise] -Ambulation Distance (feet) 50 -Ambulation Distance (meters) 15.23 [Comments] -Home Oxygen Evaluation Comments 4lpm at rest, 8lpm with activity. [Charges] -Evaluation Charges O2 Evaluation by TORY
--- NOTE | 2023-07-28 08:44 | PCRCNOTE ---
home o2 eval done. pt. needs did not change. 4lpm at rest and 8lpm with activity.
[2023-07-28] MEDS: MONTELUKAST SODIUM 10 MG TABLET PO (09:29)
[2023-07-28] MEDS: AZITHROMYCIN 250 MG TABLET 500 MG PO (09:29)
[2023-07-28] MEDS: FAMOTIDINE 20 MG TABLET PO (09:29)
[2023-07-28] MEDS: amLODIPine BESYLATE 5 MG TABLET PO (09:30)
[2023-07-28] MEDS: ATORVASTATIN 20 MG TABLET PO (09:30)
[2023-07-28] MEDS: ENOXAPARIN 40 MG/0.4 ML SYRINGE SUB-Q (09:30)
[2023-07-28] MEDS: modafiniL (*CRX) 200 MG TABLET PO (09:30)
[2023-07-28] MEDS: dexAMETHasone SOD PHOS INJ 10 MG/ML 1 ML VIAL 6 MG IV PUSH (09:31)
[2023-07-28] MEDS: REMDESIVIR 100 MG/NS 250 ML 100 MG/250 ML BAG 250 MG IVPB (09:31)
[2023-07-28] MEDS: INSULIN ASPART (*BKC) 100 UNITS/ML 18 UNITS SUB-Q ×2 (09:35→12:39)
[2023-07-28 11:48] LABS: Glucose Point of Care 220 mg/dl (65-105)
--- NOTE | 2023-07-28 12:10 | PM.DS ---
DS: Admitting Diagnosis Discharge Date 07/28/23 Admitting Diagnosis COVID pneumonia DS: Discharge Diagnosis Discharge Diagnosis (1) Pneumonia due to COVID-19 virus: Code(s): U07.1 - COVID-19; J12.82 - Pneumonia due to coronavirus disease 2018 Status: Acute (2) Ciliary dyskinesia: Code(s): Q34.8 - Other specified congenital malformations of respiratory system Status: Acute (3) Sepsis: Code(s): A41.9 - Sepsis, unspecified organism Status: Acute (4) Hypomagnesemia: Code(s): E83.42 - Hypomagnesemia Status: Acute (5) Acute hypercapnic respiratory failure: Code(s): J96.02 - Acute respiratory failure with hypercapnia Status: Acute Plan Plan # COVID-19 pneumonia - remdesivir, dexamethasone, baricitinib, completed 5 days -for possible superimposed infection with chest x-ray showing signs of asymmetry with right greater than left opacity.? Will continue cefepime azithromycin, vanc was discontinued with negative MRSA nares. was on azithromycin for prophylaxis prior to admission, he may resume -patient clinically improving, continue supportive -wean oxygen as tolerated, 4L at rest 8L with activity, same as home dose. O2 eval done -appreciate pulmonology consultation recommendation 5 days inpatient treatment at least.? Apnea link done on 07/25 and 07/26 -nebs: DuoNeb q.i.d. -blood cultures no growth today -continue chest PT -AVAPS AE mode was reprogrammed to a backup rate of 20, tidal volume 550, minimal EPAP 5, maximal EPAP 15, minimal pressure support 7, maximal pressure support 20 with?with bleed in 8L # hypomagnesemia -repleted # chronic conditions -insulin-dependent type 2 diabetes:? Sliding scale insulin, Accu-Cheks a.c. HS, hypoglycemia protocol, aspart 18 units breakfast and lunch, 20 units dinner, 70 units Lantus q.h.s. -primary ciliary dyskinesia, following pulmonology at [facility], on singular. Patient needs to decrease weight 195 lb for lung transplant -essential hypertension: Amlodipine -hyperlipidemia: Lipitor -on modafinil Diet:? Heart healthy DVT prophylaxis:?SCDs, Lovenox GI prophylaxis: Pepcid Code status:?Full code Disposition:?home today DS: Summary Hospital Course Reason for hospitalization: COVID-19 and dyspnea on exertion Hospital Course: Patient is a 47-year-old male with past medical history of primary ciliary dyskinesia, severe obstructive lung disease, bronchiectasis, hypertension, obstructive apnea follows pulmonology [facility] who presented with dyspnea exertion. He was found to have COVID-19. CTA showed extensive bibasilar consolidation and tree-in-bud opacities consistent with chronic pneumonia. He was treated with remdesivir, baricitinib, dexamethasone for 5 days. He was weaned back to his baseline oxygen 4 L at rest 8 L with activity (home O2 eval done). He was seen by pulmonology consultation Dr. Shelley. He? reprogrammed his home noninvasive ventilator to increase his overall minute ventilation with a a rate? increase from 12 to 20,? tidal volume increased from 500-550, changes EPAP minimum to 5 and his EPAP maximum to 15, change his pressure support minimum to 7 and his pressure support maximum to 20 and 8 L bleed in . Apnea link done on 07/25 and 07/26. Patient was doing DuoNebs q.i.d. and vest therapy t.i.d.. He may continue his home meds including azithromycin prophylaxis. At time of discharge patient's labs are stable, vitals stable, patient is stable for discharge. Patient to follow up with PCP in 1 week. Patient understands and agrees with plan. Status at Discharge Cognitive/behavioral status at discharge: baseline Time Spent with Patient Time attestation: Total time spent providing and/or coordinating discharge services: 40 min Exam Narrative: - GENERAL:? Pleasant male in no acute distress. Well-nourished. - EYES: EOMI. Anicteric. - HENT: Moist mucous membranes. - LUNGS: Clear to auscultation bilaterally, no wheezing, rhonchi, or ral
[2023-07-28] MEDS: BARICITINIB 2 MG TABLET PO (12:39)
[2023-07-28] MEDS: INSULIN ASPART (*BKC) 100 UNITS/ML SUB-Q (12:40)
[2023-07-29 15:16] LABS: Device NON-INVASIVE VENT
== END 2023-07-28 14:50 | disposition home or self-care (01) | DRG 871 ==
LOC: ANHED 05:54 → ANHIMU 06:12
PROVIDERS: Internal Medicine; Internal Medicine Pulmonary Disease; Admitting Provider Internal Medicine; Emergency Provider Emergency Medicine; PCP Family Medicine; Visit Provider Internal Medicine
DX: A41.89 Other specified sepsis (principal); J12.82 Pneumonia due to coronavirus disease 2019; U07.1 COVID-19; J96.22 Acute and chronic respiratory failure with hypercapnia; J96.21 Acute and chronic respiratory failure with hypoxia; E83.42 Hypomagnesemia; Q34.8 Other specified congenital malformations of respiratory system; I10 Essential (primary) hypertension; E11.9 Type 2 diabetes mellitus without complications; E78.5 Hyperlipidemia, unspecified; K21.9 Gastro-esophageal reflux disease without esophagitis; G47.33 Obstructive sleep apnea (adult) (pediatric); Z90.49 Acquired absence of other specified parts of digestive tract
CPT/HCPCS: 36415; 36600; 71045; 71275; 80053; 82248; 82375; 82805; 82948; 83050; 83605; 83735; 85025; 85610; 87040; 87637; 87641; 93005; 94002; 94003; 94618; 94640; 94669; 94762; 96365; 96367; 96368; 99291; A9270; J0248; J0456; J0692; J0696; J1100; J1650; J1815; J2405; J3370; J3475; Q9967

== ENCOUNTER 2023-08-06 09:30 | Outpatient (RCR) | payer BC, SELFPAY ==
[2023-04-19 12:53] LABS: Glucose Point of Care 135 mg/dl (65-105)
[2023-04-19 12:54] LABS: Glucose Point of Care 136 mg/dl (65-105)
== END 2023-08-12 08:06 | disposition home or self-care (01) ==
LOC: ANHCPREHAB 09:30
PROVIDERS: PCP Family Medicine
DX: J44.9 Chronic obstructive pulmonary disease, unspecified (principal)
CPT/HCPCS: 94625; G0239

== ENCOUNTER 2023-09-04 12:36 | Outpatient (CLI) | payer BC, SELFPAY ==
--- NOTE | 2023-09-06 14:48 | WPDSIXMINUTE ---
Six Minute Walk Procedure Procedure Performed Pulmonary Stress Test (6 min walk) Six Minute Walk Six Minute Walk: This is a 6 minute walk test. The test was performed and interpreted in accordance with the 2014 ERS/ATS task force guidelines. of note, patient required supplemental oxygen and used to walking aid. Findings: The patient's resting room air oxygen saturation measured by pulse oximetry was 88% and heart rate was 105 bpm. Patient required 4 L nasal cannula at rest. Patient ambulated on 8 L nasal cannula for 152 meters and oxygen saturation remained 92 to 93%. Heart rate at the end of the study was 106 bpm. The patient requires 4 L oxygen at rest and 8 L nasal cannula oxygen with activity. There are no prior studies for comparison.
== END 2023-09-04 12:37 | disposition home or self-care (01) ==
LOC: ANHPFT 12:36
PROVIDERS: PCP Family Medicine; Visit Provider Internal Medicine Pulmonary Disease
DX: J96.21 Acute and chronic respiratory failure with hypoxia (principal); J96.22 Acute and chronic respiratory failure with hypercapnia
CPT/HCPCS: 94618

== ENCOUNTER 2023-09-09 10:26 | Observation (INO) | payer BC, MEDICARE, SELFPAY ==
[2023-09-09] VITALS (22 sets, daily range): BP systolic 144–168; BP diastolic 65–95; PULSE 86–113; RESP 18–24; TEMP 36.2–36.6; O2SAT 93–100; BMI 38.8
--- NOTE | ~2023-09-09 | US_ITS ---
US right upper quadrant INDICATION: Right upper quadrant pain PROCEDURE: Realtime right upper abdominal ultrasound. COMPARISON: No prior studies for comparison. FINDINGS: The pancreas is normal without focal mass or pancreatic ductal dilation. Liver echotexture is normal without focal mass or intrahepatic biliary dilatation. There is normal directional flow i n the portal vein. There are gallstones. Mild gallbladder wall thickening. Common bile duct measures 2 mm. Positive so nographic Garcia's sign. IMPRESSION: 1: Cholelithiasis with gallbladder wall thickening and positive sonographic Garcia's sign, compatible with cholecystitis. Correlate clinically. Reviewed, dictated and finalized at location B. IMPRESSION: 1: Cholelithiasis with gallbladder wall thickening and positive sonographic Mur phy's sign, compatible with cholecystitis. Correlate clinically.
--- NOTE | ~2023-09-09 | XR_ITS ---
EXAMINATION: XR chest 1V portable DATE: 09/10/2023 05:48 INDICATION: Right upper quadrant abdominal pain. TECHNIQUE: A single frontal view of the chest was obtained on 2 radiographs. COMPARISON: Chest single view 07/24/2023, chest CT 07/24/2023 FINDINGS: There are airspace opacities and nodules in the mid and lower lung zones, consistent with p neumonia. No pleural effusion or pneumothorax. The heart size is normal. IMPRESSION: 1. Persistent airspace opacities and nodules in the mid and lower lung zones, consistent with pneumon ia. Reviewed, dictated and finalized at location E. IMPRESSION: 1. Persistent airspace opacities and nodules in the mid and lower lung zones, c onsistent with pneumonia.
--- NOTE | 2023-09-09 12:15 | PC.NURSE ---
Pt to intake desk, states O2 tank is near empty. New tank given to pt, remains on 8 L NC O2 which he wears at all times.
--- NOTE | 2023-09-09 14:19 | ED.ABDPAIN ---
HPI - Abdominal Pain General Chief Complaint: Abdominal Pain Stated Complaint: upper abd pain started this morning Time Seen by Provider: 09/09/23 12:49 History of Present Illness HPI narrative: Patient is a 48-year-old male who presents ER with upper abdominal pain. Sudden onset this morning around 6:30 a.m.. Pressure bilaterally. No radiation to the back. Mild nausea. No vomiting. Patient is chronically O2 dependent in wears 8 L at all times. No chest pain or difficulty breathing. No aggravating or alleviating factors. Patient ate some tacos last night as well as a turkey sandwich. Related Data Home Medications Medication Instructions Recorded Confirmed insulin glargine-yfgn 100 unit/mL 70 unit subcut HS 10/14/22 09/09/23 (3 mL) subcutaneous pen (Semglee (insulin glargine-yfgn) Pen) sodium chloride 0.65 % nasal spray 2 spray intranasal DAILY 10/14/22 09/09/23 aerosol (Nasal [place] (sodium chloride)) azithromycin 500 mg tablet 500 mg PO DAILY 04/16/23 09/09/23 famotidine 20 mg tablet 40 mg PO DAILY 09/09/23 09/09/23 insulin aspart U-100 100 unit/mL See Rx Instructions .Route .COMPLEX 09/09/23 09/09/23 (3 mL) subcutaneous pen ipratropium 0.5 mg-albuterol 3 mg 3 ml inhalation QID 09/09/23 09/09/23 (2.5 mg base)/3 mL nebulization soln Allergies Allergy/AdvReac Type Severity Reaction Status Date / Time povidone-iodine Allergy Unknown rash Verified 09/09/23 10:27 tetracycline Allergy Unknown Rash Verified 09/09/23 10:27 theophylline AdvReac Mild Nervousness Verified 09/09/23 10:27 Review of Systems Review of Systems: All systems reviewed & are unremarkable except as noted in HPI and below Constitutional: Constitutional: Reports no additional constitutional complaints ENT: Reports system reviewed and no additional complaints, except as documented Cardiovascular: Cardiovascular: Reports no additional cardiovascular complaints Respiratory: Respiratory: Reports no additional respiratory complaints Gastrointestinal: Gastrointestinal: Reports abdominal pain, Denies constipation, Denies diarrhea, Reports nausea and Denies vomiting Genitourinary: Genitourinary: Reports no additional male genitourinary complaints Musculoskeletal: Musculoskeletal: Reports no additional musculoskeletal complaints [facility] Past Medical History Medical History Abdominal wall hernia Burn of finger of left hand, second degree Chronic respiratory failure with hypoxia and hypercapnia Congenital solitary kidney Essential (primary) hypertension Gastroesophageal reflux disease Hyperlipidemia Insulin dependent type 2 diabetes mellitus Nonischemic cardiomyopathy per report, this is poorly documented in our system. Primary ciliary dyskinesia Pseudomonas infection Pulmonary emphysema Renal failure Sleep apnea in adult Surgical History Surgical History History of appendectomy History of knee surgery History of nasal surgery History of orthopedic surgery History of tonsillectomy and adenoidectomy Family History Family History Father Hypertension Grandparent Hypertension Cerebrovascular accident Family history of coronary artery disease Family history of malignant neoplasm of urinary bladder Diabetes mellitus Mother Cholecystectomy planned H/O: hysterectomy Sibling Thyroid cancer Diverticulitis Other Family history of malignant neoplasm of breast Social History Social History Social History: The patient lives with his and has 4 children. The patient is a lifelong nonsmoker. The patient is disabled. Surrogate medical decision maker: Sujey Cole, spouse. Code status: Full code. Smoking status: Never smoker Smokeless tobacco user: chewing tobacco Second hand tobacco smoke ex
[2023-09-09] MEDS: MORPHINE SULFATE (*CRX) 4 MG/ML INJ IV PUSH (14:38)
[2023-09-09] MEDS: ONDANSETRON INJ 4 MG/2 ML VIAL IV PUSH (14:38)
[2023-09-09] MEDS: PIPERACILLN/TAZ 3.375GM/NS50ML 3.375 GM/50 ML BAG IVPB ×2 (14:39→20:31)
[2023-09-09 14:54] LABS: Basophils Percent Auto 0.3 % (0.2-1.2); Eosinophils Absolute Auto 0.2 K/mm3 (0-0.3); Eosinophils Percent Auto 1.3 % (0-4.4); Hematocrit 35.7 % (42.0-52.0); Hemoglobin 10.5 g/dL (14.0-18.0); Immature Granulocyte Absolute 0.07 K/mm3 (0.00-0.031); Immature Granulocyte Percent A 0.6 % (0-0.5); Lymphocytes Percent Auto 10.9 % (18.3-44.2); Mean Corpuscular HGB Conc 29.4 g/dl (32-36); Mean Corpuscular Hemoglobin 25.9 pg (26-34); Mean Corpuscular Volume 87.9 fl (80-100); Monocytes Absolute Auto 0.6 K/mm3 (0.1-0.6); Monocytes Percent Auto 4.8 % (2.6-8.5); Neutrophils Absolute Auto 9.8 K/mm3 (1.3-6.7); Neutrophils Percent Auto 82.1 % (45.5-73.1); Platelet Count Result 230 k/mm3 (150-375); Red Blood Count 4.06 M/mm3 (4.6-6.20); Red Cell Distribution Width 12.7 % (11.5-14.5); White Blood Count 11.9 K/mm3 (4.5-10.0)
[2023-09-09 15:07] LABS: Lactic Acid Reflex 0.6 mmol/L (0.7-2.0)
[2023-09-09 15:10] LABS: Alanine Aminotransferase 14 U/L (6-50); Albumin Level 4.7 g/dL (3.5-5.1); Alkaline Phosphatase 94 U/L (38-126); Aspartate Amino Transferase 27 U/L (17-59); Bilirubin,Total 0.4 mg/dL (0.2-1.3); Blood Urea Nitrogen 34 mg/dL (9-20); Calcium 9.7 mg/dL (8.4-10.2); Carbon Dioxide > 40 mmol/L (22-30); Chloride 94 mmol/L (98-107); Estimated CRCL calculation 80 ml/min; Estimated Glomerular Filt Rate 59; Glucose 131 mg/dL (65-110); Lipase 168 U/L (23-300); Potassium 4.5 mmol/L (3.4-5.0); Sodium 137 mmol/L (137-145)
[2023-09-09 15:19] LABS: Hypochromasia 1+; Platelet Estimate Adequate (Adequate); Schistocytes None Seen
[2023-09-09 15:53] LABS: Appearance Urine Clear (Clear); Bacteria Urine None Seen /hpf; Bilirubin Urine Negative (Negative); Blood Urine Negative (Negative); Color Urine Yellow (Yellow); Glucose Urine UA Negative (Negative); Ketones Urine Negative (Negative); Leukocyte Esterase Ur Negative LEU/UL (Negative); Nitrate Urine Negative (Negative); Non Pathogenic Casts 0-2; Protein Urine 2+ mg/dL (Negative); RBC Urine 0-2 /hpf (0-2); Specific Grav Ur 1.015 (1.001-1.035); Squamous Epithelial Cell Urine None Seen /hpf (Few); Urobilinogen Urine 0.2 mg/dL (<2.0); WBC Urine 0-5 /hpf (0-3); pH Urine 5.5 (5.0-9.0)
[2023-09-09 15:58] LABS: Add Urine Microscopic? YES
--- NOTE | 2023-09-09 18:10 | ADMGEN ---
This patient, Braydon Cole, was admitted to IMU Room 200-01 @ 1730. Patient/ oriented to hospital policies and general routines including ID bracelet, bed and alarms, visiting hours, pain management, procedures, bathroom and other care routines, personal items, smoking policy, room service/diet, and visiting hours. Information on how to activate the Rapid Response Team has been discussed. Patient/Family are encouraged to report perceived risks to care and to ask questions if they do not understand what they are told or what they should do.
--- NOTE | 2023-09-09 20:11 | PM.IMHP ---
H&P: HPI History of Present Illness Date/Time: 09/09/23 20:11 Chief Complaint: RIGHT UPPER QUADRANT PAIN Narrative: THIS IS A 48-YEAR-OLD MALE WITH PAST MEDICAL HISTORY SIGNIFICANT FOR CILIARY DYSKINESIA, BRONCHIAL TAKE A, CHRONIC HYPOXIC AND HYPERCAPNIC RESPIRATORY FAILURE ON SUPPLEMENTAL OXYGEN BY NASAL CANNULA 8 L, TRELEGY AT NIGHTTIME, TYPE DIABETES MELLITUS, PATIENT PRESENTS TO THE EMERGENCY ROOM DUE TO SUDDEN ONSET RIGHT UPPER QUADRANT PAIN WITH NAUSEA VOMITING PAIN WITH RADIATION AROUND TO THE BACK. PATIENT HAS BEEN IN HIS USUAL STATE OF HEALTH UP UNTIL THIS TIME DENIES ANY FEVERS, RIGORS, CHILLS, FEVERS, DYSPEPSIA, WEIGHT LOSS. PRELIMINARY WORKUP WAS SIGNIFICANT FOR RIGHT UPPER QUADRANT ULTRASOUND WITH CHOLELITHIASIS AND POSITIVE GARCIA'S RADIOLOGY CALL SIGN. PATIENT HAS BEEN ADMITTED FOR FURTHER EVALUATION MANAGEMENT AND TREATMENT. US right upper quadrant INDICATION: Right upper quadrant pain PROCEDURE: Realtime right upper abdominal ultrasound. COMPARISON:? No prior studies for comparison. FINDINGS: The pancreas is normal without focal mass or pancreatic ductal dilation.? Liver echotexture is normal without focal mass or intrahepatic biliary dilatation.? There is normal directional flow in the portal vein. There are gallstones. Mild gallbladder wall thickening.? Common bile duct measures 2 mm.? Positive sonographic Garcia's sign. IMPRESSION: 1: Cholelithiasis with gallbladder wall thickening and positive sonographic Garcia's sign, compatible with cholecystitis. Correlate clinically. Review of Systems Review of Systems: right upper quadrant pain, nausea, vomiting Constitutional: Constitutional: Denies chills, Denies fever(s) and Denies malaise Eyes: Eyes: Denies change in vision ENT: Denies dysphagia and Denies odynophagia Cardiovascular: Cardiovascular: Denies chest pain, Denies radiating jaw, neck or arm pain and Denies palpitations Respiratory: Respiratory: Denies change in phlegm color, Denies chest congestion, Reports cough, Denies excessive phlegm production, Reports dyspnea and Reports wheezing Gastrointestinal: Gastrointestinal: Reports abdominal pain ( right upper quadrant), Reports nausea and Reports vomiting Genitourinary: Genitourinary: Denies dysuria Musculoskeletal: Musculoskeletal: Denies myalgias Integumentary/Breasts: Skin/Breast: Denies rash Neurologic: Denies focal weakness and Denies Sensory deficit (Neuro) Psychiatric: Psychiatric: Reports no additional psychiatric complaints and Reports as per HPI Endocrine: Endocrine: Denies cold intolerance, Denies fatigue, Denies flushing, Denies heat intolerance, Denies polyphagia, Denies polydipsia, Denies polyuria and Denies palpitations Hematologic/Lymphatic: Hematologic/Lymphatic: Reports no additional hematologic/lymphatic complaints and Reports as per HPI Allergic/Immunologic: Allergic/Immunologic: Reports no additional allergic/immunologic complaints and Reports as per HPI PMFSH Past Medical History Medical History (Updated 09/10/23 @ 03:20 by Ashlyn Castillo MD) Abdominal wall hernia Burn of finger of left hand, second degree Chronic respiratory failure with hypoxia and hypercapnia Congenital solitary kidney Essential (primary) hypertension Gastroesophageal reflux disease Hyperlipidemia Insulin dependent type 2 diabetes mellitus Nonischemic cardiomyopathy per report, this is poorly documented in our system. Primary ciliary dyskinesia Pseudomonas infection Pulmonary emphysema Renal failure Sleep apnea in adult Surgical History Surgical History History of appendectomy History of knee surgery History of nasal surgery History of orthopedic surgery History of tonsillectomy and adenoidectomy Family History Family History Father Hypertension Grandparent Hypertension Cerebrovascular accident Fam
[2023-09-09] MEDS: SODIUM CHLORIDE 0.9% IV 1,000 ML 125 ML IV CONT (20:30)
[2023-09-10] VITALS (29 sets, daily range): BP systolic 101–157; BP diastolic 45–74; PULSE 91–120; RESP 12–23; TEMP 36.2–36.8; O2SAT 90–100
--- NOTE | 2023-09-10 01:21 | PC.NURSE ---
Patient desats to 85% Spo2 while on trilogy at home settings. Patient placed back on NC at 8L. Spo2 at 99%. Bipap suggested per Respiratory Therapist. Patient agreed. Dr. Castillo notified and new order for Bipap at bedtime with settings from previous hospital visit.
[2023-09-10] MEDS: PIPERACILLN/TAZ 3.375GM/NS50ML 3.375 GM/50 ML BAG IVPB ×4 (05:36→20:18)
[2023-09-10] MEDS: IPRATROPIUM 0.5 MG/ALBUTEROL SULFATE 2.5 MG AMPUL.NEB 3 ML INHALATION ×4 (07:06→19:38)
[2023-09-10] MEDS: SODIUM CHLORIDE 0.9% IV 1,000 ML 125 ML IV CONT (07:15)
[2023-09-10 08:06] LABS: Glucose Point of Care 162 mg/dl (65-105)
--- NOTE | 2023-09-10 09:23 | PM.IMPN ---
Progress Note: A&P Assessment and Plan (1) Chronic respiratory failure with hypoxia and hypercapnia: Code(s): J96.11 - Chronic respiratory failure with hypoxia; J96.12 - Chronic respiratory failure with hypercapnia Status: Acute (2) Acute cholecystitis: Code(s): K81.0 - Acute cholecystitis Status: Acute Plan Acute cholecystitis and sepsis ?Code(s): K81.0 - Acute cholecystitis ?Status:?Acute ?Assessment and Plan: ? patient present ED with a chief complaint of right upper quadrant upon arrival to ED, patient had leukocytosis 11,900 left shift, tachycardia tachypnea, meeting criteria of sepsis abdomen ultrasound suggests acute cholecystitis gallstone patient received fluid resuscitation in the ED, continue normal saline IV 25 mL/hour Continue Zosyn IV Follow-up blood culture ?general surgery consult blood pressure on the lower side, stop amlodipine p.o. Chronic respiratory failure with hypoxia and hypercapnia ?Code(s): J96.11 - Chronic respiratory failure with hypoxia; J96.12 - Chronic respiratory failure with hypercapnia ?Status:?Acute ?Assessment and Plan: ?PATIENT USES TRELEGY AT NIGHTTIME ?ON 8 L BY NASAL CANNULA DURING THE DAYTIME Ciliary dyskinesia: ?Code(s): Q34.8 - Other specified congenital malformations of respiratory system ?Status:?Acute ?Assessment and Plan: ?ON SUPPLEMENTAL OXYGEN BY NASAL CANNULA (3) Bronchiectasis: ?Qualifiers: ?Bronchiectasis type:?with acute exacerbation? Qualified Code(s):?J47.1 - Bronchiectasis with (acute) exacerbation ?Code(s): J47.9 - Bronchiectasis, uncomplicated ?Status:?Acute ?Assessment and Plan: ?NO CHANGES IN A SPUTUM QUALITY (4) Nonischemic cardiomyopathy: ?Code(s): I42.8 - Other cardiomyopathies ?Status:?Acute (6) Type 2 diabetes mellitus with hyperglycemia, with long-term current use of insulin: ?Code(s): E11.65 - Type 2 diabetes mellitus with hyperglycemia; Z79.4 - group account director (current) use of insulin ?Status:?Acute patient is on glargine 70 units q.h.s. Hold long-acting large in because of NPO, risk of hypoglycemia Start insulin sliding scale q.6 hour during p.o. (7) Subjective Date/time seen: 09/10/23 09:23 Interval history: I saw and examined patient today. Patient feels pain is tolerable, denies nausea vomiting. Patient has mild cough, denies shortness of breaths Exam Narrative: GENERAL: Pleasant, in no acute distress. Well-nourished. - EYES: EOMI. Anicteric. - HENT: Moist mucous membranes. - LUNGS: Clear to auscultation bilaterally, no wheezing, rhonchi, or rales. - CARDIOVASCULAR: Regular rate and rhythm. No murmur. No JVD. - ABDOMEN: Soft, right upper quadrant tender and non-distended. No palpable masses. - EXTREMITIES: No edema. Peripheral pulses 2+. Non-tender. - NEUROLOGIC: No focal neurological deficits. CN II-XII grossly intact. - PSYCHIATRIC: Awake, Alert and oriented x 3. Appropriate mood and affect. - SKIN: No rashes or lesions. Warm. - LYMPH: No cervical lymphadenopathy.. Objective Data Vital Signs Vital Signs: Vital Signs - 24 hr 09/09/23 10:38 09/09/23 12:53 09/09/23 13:00 Temperature 97.7 F Pulse Rate 102 H 87 86 Respiratory Rate 20 18 20 Blood Pressure 152/95 H Pulse Oximetry 93 98 97 Oxygen Delivery Nasal Cannula Oxygen Flow Rate 8 Fraction of Inspired Oxygen 09/09/23 13:51 09/09/23 13:55 09/09/23 14:00 Temperature Pulse Rate 98 90 90 Respiratory Rate 22 H 20 24 H Blood Pressure 161/65 H Pulse Oximetry 94 99 100 Oxygen Delivery Oxygen Flow Rate Fraction of Inspired Oxygen 09/09/23 14:02 09/09/23 14:18 09/09/23 14:30 Temperature Pulse Rate 100 94 92 Respiratory Rate 21 H 23 H 23 H Blood Pressure 168/82 H Pulse Oximetry 100 100 100 Oxygen Delivery Oxygen Flow Rate Fraction of Inspired Oxygen 09/09/23 14:31 09/09/23 1
[2023-09-10] MEDS: ATORVASTATIN 20 MG TABLET PO (10:22)
[2023-09-10] MEDS: FAMOTIDINE 20 MG TABLET 40 MG PO (10:22)
[2023-09-10] MEDS: MONTELUKAST SODIUM 10 MG TABLET PO (10:22)
[2023-09-10] MEDS: modafiniL (*CRX) 200 MG TABLET PO (10:22)
[2023-09-10] MEDS: SALINE 0.65% NAS SOLN 44 ML BTL 2 SPRAY NASAL (10:25)
[2023-09-10 11:37] LABS: Basophils Percent Auto 0.2 % (0.2-1.2); Eosinophils Absolute Auto 0.1 K/mm3 (0-0.3); Eosinophils Percent Auto 0.9 % (0-4.4); Hematocrit 31.9 % (42.0-52.0); Hemoglobin 9.6 g/dL (14.0-18.0); Immature Granulocyte Absolute 0.08 K/mm3 (0.00-0.031); Immature Granulocyte Percent A 0.5 % (0-0.5); Lymphocytes Absolute Auto 2.66 K/mm3 (0.9-3.2); Lymphocytes Percent Auto 17.3 % (18.3-44.2); Mean Corpuscular HGB Conc 30.1 g/dl (32-36); Mean Corpuscular Hemoglobin 26.5 pg (26-34); Mean Corpuscular Volume 88.1 fl (80-100); Mean Platelet Volume 9.4 fl (7.4-10.4); Monocytes Absolute Auto 1.2 K/mm3 (0.1-0.6); Monocytes Percent Auto 7.6 % (2.6-8.5); Neutrophils Absolute Auto 11.3 K/mm3 (1.3-6.7); Neutrophils Percent Auto 73.5 % (45.5-73.1); Platelet Count Result 197 k/mm3 (150-375); Red Blood Count 3.62 M/mm3 (4.6-6.20); Red Cell Distribution Width 12.8 % (11.5-14.5); White Blood Count 15.4 K/mm3 (4.5-10.0)
[2023-09-10 11:56] LABS: Alanine Aminotransferase 23 U/L (6-50); Albumin Level 4.3 g/dL (3.5-5.1); Alkaline Phosphatase 95 U/L (38-126); Anion Gap 4 mmol/L (4-12); Aspartate Amino Transferase 28 U/L (17-59); Bilirubin,Total 1.2 mg/dL (0.2-1.3); Blood Urea Nitrogen 21 mg/dL (9-20); Calcium 8.9 mg/dL (8.4-10.2); Carbon Dioxide 38 mmol/L (22-30); Chloride 96 mmol/L (98-107); Estimated CRCL calculation 70 ml/min; Estimated Glomerular Filt Rate 50; Glucose 149 mg/dL (65-110); Sodium 138 mmol/L (137-145)
[2023-09-10 12:04] LABS: Glucose Point of Care 149 mg/dl (65-105)
--- NOTE | 2023-09-10 12:26 | PM.CNGS ---
Assessment and Plan Assessment and plan (1) Acute cholecystitis: Code(s): K81.0 - Acute cholecystitis Status: Acute Assessment and Plan: RUQ US findings consistent with acute calculous cholecystitis. Patient clinically improving with IV antibiotics. He is a very high risk surgical candidate given his ciliary dyskinesia and chronic respiratory failure with O2 dependence. He is waiting to be placed on the lung transplant list after weight loss. We discussed treatment options at this point in detail regarding his gallbladder. Since he is improving, he would prefer conservative treatment and then plan to follow-up with his specialists at [place] to discuss interval cholecystectomy. This is reasonable given his chronic issues and increased risks for surgery. Will continue IV Zosyn and start advancing his diet. Repeat labs tomorrow. If he is unable to tolerate a diet or not improving as expected with antibiotics, then we could consider proceeding with a percutaneous cholecystostomy tube. Will continue to follow along. (2) Chronic respiratory failure with hypoxia and hypercapnia: Code(s): J96.11 - Chronic respiratory failure with hypoxia; J96.12 - Chronic respiratory failure with hypercapnia Status: Acute Assessment and Plan: Dependent on 8 liters O2 at home. (3) Ciliary dyskinesia: Code(s): Q34.8 - Other specified congenital malformations of respiratory system Status: Acute Assessment and Plan: Recommended two years ago to be on a lung transplant list. He was instructed to attempt weight loss with a goal of 190 lbs to be put on the transplant list. Follows with specialists at [place]. (4) Insulin dependent type 2 diabetes mellitus: Code(s): E11.9 - Type 2 diabetes mellitus without complications; Z79.4 - termination clerk (current) use of insulin Status: Acute (5) Nonischemic cardiomyopathy: Code(s): I42.8 - Other cardiomyopathies Status: Acute Plan I have discussed the patient's case and plan of care with Dr. Felix. Thank you for allowing us to see the patient in consultation and we will continue to follow along with you. History of Present Illness Consult details Consult date: 09/10/23 Reason for consult: other (Acute cholecystitis) Requesting physician: Flaco Nicholas MD Narrative: This is a 48-year-old man with a history of primary ciliary dyskinesia dependent on 8 L of oxygen at home, who presented to the ER yesterday with complaints of upper abdominal pain. He reports waking up yesterday morning around 6:00 a.m. with abdominal pain radiating across his upper abdomen. He denies ever having this pain in the past. His pain progressively got worse throughout the day. He developed nausea and vomiting. He then came into the ER for further evaluation. [place] [address], BUN 34, creatinine 1.3, LFTs normal, lipase normal. Right upper quadrant abdominal ultrasound showed cholelithiasis with gallbladder wall thickening and positive sonographic Garcia sign, consistent with cholecystitis. He was admitted to the IMU. Our service was consulted for the acute cholecystitis. He is on IV Zosyn. This morning, he reports feeling much better. His abdominal pain has improved significantly. He no longer has any nausea and no vomiting since admission. Also has a reported history of nonischemic cardiomyopathy, insulin-dependent type 2 diabetes mellitus. He denies having any surgeries in the past few years since he has been dependent on oxygen. He reports being placed on oxygen about 5 years ago and progressively increasing his needs. He is seen by a specialist at [place] and was told about 2 years ago that he needed to be on a lung transplant list. They recommended he lose about 60 lb before he can be placed on the transplant list. Only previous abdominal surgery was an open appendectomy at the age of 11 for perforated appendicitis. Review of Systems Review of S
[2023-09-10 16:02] LABS: Glucose Point of Care 204 mg/dl (65-105)
[2023-09-10] MEDS: INSULIN ASPART (*BKC) 100 UNITS/ML SUB-Q (16:58)
[2023-09-10] MEDS: SODIUM CHLORIDE 0.9% IV 1,000 ML 60 ML IV CONT (19:52)
[2023-09-11] VITALS (17 sets, daily range): BP systolic 135–146; BP diastolic 52–71; PULSE 85–107; RESP 18–20; TEMP 36.2–36.7; O2SAT 90–100
[2023-09-11 01:26] LABS: Glucose Point of Care 165 mg/dl (65-105)
[2023-09-11] MEDS: PIPERACILLN/TAZ 3.375GM/NS50ML 3.375 GM/50 ML BAG IVPB ×2 (03:36→09:18)
[2023-09-11 05:20] LABS: Hematocrit 30.2 % (42.0-52.0); Mean Corpuscular HGB Conc 29.8 g/dl (32-36); Mean Corpuscular Hemoglobin 26.2 pg (26-34); Mean Corpuscular Volume 87.8 fl (80-100); Mean Platelet Volume 10.3 fl (7.4-10.4); Platelet Count Result 192 k/mm3 (150-375); Red Blood Count 3.44 M/mm3 (4.6-6.20); Red Cell Distribution Width 12.8 % (11.5-14.5); White Blood Count 11.3 K/mm3 (4.5-10.0)
[2023-09-11 05:37] LABS: Alanine Aminotransferase 20 U/L (6-50); Albumin Level 3.9 g/dL (3.5-5.1); Alkaline Phosphatase 87 U/L (38-126); Anion Gap 5 mmol/L (4-12); Aspartate Amino Transferase 21 U/L (17-59); Bilirubin,Total 0.9 mg/dL (0.2-1.3); Blood Urea Nitrogen 16 mg/dL (9-20); Calcium 8.8 mg/dL (8.4-10.2); Carbon Dioxide 37 mmol/L (22-30); Chloride 98 mmol/L (98-107); Estimated CRCL calculation 75 ml/min; Estimated Glomerular Filt Rate 54; Glucose 147 mg/dL (65-110); Potassium 3.8 mmol/L (3.4-5.0); Sodium 140 mmol/L (137-145)
[2023-09-11] MEDS: IPRATROPIUM 0.5 MG/ALBUTEROL SULFATE 2.5 MG AMPUL.NEB 3 ML INHALATION ×3 (06:53→14:55)
[2023-09-11 08:12] LABS: Glucose Point of Care 176 mg/dl (65-105)
[2023-09-11] MEDS: ATORVASTATIN 20 MG TABLET PO (09:18)
[2023-09-11] MEDS: SALINE 0.65% NAS SOLN 44 ML BTL 2 SPRAY NASAL (09:19)
[2023-09-11] MEDS: MONTELUKAST SODIUM 10 MG TABLET PO (09:19)
[2023-09-11] MEDS: modafiniL (*CRX) 200 MG TABLET PO (09:19)
[2023-09-11] MEDS: FAMOTIDINE 20 MG TABLET 40 MG PO (09:19)
--- NOTE | 2023-09-11 10:42 | PM.IMPN ---
Progress Note: A&P Assessment and Plan (1) Chronic respiratory failure with hypoxia and hypercapnia: Code(s): J96.11 - Chronic respiratory failure with hypoxia; J96.12 - Chronic respiratory failure with hypercapnia Status: Acute (2) Acute cholecystitis: Code(s): K81.0 - Acute cholecystitis Status: Acute Plan Acute cholecystitis and sepsis ?Code(s): K81.0 - Acute cholecystitis ?Status:?Acute ?Assessment and Plan: ? patient present ED with a chief complaint of right upper quadrant upon arrival to ED, patient had leukocytosis 11,900 left shift, tachycardia tachypnea, meeting criteria of sepsis abdomen ultrasound suggests acute cholecystitis gallstone patient received fluid resuscitation in the ED, continue normal saline IV 25 mL/hour Continue Zosyn IV Follow-up blood culture ?general surgery consult blood pressure on the lower side, stop amlodipine p.o. Appreciate general surgical consultation, general surgery recommends medical management and home, will discharge patient home today with oral antibiotics Chronic respiratory failure with hypoxia and hypercapnia ?Code(s): J96.11 - Chronic respiratory failure with hypoxia; J96.12 - Chronic respiratory failure with hypercapnia ?Status:?Acute ?Assessment and Plan: ?PATIENT USES TRELEGY AT NIGHTTIME ?ON 8 L BY NASAL CANNULA DURING THE DAYTIME Ciliary dyskinesia: ?Code(s): Q34.8 - Other specified congenital malformations of respiratory system ?Status:?Acute ?Assessment and Plan: ?ON SUPPLEMENTAL OXYGEN BY NASAL CANNULA (3) Bronchiectasis: ?Qualifiers: ?Bronchiectasis type:?with acute exacerbation? Qualified Code(s):?J47.1 - Bronchiectasis with (acute) exacerbation ?Code(s): J47.9 - Bronchiectasis, uncomplicated ?Status:?Acute ?Assessment and Plan: ?NO CHANGES IN A SPUTUM QUALITY (4) Nonischemic cardiomyopathy: ?Code(s): I42.8 - Other cardiomyopathies ?Status:?Acute (6) Type 2 diabetes mellitus with hyperglycemia, with long-term current use of insulin: ?Code(s): E11.65 - Type 2 diabetes mellitus with hyperglycemia; Z79.4 - extermination inspector (current) use of insulin ?Status:?Acute patient is on glargine 70 units q.h.s. Hold long-acting large in because of NPO, risk of hypoglycemia Started insulin sliding scale q.6 hour during p.o. will resume home medication on discharge (7) Subjective Date/time seen: 09/11/23 10:42 Interval history: I saw and examined patient today. patient denies abdomen pain, nausea vomiting. Patient tolerated diet well. Patient is afebrile, blood pressure stable, leukocytosis trending down 11,300 Exam Narrative: GENERAL: Pleasant, in no acute distress. Well-nourished. - EYES: EOMI. Anicteric. - HENT: Moist mucous membranes. - LUNGS: Clear to auscultation bilaterally, no wheezing, rhonchi, or rales. - CARDIOVASCULAR: Regular rate and rhythm. No murmur. No JVD. - ABDOMEN: Soft, non-tender and non-distended. No palpable masses. - EXTREMITIES: No edema. Peripheral pulses 2+. Non-tender. - NEUROLOGIC: No focal neurological deficits. CN II-XII grossly intact. - PSYCHIATRIC: Awake, Alert and oriented x 3. Appropriate mood and affect. - SKIN: No rashes or lesions. Warm. - LYMPH: No cervical lymphadenopathy. Objective Data Vital Signs Vital Signs: Vital Signs - 24 hr 09/10/23 11:02 09/10/23 11:00 09/10/23 11:07 Temperature Pulse Rate 104 H 103 H Respiratory Rate 20 20 Blood Pressure Pulse Oximetry 93 Oxygen Delivery High Flow Nasal Cannula Oxygen Flow Rate 6 09/10/23 11:46 09/10/23 12:00 09/10/23 12:00 Temperature 97.5 F L Pulse Rate 106 H 108 H Respiratory Rate 20 Blood Pressure 130/70 Pulse Oximetry 91 91 Oxygen Delivery High Flow Therapy with Na Oxygen Flow Rate 7 09/10/23 15:26 09/10/23 15:38 09/10/23 15:44 Temperature 97.3 F L Pulse Rate 110 H 109 H
[2023-09-11 11:49] LABS: Glucose Point of Care 267 mg/dl (65-105)
[2023-09-11] MEDS: INSULIN ASPART (*BKC) 100 UNITS/ML SUB-Q (12:47)
--- NOTE | 2023-09-11 13:08 | PM.PNGS ---
Progress Note: A&P Assessment and Plan (1) Acute cholecystitis: Code(s): K81.0 - Acute cholecystitis Status: Acute Assessment and Plan: exam benign, maria elena low fat diet, cont abx and conservative mgmt, ok to dc home from surgical standpoint c po abx and low fat diet, f/u 2 wks Subjective Subjective Date/Time Seen: 09/11/23 13:08 Interval history: doing well, maria elena low fat diet, no further abd pain Review of Systems Review of Systems: All systems reviewed & are unremarkable except as noted in HPI and below Exam Const: General: cooperative, comfortable and no acute distress Resp: Auscultation: diminished lung sounds Cardio: Rate: regular rate Rhythm: regular rhythm GI: Inspection: normal to inspection and non-distended GI Palp: No abdominal tenderness, Yes Soft to palpation and No Tenderness to palpation present (GI) Objective Data Vital Signs Vital Signs: Vital Signs - 24 hr 09/10/23 15:26 09/10/23 15:38 09/10/23 15:44 Temperature 36.3 C L Pulse Rate 110 H 109 H 112 H Respiratory Rate 20 20 22 H Blood Pressure 157/74 H Pulse Oximetry 91 Oxygen Delivery Oxygen Flow Rate 09/10/23 16:00 09/10/23 14:00 09/10/23 16:00 Temperature Pulse Rate 110 H 107 H Respiratory Rate Blood Pressure Pulse Oximetry 90 Oxygen Delivery High Flow Therapy with Na Oxygen Flow Rate 7 09/10/23 18:00 09/10/23 19:38 09/10/23 19:38 Temperature Pulse Rate 110 H 103 H 103 H Respiratory Rate 19 19 Blood Pressure Pulse Oximetry 96 Oxygen Delivery High Flow Nasal Cannula Oxygen Flow Rate 6 09/10/23 19:57 09/10/23 20:00 09/10/23 22:42 Temperature 36.8 C Pulse Rate 105 H 113 H 99 Respiratory Rate 19 20 21 H Blood Pressure 138/68 Pulse Oximetry 91 98 Oxygen Delivery Oxygen Flow Rate 09/10/23 20:00 09/10/23 20:00 09/10/23 23:48 Temperature 36.6 C Pulse Rate 120 H 99 Respiratory Rate 12 Blood Pressure 111/45 L Pulse Oximetry 91 92 Oxygen Delivery High Flow Nasal Cannula Oxygen Flow Rate 6 09/10/23 22:00 09/11/23 00:00 09/11/23 00:00 Temperature Pulse Rate 110 H 94 94 Respiratory Rate Blood Pressure Pulse Oximetry 90 Oxygen Delivery BiPAP Oxygen Flow Rate 09/11/23 02:00 09/11/23 02:39 09/11/23 04:00 Temperature 36.4 C L Pulse Rate 88 103 H 88 Respiratory Rate 20 20 Blood Pressure 146/52 H Pulse Oximetry 94 100 Oxygen Delivery Oxygen Flow Rate 09/11/23 04:00 09/11/23 04:00 09/11/23 06:00 Temperature Pulse Rate 85 85 88 Respiratory Rate Blood Pressure Pulse Oximetry 96 Oxygen Delivery BiPAP Oxygen Flow Rate 09/11/23 07:43 09/11/23 06:50 09/11/23 06:50 Temperature 36.7 C Pulse Rate 104 H 103 H 103 H Respiratory Rate 20 18 18 Blood Pressure 135/60 Pulse Oximetry 96 98 Oxygen Delivery High Flow Nasal Cannula Oxygen Flow Rate 8 09/11/23 07:00 09/11/23 10:50 09/11/23 11:00 Temperature Pulse Rate 104 H 105 H 102 H Respiratory Rate 18 18 18 Blood Pressure Pulse Oximetry Oxygen Delivery Oxygen Flow Rate 09/11/23 08:00 09/11/23 08:00 09/11/23 10:00 Temperature Pulse Rate 107 H 95 Respiratory Rate Blood Pressure Pulse Oximetry 96 Oxygen Delivery High Flow Nasal Cannula Oxygen Flow Rate 8 09/11/23 11:29 Temperature 36.2 C L Pulse Rate 99 Respiratory Rate 20 Blood Pressure 145/71 H Pulse Oximetry 96 Oxygen Delivery Oxygen Flow Rate Intake/Output Intake/Output: Intake & Output 09/08/23 09/09/23 09/10/23 09/11/23 23:59 23:59 23:59 23:59 Intake Total 100 3680.0 540 Output Total 500 1450 300 Balance -400 2230.0 240 Meds/Results Medications: Active Medications Generic Name Dose Route Start Last Admin Trade Name Freq PRN Reason Stop Dose Admin Albuterol/Ipratropium 3 ml 09/10/23 08:00 09/11/23 10:52 Ipratropium 0.5 Mg/Albuterol Sulfate 2.5 Mg Ampul.Neb 3 Ml INHALATION
--- NOTE | 2023-09-11 14:54 | PM.DS ---
DS: Admitting Diagnosis Discharge Date 09/11/23 Admitting Diagnosis (1) Chronic respiratory failure with hypoxia and hypercapnia: ?Code(s): J96.11 - Chronic respiratory failure with hypoxia; J96.12 - Chronic respiratory failure with hypercapnia ?Status:?Acute (2) Acute cholecystitis: ?Code(s): K81.0 - Acute cholecystitis ?Status:?Acute DS: Discharge Diagnosis Discharge Diagnosis (1) Chronic respiratory failure with hypoxia and hypercapnia: Code(s): J96.11 - Chronic respiratory failure with hypoxia; J96.12 - Chronic respiratory failure with hypercapnia Status: Acute (2) Acute cholecystitis: Code(s): K81.0 - Acute cholecystitis Status: Acute DS: Summary Hospital Course Hospital Course: per H&P, THIS IS A 48-YEAR-OLD MALE WITH PAST MEDICAL HISTORY SIGNIFICANT FOR CILIARY DYSKINESIA, BRONCHIAL TAKE A, CHRONIC HYPOXIC AND HYPERCAPNIC RESPIRATORY FAILURE ON SUPPLEMENTAL OXYGEN BY NASAL CANNULA 8 L, TRELEGY AT NIGHTTIME, TYPE DIABETES MELLITUS, PATIENT PRESENTS TO THE EMERGENCY ROOM DUE TO SUDDEN ONSET RIGHT UPPER QUADRANT PAIN WITH NAUSEA VOMITING PAIN WITH RADIATION AROUND TO THE BACK.? PATIENT HAS BEEN IN HIS USUAL STATE OF HEALTH UP UNTIL THIS TIME DENIES ANY FEVERS, RIGORS, CHILLS, FEVERS, DYSPEPSIA, WEIGHT LOSS.? PRELIMINARY WORKUP WAS SIGNIFICANT FOR RIGHT UPPER QUADRANT ULTRASOUND WITH CHOLELITHIASIS AND POSITIVE [facility] CALL SIGN.? PATIENT HAS BEEN ADMITTED FOR FURTHER EVALUATION MANAGEMENT AND TREATMENT. the following med issues have been addressed during hospitalization Acute cholecystitis and sepsis ?Code(s): K81.0 - Acute cholecystitis ?Status:?Acute ?Assessment and Plan: ? patient present ED with a chief complaint of right upper quadrant upon arrival to ED, patient had leukocytosis 11,900 left shift, tachycardia tachypnea, meeting criteria of sepsis abdomen ultrasound suggests acute cholecystitis gallstone patient received fluid resuscitation in the ED, continue normal saline IV 25 mL/hour patient received Zosyn IV Follow-up blood culture: no growth of bacteria ?general surgery consult blood pressure on the lower side initially, amlodipine p.o. was on hold. resume hypertension medication at discharge, blood pressure bumps up Appreciate general surgical consultation, general surgery recommends medical management and home, will discharge patient home today with oral Levaquin p.o. patient will see general surgeon in 2 weeks Chronic respiratory failure with hypoxia and hypercapnia ?Code(s): J96.11 - Chronic respiratory failure with hypoxia; J96.12 - Chronic respiratory failure with hypercapnia ?Status:?Acute ?Assessment and Plan: ?PATIENT USES TRELEGY AT NIGHTTIME ?ON 8 L BY NASAL CANNULA DURING THE DAYTIME patient will continue oxygen therapy and home Ciliary dyskinesia: ?Code(s): Q34.8 - Other specified congenital malformations of respiratory system ?Status:?Acute ?Assessment and Plan: ?ON SUPPLEMENTAL OXYGEN BY NASAL CANNULA (3) Bronchiectasis: ?Qualifiers: ?Bronchiectasis type:?with acute exacerbation? Qualified Code(s):?J47.1 - Bronchiectasis with (acute) exacerbation ?Code(s): J47.9 - Bronchiectasis, uncomplicated ?Status:?Acute ?Assessment and Plan: ?NO CHANGES IN A SPUTUM QUALITY (4) Nonischemic cardiomyopathy: ?Code(s): I42.8 - Other cardiomyopathies ?Status:?Acute (6) Type 2 diabetes mellitus with hyperglycemia, with long-term current use of insulin: ?Code(s): E11.65 - Type 2 diabetes mellitus with hyperglycemia; Z79.4 - residential (current) use of insulin ?Status:?Acute patient is on glargine 70 units q.h.s. Hold long-acting large in because of NPO, risk of hypoglycemia Started insulin sliding scale q.6 hour during p.o. will resume home medication on discharge (7) Time Spent with Patient Time attestation: Total time spen
== END 2023-09-11 15:36 | disposition home or self-care (01) ==
LOC: ANHED 14:04 → ANHIMU 17:14
PROVIDERS: Nurse Practitioner Family; Admitting Provider General Practice; Emergency Provider Emergency Medicine; PCP Family Medicine; Visit Provider Hospitalist
DX: A41.9 Sepsis, unspecified organism (principal); K80.00 Calculus of gallbladder with acute cholecystitis without obstruction; J96.11 Chronic respiratory failure with hypoxia; J96.12 Chronic respiratory failure with hypercapnia; Z99.81 Dependence on supplemental oxygen; Q34.8 Other specified congenital malformations of respiratory system; J47.1 Bronchiectasis with (acute) exacerbation; I42.8 Other cardiomyopathies; E11.65 Type 2 diabetes mellitus with hyperglycemia; K21.9 Gastro-esophageal reflux disease without esophagitis; G47.30 Sleep apnea, unspecified; I10 Essential (primary) hypertension; E78.5 Hyperlipidemia, unspecified; E66.9 Obesity, unspecified; Z68.39 Body mass index [BMI] 39.0-39.9, adult; F17.220 Nicotine dependence, chewing tobacco, uncomplicated; Z79.4 Long term (current) use of insulin; Z79.2 Long term (current) use of antibiotics; Z79.51 Long term (current) use of inhaled steroids; Z79.85 Long-term (current) use of injectable non-insulin antidiabetic drugs; Z79.899 Other long term (current) drug therapy
CPT/HCPCS: 36415; 71045; 76705; 80053; 81001; 82948; 83605; 83690; 85025; 85027; 94002; 94640; 96361; 96365; 96375; 96376; 99285; A9270; G0378; J1815; J2270; J2405; J2543; J7030

== ENCOUNTER 2023-10-15 11:00 | Outpatient (RCR) | payer BC, SELFPAY ==
[2023-08-20 11:10] VITALS: BMI 39.7
[2023-08-20 14:05] VITALS: BMI 39.7
[2023-10-15 11:06] VITALS: BMI 39.8
[2023-10-15 11:36] VITALS: BMI 39.8
== END 2023-11-05 14:04 | disposition home or self-care (01) ==
LOC: ANHDMC 11:00
PROVIDERS: PCP Family Medicine; Visit Provider Family Medicine
DX: E11.9 Type 2 diabetes mellitus without complications (principal); Z79.4 Long term (current) use of insulin; Z71.89 Other specified counseling; Z71.3 Dietary counseling and surveillance
CPT/HCPCS: 97802; 97803; G0108

== ENCOUNTER 2024-02-04 08:30 | Outpatient (RCR) | payer BC, SELFPAY ==
[2023-12-03 11:05] VITALS: BMI 41.2
[2024-02-04 08:35] VITALS: BMI 40.7
[2024-02-04 08:37] VITALS: BMI 40.7
== END 2024-02-24 10:08 | disposition home or self-care (01) ==
LOC: ANHDMC 08:30
PROVIDERS: PCP Family Medicine; Visit Provider Family Medicine
DX: E11.9 Type 2 diabetes mellitus without complications (principal); Z79.4 Long term (current) use of insulin; Z71.3 Dietary counseling and surveillance
CPT/HCPCS: 97803

== ENCOUNTER 2024-03-31 09:04 | Emergency (ER) | payer BC, SELFPAY ==
--- NOTE | ~2024-03-31 | XR_ITS ---
EXAMINATION: XR foot RT min 3V DATE: 03/31/2024 09:42 INDICATION: Right foot trauma TECHNIQUE: Dorsoplantar, two oblique and lateral views of the right foot were obtained. COMPARISON: None. FINDINGS: Alignment is normal. No fracture. 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 Minimal to mild polyarticular osteoarthritis at the first metatarsophalangeal and a few tarsometata rsal and interphalangeal joints. Soft tissues along the dorsum of the midfoot. IMPRESSION: 1. No acute osseous abnormality. Reviewed, dictated and finalized at location B. WORKER
[2024-03-31 09:18] VITALS: BP 142/62; PULSE 82; RESP 18; TEMP 36.6; O2SAT 100
--- NOTE | 2024-03-31 09:20 | ED_ITS ---
HPI - Extremity Injury (Lower) General Chief Complaint: Extremity Injury, Lower Stated Complaint: right foot injury Time Seen by Provider: 03/31/24 09:54 Source: patient, RN notes reviewed and old records reviewed Mode of arrival: ambulatory Limitations: no limitations History of Present Illness HPI Narrative: Patient presents with complaints of right foot pain after dropping an oxygen tank on it earlier this morning. He has not elevated or ice the affected foot, nor has he taken any medication for pain. He denies other injury and trauma. Voices no other concerns today. He is ambulating as normal Related Data Home Medications Medication Instructions Recorded Confirmed sodium chloride 0.65 % nasal spray 2 spray intranasal DAILY 10/14/22 03/31/24 aerosol (Nasal Kemah (sodium chloride)) famotidine 20 mg tablet 40 mg PO DAILY 09/09/23 03/31/24 ipratropium 0.5 mg-albuterol 3 mg 3 ml inhalation QID 09/09/23 03/31/24 (2.5 mg base)/3 mL nebulization soln Allergies Allergy/AdvReac Type Severity Reaction Status Date / Time povidone-iodine Allergy Unknown rash Verified 03/31/24 09:24 tetracycline Allergy Unknown Rash Verified 03/31/24 09:24 theophylline AdvReac Mild Nervousness Verified 03/31/24 09:24 Review of Systems Review of Systems: All systems reviewed & are unremarkable except as noted in HPI and below Constitutional: Constitutional: Reports no additional constitutional complaints ENT: Reports system reviewed and no additional complaints, except as documented Cardiovascular: Cardiovascular: Reports no additional cardiovascular complaints Respiratory: Respiratory: Reports no additional respiratory complaints Gastrointestinal: Gastrointestinal: Reports no additional gastrointestinal complaints Musculoskeletal: Musculoskeletal: Reports no additional musculoskeletal complaints and Reports as per HPI [facility] Past Medical History Medical History Abdominal wall hernia Burn of finger of left hand, second degree Chronic respiratory failure with hypoxia and hypercapnia Congenital solitary kidney Essential (primary) hypertension Gastroesophageal reflux disease Hyperlipidemia Insulin dependent type 2 diabetes mellitus Nonischemic cardiomyopathy per report, this is poorly documented in our system. Primary ciliary dyskinesia Pseudomonas infection Pulmonary emphysema Renal failure Sleep apnea in adult Surgical History Surgical History History of appendectomy History of knee surgery History of nasal surgery History of orthopedic surgery History of tonsillectomy and adenoidectomy Family History Family History Father Hypertension Grandparent Hypertension Cerebrovascular accident Family history of coronary artery disease Family history of malignant neoplasm of urinary bladder Diabetes mellitus Mother Cholecystectomy planned H/O: hysterectomy Sibling Thyroid cancer Diverticulitis Other Family history of malignant neoplasm of breast Social History Social History Social History: The patient lives with his and has 4 children. The patient is a lifelong nonsmoker. The patient is disabled. Surrogate medical decision maker: Sujey Cole, spouse. Code status: Full code. Smoking status: Never smoker Smokeless tobacco user: chewing tobacco Second hand tobacco smoke exposure: No Alcohol intake: never Substance use: never Substance use type: does not use Do You Feel Safe in your Home?: Yes Lack of Transportation: No Lack of Food: Never True Current Housing: I Have Housing Concerned About Future Housing: No Difficulty Paying Gas/Electric Bills: No Difficulty Paying for Meds: No Currently Unemployed: No Education: Associate Degree Difficulty w/ Childcare or Family Care: No Living arrangements: with family Additional living arrangements comments: The patient lives with his and children in [place]. Occupation/Education: unemployed Additional occupation/education comments: Disabled. Spiritual care concerns: No Comments At the time of my signature, I reviewed and agree with the nursing past medical, surgical, social, and family history. There is no relevant family history pertinent to the patient complaint. Exam Const: General: cooperative, no acute distress, alert and awake Cheikh entation/consciousness: oriented to person, oriented to place and oriented to time HENMT: Head: normal to inspection Resp: Effort & Inspection: normal respiratory effort and able to speak in complete sentences Auscultation: clear to auscultation bilaterally, no crackles, no rales, no rhonchi and no wheezes Cardio: Palpation: normal PMI Rate: regular rate Rhythm: regular rhythm Heart sounds: S1 normal heart sound present and S2 normal heart sound present Neuro: General: oriented to person, oriented to place and oriented to time Cranial nerves: Yes CN's II-XII intact bilaterally Extrem: Right lower extremity: full ROM and foot Details: normal capillary refill, tenderness Location: of the dorsal foot Location: medially and ecchymosis (dorsal foot); no edema Psych: Appearance: grossly normal Thought process: Normal thought process present Insight: Good insight present (Psych) Judgement: Good judgement present (Psych) Course Course Level of Care: Express Care Visit Vital Signs Vital signs: Vital Signs Temperature 97.8 F 03/31/24 09:18 Pulse Rate 82 03/31/24 09:18 Respiratory Rate 18 03/31/24 09:18 Blood Pressure 142/62 H 03/31/24 09:18 Pulse Oximetry 100 03/31/24 09:18 Oxygen Delivery Room Air 03/31/24 09:18 Temperature 97.8 F 03/31/24 09:18 Pulse Rate 82 03/31/24 09:18 Respiratory Rate 18 03/31/24 09:18 Blood Pressure 142/62 H 03/31/24 09:18 Pulse Oximetry 100 03/31/24 09:18 Oxygen Delivery Room Air 03/31/24 09:18 Reviewed MDM - Extremity Injury (Lower) MDM Narrative Medical decision making narrative: Patient with right foot injury just prior to arrival. No interventions prior to arrival. Normal x-ray. Supportive care measures discussed with patient. Follow-up primary care provider. Emergency department for new or worse symptoms. Discharge instructions reviewed with patient, as well as provided in writing per nursing staff. The instructions also include specific and strict return/GO TO THE ER as well as f/u information. All questions have been answered, and the patient deny any further questions with discharge and discharge plan. Some parts of this dictation were generated by voice recognition software and may contain typographical and/or grammatical inaccuracies. Differential Diagnosis Differential diagnosis: Likely other (Foot fracture, foot injury, contusion) Medical Records Attestation: I reviewed the patient's medical records. Imaging Data Attestation: I personally reviewed and interpreted this imaging study as follows: My impression: no acute findings Radiologist's impression: Patient: Braydon Cole : 1975 MR#: [id number] Age: 48 Acct:[id number] Loc: [facility] ADM Date: 03/31/24Attending Dr: Ordering Physician: Maria Isabel Pierre FNP Date of Service: 03/31/24 Procedure(s): XR foot RT min 3V Accession Number(s): [id number] cc: Maria Isabel Pierre FNP; El Breen MD~ EXAMINATION: XR foot RT min 3V DATE: 03/31/2024 09:42 INDICATION: Right foot trauma TECHNIQUE: Dorsoplantar, two oblique and lateral views of the right foot were obtained. COMPARISON: None. FINDINGS: Alignment is normal. No fracture. 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 Soft tissues along the dorsum of the midfoot. IMPRESSION: 1. No acute osseous abnormality. Reviewed, dictated and finalized at location B. S CLIPPER Dictated By: Al Mckeon MD 03/31/24 0944 Signed By: <Electronically signed by Al Mckeon MD in OV> 03/31/24 0948 Discharge Plan Discharge Clinical Impression: Acute foot pain Qualifiers: Laterality: right Qualified Code(s): M79.671 - Pain in right foot Patient Disposition: Home, Self-Care Condition: Stable Instructions: Antibiotic Form, P.R.I.C.E. Treatment (ED) Additional Instructions: Elevate the affected extremity when practical. Apply ice 20 minute out of every hour, do not place ice directly on your skin. Follow-up with primary care provider. Emergency department for new or worse symptoms Patient Language: Sinhala Prescriptions: No Action Nasal Kemah (sodium chloride) 0.65 % Aerosol,Kemah 2 spray INTRANASAL DAILY ipratropium-albuterol 0.5 mg-3 mg(2.5 mg base)/3 mL solution for nebulization 3 ml inhalation QID famotidine 20 mg tablet 40 mg PO DAILY (DME) Dexcom G6 Sensor Device See Rx Instructions .Route Qty: 9 2RF Rx Instructions: As directed (DME) Dexcom G6 Transmitter Device See Rx Instructions .Route Qty: 1 5RF Rx Instructions: As directed atorvastatin 20 mg tablet 20 mg PO DAILY Qty: 90 3RF modafinil [Provigil] 200 mg tablet 200 mg PO QAM Qty: 90 1RF amlodipine 5 mg tablet 5 mg PO DAILY Qty: 90 1RF montelukast [Singulair] 10 mg tablet 10 mg PO DAILY Qty: 90 1RF furosemide 40 mg tablet 40 mg PO QAM Qty: 90 0RF azithromycin 500 mg tablet See Rx Instructions .ROUTE .COMPLEX Qty: 30 3RF Dose Instruction: Take 1 tablet by mouth once daily Rx Instructions: Take 1 tablet by mouth once daily Ozempic 2 mg/dose (8 mg/3 mL) pen injector 2 mg subcut WEEKLY Qty: 3 3RF Rx Instructions: Take on fridays insulin glargine-yfgn [Semglee(insulin glarg-yfgn)Pen] 100 unit/mL (3 mL) insulin pen 70 unit subcut HS Qty: 15 0RF insulin aspart U-100 100 unit/mL (3 mL) insulin pen See Rx Instructions .ROUTE .COMPLEX Qty: 15 0RF Rx Instructions: 18units breakfast, 18units lunch, 20units dinner add more for high sugar before meals see sliding scale below: 151-200: add 2 units 201-250:add 3 units 251-300:add 4 units 301-350:add 5 units 351-400:add 6 units >401:add 7 units Max 77 units daily (DME) pen needle, diabetic [BD Ultra-Fine Micro Pen Needle] 32 gauge x 1/4 needle See Rx Instructions .Route Qty: 100 0RF Rx Instructions: As directed for insulin pen up to qid Follow-up/Referrals: El Breen MD [Primary Care Provider] - 2 Weeks Time of Disposition: 10:04
== END 2024-03-31 10:09 | disposition home or self-care (01) ==
PROVIDERS: Emergency Provider Nurse Practitioner Family; PCP Family Medicine
DX: M79.671 Pain in right foot (principal); I10 Essential (primary) hypertension; K21.9 Gastro-esophageal reflux disease without esophagitis; E78.5 Hyperlipidemia, unspecified; E11.9 Type 2 diabetes mellitus without complications; Q60.0 Renal agenesis, unilateral
CPT/HCPCS: 73630; 99213; G0463

== ENCOUNTER 2025-03-05 16:44 | Inpatient (IN) | payer BC, MEDICARE, SELFPAY ==
[2025-03-05] VITALS (34 sets, daily range): BP systolic 91–150; BP diastolic 57–105; PULSE 91–114; RESP 15–25; TEMP 36.6; O2SAT 93–100
--- NOTE | ~2025-03-05 | XR_ITS ---
EXAMINATION: XR chest 2V, 03/05/2025 17:50 CDT HISTORY: sob COMPARISON: No comparisons available. Technique: 2 views obtained. Findings: COPD changes. Small basilar infiltrates. No pneumothorax. Heart is normal size. Mediastinal and hilar contours are within normal limits. Bony thorax no acute abnormality. Impression: Early basilar pneumonia Reviewed, dictated and finalized at location P. Impression: Early basilar pneumonia
--- OUTSIDE RECORDS SUMMARY | 2025-03-05 16:46 | XMS_ITS | Encounter Summary ---
Author Organization [facility] Healthcare Address [address] [place] [address] Care Team Providers Care Travel Pta Name Role Phone El Breen MD Primary Care Provider + [phone] Marcia Pruett RN Unavailable Unavailabl e Encounter Details Date Type Department Care Team (Late st Contact Info) Description 02/21/2023 Documentation [facility] [address] [place] [address] Liseth Nguyen RN Social History Tobacco Use Types Packs/Day Years Used Date Smoking Tobacco: Former Smokeless Tobacco: Former Quit: 10/15/2018 Comments:social smoking OASIS D0700: Social Isolation Answer Da te Recorded Frequency of experiencing loneliness or isolatio n Never 06/28/2022 OASIS A1250: Transportation Answer Date Recorded Lack of Transportation (Medical) Not on file 06/28/2022 Lack of Transportation (Non-Medical) Not on file 06/28/2022 Patient Unable or Declines to Respond Yes 06/28/2022 OASIS B1300: Health Literacy Answer Fidencio e Recorded Frequency of needing help to read materials from doctor or pharmacy Patient unable to respond 06/28/2022 Social Connection and Isolation Panel Answer Date Recorded In a typical week, how many times do you talk on the phone with family, friends, or neighbors? More than three times a week 06/18/2022 How often do you get togethe r with friends or relatives? More than three times a week 06/18/2022 How often do you attend [facility] or zoroastrianism services? More than 4 times per year 06/18/2022 Do you belong to any clubs o r organizations such as jewish groups, unions, fraternal or athletic groups, or school groups? No 06/18/2022 How often do you attend meet ings of the clubs or organizations you belong to? Never 06/18/2022 Are you , , di vorced, , never , or living with a partner? 06/18/2022 AUDIT-C Answer Date Recorded Q1: How often do you have a drink containing alcohol? Never 03/29/2022 Q2: How many drinks containi ng alcohol do you have on a typical day when you are drinking? Patient does not drink Q3: How often do you have si x or more drinks on one occasion? Never 03/29/2022 Overall Financial Resource Strain (CARDIA) Answe r Date Recorded How hard is it for you to pa y for the very basics like food, housing, medical care, and heating? Not hard at all 06/18/2022 PHQ-2 Answer Date Recorded PHQ-2 Total Score 0 06/13/2022 Hunger Vital Sign Answer Date Recorded Within the past 12 months, y ou worried that your food would run out before you got the money to buy more. Never true 06/18/19 23 Within the past 12 months, t he food you bought just didn't last and you didn't have money to get more. Never true 06/18/2022 PRAPARE - Transportation Answer Date Re corded In the past 12 months, has l ack of transportation kept you from medical appointments or from getting medications? No 05/22 In the past 12 months, has l ack of transportation kept you from meetings, work, or from getting things needed for daily living? No 06/18/2022 Housing Stability Vital Sign Answer Fidencio e Recorded In the last 12 months, was t here a time when you were not able to pay the mortgage or rent on time? No 06/18/2022 In the last 12 months, how many places have you lived? 1 06/18/2022 In the last 12 months, was t here a time when you did not have a steady place to sleep or slept in a fci (including now)? No 06/18/2022 Personal Safety Answer Date Recorded Have you ever been in or are you currently in a harmful physical or emotional relationship or is someone making you feel afraid or unsafe? Denies 02/18/2023 Sex and Gender Information Value Date Recorded Sex Assigned at Not on file Legal Sex Male 10:27 PM SKIMMER REVERBERATORY Gender Identity Not on file Sexual Orientation Not on file documented as of this encounter Plan of Treatment Not on file documented as of this encounter Visit Diagnoses Not on filedocumented in this encounter Care Teams Travel Pta Relationship Specialty Start Date End Date El Breen MD PCP - General 10/02/16 Marcia Pruett, RN Registered Nurse Pulmonary Disease 07/04/22 documented as of this encounter
--- OUTSIDE RECORDS SUMMARY | 2025-03-05 16:46 | XMS_ITS | Encounter Summary ---
Author Organization [facility] [employer] [facility] Address [address] [place] [address] Phone Care Team Providers Care Mold Mechanic Name Role Phone El Breen MD Primary Care Provider + [phone] [place] SLOT MANAGER Unavailable [phone] Che Benavides RN Unavailable [phone] Marcia Pruett RN Unavailable Unavailabl e Encounter Details Date Type Department Care Team (Latest Contact Info) Description 03/20/2017 Orders Only [facility] CONVERSION Scanning, Provider Social History Tobacco Use Types Packs/Day Years Used Date Smoking Tobacco: Never Assessed Sex and Gender Information Value Date Recorded Sex Assigned at Not on file Legal Sex Male 10:27 PM HEALTH CARE MARKETING MANAGER Gender Identity Not on file Sexual Orientation Not on file documented as of this encounter Plan of Treatment Not on file documented as of this encounter Procedures Procedure Name Priority Date/Time Associated Diagnosis Comments PULMONARY FUNCTION TEST (PFT) 03/20/2017 8:39 AM CDT documented in this encounter Results * PULMONARY FUNCTION TEST (PFT) (03/20/2017 8:39 AM CDT) Anatomical Region Laterality Modality PFT us Provider Scanning PFT ORDERABLES Final Result documented in this encounter Visit Diagnoses Not on filedocumented in this encounter Additional Health Concerns Infection Onset Date Last Indicated Resolved Time COVID: Suspected 08/09/2021 08/09/2021 08/09/2021 2:42 PM CDT COVID: Suspected 08/17/2021 08/17/2021 08/17/2021 2:53 PM CDT COVID: Suspected 09/29/2021 09/29/2021 09/29/2021 1:48 PM CDT COVID: Suspected 03/29/2022 03/29/2022 03/29/2022 7:04 AM HEALTH CARE MARKETING MANAGER COVID: Suspected 02/18/2023 02/18/2023 02/18/2023 12:34 PM CDT documented as of this encounter Care Teams Mold Mechanic Relationship Specialty Start Date End Date El Breen MD PCP - General 10/02/16 [place]i [place], SLOT MANAGER [address] [facility] ([facility] Mailstop [id number] [place] [address] [facility] Outpatient Cage Cashier 04/13/22 05/07/22 Che Benavides, RN [address] [facility] [address] [place] [address] [facility] Outpatient Cage Cashier 06/18/22 07/15/22 Marcia Pruett, RN Registered Nurse Pulmonary Disease 07/04/22 documented as of this encounter
--- OUTSIDE RECORDS SUMMARY | 2025-03-05 16:46 | XMS_ITS | Encounter Summary ---
Author Organization [facility] [employer] [facility] Address [address] [place] [address] Phone Care Team Providers Care Greaser Operator Name Role Phone El Breen MD Primary Care Provider + [phone] Marcia Pruett RN Unavailable Unavailabl e Encounter Details Date Type Department Care Team (Latest Contact Info) Description 09/09/2023 Orders Only [facility] Scanning, Provider Social History Tobacco Use Types [...] week 06/18/2022 How often do you attend chur or gnosticism services? More than 4 times per year 06/18/2022 Do you belong to any clubs o r organizations such as adventist groups, unions, fraternal or athletic groups, or [...] place to sleep or slept in a group home (including now)? No 06/18/2022 Personal Safety Answer Date Recorded Have you ever been in or are you currently in a harmful physical or emotional relationship or is someone making you feel afraid or unsafe? Denies 02/18/2023 Sex and Gender Information Value Date Recorded Sex Assigned at Not on file Legal Sex Male 10:27 PM MANAGEMENT SCIENTIST Gender Identity Not on file Sexual Orientation Not on file documented as of this encounter Plan of Treatment Not on file documented as of this encounter Procedures Procedure Name Priority Date/Time Associated Diagnosis Comments SCAN - RADIOLOGY/IMAGING 09/09/2023 SCAN - LABS 09/09/2023 documented in this encounter Results * SCAN - LABS (09/09/2023) us Provider Scanning Final Result * SCAN - RADIOLOGY/IMAGING (09/09/2023) Anatomical Region Laterality Modality Other us Provider Scanning Edited Result - Final documented in this encounter Visit Diagnoses Not on filedocumented in this encounter Care Teams Greaser Operator Relationship Specialty Start Date End Date El Breen MD PCP - General 10/02/16 Marcia Pruett RN Registered Nurse Pulmonary Disease 07/04/22 documented as of this encounter
--- OUTSIDE RECORDS SUMMARY | 2025-03-05 16:46 | XMS_ITS | Encounter Summary ---
Author Organization [facility] [employer] [facility] Address [address] [place] [address] Phone Care Team Providers Care Malt Roaster Name Role Phone El Breen MD Primary Care Provider + [phone] [place] [employer] FOR[employer] OFFICER Unavailable [phone] Che Benavides RN Unavailable [phone] Marcia Pruett RN Unavailable Unavailabl e Encounter Details Date Type Department Care Team (Late st Contact Info) Description 08/21/2021 Ophth Exam [facility] Medicine Ophthalmology [address] [place] [address] 1st [place] [id number] Neelam Bray MD PhD [address] [address] Social History Tobacco Use Types Packs/Day Years Used Date Smoking Tobacco: Never Smokeless Tobacco: Former Quit: 10/15/2018 Comments:social smoking Social Connection and Isolation Panel Answer Date Recorded In a typical week, how many times do you talk on the phone with family, friends, or neighbors? Three times a week 08/18/2021 How often do you get togethe r with friends or relatives? Twice a week 08/18/2021 How often do you attend chur ch or anabaptism services? Never 08/18/2021 Do you belong to any clubs o r organizations such as muslim groups, unions, fraternal or athletic groups, or school groups? No 08/18/2021 How often do you attend meet ings of the clubs or organizations you belong to? Never 08/18/2021 Are you , , di vorced, , never , or living with a partner? 08/18/2021 AUDIT-C Answer Date Recorded Q1: How often do you have a drink containing alc ohol? Never 08/17/2021 Average Number of Drinks Not on file 022 Q3: How often do you have si x or more drinks on one occasion? Never 08/17/2021 Overall Financial Resource Strain (CARDIA) Answe r Date Recorded How hard is it for you to pa y for the very basics like food, housing, medical care, and heating? Not very hard 08/18/2021 PHQ-2 Answer Date Recorded PHQ-2 Total Score (If total score is 3 or more points, staff should administer the PHQ-9) 0 08/18/2021 Hunger Vital Sign Answer Date Recorded Within the past 12 months, y ou worried that your food would run out before you got the money to buy more. Never true 08/19/19 22 Within the past 12 months, t he food you bought just didn't last and you didn't have money to get more. Never true 08/18/2021 PRAPARE - Transportation Answer Date Re corded In the past 12 months, has l ack of transportation kept you from medical appointments or from getting medications? No 05/2021 In the past 12 months, has l ack of transportation kept you from meetings, work, or from getting things needed for daily living? No 08/18/2021 Housing Stability Vital Sign Answer Fidencio e Recorded In the last 12 months, was t here a time when you were not able to pay the mortgage or rent on time? No 08/18/2021 In the last 12 months, how many places have you lived? 1 08/18/2021 In the last 12 months, was t here a time when you did not have a steady place to sleep or slept in a fci (including now)? No 08/18/2021 Sex and Gender Information Value Date Recorded Sex Assigned at Not on file Legal Sex Male 10:27 PM [employer] Gender Identity Not on file Sexual Orientation Not on file documented as of this encounter Plan of Treatment Not on file documented as of this encounter Visit Diagnoses Not on filedocumented in this encounter Additional Health Concerns Infection Onset Date Last Indicated Resolved Time COVID: Suspected 09/29/2021 09/29/2021 09/29/2021 1:48 PM CDT COVID: Suspected 03/29/2022 03/29/2022 03/29/2022 7:04 AM [employer] COVID: Suspected 02/18/2023 02/18/2023 02/18/2023 12:34 PM CDT documented as of this encounter Eye Exam Visual Acuity Right eye Left eye Near cc 20/100-1 ph 20/25+! 20/100-1 ph 20/25-2 Tonometry (Tonopen, 9:58 AM) Right eye Left eye Pressure 19 13 Pupils Dark Light Shape React APD Right eye 4 2.5 Round Brisk None Left eye 4 2.5 Round Brisk None Visual Perez Right eye Left eye Full Full Extraocular Movement Right eye Left eye Full Full External Exam Right eye Left eye External Normal Normal Slit Lamp Exam Right eye Left eye Lids/Lashes Normal Normal Conjunctiva/Sclera White and quiet White and rosa et Cornea Clear Clear Anterior Chamber Deep and quiet Deep and quiet Iris Round and reactive Round and cher ctive Lens Clear Clear Vitreous Normal Normal Fundus Exam Right eye Left eye Disc Normal, no edema, no pallor Norm al, no edema, no pallor Macula Normal, flat Normal, flat Vessels Normal, no hemorrhage Normal, no hemorrhage Periphery Normal Normal Care Teams Malt Roaster Relationship Specialty Start Date End Date El Breen MD PCP - General 10/02/16 [place], [employer] OFFICER [address] [facility] ([facility]) Mailstop [phone] [place] [address] [facility] Director 04/13/22 05/07/22 Che Benavides, RN [address] [facility] [address] [place] [address] [facility] Director 06/18/22 07/15/22 Pruett, Marcia A., RN Registered Nurse Pulmonary Disease 07/04/22 documented as of this encounter
--- OUTSIDE RECORDS SUMMARY | 2025-03-05 16:46 | XMS_ITS | Encounter Summary ---
Author Organization [facility] [employer] [facility] Address [address] [place] [address] Phone Care Team Providers Care Feed Project Engineer Name Role Phone El Breen MD Primary Care Provider + [phone] [place] CLIENT SERVICES ADMINISTRATOR Unavailable [phone] Che Benavides RN Unavailable [phone] Marcia Pruett RN Unavailable Unavailabl e Encounter Details Date Type Department Care Team (Latest Contact Info) Description 01/15/2019 Orders Only [facility] Scanning, Provider Social History Tobacco Use Types Packs/Day Years Used Date Smoking Tobacco: Former Smokeless Tobacco: Former Quit: 10/15/2018 Comments:tabacco chew Sex and Gender Information Value Date Recorded Sex Assigned at Not on file Legal Sex Male 10:27 PM [employer] Gender Identity Not on file Sexual Orientation Not on file documented as of this encounter Plan of Treatment Not on file documented as of this encounter Procedures Procedure Name Priority Date/Time Associated Diagnosis Comments PULMONARY - RESULT SCAN 01/15/2019 documented in this encounter Results * PULMONARY - RESULT SCAN (01/15/2019) Anatomical Region Laterality Modality Other us Provider Scanning Final Result documented in this encounter Visit Diagnoses Not on filedocumented in this encounter Additional Health Concerns Infection Onset Date Last Indicated Resolved Time COVID: Suspected 08/09/2021 08/09/2021 08/09/2021 2:42 PM CDT COVID: Suspected 08/17/2021 08/17/2021 08/17/2021 2:53 PM CDT COVID: Suspected 09/29/2021 09/29/2021 09/29/2021 1:48 PM CDT COVID: Suspected 03/29/2022 03/29/2022 03/29/2022 7: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 COVID: Suspected 02/18/2023 02/18/2023 02/18/2023 12:34 PM CDT documented as of this encounter Care Teams Feed Project Engineer Relationship Specialty Start Date End Date El Breen MD PCP - General 10/02/16 [place], [facility] [address] [facility] ([facility]) Mailstop [phone] [place] [address] [facility] [employer] Engineer 04/13/22 05/07/22 Che Benavides, RN [address] [facility] [address] [place] [id number] [facility] [employer] Engineer 06/18/22 07/15/22 Marcia Pruett, RN Registered Nurse Pulmonary Disease 07/04/22 documented as of this encounter
--- OUTSIDE RECORDS SUMMARY | 2025-03-05 16:46 | XMS_ITS | Clinical Summary ---
Author Organization [facility] Healthcare Address [address] [place] [address] Care Team Providers Care Knowledge Management Advisor Name Role Phone lE Breen MD Primary Care Provider + [phone] Marcia Pruett RN Unavailable Unavailabl e Allergies Active Allergy Reactions Criticality Noted Date Comments Povidone-Iodine Unknown 10/06/2018 Tecvwlot-Qrkpsh-Qewzz Alcohol Rash Medium 04/21/2007 Soap Other (See comments) Low 02/02/2011 Dial and Tide Tetracyclines Rash Medium 04/21/2007 Calvin-Dur Other (See comments) Low 04/21/2007 Theophylline Anxiety Low 10/06/2018 Gets nervous per OSH records Medications montelukast (SINGULAIR) 10 mg tablet Take 1 tablet (10 mg total) by mouth daily 09/09/19 19 Active modafinil (PROVIGIL) 200 mg tablet Take 1 tablet (200 mg total) by mouth daily 0 09/21/19 19 Active Dexcom G6 Sensor device U UTD 03/21/20 20 Active Dexcom G6 Transmitter device U UTD 03/21/20 20 Active ipratropium-alb uteroL (DUO-NEB) 0.5-2.5 mg/3 mL nebulizer solution 05/23/19 21 Active TRUEplus Pen Needle 32 gauge x 32 needle 04/21/20 20 Active famotidine (PEPCID) 40 mg tablet 0.5 tablets (20 mg total) 10/19/19 21 Active atorvastatin (LIPITOR) 20 mg tablet Take 1 tablet (20 mg total) by mouth daily 30 tablet 08/15/19 22 Active insulin lispro (HumaLOG, ADMELOG) 100 unit/mL vial for injectionIndica tions:Diabetes Mellitus Inject 18 Units under the skin 3 (three) times a day with meals 16.2 mL 08/15/19 22 Active sodium chloride 7 % solution for nebulization Take 1.5 mL by nebulization 2 (two) times a day 90 mL 06/15/19 23 Active Ozempic 2 mg/dose (8 mg/3 mL) pen injector injection 04/03/20 22 Active fluticasone propionate (FLONASE) 50 mcg/actuation nasal spray Administer 1 spray into each nostril 2 (two) times a day Active amLODIPine (NORVASC) 5 mg tablet 08/23/19 23 Active insulin glargine 100 unit/mL vial for injection Inject 70 Units under the skin nightly Active azithromycin (ZITHROMAX) 500 mg tablet Take 1 tablet (500 mg total) by mouth 3 (three) times a week 12 tablet 5 08/09/19 24 Active insulin aspart (NovoLOG) 100 unit/mL (3 mL) pen for injection 08/07/19 24 Active SEMGLEE-yfgn 100 unit/mL (3 mL) pen for injection 07/22/19 25 Active lisinopriL (PRINIVIL,ZESTR IL) 5 mg tablet Take 1 tablet (5 mg total) by mouth daily 06/22/19 25 Active furosemide (LASIX) 40 mg tablet 07/23/19 25 Active triamcinolone (NASACORT) 55 mcg nasal inhaler Administer 2 sprays into each nostril daily 16.9 mL 5 11/24/19 21 2021 Discontinued Active Problems Problem Noted Date Diagnosed Date Acute hypercapnic respiratory failure 02/18/2023 Acute on chronic respiratory failure with hyperc apnia 06/12/2022 Assessment & Plan (06/16/2022 11:08 AM INGOT BUGGY OPERATOR): 2/2 cilia dyskinesis (bronchiectasis) acute exacerbation, Back on nocturnal AVAPS & daytime O2. In discussion with pulmonary, 2 week IV course - set up all home health for discharge tomorrow with end date on 06/26/2022 - cefepime 2g q8hr - instructions provided for use, instructions provided for picc and warning signs Assessment & Plan (06/14/2022 11:04 AM INGOT BUGGY OPERATOR): Presented to OSH with worsening SOB. Vbg 7.17/147. ISO primary ciliary dyskinesia, MONICA on home AVAPS, bronchiectasis. F/w Dr. Rodriguez. On 8L NC at home. COVID/FluAB/RSV negative at OSH. Hx frequent admissions for acute on chronic worsening of symptoms and worsening hypercapnia, last d/c 04/11/22. Grew S pneumo in August 08 sputum and P aeruginosa Feb 2021 sputum cx -On baseline 8L HFNC. Nocturnal AVAPs, Vt600, EPAP10, Min/max 18/25, 50% -vbg 7.32/85 yesterday PM off AVAps all day. -Abx: cefe (06/12-), plan for 2 weeks. Stop vanc (06/12-06/13), change azithro back to home MWF dose -RVP, trop, bnp unrevealing -send sputum for CF cx as able, though patient not producing sputum -restart QID duonebs with 7% HS nebs, CPT TID, PEP q6 SABRINA (acute kidney injury) 04/04/2022 Assessment & Plan (06/15/2022 3:56 PM INGOT BUGGY OPERATOR): Possible SABRINA on CRF2 with hyperkalemia. Initial Cr 1.53 (b/l 1.7-2), K 5.5 and tx lokelma TID. hyperk resolved, stop lokelma Assessment & Plan (06/14/2022 11:04 AM INGOT BUGGY OPERATOR): Cr 1.53 on admission w/ b/l ~1-1.2. -renally dose medications, avoid nephrotoxins -Improving, Cr 1.38 -ctm Assessment & Plan (04/08/2022 1:48 PM INGOT BUGGY OPERATOR): Cr 1.96 on admission w/ b/l ~1.2. Given worsening lung disease, could be congestion from worsening RV function. - Cr slowly improving/stable -hold losartan and metolazone -hold PO lasix as elsewhere, daily BMP and spot as needed DM2 (diabetes mellitus, type 2) 04/04/2022 Assessment & Plan (06/16/2022 11:08 AM INGOT BUGGY OPERATOR): A1c 6.5 on 03/29/2022. Has Omnipod at home and was told to stop glargine. Omnipod settings are aspart with meals (self sensing) and no long acting. - a1c 7.7 here - s/p insulin gtt for hyperglycemia - discussed restarting home dosages and contacting interface developer for additional changes Assessment & Plan (06/14/2022 11:05 AM INGOT BUGGY OPERATOR): A1c 6.5 on 03/29/2022. On Lantus 64u qhs and Lispro 18U TID AC, Ozempic at home. Initial BG 439, s/p insulin gtt -continue home regimen -consistent carb diet Assessment & Plan (04/08/2022 1:47 PM INGOT BUGGY OPERATOR): A1c 9.2 09/28/2021 -Lantus 64u qhs and Lispro 18U TID AC, Ozempic at home - endo following - insulin management per endo - ozempic (pt supplied) ordered HLD (hyperlipidemia) 04/04/2022 Assessment & Plan (04/04/2022 6:23 PM INGOT BUGGY OPERATOR): - Atorvastatin 20mg daily Respiratory failure 03/29/2022 Assessment & Plan (04/10/2022 11:36 AM INGOT BUGGY OPERATOR): - baseline 6-10L at baseline. Needed 15L NRB on presentation. H/o frequent admissions for acute on chronic worsening of symptoms and worsening hypercapnia. Likely exacerbation of known primary ciliary dyskinesia and bronchiectasis w/ severe obstructive lung disease. Echo with bubble was inconclusive. - AVAPS at FiO2 60%, RR12, TV500, PEEP10, 15-20 min-max with home - s/p vanc (03/28-03/30)/Azithro (03/28-03/30) - continue Cefe (03/28-). Plan for 14d course (04-10). - Repeat ABG on 04/10 reviewed by Pulm and they recommended to DC on home AVAPS setting. Obesity 12/07/2021 Hypercapnic respiratory failure 09/28/2021 Transient alteration of awareness 08/17/2021 Pneumonia of right lower lobe due to infectious organism 08/09/2021 Assessment & Plan (08/15/2021 8:29 AM CDT): Exacerbation of bronchiectasis likely in the setting of PNA. Micro with strep pneumo and moraxella. Has grown pseudomonas in the past. Would benefit from 14 days abx, pseudomonal coverage added. - Cefepime 2g q8, plan to complete 14 days IV abx. This can be done at home. () - Continue airway clearance, flutter valve, IS, chest PT while in the hospital Assessment & Plan (08/14/2021 10:04 AM CDT): Exacerbation of bronchiectasis likely in the setting of PNA. Micro with strep pneumo and moraxella. Has grown pseudomonas in the past. Would benefit from 14 days abx, pseudomonal coverage added. - Cefepime 2g q8, plan to complete 14 days IV abx. This can be done at home. () - Continue airway clearance, flutter valve, IS, chest PT while in the hospital Assessment & Plan (08/13/2021 10:40 AM CDT): Exacerbation of bronchiectasis likely in the setting of PNA. Micro with strep pneumo and moraxella. Has grown pseudomonas in the past. Would benefit from 14 days abx, pseudomonal coverage added. - Cefepime 2g q8, plan to complete 14 days IV abx. This can be done at home. () - Continue airway clearance, flutter valve, IS, chest PT while in the hospital Assessment & Plan (08/12/2021 10:08 AM CDT): Exacerbation of bronchiectasis likely in the setting of PNA. Micro with strep pneumo and moraxella. Has grown pseudomonas in the past. Would benefit from 14 days abx, pseudomonal coverage added. - Cefepime 2g q8, plan to complete 14 days IV abx. This can be done at home. 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 Cr 1.33 on admission, now improved - Holding ARB given hypotension on admission and normotensive pressures thereafter Assessment & Plan (10/13/2018 1:52 PM CDT): Congenital though only diagnosed a few years prior. Unknown baseline Cr but Cr 1.30 on admission to OSH, 1.33 on admission here, now improved to Cr 1.0. - Admission UA with 3+ prot, granular and hyaline casts - Holding ARB given hypotension - CTM with daily BMP Primary ciliary dyskinesia 10/06/2018 Assessment & Plan (10/19/2018 11:29 AM CDT): -complicated by bronchiectasis and chronic hypoxemia, typically 85-88% at home on 3-4L plus qhs BiPAP. F/b Dr. Mckee in pulm clinic, evaluated by lung tx team but pending chewing tobacco cessation. Barriers to transplant include obesity, tobacco use, nonadherence to BiPAP. -UDS negative (for transplant eval) -Chest PhysioTherapy qid w/ vest -S/P 1x azithro (10/06) Assessment & Plan (10/17/2018 11:53 AM CDT): Complicated by bronchiectasis and chronic hypoxemia, typically 85-88% at home on 3-4L plus qhs BiPAP. Patient has children, no history of situs inversus. F/w Dr. Mckee in pulm clinic, evaluated by lung tx team but pending chewing tobacco cessation. Barriers to transplant include obesity, tobacco use, nonadherence to BiPAP. - UDS negative (for transplant eval) - Chest PhysioTherapy qid w/ vest - S/P 1x azithro (10/06) - a/w better outcomes in PCD - Holding dornase alpha - a/w worse outcomes in PCD - Holding lung tx c/s - currently not a candidate given BiPAP nonadherence, tobacco use, borderline obesity (BMI 34) GERD (gastroesophageal reflux disease) 9 Assessment & Plan (06/12/2022 3:34 PM INGOT BUGGY OPERATOR): Continue home famotidine Assessment & Plan (04/04/2022 6:22 PM INGOT BUGGY OPERATOR): - Famotidine 40mg daily Assessment & Plan (10/19/2018 11:29 AM CDT): - Continue PO nexium PPI qd Assessment & Plan (10/12/2018 7:24 AM CDT): Possible history of pill esophagitis (cannot take PO levaquin, on liquid formulation) c/b stricture s/p EGD dilation. - Continue PO nexium PPI qd Pulmonary hypertension 10/06/2018 Assessment & Plan (10/19/2018 11:30 AM CDT): -Last RHC 03/2017: RV 65/22, RPAP 64/42, WP 23, PVR 3.66 Garcia units. Earlier TTE (04/2015) PAP 80, mild TR, diastolic dysfxn, EF 68% + small PFO (not identified on RHC). -Repeat TTE with PASP of 70, dilated IVC Assessment & Plan (10/12/2018 12:24 PM CDT): From 03/2017 RHC: RV 65/22, RPAP 64/42, WP 23, PVR 3.66 Garcia units. Earlier TTE (04/2015) PAP 80, mild TR, diastolic dysfxn, EF 68% + small PFO (not identified on RHC). - Admission EKG w/o evidence of new RH strain - Repeat TTE with PASP of 70, dilated IVC Chronic obstructive pulmonary disease (CMS/HCC) 10/06/2018 Assessment & Plan (08/15/2021 8:28 AM CDT): Continue nocturnal BiPAP Assessment & Plan (08/14/2021 10:07 AM CDT): Continue nocturnal BiPAP Assessment & Plan (08/13/2021 10:40 AM CDT): Continue nocturnal BiPAP Assessment & Plan (10/19/2018 11:33 AM CDT): Assessment & Plan (10/17/2018 11:53 AM CDT): Very severe by 03/2017 PFTs w/ FVC 47%, FEV1 17%, FEV1/FVC ratio 29%. Very remote smoking hx but continued chewing tobacco use. Recently d/c'd from Symbicort. - Tx as above for acute RF, ctn montelukast 10 qd - c/w Albuterol 16 puffs q4 + Ipratropium 8 puffs q4 --> decreased to albuterol 8 puffs/ ipratropium 4 puffs - Methylprednisone 80 mg q8 (10/07-10/08), 80 mg qd (10/09-10/10), 60 mg (10/11-), decrease to 40 mg (10/16-) -- Decrease by 10 mg q3d HTN (hypertension) 10/06/2018 Assessment & Plan (06/16/2022 11:08 AM INGOT BUGGY OPERATOR): Can restart losartan 25mg at the originally prescribed dose Assessment & Plan (06/12/2022 4:33 PM INGOT BUGGY OPERATOR): Metolazone 5mg daily, Losartan 50mg daily held during prior admission. On lasix 20 mg daily -hold lasix for now -ctm Assessment & Plan (04/07/2022 8:20 AM INGOT BUGGY OPERATOR): - holding Metolazone 5mg daily and Losartan 50mg daily - BP relatively well controlled while here, likely due to improved diet. Assessment & Plan (10/19/2018 11:37 AM CDT): -Hypotensive on arrival. On norvasc 5 and losartan 50 at home -continue to hold home antihypertensives as he remains normotensive Assessment & Plan (10/12/2018 12:24 PM CDT): Hypotensive on arrival. - Holding home norvasc 5, losartan 50 for hoTN Chronic respiratory failure with hypoxia and hypercapnia (CMS/HCC) 10/06/2018 Assessment & Plan (06/15/2022 6:15 PM INGOT BUGGY OPERATOR): Now returned to home oxygen requirement as well as home AVAPS settings with naps and QHS. Given multiple admissions for this issue, discussed recommendation to add AVAPS for 2-3hrs each day for lung rest. Otherwise continue as below. --Continue AVAPS with 2-3hrs during the day, with naps and QHS (settings: VT 600, EPAP10, Min/max 18/25, 50%) --Continue 8L nasal cannula --Will need oxygen assessment prior to discharge Assessment & Plan (04/08/2022 3:04 PM INGOT BUGGY OPERATOR): Now returned to home oxygen requirement, though persistent hypercapnia despite use of nocturnal AVAPs at home settings. CM contacted DME to make adjustment but none of their staff has visited inpt. --Increase RR to 18 from 12 for AVAPS settings of: min-max PS 15-20, Vt 500, PEEP 10, RR 15, FiO2 60% (RT to discuss increase in rate with patient's device company). OK to keep on home settings until then. Assessment & Plan (04/07/2022 4:51 PM INGOT BUGGY OPERATOR): Now returned to home oxygen requirement, though persistent hypercapnia despite use of nocturnal AVAPs at home settings. Recommend increasing rate to 18 given he is overbreathing at this rate. CM apparently contact his DME to have someone make adjustment in the hospital. --Increase RR to 18 from 12 for AVAPS settings of: min-max PS 15-20, Vt 500, PEEP 10, RR 15, FiO2 60% (RT to discuss increase in rate with patient's device company). OK to keep on home settings until then. Assessment & Plan (08/20/2021 10:29 PM CDT): Secondary to severe obstructive lung disease, bronchiectasis, MONICA. No sleep study in system, but home BiPAP settings 04/04. Baseline PCO2 appears to be in the 60- 70's range. Trial BiPAP 06/04 tonight ABG in AM May benefit from outpatient sleep study to optimize BiPAP settings Assessment & Plan (08/15/2021 8:28 AM CDT): Continue oxygen and nocturnal BiPAP Walking oxygen assessment prior to discharge Assessment & Plan (08/14/2021 10:04 AM CDT): Continue oxygen and nocturnal BiPAP Walking oxygen assessment prior to discharge Assessment & Plan (08/13/2021 10:40 AM CDT): Continue oxygen and nocturnal BiPAP Assessment & Plan (10/19/2018 11:41 AM CDT): -Likely 2/2 rhino/enterovirus +/- RLL PNA superimposed on bronchiectasis 2/2 primary ciliary dyskinesia. Initially transferred [facility] MICU intubated. Extubated on 10/16 and has since been on NC (intubated from 10/06 to 10/16) -BCx from 10/07 NG, BAL 10/08 with +CMV but negative in blood, histo/aspergillosis/cocciodio/blasto negative. BAL cx also grew yeast which is likely related to abx use, not due to fungal PNA -S/P cefepime (10/06-) for 7d course, s/p IV linezolid (10/06-10/09) -continue hypertonic 7% nebulizer solution BID, duonebs q6 hrs -continue pulmonary toilet with vest. Pt reports that he has a vest at home. -Walking 02 assessment today: 4L at rest, 6L with exertion. He states that he has a portable 02 tank that goes to 6L. Discussed with CM and order placed. Will verify prior to discharge. -Of note, and pt would like trach if pt requires re-intubation Assessment & Plan (10/18/2018 12:37 PM CDT): Recent admit at OSH in Jun 2018 for PNA, finished levaquin late August 2018. 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 Possible RLL infiltrate on admission CXR, febrile 38.2 and tachycardic to low 100s, arrived from OSH intubated s/p 1x doses of IV vanc/cefepime. D-dimer 148. + Rhino/enterovirus Dx - RVP-> Rhino/enterovirus +, pending cultures (histo->pending, aspergillosis->pending, coccidio->neg) - (10/07) BCx: NGTD - (10/07) LE dopplers: no DVT, D-dimer 148 - F/u rpt LEDs (10/14) for low grade fever - O2 sat goal >86%, VC/AC 50 / 14 / 550 / 5 - S/p BAL 10/08, cx NGTD Tx - Albuterol 8 puffs + Atrovent 8 puffs q4hr by RT - Hypertonic 7% nebulizer solution bid - FBG net even, no lasix - Abx: S/P cefepime (10/06-) for 7d course, s/p IV linezolid (10/06-10/09) - ET tube exchanged 10/11 - PSV trial (10/12) (10/13) (10/14-poor)(10/15)(10/16) - Positive cuff leak on bedside check (10/13) - Extubated (10/16) - and pt would like trach if pt requires re-intubation - continue pulm toilet w/ vest, will need this set up for home use at d/c Patient on waiting list for lung transplant Bronchiectasis with acute exacerbation Assessment & Plan (06/16/2022 2:57 PM INGOT BUGGY OPERATOR): Mr Cole is a 47 y/o M with medical history most significant for PCD complicated by bronchiectasis (wild-susceptible pseudomonas 02/2021), chronic hypoxemic/hypercapnic respiratory failure (baseline 8L oxygen, AVAPS since September 2021) and pulmonary hypertension, who initially presented to the MICU in transfer on 06/11/22 with acute on chronic hypercapnic respiratory failure concerning for bronchiectasis exacerbation. Pulmonology is consulted to assist with management of the above. Symptomatically feeling at prior baseline now on home oxygen of 8L and home clearance regimen. Review of culture data without growth, sputum culture 06/15 no growth to date; has clinically improved on cefepime and has had susceptible isolates in past. Agree with empiric cefepime IV with plan for total 14 day course, has had PICC placed and pending home health. Can otherwise continue clearance regimen as ordered. Of note, discussed importance of weight loss and he is interested in doing pulmonary rehabilitation; will arrange as an outpatient close to home. --Continue cefepime IV 2g q8 for total 14 day course --Will arrange outpatient pulmonary rehab on discharge --Continue clearance regimen with QID duonebs with 7% HS nebs, CPT TID, PEP q6 --Continue MWF Azithromycin Assessment & Plan (04/08/2022 3:03 PM INGOT BUGGY OPERATOR): Mr Cole is a 46 y/o M with medical history most significant for PCD complicated by bronchiectasis (wild-susceptible pseudomonas 02/2021), chronic hypoxemic/hypercapnic respiratory failure (baseline 8L oxygen, recently started on AVAPS September 2021) and pulmonary hypertension, who initially presented to the MICU in transfer on 03/29/22 with bronchiectasis exacerbation complicated by acute on chronic hypoxemia/hypercapnia. Pulmonology is consulted to assist with management of the above. Symptomatically feeling at baseline now on home oxygen of 8L and home clearance regimen. Review of culture data without growth, though chest x-ray with infiltrates of the RLL potentially consistent with pneumonia. Given PCD/bronchiectasis and prior pseudomonas on respiratory cultures, agree with empiric cefepime IV with plan for total 14 day course (will remain inpatient per patient preference). Can otherwise continue clearance regimen as ordered. Clinically stable/improving. Recommendations: --Continue cefepime IV 2g q12 for total 14 day course, will remain inpatient --Continue clearance regimen with QID duonebs with 7% HS nebs, CPT TID, PEP q6 --Continue MWF Azithromycin --Continue supplemental oxygen 8L NC --Will need formal oxygen assessment prior to discharge Assessment & Plan (04/07/2022 4:50 PM INGOT BUGGY OPERATOR): Mr Cole is a 46 y/o M with medical history most significant for PCD complicated by bronchiectasis (wild-susceptible pseudomonas 02/2021), chronic hypoxemic/hypercapnic respiratory failure (baseline 8L oxygen, recently started on AVAPS September 2021) and pulmonary hypertension, who initially presented to the MICU in transfer on 03/29/22 with bronchiectasis exacerbation complicated by acute on chronic hypoxemia/hypercapnia. Pulmonology is consulted to assist with management of the above. Symptomatically feeling at baseline now on home oxygen of 8L and home clearance regimen. Review of culture data without growth, though chest x-ray with infiltrates of the RLL potentially consistent with pneumonia. Given PCD/bronchiectasis and prior pseudomonas on respiratory cultures, agree with empiric cefepime IV with plan for total 14 day course (will remain inpatient per patient preference). Can otherwise continue clearance regimen as ordered. Clinically stable/improving. Recommendations: --Continue cefepime IV 2g q12 for total 14 day course, will remain inpatient --Continue clearance regimen with QID duonebs with 7% HS nebs, CPT TID, PEP q6 --Continue MWF Azithromycin --Continue supplemental oxygen 8L NC --Will need formal oxygen assessment prior to discharge Resolved Problems Problem Noted Date Diagnosed Date Resolved Date Hyperkalemia 04/06/2022 06/15/2022 Assessment & Plan (06/14/2022 2:48 PM INGOT BUGGY OPERATOR): Initial concern for acute on CRF2 with hyperkalemia to 5.5. Tx lokelma TID, K still 4.5 despite frequency. Cr improved to 1.4. Check spot urine K Assessment & Plan (06/14/2022 11:05 AM INGOT BUGGY OPERATOR): Initial K 6.6. Hyperkalemic during prior admits. ECG stable . S\p insulin/dextrose. -on lokelma -improved, ctm Assessment & Plan (04/09/2022 3:03 PM INGOT BUGGY OPERATOR): Pt with K 5.2 - 5.6 since 04-03, asymptomatic. Likely due to renal disease as well as high BG and pt snacking throughout the day. Now improved. - spot doses of lasix as needed - lokelma TID - DM consulted for better BG/DM2 control - holding losartan - low K diet -> regular diet. If worsens, will need to go back to low K diet. - if no improvement, will need renal consult Anemia 10/07/2018 10/18/2018 Assessment & Plan (10/12/2018 12:23 PM CDT): On arrival Hgb 11.4, mildly anemic with unclear baseline. No active evidence of bleeding, though would expect greater erythrocytosis for pt who is reportedly 85-88% chronically at home. - T/F Hb >7, stable Immunizations Immunization Administration Dates Next Due Influenza, Quadrivalent, Ila l Culture-based MDCK, Preservative Free, Antibiotic Free, Intramuscular 02/17/2019 Influenza, Quadrivalent, Hig h Dose, Preservative Free, Intrr 03/08/2021 Influenza, Quadrivalent, Spl it, Preservative Free, Intramuscular 04/11/2022 Influenza, Unspecified 04/03/2020 Pneumococcal Conjugate PCV 13 02/18/2018 Pneumococcal Polysaccharide PPV23 04/21/2007 Surgical History Surgery Date Site/Laterality Comments APPENDECTOMY Medical History Medical History Date Comments Headache Left temporal he adache - (Added by TW Conv) Family History Medical History Relation Name Comments Hypertension Father Family history of hypertension - (Added by TW Conv) Hypertension Mother Family history of hypertension - (Added by TW Conv) Relation Name Status Comments Father Mother Social History Tobacco Use Types Packs/Day Years Used Date Smoking Tobacco: Former Smokeless Tobacco: Former Chew Quit: 10/15/2018 Tobacco Cessation:Counseling Given: Not Answered Comments:social smoking OASIS [id number]: Social Isolation Answer [...] 06/18/2022 How often do you attend chur ch or methodist services? More than 4 times per year 06/18/2022 Do you belong to any clubs o r organizations such as zoroastrian groups, unions, fraternal or athletic groups, or [...] place to sleep or slept in a care home (including now)? No 06/18/2022 Personal Safety Answer Date Recorded Have you ever been in or are you currently in a harmful physical or emotional relationship or is someone making you feel afraid or unsafe? 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 Gender Identity Not on file Sexual Orientation Not on file Obstetrics History Last Filed Vital Signs Vital Sign Reading Time Taken Comments Blood Pressure 137/70 11/25/2024 1:05 PM CDT Pulse 92 11/25/2024 1:05 PM CDT Temperature 36.5 C (97.7 F) 11/25/2024 1:05 PM CDT Respiratory Rate 18 11/25/2024 1:05 PM CDT Oxygen Saturation 94% 11/25/2024 1:05 PM CDT 6L Inhaled Oxygen Concentration - - Weight 113.9 kg (251 lb) 11/25/2024 1:05 PM CDT Height 172.7 cm (5' 8) 11/25/2024 1:05 PM CDT Body Mass Index 38.16 11/25/2024 1:05 PM CDT Plan of Treatment Health Maintenance Due Date Last Done Comments Colon Cancer Screening-Colonoscopy 1976 Dilated Eye Exam 1976 Foot Exam 1976 DTaP/Tdap/Td Vaccine (1 - Tdap) 1987 Regular Well Visit/Exam 18-64 1994 Albumin Creatinine Ratio, Urine 10/08/2019 9 Lipid Panel 03/29/2023 03/29/2022, 07/19, 08/09/2021, Additional history exists Depression Screening 06/12/2023 06/12/2022, 03/27/2022, 08/17/2021 Hemoglobin A1C 08/20/2023 02/18/2023, 05/21, 03/29/2022, Additional history exists eGFR 02/22/2024 02/21/2023, 08/2022, 02/19/2023, Additional history exists Influenza Vaccine (#1) 2025 , 03/08/2021, 04/03/2020, Additional history exists Pneumococcal vaccine <65 (3 of 3 - PCV20 or PCV21) 2026 02/18/2018, 04/21/2007 Hepatitis B Screening Completed 02/16/2019 Hepatitis C Screening Completed 02/16/2019 Procedures Procedure Name Priority Date/Time Associated Diagnosis Comments EGFR Routine 02/21/2023 5:09 AM CDT HEMOGLOBIN A1C STAT 02/18/2023 10:24 AM CDT LIPID PANEL STAT 03/29/2022 2:29 AM INGOT BUGGY OPERATOR HEPATITIS PANEL, ACUTE Routine 02/16/2019 8:08 AM CDT Pre-transplant evaluation for lung transplant ALBUMIN CREATININE RATIO, URINE Routine 10/07/2018 1:18 AM CDT from Last 3 Months or Most Recently Relevant to Health Maintenance Results * (ABNORMAL) eGFR (02/21/2023 5:09 AM CDT) eGFR 75(L) 90 - 130 mL/min/1. 73 m2 [facility] Comment: Interpretive Data Reference Interval Normal >/= 90 mL/min/1.73m2 Mildly decreased* 60 - 89 mL/min/1.73m2 Mildly to moderately decreased 45 - 59 mL/min/1.73m2 Moderately to severely decreased 30 - 44 mL/min/1.73m2 Severely decreased 15 - 29 mL/min/1.73m2 Kidney Failure < 15 mL/min/1.73m2 *Relative to young adult level Estimated glomerular filtration rate is determined by the 2020 CKD-EPI equation recommended by the National Kidney Foundation (A Unifying Approach to GFR Estimation: Recommendations of the NKF-ASK Task Force on Reassessing the Inclusion of Race in Diagnosing Kidney Disease, JASN 202). The CKD-EPI equation should not be used for patients with unstable renal function and has not been validated in children and those over 70. Current interpretive data was last reviewed 2021. Blood 02/21/2023 5:09 AM CDT 02/21/2023 6:40 AM CDT Flaco Atkinson MD LAB BLOOD ORDERABLES Final Result [facility] [place] [address] * (ABNORMAL) Hemoglobin A1c (02/18/2023 10:24 AM CDT) Hgb A1C 9.5(H) 4.0 - 5.6 % [facility] Estimated Average Glucose 226 mg/dL [facility] Comment: The ADA recommends reporting an estimated Average Glucose (eAG) with all Hemoglobin A1c results using the equation derived from a study of 507 normal and diabetic adults. Minority populations were underrepresented and children were not included. (Diabetes Care 2020; 43(S1): S66-S76). The eAG is not equivalent to a fasting glucose. Blood 02/18/2023 10:2 4 AM CDT 02/18/2023 11:05 AM CDT Flaco Atkinson MD LAB BLOOD ORDERABLES Final Result [facility] [place] [address] * (ABNORMAL) Lipid panel (03/29/2022 2:29 AM INGOT BUGGY OPERATOR) Cholesterol 143 30 - 199 mg/dL [facility] Comment: Interpretive Data Ages < or = 19 years Acceptable: <170 mg/dL Borderline high: 170-199 mg/dL High: >or= 200 mg/dL Ages > or = 20 years Desirable: <200 mg/dL Borderline high: 200-239 mg/dL High: >or= 240 mg/dL Literature References: 1. Expert Panel on Integrated Guidelines for Cardiovascular Health and Risk Reduction in Children and Adolescents. Pediatrics 2011;128:S213 2. NCEP Expert Panel. Circulation 2004;110:227 Current Interpretive Data was last revised on 2018. Triglycerides 135 <=149 mg/dL [facility] Comment: Interpretive Data Ages < or = 9 years Acceptable: <75 mg/dL Borderline high: 75-99 mg/dL High: >or= 100 mg/dL Ages 10 to 20 years Acceptable: <90 mg/dL Borderline high: 90-129 mg/dL High: >or= 130 mg/dL Ages > or = 20 years Desirable: <150 mg/dL Borderline high: 150-199 mg/dL High: 200-499 mg/dL Very high: >or= 499 mg/dL Literature References: 1. Expert Panel on Integrated Guidelines for Cardiovascular Health and Risk Reduction in Children and Adolescents. Pediatrics 2011;128:S213 2. NCEP Expert Panel. Circulation 2004;110:227 Current Interpretive Data was last revised on 2018. HDL 35(L) >=40 mg/dL [facility] Comment: Interpretive Data Ages < or = 19 years Acceptable: >45 mg/dL Borderline low: 40-45 mg/dL Low: <40 mg/dL Ages > or = 20 years Desirable: >or= 60 mg/dL Low: <40 mg/dL Literature References: 1. Expert Panel on Integrated Guidelines for Cardiovascular Health and Risk Reduction in Children and Adolescents. Pediatrics 2011;128:S213 2. NCEP Expert Panel. Circulation 2004;110:227 Current Interpretive Data was last revised on 2018. LDL, calculated 81 <=129 mg/dL [facility] Comment: Interpretive Data Ages < or = 19 years Acceptable: <110 mg/dL Borderline high: 110-129 mg/dL High: >or= 130 mg/dL Ages > or = 20 years Optimal: <100 mg/dL Near optimal: 100-129 mg/dL Borderline high: 130-159 mg/dL High: >160 mg/dL Literature References: 1. Expert Panel on Integrated Guidelines for Cardiovascular Health and Risk Reduction in Children and Adolescents. Pediatrics 2011;128:S213 2. NCEP Expert Panel. Circulation 2004;110:227 Current Interpretive Data was last revised on 2018. Non-HDL Cholesterol 108 mg/dL [facility] Comment: Interpretive Data Ages < or = 19 years Acceptable: <120 mg/dL Borderline high: 120-144 mg/dL High: >145 mg/dL Ages > or = 20 years When triglycerides are >200 mg/dL, Non-HDL cholesterol is a secondary target of therapy with treatment goals that are 30 mg/dL greater than the LDL cholesterol target. Literature References: 1. Expert Panel on Integrated Guidelines for Cardiovascular Health and Risk Reduction in Children and Adolescents. Pediatrics 2011;128:S213 2. NCEP Expert Panel. Circulation 2004;110:227 Current Interpretive Data was last revised on 2018. Chol/HDL ratio 4 [facility] Blood 03/29/2022 2:29 AM INGOT BUGGY OPERATOR 03/29/2022 3:26 AM INGOT BUGGY OPERATOR Tru Nayak MD PhD LAB BLOOD ORDERABLES Final Result [facility] [place] [address] * Hepatitis panel, acute (02/16/2019 8:08 AM CDT) Hep A IgM Nonreactive Nonreactive [facility] Comment: Interpretive Data If test is reported as GRAYZONE, new sample should be drawn in two weeks for testing. Current interpretive data was last revised on 2016. Hep B core IgM Nonreactive Nonreactive [facility] Comment: Interpretive Data If test is reported as GRAYZONE, new sample should be drawn for testing. Current interpretive data was last revised on 2016. Hep C Ab Nonreactive Nonreactive [facility] Comment: Interpretive Data Positive results should be confirmed by a molecular method. If positive, a second separately collected sample should be submitted for Hepatitis C Virus (HCV) RNA Detection and Quantitation by Real-Time Reverse Cell Feed Department Supervisor-PCR (RT-PCR). Current interpretive data was last revised on 2016. HepBsAg Nonreactive Nonreactive [facility] Blood specimen (specimen) 02/16/2019 8:08 AM CDT 02/16/2019 8:22 AM CDT us Gerhard Guerin MD LAB MICROBIOLOGY - GENERAL ORD ERABLES Edited Result - Final Performing Organization Address [facility] de Phone Number [facility] [address] [place] [address] * (ABNORMAL) Albumin Creatinine Ratio, Urine (10/07/2018 1:18 AM CDT) Albumin Ur 176.2 mg/L [facility] Comment: Interpretive Data No reference range established. Current interpretive data was last revised 2018. Creatinine Ur 121.3 mg/dL [facility] Comment: Interpretive Data No reference range established. Current interpretive data was last revised 2018. Albumin Creatinine Ratio, Ur 145(H) 1 - 29 mg/g [facility] Urine 10/07/2018 1:18 AM CDT 10/07/2018 3:57 AM CDT Narrative [facility] - 10/07/2018 4:25 AM CDT us Chalo Loja MD LAB URINE ORDERABLES Final Re sult Performing Organization Address [facility] Co de Phone Number [facility] [place] [address] from Last 3 Months or Most Recently Relevant to Health Maintenance Insurance MEDICARE [facility] Address: [address] [address] [place] [address] [facility] CHOICE PLUS [facility] MEDICARE BLUE ACCESS [place] TRANSPLANT [facility] Advance Directives For more information, please contact: [phone] * Full Code (Latest Code Status on File) Date Activated Date Inactivated Comments 02/18/2023 10:24 AM 02/21/2023 7:40 PM * Full Code Date Activated Date Inactivated Comments 06/12/2022 2:14 PM 06/16/2022 8:05 PM * Full Code Date Activated Date Inactivated Comments 03/29/2022 2:26 AM 04/11/2022 9:17 PM * Full Code Date Activated Date Inactivated Comments 09/28/2021 12:20 PM 10/02/2021 7:09 PM * Full Code Date Activated Date Inactivated Comments 08/17/2021 4:21 PM 08/21/2021 10:58 PM Care Teams Knowledge Management Advisor Relationship Specialty Start Date End Date El Breen MD PCP - General 10/02/16 Marcia Pruett RN Registered Nurse Pulmonary Disease 07/04/22
--- OUTSIDE RECORDS SUMMARY | 2025-03-05 16:46 | XMS_ITS | Encounter Summary ---
Author Organization [facility] Address [address] [place] [address] Care Team Providers Care Software Packaging Engineer Name Role Phone El Breen MD Primary Care Provider [phone] [place] TAPPING MACHINE OPERATOR Unavailable [phone] Che Benavides RN Unavailable [phone] Marcia Pruett RN Unavailable Unavailabl e Encounter Details Date Type Department Care Team (Late st Contact Info) Description 11/25/2018 Orders Only [facility] [address] [place] [address] Darlene Madsen, RUDY [address] [facility] [address] [place] [address] Social History Tobacco Use Types Packs/Day Years Used Date Smoking Tobacco: Former Smokeless Tobacco: Current Comments:tabacco chew Sex and Gender Information Value Date Recorded Sex Assigned at Not on file Legal Sex Male 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 Gender Identity Not on file Sexual Orientation Not on file documented as of this encounter Plan of Treatment Not on file documented as of this encounter Procedures Procedure Name Priority Date/Time Associated Diagnosis Comments SCAN - LABS 11/25/2018 documented in this encounter Results * SCAN - LABS (11/25/2018) Darlene Madsen RN Final Resul t documented in this encounter Visit Diagnoses Not on filedocumented in this encounter Additional Health Concerns Infection Onset Date Last Indicated Resolved Time COVID: Suspected 08/09/2021 08/09/2021 08/09/2021 2:42 PM CDT COVID: Suspected 08/17/2021 08/17/2021 08/17/2021 2:53 PM CDT COVID: Suspected 09/29/2021 09/29/2021 09/29/2021 1:48 PM CDT COVID: Suspected 03/29/2022 03/29/2022 03/29/2022 7:04 AM SENIOR EMBEDDED SOFTWARE ENGINEER COVID: Suspected 02/18/2023 02/18/2023 02/18/2023 12:34 PM CDT documented as of this encounter Care Teams Software Packaging Engineer Relationship Specialty Start Date End Date El Breen MD PCP - General 10/02/16 [place], [facility] [address] [facility] [phone] [place] [address] SHOP Outpatient Academic Manager 04/13/22 05/07/22 Ceh Benavides, RN [address] [facility] [address] [place] [address] SHOP Outpatient Academic Manager 06/18/22 07/15/22 Marcia Pruett, RN Registered Nurse Pulmonary Disease 07/04/22 documented as of this encounter
--- OUTSIDE RECORDS SUMMARY | 2025-03-05 16:46 | XMS_ITS | Clinical Summary ---
Author Organization [facility] Address [address] [place] [address] Care Team Providers Care Industrial Cafeteria Manager Name Role Phone Unavailable Primary Care Provider Unavailabl e Social History Tobacco Use Types Packs/Day Years Used Date Smoking Tobacco: Never Assessed Sex and Gender Information Value Date Recorded Sex Assigned at Not on file Legal Sex Male 11:56 AM CDT Gender Identity Not on file Sexual Orientation Not on file Plan of Treatment Health Maintenance Due Date Last Done Comments Colorectal Cancer Screening Colonoscopy (10 Years) 1976 Annual Physical 1979 Hepatitis C 1994 DTaP, Tdap and Td Vaccines ( 1 - Tdap) 1995 Hepatitis B Vaccines (1 of 3 - 19+ 3-dose series) 1995 COVID-19 Vaccine (2023-2 5 season) 2025 Influenza Adult (#1) 2025 Meningococcal B Vaccine Aged Out No l onger eligible based on patient's age to complete this topic Meningococcal Vaccine Aged Out No cora gilberto eligible based on patient's age to complete this topic Pneumococcal Vaccine: Pediat rics (0 to 5 Years) and At-Risk Patients (6 to 49 Years) Aged Out No longer eligible b ased on patient's age to complete this topic RSV Immunizations Under 20 Months Aged Out No longer eligible based on patient's age to complete this topic Insurance [facility] MEDICAID
--- NOTE | 2025-03-05 17:24 | ECG_ITS ---
Test Date: 2025-03-05 18:15:25 Measurements Intervals [place] Rate: 101 P: 75 [place]: 154 QRS: 78 QRSD: 118 T: 40 QT: 325 QTc: 423 Interpretive Statements SINUS TACHYCARDIA INTRAVENTRICULAR CONDUCTION DELAY BASELINE WANDER- I, II, III, AVR, AVL, V1, V5 BORDERLINE ECG No previous ECG available for comparison Electronically Signed On 03-05-2025 19:28:40 CDT by Aguila Issa D.O.
--- OUTSIDE RECORDS SUMMARY | 2025-03-05 17:56 | XMS_ITS | Clinical Summary ---
Author Organization [facility] Address [address] [place] [address] Care Team Providers Care Vice President Fixed Income Name Role Phone El Breen MD Primary Care Provider + [phone] Marcia Pruett RN Unavailable Unavailabl e Allergies Active Allergy Reactions Criticality Noted Date Comments Povidone-Iodine Unknown 10/06/2018 Flvfgmxv-Slshah-Jkofh Alcohol Rash Medium 04/21/2007 Soap Other (See [...] 06/12/2022 Assessment & Plan (06/16/2022 11:08 AM ENGRAVING PATTERNMAKER): 2/2 cilia dyskinesis (bronchiectasis) acute exacerbation, Back on nocturnal AVAPS & daytime O2. In discussion with pulmonary, 2 week IV course - set up all home health for discharge tomorrow with end date on 06/26/2022 - cefepime 2g q8hr - instructions provided for use, instructions provided for picc and warning signs Assessment & Plan (06/14/2022 11:04 AM ENGRAVING PATTERNMAKER): Presented to OSH with worsening SOB. Vbg [...] 04/04/2022 Assessment & Plan (06/15/2022 3:56 PM ENGRAVING PATTERNMAKER): Possible SABRINA on CRF2 with hyperkalemia. Initial Cr 1.53 (b/l 1.7-2), K 5.5 and tx lokelma TID. hyperk resolved, stop lokelma Assessment & Plan (06/14/2022 11:04 AM ENGRAVING PATTERNMAKER): Cr 1.53 on admission w/ b/l ~1-1.2. -renally dose medications, avoid nephrotoxins -Improving, Cr 1.38 -ctm Assessment & Plan (04/08/2022 1:48 PM ENGRAVING PATTERNMAKER): Cr 1.96 on admission w/ b/l ~1.2. Given worsening lung disease, could be congestion from worsening RV function. - Cr slowly improving/stable -hold losartan and metolazone -hold PO lasix as elsewhere, daily BMP and spot as needed DM2 (diabetes mellitus, type 2) 04/04/2022 Assessment & Plan (06/16/2022 11:08 AM ENGRAVING PATTERNMAKER): A1c 6.5 on 03/29/2022. Has Omnipod at home and was told to stop glargine. Omnipod settings are aspart with meals (self sensing) and no long acting. - a1c 7.7 here - s/p insulin gtt for hyperglycemia - discussed restarting home dosages and contacting recorder of deeds for additional changes Assessment & Plan (06/14/2022 11:05 AM ENGRAVING PATTERNMAKER): A1c 6.5 on 03/29/2022. On Lantus 64u qhs and Lispro 18U TID AC, Ozempic at home. Initial BG 439, s/p insulin gtt -continue home regimen -consistent carb diet Assessment & Plan (04/08/2022 1:47 PM ENGRAVING PATTERNMAKER): A1c 9.2 09/28/2021 -Lantus 64u qhs and Lispro 18U TID AC, Ozempic at home - endo following - insulin management per endo - ozempic (pt supplied) ordered HLD (hyperlipidemia) 04/04/2022 Assessment & Plan (04/04/2022 6:23 PM ENGRAVING PATTERNMAKER): - Atorvastatin 20mg daily Respiratory failure 03/29/2022 Assessment & Plan (04/10/2022 11:36 AM ENGRAVING PATTERNMAKER): - baseline 6-10L at baseline. 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 Assessment & Plan (10/19/2018 11:32 AM CDT): -Intermittently has required LDSSI, however BG have overall remained controlled recently -Will not require insulin upon discharge Single kidney 10/07/2018 Assessment & Plan (06/14/2022 2:45 PM ENGRAVING PATTERNMAKER): Pt with single right kidney Assessment & [...] 9 Assessment & Plan (06/12/2022 3:34 PM ENGRAVING PATTERNMAKER): Continue home famotidine Assessment & Plan (04/04/2022 6:22 PM ENGRAVING PATTERNMAKER): - Famotidine 40mg daily Assessment & Plan [...] 10/06/2018 Assessment & Plan (06/16/2022 11:08 AM ENGRAVING PATTERNMAKER): Can restart losartan 25mg at the originally prescribed dose Assessment & Plan (06/12/2022 4:33 PM ENGRAVING PATTERNMAKER): Metolazone 5mg daily, Losartan 50mg daily held during prior admission. On lasix 20 mg daily -hold lasix for now -ctm Assessment & Plan (04/07/2022 8:20 AM ENGRAVING PATTERNMAKER): - holding Metolazone 5mg daily and Losartan [...] 10/06/2018 Assessment & Plan (06/15/2022 6:15 PM ENGRAVING PATTERNMAKER): Now returned to home oxygen requirement as [...] discharge Assessment & Plan (04/08/2022 3:04 PM ENGRAVING PATTERNMAKER): Now returned to home oxygen requirement, though [...] then. Assessment & Plan (04/07/2022 4:51 PM ENGRAVING PATTERNMAKER): Now returned to home oxygen requirement, though [...] 2/2 primary ciliary dyskinesia. Initially transferred to [facility] MICU intubated. Extubated on 10/16 and has [...] to BiPap x 3 wks at home FAMILY LAWYER. Possible RLL infiltrate on admission CXR, febrile [...] exacerbation Assessment & Plan (06/16/2022 2:57 PM ENGRAVING PATTERNMAKER): Mr Cole is a 47 y/o M [...] Azithromycin Assessment & Plan (04/08/2022 3:03 PM ENGRAVING PATTERNMAKER): Mr Cole is a 46 y/o M [...] discharge Assessment & Plan (04/07/2022 4:50 PM ENGRAVING PATTERNMAKER): Mr Cole is a 46 y/o M [...] 06/15/2022 Assessment & Plan (06/14/2022 2:48 PM ENGRAVING PATTERNMAKER): Initial concern for acute on CRF2 with hyperkalemia to 5.5. Tx lokelma TID, K still 4.5 despite frequency. Cr improved to 1.4. Check spot urine K Assessment & Plan (06/14/2022 11:05 AM ENGRAVING PATTERNMAKER): Initial K 6.6. Hyperkalemic during prior admits. ECG stable . S\p insulin/dextrose. -on lokelma -improved, ctm Assessment & Plan (04/09/2022 3:03 PM ENGRAVING PATTERNMAKER): Pt with K 5.2 - 5.6 since [...] often do you attend chur ch or christian services? More than 4 times per year 06/18/2022 Do you belong to any clubs o r organizations such as amish groups, unions, fraternal or athletic groups, or [...] place to sleep or slept in a alf (including now)? No 06/18/2022 Personal Safety Answer Date Recorded Have you ever been in or are you currently in a harmful physical or emotional relationship or is someone making you feel afraid or unsafe? Denies 02/18/2023 Sex and Gender Information Value Date Recorded Sex Assigned at Not on file Legal Sex Male 10:27 PM ENGRAVING PATTERNMAKER Gender Identity Not on file Sexual Orientation [...] CDT LIPID PANEL STAT 03/29/2022 2:29 AM ENGRAVING PATTERNMAKER HEPATITIS PANEL, ACUTE Routine 02/16/2019 8:08 AM CDT Pre-transplant evaluation for lung transplant ALBUMIN CREATININE RATIO, URINE Routine 10/07/2018 1:18 AM CDT from Last 3 Months or Most Recently Relevant to Health Maintenance Results * (ABNORMAL) eGFR (02/21/2023 5:09 AM CDT) eGFR 75(L) 90 - 130 mL/min/1. 73 m2 [facility] Comment: Interpretive Data Reference Interval Normal >/= [...] Atkinson MD LAB BLOOD ORDERABLES Final Result [facility] Department [place] [address] * (ABNORMAL) Hemoglobin A1c (02/18/2023 10:24 AM CDT) Hgb A1C 9.5(H) 4.0 - 5.6 % [facility] Estimated Average Glucose 226 mg/dL [facility] Comment: The ADA recommends reporting an [...] BLOOD ORDERABLES Final Result [facility] Department [place] [address] * (ABNORMAL) Lipid panel (03/29/2022 2:29 AM ENGRAVING PATTERNMAKER) Cholesterol 143 30 - 199 mg/dL [facility] Comment: Interpretive Data Ages < or = [...] on 2018. Triglycerides 135 <=149 mg/dL [facility] Comment: Interpretive Data Ages < or = [...] on 2018. HDL 35(L) >=40 mg/dL [facility] Comment: Interpretive Data Ages < or = [...] on 2018. LDL, calculated 81 <=129 mg/dL [facility] Comment: Interpretive Data Ages < or [...] revised on 2018. Non-HDL Cholesterol 108 mg/dL [facility] Comment: Interpretive Data Ages < or [...] last revised on 2018. Chol/HDL ratio 4 [facility] Blood 03/29/2022 2:29 AM ENGRAVING PATTERNMAKER 03/29/2022 3:26 AM ENGRAVING PATTERNMAKER Tru Nayak MD PhD LAB BLOOD ORDERABLES Final Result [facility] [place] [address] * Hepatitis panel, acute (02/16/2019 8:08 AM CDT) Hep A IgM Nonreactive Nonreactive [facility] Comment: Interpretive Data If test is reported as GRAYZONE, new sample should be drawn in two weeks for testing. Current interpretive data was last revised on 2016. Hep B core IgM Nonreactive Nonreactive [facility] Comment: Interpretive Data If test is reported as GRAYZONE, new sample should be drawn for testing. Current interpretive data was last revised on 2016. Hep C Ab Nonreactive Nonreactive [facility] Comment: Interpretive Data Positive results should be confirmed by a molecular method. If positive, a second separately collected sample should be submitted for Hepatitis C Virus (HCV) RNA Detection and Quantitation by Real-Time Reverse Press Catcher-PCR (RT-PCR). Current interpretive data was last revised on 2016. HepBsAg Nonreactive Nonreactive [facility] Blood specimen (specimen) 02/16/2019 8:08 AM CDT 02/16/2019 8:22 AM CDT us Gerhard Guerin MD LAB MICROBIOLOGY - GENERAL ORD ERABLES Edited Result - Final Performing Organization Address [facility] de Phone Number [facility] [address] [place] [address] * (ABNORMAL) Albumin Creatinine Ratio, Urine (10/07/2018 1:18 AM CDT) Albumin Ur 176.2 mg/L [facility] Comment: Interpretive Data No reference range established. Current interpretive data was last revised 2018. Creatinine Ur 121.3 mg/dL [facility] Comment: Interpretive Data No reference range established. Current interpretive data was last revised 2018. Albumin Creatinine Ratio, Ur 145(H) 1 - 29 mg/g [facility] Urine 10/07/2018 1:18 AM CDT 10/07/2018 3:57 AM CDT Narrative [facility] - 10/07/2018 4:25 AM CDT us Chalo Loja MD LAB URINE ORDERABLES Final Re sult Performing Organization Address [facility] Co de Phone Number [facility] [place] [address] from Last 3 Months or Most Recently Relevant to Health Maintenance Insurance MEDICARE [facility] Address: [address] [address] [place] [address] [facility] PLUS [facility] MEDICARE [place] TRANSPLANT [employer] [facility] Advance Directives For more information, please contact: [phone] * Full Code (Latest Code Status on [...] 4:21 PM 08/21/2021 10:58 PM Care Teams Vice President Fixed Income Relationship Specialty Start Date End Date El Breen MD PCP - General 10/02/16 Marcia Pruett RN Registered Nurse Pulmonary Disease 07/04/22
--- OUTSIDE RECORDS SUMMARY | 2025-03-05 17:56 | XMS_ITS | Encounter Summary ---
Author Organization [facility] [employer] [facility] Address [address] [place] [address] Phone Care Team Providers Care Ic Designer Standard Cells Name Role Phone El Breen MD Primary Care Provider + [phone] Marcia Pruett RN Unavailable Unavailabl e Encounter [...] How often do you attend chur or sikh services? More than 4 times per year 06/18/2022 Do you belong to any clubs o r organizations such as nondenominational groups, unions, fraternal or athletic groups, or [...] place to sleep or slept in a senior living (including now)? No 06/18/2022 Personal Safety Answer Date Recorded Have you ever been in or are you currently in a harmful physical or emotional relationship or is someone making you feel afraid or unsafe? 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
--- OUTSIDE RECORDS SUMMARY | 2025-03-05 17:56 | XMS_ITS | Encounter Summary ---
Author Organization [facility] Address [address] [place] [address] Care Team Providers Care Director Of Collections And Archives Name Role Phone El Breen MD Primary Care Provider [phone] [place] HUMAN RESOURCES HR GENERALIST Unavailable [phone] Che Bneavides RN Unavailable [phone] Marcia Pruett RN Unavailable Unavailabl e Encounter Details Date Type Department Care Team (Late st Contact Info) Description 11/25/2018 Orders Only [facility] Health Information Management [address] [place] [address] Darlene Madsen, RUDY [address] [facility] [address] [place] [address] Social History Tobacco Use Types Packs/Day Years Used Date Smoking Tobacco: Former Smokeless Tobacco: Current Comments:tabacco chew Sex and Gender Information Value Date Recorded Sex Assigned at Not on file Legal Sex Male 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 Gender Identity Not on file Sexual Orientation [...] COVID: Suspected 03/29/2022 03/29/2022 03/29/2022 7:04 AM 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 COVID: Suspected 02/18/2023 02/18/2023 02/18/2023 12:34 PM CDT documented as of this encounter Care Teams Director Of Collections And Archives Relationship Specialty Start Date End Date El Breen MD PCP - General 10/02/16 [place], [facility] [address] [facility] [phone] [place] [address] [facility] Outpatient Operating Room Rn 04/13/22 05/07/22 Che Benavides, RN [address] [facility] [address] [place] [address] SHOP Outpatient Operating Room Rn 06/18/22 07/15/22 Marcia Pruett, RN Registered Nurse Pulmonary Disease 07/04/22 documented as of this encounter
--- OUTSIDE RECORDS SUMMARY | 2025-03-05 17:56 | XMS_ITS | Encounter Summary ---
Author Organization [facility] [employer] [facility] Address [address] [place] [address] Phone Care Team Providers Care Bombsight Specialist Name Role Phone El Breen MD Primary Care Provider + [phone] [place] TECHNICAL PROJECT COORDINATOR Unavailable [phone] Che Benavides RN Unavailable [phone] Marcia Pruett RN Unavailable Unavailabl e Encounter Details Date Type Department Care Team (Latest Contact Info) Description 03/20/2017 Orders Only [facility] CONVERSION Scanning, Provider Social History Tobacco Use Types Packs/Day Years Used Date Smoking Tobacco: Never Assessed Sex and Gender Information Value Date Recorded Sex Assigned at Not on file Legal Sex Male 10:27 PM EDUCATION ANALYST Gender Identity Not on file Sexual Orientation [...] COVID: Suspected 03/29/2022 03/29/2022 03/29/2022 7:04 AM EDUCATION ANALYST COVID: Suspected 02/18/2023 02/18/2023 02/18/2023 12:34 PM CDT documented as of this encounter Care Teams Bombsight Specialist Relationship Specialty Start Date End Date El Breen MD PCP - General 10/02/16 [place], TECHNICAL PROJECT COORDINATOR [address] [facility] ([facility]) Mailstop [phone] [place] [address] [facility] Outpatient Clean Out Driller 04/13/22 05/07/22 hCe Benavides, RN [address] [facility] [address] [place] [address] SHOP Outpatient Clean Out Driller 06/18/22 07/15/22 Marcia Pruett, RN Registered Nurse Pulmonary Disease 07/04/22 documented as of this encounter
--- OUTSIDE RECORDS SUMMARY | 2025-03-05 17:56 | XMS_ITS | Encounter Summary ---
Author Organization [facility] [employer] [facility] Address [address] [place] [address] Phone Care Team Providers Care Last Model Maker Name Role Phone El Breen MD Primary Care Provider + [phone] [place] FULL TIME PARAMEDIC Unavailable [phone] Che Benavides RN Unavailable [phone] Marcia Pruett RN Unavailable Unavailabl e Encounter Details Date Type Department Care Team (Latest Contact Info) Description 01/15/2019 Orders Only [facility] Scanning, Provider Social History Tobacco Use Types Packs/Day Years Used Date Smoking Tobacco: Former Smokeless Tobacco: Former Quit: 10/15/2018 Comments:tabacco chew Sex and Gender Information Value Date Recorded Sex Assigned at Not on file Legal Sex Male 10:27 PM IT 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 Gender Identity Not on file Sexual [...] COVID: Suspected 03/29/2022 03/29/2022 03/29/2022 7:04 AM IT 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 COVID: Suspected 02/18/2023 02/18/2023 02/18/2023 12:34 PM CDT documented as of this encounter Care Teams Last Model Maker Relationship Specialty Start Date End Date El Breen MD PCP - General 10/02/16 [place], [facility] [address] [facility] ([facility] Mailstop [phone] [place] [address] SHOP Outpatient Production Illustrator 04/13/22 05/07/22 Che Benavides, RN [address] [facility] [address] [place] [address] SHOP Outpatient Production Illustrator 06/18/22 07/15/22 Marcia Pruett, RN Registered Nurse Pulmonary Disease 07/04/22 documented as of this encounter
--- OUTSIDE RECORDS SUMMARY | 2025-03-05 17:56 | XMS_ITS | Clinical Summary ---
Author Organization [facility] Address [address] [place] [address] Care Team Providers Care Casualty Underwriter Name Role Phone Unavailable Primary Care Provider [...] patient's age to complete this topic Insurance [facility] MEDICAID
--- OUTSIDE RECORDS SUMMARY | 2025-03-05 17:57 | XMS_ITS | Encounter Summary ---
Author Organization [facility] Address [address] [place] [address] Care Team Providers Care Nurse Research Name Role Phone El Breen MD Primary Care Provider + [phone] Marcia Pruett RN Unavailable Unavailabl e Encounter Details Date Type Department Care Team (Late st Contact Info) Description 02/21/2023 Documentation [facility] [address] [place] [address] Liseth Nguyen RN Social History Tobacco Use [...] week 06/18/2022 How often do you attend [facility] or faith services? More than 4 times per year 06/18/2022 Do you belong to any clubs o r organizations such as bahai groups, unions, fraternal or athletic groups, or [...] place to sleep or slept in a halfway (including now)? No 06/18/2022 Personal Safety Answer Date Recorded Have you ever been in or are you currently in a harmful physical or emotional relationship or is someone making you feel afraid or unsafe? 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
[2025-03-05 18:15] LABS: Hematocrit 37.2 % (42.0-52.0); Hemoglobin 11.4 g/dL (14.0-18.0); Immature Granulocyte Percent A 0.9 % (0-0.5); Lymphocytes Absolute Auto 1.83 K/mm3 (0.9-3.2); Mean Corpuscular HGB Conc 30.6 g/dl (32-36); Mean Corpuscular Hemoglobin 27.3 pg (26-34); Mean Corpuscular Volume 89.2 fl (80-100); Nucleated Red Blood Cells Absolute Auto 0.000 K/mm3 (0.0-0.012); Nucleated Red Blood Cells Perc 0.0 % (0.0-0.2); Platelet Count Result 246 k/mm3 (150-375); Red Blood Count 4.17 M/mm3 (4.6-6.20); White Blood Count 8.8 K/mm3 (4.5-10.0)
[2025-03-05 18:34] LABS: INR 0.9; Prothrombin Time 12.3 Seconds (11.1-14.7)
[2025-03-05 18:35] LABS: Partial Thromboplastin Time 25.8 Seconds (22.3-36.8)
--- NOTE | 2025-03-05 18:44 | ED_ITS ---
HPI - General Adult General Chief complaint: Unspecified <LADARIUS Sarkar Last Filed: 03/06/25 03:31> Stated complaint: twitching <LADARIUS Sarkar Last Filed: 03/06/25 03:31> Time Seen by Provider: 03/05/25 17:19 <LADARIUS Sarkar Last Filed: 03/06/25 03:31> Source: patient <LADARIUS Sarkar Last Filed: 03/06/25 03:31> Mode of arrival: ambulatory <LADARIUS Sarkar Last Filed: 03/06/25 03:31> Limitations: no limitations <LADARIUS Sarkar Last Filed: 03/06/25 03:31> History of Present Illness HPI narrative: This is a 49 year old male that presents to the ER for generalized weakness. Ongoing over the last 2 days. Reports history of primary ciliary dyskinesia. He usually has these symptoms when his CO2 is elevated. Reports a cough which is chronic. Denies fever, chest pain, increase in shortness of breath from baseline. <LADARIUS Sarkar Last Filed: 03/06/25 03:31> Related Data Home medications: Home Medications ?Medication ?Instructions ?Recorded ?Confirmed ?Last Taken ?Type sodium chloride 0.65 % nasal spray 2 spray intranasal DAILY PRN nasal 10/14/22 03/06/25 09/08/23 09:00 History aerosol (Nasal [place] (sodium congestion chloride)) ipratropium 0.5 mg-albuterol 3 mg 3 ml inhalation QID 09/09/23 03/06/25 09/08/23 21:00 History (2.5 mg base)/3 mL nebulization soln <LADARIUS Sarkar Last Filed: 03/06/25 03:31> Allergies/adverse reactions: Allergies Allergy/AdvReac Type Severity Reaction Status Date / Time povidone-iodine Allergy Unknown rash Verified 03/06/25 05:09 tetracycline Allergy Unknown Rash Verified 03/06/25 05:09 theophylline AdvReac Mild Nervousness Verified 03/06/25 05:09 <LADARIUS Sarkar Last Filed: 03/06/25 03:31> Review of Systems 2 Review of Systems: All systems reviewed & are unremarkable except as noted in HPI and below <Shannon Trevino PA-C - Last Filed: 03/06/25 03:31> [facility] Past Medical History Medical History: Medical History (Updated 03/06/25 @ 05:12 by Juliana Shafer DO) Low testosterone in male Erectile dysfunction Microalbuminuric diabetic nephropathy Dermatofibroma Primary ciliary dyskinesia Chronic kidney disease COVID-19 Encounter to vaccinate patient Burn of finger of left hand, second degree Hyperlipidemia Pseudomonas infection Insulin dependent type 2 diabetes mellitus Chronic respiratory failure with hypoxia and hypercapnia Congenital solitary kidney Gastroesophageal reflux disease Nonischemic cardiomyopathy per report, this is poorly documented in our system. Abdominal wall hernia Essential (primary) hypertension Primary ciliary dyskinesia Pulmonary emphysema Sleep apnea in adult <Shannon Trevino PA-C - Last Filed: 03/06/25 03:31> Surgical History Surgical History: Surgical History History of knee surgery History of tonsillectomy and adenoidectomy History of nasal surgery History of appendectomy History of orthopedic surgery <Shannon Trevino PA-C - Last Filed: 03/06/25 03:31> Family History Family History: Family History Father Hypertension Grandparent Hypertension Cerebrovascular accident Family history of coronary artery disease Family history of malignant neoplasm of urinary bladder Diabetes mellitus Mother Cholecystectomy planned H/O: hysterectomy Sibling Thyroid cancer Diverticulitis Other Family history of malignant neoplasm of breast <Shannon Trevino PA-C - Last Filed: 03/06/25 03:31> Social History Social History: Social History (Updated 03/06/25 @ 05:19 by Juliana Shafer DO) Social History: The patient lives with his and has 4 children. The patient is a lifelong nonsmoker. The patient is disabled. Surrogate medical decision maker: Sujey Cole, spouse. Code status: Full code. Smoking status: Former smoker Smokeless tobacco user: chewing tobacco Second hand tobacco smoke exposure: No Smoking end date: 05/20/19 Alcohol intake: never Substance use: never Substance use type: does not use Do You Feel Safe in your Home?: Yes Lack of Transportation: No Lack of Food: Never True Current Housing: I Have Housing Concerned About Future Housing: No Difficulty Paying Gas/Electric Bills: No Difficulty Paying for Meds: No Currently Unemployed: No Education: Associate Degree Difficulty w/ Childcare or Family Care: No Living arrangements: with family Additional living arrangements comments: The patient lives with his and children in [place]. Occupation/Education: unemployed Additional occupation/education comments: Disabled. Spiritual care concerns: No <Shannon Trevino PA-C - Last Filed: 03/06/25 03:31> Exam 2 Narrative: GENERAL: Chronically ill-appearing, well-nourished, and in no acute distress. HEAD: Normocephalic, atraumatic. EYES: PERRLA and EOMI. ENT: Nares clear, no rhinorrhea or epistaxis. Mucous membranes moist. Oropharynx without tonsillar hypertrophy exudate or other lesions. NECK: Supple. No adenopathy or masses. CHEST: No respiratory distress. Lung sounds diminished, scattered wheezes. No rales or rhonchi HEART: Regular rate and rhythm. No murmur heard. Normal peripheral pulses. ABDOMEN: Soft, nontender, nondistended, normal active bowel sounds. EXTREMITIES: Normal range of motion. No edema. SKIN: Warm, dry, no rash. NEURO: No focal deficits. Alert and oriented x3. PSYCH: Normal mood and affect <Shannon Trevino PA-C - Last Filed: 03/06/25 03:31> Course Consultations Consultation #1: spoke with hospitalist about patient and workup who accepts admission < Shannon Trevino PA-C - Last Filed: 03/06/25 03:31> Date: 03/05/25 <LADARIUS Sarkar Last Filed: 03/06/25 03:31> Vital Signs Vital signs: Vital Signs Temperature 36.6 C 03/05/25 17:08 Pulse Rate 111 H 03/05/25 17:08 Respiratory Rate 25 H 03/05/25 17:08 Blood Pressure 150/105 H 03/05/25 17:08 Pulse Oximetry 99 03/05/25 17:08 Oxygen Delivery Nasal Cannula 03/05/25 17:08 Oxygen Flow Rate 8 03/05/25 17:08 Temperature 37.1 C 03/06/25 04:58 Pulse Rate 106 H 03/06/25 06:00 Respiratory Rate 20 03/06/25 04:58 Blood Pressure 138/70 03/06/25 04:58 Pulse Oximetry 92 03/06/25 05:32 Oxygen Delivery High Flow Therapy with Nasal Cannula 03/06/25 05:32 Oxygen Flow Rate 3 03/06/25 05:32 <Shannon Trevino PA-C - Last Filed: 03/06/25 03:31> Vital Signs Temperature 36.6 C 03/05/25 17:08 Pulse Rate 111 H 03/05/25 17:08 Respiratory Rate 25 H 03/05/25 17:08 Blood Pressure 150/105 H 03/05/25 17:08 Pulse Oximetry 99 03/05/25 17:08 Oxygen Delivery Nasal Cannula 03/05/25 17:08 Oxygen Flow Rate 8 03/05/25 17:08 Temperature 37.1 C 03/06/25 04:58 Pulse Rate 106 H 03/06/25 06:00 Respiratory Rate 20 03/06/25 04:58 Blood Pressure 138/70 03/06/25 04:58 Pulse Oximetry 92 03/06/25 05:32 Oxygen Delivery High Flow Therapy with Nasal Cannula 03/06/25 05:32 Oxygen Flow Rate 3 03/06/25 05:32 <Gaurang Headley MD - Last Filed: 03/06/25 06:46> Medical Decision Making MDM Narrative Medical decision making narrative: Patient presents to the emergency department for generalized weakness, shakiness. Patient with history of primary ciliary dyskinesia. Reports the symptoms are typical when his CO2 is elevated. Oxygen saturation is normal on patient's chronic oxygen via nasal cannula. Cbc without leukocytosis. Metabolic panel without evidence of acute on chronic renal dysfunction. Potassium is elevated at 5.9. Given nebulizer treatment, calcium, insulin. Influenza, RSV and COVID screens are negative. Chest x-ray showing pneumonia. ABG with C02 of 96.8, pH of 7.191. Patient initially started on BiPAP, transitioned to AVAPS after worsening repeat ABG. Repeat ABG after being on AVAPS shows improvement. Blood cultures obtained, patient started on IV antibiotics. Will be admitted for further management <Shannon Trevino PA-C - Last Filed: 03/06/25 03:31> Differential Diagnosis Differential Diagnosis: pneumonia, respiratory failure with hypercapnea <Shannon Trevino PA-C - Last Filed: 03/06/25 03:31> Vital Signs Vital Signs: Vital Signs Temperature 36.6 C 03/05/25 17:08 Pulse Rate 111 H 03/05/25 17:08 Respiratory Rate 25 H 03/05/25 17:08 Blood Pressure 150/105 H 03/05/25 17:08 Pulse Oximetry 99 03/05/25 17:08 Oxygen Delivery Nasal Cannula 03/05/25 17:08 Oxygen Flow Rate 8 03/05/25 17:08 Temperature 37.1 C 03/06/25 04:58 Pulse Rate 106 H 03/06/25 06:00 Respiratory Rate 20 03/06/25 04:58 Blood Pressure 138/70 03/06/25 04:58 Pulse Oximetry 92 03/06/25 05:32 Oxygen Delivery High Flow Therapy with Nasal Cannula 03/06/25 05:32 Oxygen Flow Rate 3 03/06/25 05:32 <Shannon Trevino PA-C - Last Filed: 03/06/25 03:31> Vital Signs Temperature 36.6 C 03/05/25 17:08 Pulse Rate 111 H 03/05/25 17:08 Respiratory Rate 25 H 03/05/25 17:08 Blood Pressure 150/105 H 03/05/25 17:08 Pulse Oximetry 99 03/05/25 17:08 Oxygen Delivery Nasal Cannula 03/05/25 17:08 Oxygen Flow Rate 8 03/05/25 17:08 Temperature 37.1 C 03/06/25 04:58 Pulse Rate 106 H 03/06/25 06:00 Respiratory Rate 20 03/06/25 04:58 Blood Pressure 138/70 03/06/25 04:58 Pulse Oximetry 92 03/06/25 05:32 Oxygen Delivery High Flow Therapy with Nasal Cannula 03/06/25 05:32 Oxygen Flow Rate 3 03/06/25 05:32 <Gaurang Headley MD - Last Filed: 03/06/25 06:46> Lab Data Lab results reviewed: Yes I reviewed the patient's lab results. <Shannon Trevino PA-C - Last Filed: 03/06/25 03:31> Result diagrams: 03/05/25 18:07 03/05/25 22:56 <Shannon Trevino PA-C - Last Filed: 03/06/25 03:31> Labs: Lab Results 03/05/25 03/05/25 03/05/25 Range/Units 18:07 18:50 19:52 WBC 8.8 (4.5-10.0) K/mm3 RBC 4.17 L (4.6-6.20) M/mm3 Hgb 11.4 L (14.0-18.0) g/dL Hct 37.2 L (42.0-52.0) % MCV 89.2 (80-100) fl MCH 27.3 (26-34) pg MCHC 30.6 L (32-36) g/dl RDW 12.3 (11.5-14.5) % Plt Count 246 (150-375) k/mm3 MPV 10.1 (7.4-10.4) fl Immature Gran % (Auto) 0.9 H (0-0.5) % Neut % (Auto) 70.0 (45.5-73.1) % Lymph % (Auto) 20.7 (18.3-44.2) % [place] % (Auto) 7.0 (2.6-8.5) % Eos % (Auto) 1.2 (0-4.4) % Baso % (Auto) 0.2 (0.2-1.2) % Lymph # (Auto) 1.83 (0.9-3.2) K/mm3 [place] # (Auto) 0.6 (0.1-0.6) K/mm3 Eos # (Auto) 0.1 (0-0.3) K/mm3 Baso # (Auto) 0.0 (0.0-0.1) K/mm3 Abs Immat Gran (auto) 0.08 H (0.00-0.031) K/mm3 Absolute Neuts (auto) 6.2 (1.3-6.7) K/mm3 Absolute Nucleated RBC 0.000 (0.0-0.012) K/mm3 Nucleated RBC % 0.0 (0.0-0.2) % PT 12.3 (11.1-14.7) Seconds INR 0.9 APTT 25.8 (22.3-36.8) Seconds Methemoglobin 0.4 (0-1.5) %THb Expiratory Pressure CMH2O Inspiratory Pressure CMH2O Sodium 138 (137-145) mmol/L Potassium 5.9 H 5.7 H (3.4-5.0) mmol/L Chloride 90 L (98-107) mmol/L Carbon Dioxide 39 H (22-30) mmol/L Anion Gap 9 (4-12) mmol/L BUN 40 H D (9-20) mg/dL Creatinine 1.85 H (0.7-1.3) mg/dL Estim Creat Clear Calc Not Reportable Estimated GFR 39 L (59 - ) Glucose 440 H (65-110) mg/dL POC Capillary Glucose (65-105) mg/dl Calcium 9.4 (8.4-10.2) mg/dL Total Bilirubin 0.2 (0.2-1.3) mg/dL AST 16 L (17-59) U/L ALT 14 (6-50) U/L Alkaline Phosphatase 162 H (38-126) U/L NT-Pro-B Natriuret Pep 243 H (19.9-100) pg/mL Total Protein 8.6 H (6.3-8.2) g/dL Albumin 4.4 (3.5-5.1) g/dL Influenza A (RT-PCR) Negative (Negative) Influenza B (RT-PCR) Negative (Negative) RSV (RT-PCR) Negative (Negative) SARS-CoV-2 RNA (RT-PCR) Negative (Negative) 03/05/25 03/05/25 Range/Units 21:22 21:54 WBC (4.5-10.0) K/mm3 RBC (4.6-6.20) M/mm3 Hgb (14.0-18.0) g/dL Hct (42.0-52.0) % MCV (80-100) fl MCH (26-34) pg MCHC (32-36) g/dl RDW (11.5-14.5) % Plt Count (150-375) k/mm3 MPV (7.4-10.4) fl Immature Gran % (Auto) (0-0.5) % Neut % (Auto) (45.5-73.1) % Lymph % (Auto) (18.3-44.2) % [place] % (Auto) (2.6-8.5) % Eos % (Auto) (0-4.4) % Baso % (Auto) (0.2-1.2) % Lymph # (Auto) (0.9-3.2) K/mm3 [place] # (Auto) (0.1-0.6) K/mm3 Eos # (Auto) (0-0.3) K/mm3 Baso # (Auto) (0.0-0.1) K/mm3 Abs Immat Gran (auto) (0.00-0.031) K/mm3 Absolute Neuts (auto) (1.3-6.7) K/mm3 Absolute Nucleated RBC (0.0-0.012) K/mm3 Nucleated RBC % (0.0-0.2) % PT (11.1-14.7) Seconds INR APTT (22.3-36.8) Seconds Methemoglobin 0.3 (0-1.5) %THb Expiratory Pressure 6 CMH2O Inspiratory Pressure 20 CMH2O Sodium (137-145) mmol/L Potassium (3.4-5.0) mmol/L Chloride (98-107) mmol/L Carbon Dioxide (22-30) mmol/L Anion Gap (4-12) mmol/L BUN (9-20) mg/dL Creatinine (0.7-1.3) mg/dL Estim Creat Clear Calc Estimated GFR (59 - ) Glucose (65-110) mg/dL POC Capillary Glucose 306 H (65-105) mg/dl Calcium (8.4-10.2) mg/dL Total Bilirubin (0.2-1.3) mg/dL AST (17-59) U/L ALT (6-50) U/L Alkaline Phosphatase (38-126) U/L NT-Pro-B Natriuret Pep (19.9-100) pg/mL Total Protein (6.3-8.2) g/dL Albumin (3.5-5.1) g/dL Influenza A (RT-PCR) (Negative) Influenza B (RT-PCR) (Negative) RSV (RT-PCR) (Negative) SARS-CoV-2 RNA (RT-PCR) (Negative) <Shannon Trevino PA-C - Last Filed: 03/06/25 03:31> Lab Results 03/05/25 03/05/25 03/05/25 Range/Units 18:07 18:50 19:52 WBC 8.8 (4.5-10.0) K/mm3 RBC 4.17 L (4.6-6.20) M/mm3 Hgb 11.4 L (14.0-18.0) g/dL Hct 37.2 L (42.0-52.0) % MCV 89.2 (80-100) fl MCH 27.3 (26-34) pg MCHC 30.6 L (32-36) g/dl RDW 12.3 (11.5-14.5) % Plt Count 246 (150-375) k/mm3 MPV 10.1 (7.4-10.4) fl Immature Gran % (Auto) 0.9 H (0-0.5) % Neut % (Auto) 70.0 (45.5-73.1) % Lymph % (Auto) 20.7 (18.3-44.2) % [place] % (Auto) 7.0 (2.6-8.5) % Eos % (Auto) 1.2 (0-4.4) % Baso % (Auto) 0.2 (0.2-1.2) % Lymph # (Auto) 1.83 (0.9-3.2) K/mm3 [place] # (Auto) 0.6 (0.1-0.6) K/mm3 Eos # (Auto) 0.1 (0-0.3) K/mm3 Baso # (Auto) 0.0 (0.0-0.1) K/mm3 Abs Immat Gran (auto) 0.08 H (0.00-0.031) K/mm3 Absolute Neuts (auto) 6.2 (1.3-6.7) K/mm3 Absolute Nucleated RBC 0.000 (0.0-0.012) K/mm3 Nucleated RBC % 0.0 (0.0-0.2) % PT 12.3 (11.1-14.7) Seconds INR 0.9 APTT 25.8 (22.3-36.8) Seconds Methemoglobin 0.4 (0-1.5) %THb Expiratory Pressure CMH2O Inspiratory Pressure CMH2O Sodium 138 (137-145) mmol/L Potassium 5.9 H 5.7 H (3.4-5.0) mmol/L Chloride 90 L (98-107) mmol/L Carbon Dioxide 39 H (22-30) mmol/L Anion Gap 9 (4-12) mmol/L BUN 40 H D (9-20) mg/dL Creatinine 1.85 H (0.7-1.3) mg/dL Estim Creat Clear Calc Not Reportable Estimated GFR 39 L (59 - ) Glucose 440 H (65-110) mg/dL POC Capillary Glucose (65-105) mg/dl Calcium 9.4 (8.4-10.2) mg/dL Total Bilirubin 0.2 (0.2-1.3) mg/dL AST 16 L (17-59) U/L ALT 14 (6-50) U/L Alkaline Phosphatase 162 H (38-126) U/L NT-Pro-B Natriuret Pep 243 H (19.9-100) pg/mL Total Protein 8.6 H (6.3-8.2) g/dL Albumin 4.4 (3.5-5.1) g/dL Influenza A (RT-PCR) Negative (Negative) Influenza B (RT-PCR) Negative (Negative) RSV (RT-PCR) Negative (Negative) SARS-CoV-2 RNA (RT-PCR) Negative (Negative) 03/05/25 03/05/25 Range/Units 21:22 21:54 WBC (4.5-10.0) K/mm3 RBC (4.6-6.20) M/mm3 Hgb (14.0-18.0) g/dL Hct (42.0-52.0) % MCV (80-100) fl MCH (26-34) pg MCHC (32-36) g/dl RDW (11.5-14.5) % Plt Count (150-375) k/mm3 MPV (7.4-10.4) fl Immature Gran % (Auto) (0-0.5) % Neut % (Auto) (45.5-73.1) % Lymph % (Auto) (18.3-44.2) % [place] % (Auto) (2.6-8.5) % Eos % (Auto) (0-4.4) % Baso % (Auto) (0.2-1.2) % Lymph # (Auto) (0.9-3.2) K/mm3 [place] # (Auto) (0.1-0.6) K/mm3 Eos # (Auto) (0-0.3) K/mm3 Baso # (Auto) (0.0-0.1) K/mm3 Abs Immat Gran (auto) (0.00-0.031) K/mm3 Absolute Neuts (auto) (1.3-6.7) K/mm3 Absolute Nucleated RBC (0.0-0.012) K/mm3 Nucleated RBC % (0.0-0.2) % PT (11.1-14.7) Seconds INR APTT (22.3-36.8) Seconds Methemoglobin 0.3 (0-1.5) %THb Expiratory Pressure 6 CMH2O Inspiratory Pressure 20 CMH2O Sodium (137-145) mmol/L Potassium (3.4-5.0) mmol/L Chloride (98-107) mmol/L Carbon Dioxide (22-30) mmol/L Anion Gap (4-12) mmol/L BUN (9-20) mg/dL Creatinine (0.7-1.3) mg/dL Estim Creat Clear Calc Estimated GFR (59 - ) Glucose (65-110) mg/dL POC Capillary Glucose 306 H (65-105) mg/dl Calcium (8.4-10.2) mg/dL Total Bilirubin (0.2-1.3) mg/dL AST (17-59) U/L ALT (6-50) U/L Alkaline Phosphatase (38-126) U/L NT-Pro-B Natriuret Pep (19.9-100) pg/mL Total Protein (6.3-8.2) g/dL Albumin (3.5-5.1) g/dL Influenza A (RT-PCR) (Negative) Influenza B (RT-PCR) (Negative) RSV (RT-PCR) (Negative) SARS-CoV-2 RNA (RT-PCR) (Negative) <Gaurang Headley MD - Last Filed: 03/06/25 06:46> ABG Data ABG results: 03/05/25 03/05/25 18:50 21:22 Puncture Site Left radial Left radial ABG pH 7.191 L* 7.200 L* ABG pCO2 96.8 H* 101.4 H* ABG pO2 144.1 H 75.5 L ABG PO2/FiO2 Ratio 2.77 1.89 ABG HCO3 36.2 H 38.7 H ABG O2 Saturation 98.1 90.7 L ABG O2 Content 17.1 14.0 L ABG Base Excess 5.1 7.9 A-a Gradient 118.2 93.1 Oxyhemoglobin 98.1 92.6 Carboxyhemoglobin 0.3 0.3 Reduced Hemoglobin 1.2 6.8 H Total Hemoglobin 12.2 10.7 L O2 Delivery Device Nasal cannula Non-invasive vent O2 Liters/Min 8.0 Not Reportable Vent Rate 24 FiO2 52 40 <Shannon Trevino PA-C - Last Filed: 03/06/25 03:31> 03/05/25 03/05/25 18:50 21:22 Puncture Site Left radial Left radial ABG pH 7.191 L* 7.200 L* ABG pCO2 96.8 H* 101.4 H* ABG pO2 144.1 H 75.5 L ABG PO2/FiO2 Ratio 2.77 1.89 ABG HCO3 36.2 H 38.7 H ABG O2 Saturation 98.1 90.7 L ABG O2 Content 17.1 14.0 L ABG Base Excess 5.1 7.9 A-a Gradient 118.2 93.1 Oxyhemoglobin 98.1 92.6 Carboxyhemoglobin 0.3 0.3 Reduced Hemoglobin 1.2 6.8 H Total Hemoglobin 12.2 10.7 L O2 Delivery Device Nasal cannula Non-invasive vent O2 Liters/Min 8.0 Not Reportable Vent Rate 24 FiO2 52 40 <Gaurang Headley MD - Last Filed: 03/06/25 06:46> Imaging Data Radiologist's impression: ITS Impressions Chest X-Ray 03/05/25 17:56 Impression: Early basilar pneumonia <LADARIUS Sarkar Last Filed: 03/06/25 03:31> ECG Data EKG #1: ECG completion date: 03/05/25 <LADARIUS Sarkar Last Filed: 03/06/25 03:31> EKG Interpretation: tachycardia, sinus rhythm, no ST changes and normal QT <Shannon Trevino PA-C - Last Filed: 03/06/25 03:31> Critical Care Time Critical Care Time Critical Care Time: Yes <Shannon Trevino PA-C - Last Filed: 03/06/25 03:31> Yes <Gaurang Headley MD - Last Filed: 03/06/25 06:46> Total Critical Care Time: 35 <Shannon Trevino PA-C - Last Filed: 03/06/25 03:31> 75 <Gaurang Headley MD - Last Filed: 03/06/25 06:46> Discharge Plan Discharge Clinical Impression: Acute on chronic respiratory failure Qualifiers: Respiratory failure complication: hypercapnia Qualified Code(s): J96.22 - Acute and chronic respiratory failure with hypercapnia Pneumonia Qualifiers: Pneumonia type: due to unspecified organism Laterality: right Lung location: l ower lobe of lung Qualified Code(s): J18.9 - Pneumonia, unspecified organism <Shannon Trevino PA-C - Last Filed: 03/06/25 03:31> Patient Disposition: Still a Patient <LADARIUS Sarkar Last Filed: 03/06/25 03:31> Condition: Improved <Shannon Trevino PA-C - Last Filed: 03/06/25 03:31>
[2025-03-05 18:48] LABS: Alanine Aminotransferase 14 U/L (6-50); Albumin Level 4.4 g/dL (3.5-5.1); Alkaline Phosphatase 162 U/L (38-126); Anion Gap 9 mmol/L (4-12); Aspartate Amino Transferase 16 U/L (17-59); Bilirubin,Total 0.2 mg/dL (0.2-1.3); Blood Urea Nitrogen 40 mg/dL (9-20); Calcium 9.4 mg/dL (8.4-10.2); Carbon Dioxide 39 mmol/L (22-30); Chloride 90 mmol/L (98-107); Estimated Glomerular Filt Rate 39; Glucose 440 mg/dL (65-110); Potassium 5.9 mmol/L (3.4-5.0); Sodium 138 mmol/L (137-145); Total Protein 8.6 g/dL (6.3-8.2)
[2025-03-05 18:52] LABS: NT Pro B Type Natriuretic Pept 243 pg/mL (19.9-100)
[2025-03-05 18:54] LABS: Influenza A QL RT-PCR Negative (Negative); Influenza B QL RT-PCR Negative (Negative); RSV RNA, RT-PCR Negative (Negative); SARS-CoV-2 RNA PCR Negative (Negative)
[2025-03-05] MEDS: IPRATROPIUM 0.5 MG/ALBUTEROL SULFATE 2.5 MG (BASE) AMPUL.NEB 3 ML INHALATION (19:00)
[2025-03-05 19:10] LABS: Alveolar/Arterial O2 Gradient 118.2 mmHg; Carboxyhemoglobin 0.3 % THb (0-2.0); Fractional Inspired Oxygen 52 %; HCO3 ABG 36.2 mEq/l (22.0-26.0); Methemoglobin ABG 0.4 %THb (0-1.5); Oxygen Content ABG 17.1 %vol (16.0-22.0); Oxygen Saturation ABG 98.1 % (95.0-100.0); PO2 ABG 144.1 mmHg (80.0-100.0); PO2 FiO2 Ratio Arterial Blood 2.77 %; Reduced Hemoglobin 1.2 %THb (0-5.0)
[2025-03-05 19:12] LABS: Modified Allen's Test Pass; PCO2 ABG 96.8 mmHg (35.0-45.0); Site Drawn LEFT RADIAL
[2025-03-05] MEDS: SODIUM CHLORIDE 0.9% IV 500 ML 999 ML IV CONT (19:12)
[2025-03-05 19:13] LABS: Liters per Minute 8.0 LPM
[2025-03-05] MEDS: cefTRIAXone 1 GM in SODIUM CHLORIDE 0.9% IV 50 ML 100 ML IVPB (19:14)
[2025-03-05] MEDS: AZITHROMYCIN IV 500 MG in SODIUM CHLORIDE 0.9% IV 250 ML IVPB (19:16)
[2025-03-05 20:15] LABS: Potassium 5.7 mmol/L (3.4-5.0)
[2025-03-05] MEDS: INSULIN HUMAN REGULAR (*BKC) 100 UNITS/ML 10 UNITS IV PUSH (20:53)
[2025-03-05] MEDS: SODIUM CHLORIDE 0.9% IV 1,000 ML 999 ML IV CONT (20:54)
[2025-03-05] MEDS: CALCIUM GLUCONATE 1,000 MG/10 ML VIAL 1000 MG IV PUSH (20:55)
[2025-03-05 21:30] LABS: Alveolar/Arterial O2 Gradient 93.1 mmHg; Carboxyhemoglobin 0.3 % THb (0-2.0); Fractional Inspired Oxygen 40 %; HCO3 ABG 38.7 mEq/l (22.0-26.0); Methemoglobin ABG 0.3 %THb (0-1.5); Oxygen Content ABG 14.0 %vol (16.0-22.0); Oxygen Saturation ABG 90.7 % (95.0-100.0); PO2 ABG 75.5 mmHg (80.0-100.0); PO2 FiO2 Ratio Arterial Blood 1.89 %; Reduced Hemoglobin 6.8 %THb (0-5.0)
[2025-03-05 21:50] LABS: Modified Allen's Test Pass; Non-Invasive Expiratory Pressure 6 CMH2O; Non-Invasive Inspiratory Pressure 20 CMH2O; Non-Invasive Vent Rate 24 /MIN; PCO2 ABG 101.4 mmHg (35.0-45.0); Site Drawn LEFT RADIAL
[2025-03-05 23:11] LABS: Potassium 5.4 mmol/L (3.4-5.0)
[2025-03-05] MEDS: SODIUM CHLORIDE 0.9% IV 1,000 ML 125 ML IV CONT (23:41)
[2025-03-05 23:52] LABS: Alveolar/Arterial O2 Gradient 111.9 mmHg; Carboxyhemoglobin 0.3 % THb (0-2.0); Fractional Inspired Oxygen 40 %; HCO3 ABG 38.5 mEq/l (22.0-26.0); Methemoglobin ABG 0.2 %THb (0-1.5); Oxygen Content ABG 14.7 %vol (16.0-22.0); Oxygen Saturation ABG 91.3 % (95.0-100.0); PO2 ABG 72.6 mmHg (80.0-100.0); PO2 FiO2 Ratio Arterial Blood 1.81 %; Reduced Hemoglobin 5.9 %THb (0-5.0)
[2025-03-05 23:54] LABS: PCO2 ABG 87.6 mmHg (35.0-45.0)
[2025-03-05 23:55] LABS: Modified Allen's Test Pass; Site Drawn RIGHT RADIAL
[2025-03-06] VITALS (51 sets, daily range): BP systolic 70–144; BP diastolic 52–99; PULSE 83–107; RESP 15–24; TEMP 36.7–37.1; O2SAT 66–100; BMI 36.7
--- NOTE | 2025-03-06 04:56 | P.HP_ITS ---
H&P: HPI History of Present Illness Date/Time: 03/06/25 04:56 Chief Complaint: Increasing oxygen requirement Narrative: 49-year-old male with a past medical history a primary ciliary dyskinesia, chronic hypoxic hypercarbic respiratory failure on 4-6 L nasal cannula, essential hypertension, type 2 diabetes mellitus, chronic kidney disease, nonischemic cardiomyopathy and GERD who presented to the ER with complaints of increasing oxygen requirement. He reports that he usually uses 4-6 L while at rest and 8 L with activity. He has had increases oxygen up to 8 L while at rest. He reports that for the last 2 days he has been more somnolent. He is unintentionally fallen asleep without is Trelegy on. He woke 2-3 hours into his sleep cycle feeling more short of breath and realizing it did not have his machine on. The he has not been having any increased cough, congestion or any lower extremity edema. Any time his ciliary dyskinesia acts up has increased CO2 levels. He reports that he has not been eating or drinking much for the last week or so. He reports a lack of appetite. 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 He is on chronic suppressive therapy with azithromycin 500 mg daily. He has not had any recent steroid therapy. He admits that his glucoses on his CGM have been running in the 4 and 500s. On arrival to the ER he had acute on chronic respiratory acidosis with pH of 7.19 and pCO2 of 96. He after an hours so on BiPAP of 12/6 the patient's pCO2 increased to 100 wanting pH was relatively stable. Chest x- ray demonstrated possible bibasilar pneumonia and the patient was started on empiric antibiotic therapy with Rocephin and azithromycin. His labs demonstrated acute hyperkalemia and acute on chronic kidney disease. His glucoses are elevated to 440. He and his are currently in the process of getting a divorce. They have been together for 21 years. Review of Systems 2 Review of Systems: 12 systems were reviewed with pertinent positives and negatives per HPI. Except as documented in the HPI, all other systems were reviewed and are negative. He denies any history of diabetic retinopathy and recently had his outpatient dilated eye exam. He denies history of diabetic peripheral neuropathy. [facility] Past Medical History Medical History (Updated 03/06/25 @ 08:16 by Juliana Shafer DO) Low testosterone in male Erectile dysfunction Microalbuminuric diabetic nephropathy Dermatofibroma Primary ciliary dyskinesia Chronic kidney disease COVID-19 Encounter to vaccinate patient Burn of finger of left hand, second degree Hyperlipidemia Pseudomonas infection Insulin dependent type 2 diabetes mellitus Chronic respiratory failure with hypoxia and hypercapnia Congenital solitary kidney Gastroesophageal reflux disease Nonischemic cardiomyopathy per report, this is poorly documented in our system. Abdominal wall hernia Essential (primary) hypertension Primary ciliary dyskinesia Pulmonary emphysema Sleep apnea in adult Surgical History Surgical History History of knee surgery History of tonsillectomy and adenoidectomy History of nasal surgery History of appendectomy History of orthopedic surgery Family History Family History Father Hypertension Grandparent Hypertension Cerebrovascular accident Family history of coronary artery disease Family history of malignant neoplasm of urinary bladder Diabetes mellitus Mother Cholecystectomy planned H/O: hysterectomy Sibling Thyroid cancer Diverticulitis Other Family history of malignant neoplasm of breast Social History Social History (Updated 03/06/25 @ 08:25 by Juliana Shafer DO) Social History: The patient lives with his . They have 4 children the eldest 2 children have moved out of the house. The patient is a lifelong nonsmoker. The patient is disabled. 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 Surrogate medical decision maker: Sujey [place], spouse. Code status: Full code. Smoking status: Former smoker Smokeless tobacco user: chewing tobacco Second hand tobacco smoke exposure: No Smoking end date: 05/20/19 Additional smoking assessment comments: He never smoked but has chewed tobacco. Alcohol intake: never Substance use: never Substance use type: does not use Do You Feel Safe in your Home?: Yes Lack of Transportation: No Lack of Food: Never True Current Housing: I Have Housing Concerned About Future Housing: No Difficulty Paying Gas/Electric Bills: No Difficulty Paying for Meds: No Currently Unemployed: No Education: Associate Degree Difficulty w/ Childcare or Family Care: No Living arrangements: with family Additional living arrangements comments: The patient lives with his and children in [place]. Occupation/Education: unemployed Additional occupation/education comments: Disabled. Spiritual care concerns: No Meds Home Medications and Allergies Home Medications ?Medication ?Instructions ?Recorded ?Confirmed ?Type sodium chloride 0.65 % nasal spray 2 spray intranasal DAILY PRN nasal 10/14/22 03/06/25 History aerosol (Nasal [place] (sodium congestion chloride)) ipratropium 0.5 mg-albuterol 3 mg 3 ml inhalation QID 09/09/23 03/06/25 History (2.5 mg base)/3 mL nebulization soln semaglutide 2 mg/dose (8 mg/3 mL) 2 mg (0.75 mL) subcu t WEEKLY #3 mL 06/01/24 03/06/25 Rx subcutaneous pen injector (Ozempic) insulin glargine-yfgn 100 unit/mL 70 unit (0.7 mL) sub cut HS #15 mL 09/03/24 03/06/25 Rx (3 mL) subcutaneous pen (Semglee (insulin glargine-yfgn) Pen) blood-glucose transmitter (Dexcom #1 ea 09/30/2410/05 Rx G6 Transmitter device) atorvastatin 20 mg tablet 20 mg PO DAILY #90 tabs 09/1803/06/25 Rx azithromycin 500 mg tablet 500 mg PO DAILY #90 tabs 03/06/25 Rx modafinil 200 mg tablet (Provigil) 200 mg PO QAM #90 t abs 12/01/24 03/06/25 Rx blood-glucose sensor (Dexcom G6 #9 ea 12/11/24 5 Rx Sensor device) lisinopril 5 mg tablet 5 mg PO DAILY #90 tabs 12/2703/06/25 Rx montelukast 10 mg tablet 10 mg PO DAILY #90 tabs 12/1803/06/25 Rx (Singulair) famotidine 20 mg tablet 40 mg (2 x 20 mg) PO DAILY # 180 01/09/25 03/06/25 Rx tabs amlodipine 5 mg tablet 5 mg PO DAILY #90 tabs 01/2503/06/25 Rx furosemide 40 mg tablet 40 mg PO QAM #90 tabs 03/06/25 Rx insulin aspart U-100 100 unit/mL See Rx Instructions . Route 01/25/25 03/06/25 Rx (3 mL) subcutaneous pen .COMPLEX #15 mL pen needle, diabetic 32 gauge x #100 ea 02/18/25 Rx 1/4 Allergies Allergy/AdvReac Type Severity Reaction Status Date / Time povidone-iodine Allergy Unknown rash Verified 03/06/25 05:09 tetracycline Allergy Unknown Rash Verified 03/06/25 05:09 theophylline AdvReac Mild Nervousness Verified 03/06/25 05:09 Vital Signs Vital Signs - 24 hr 03/05/25 17:08 03/05/25 17:19 03/05/25 17:23 Temperature 98 F Pulse Rate 111 H 105 H Respiratory Rate 25 H 20 Blood Pressure 150/105 H Pulse Oximetry 99 Oxygen Delivery Nasal Cannula Oxygen Flow Rate 8 8 03/05/25 18:00 03/05/25 19:10 03/05/25 19:16 Temperature Pulse Rate 101 H 102 H 103 H Respiratory Rate 21 H 21 H 18 Blood Pressure 138/82 Pulse Oximetry 99 Oxygen Delivery Oxygen Flow Rate 03/05/25 19:17 03/05/25 19:17 03/05/25 19:30 Temperature Pulse Rate 102 H 106 H 114 H Respiratory Rate 21 H 20 21 H Blood Pressure 91/57 L 91/57 L Pulse Oximetry 100 98 Oxygen Delivery Oxygen Flow Rate 03/05/25 19:45 03/05/25 19:57 03/05/25 20:00 Temperature Pulse Rate 106 H 102 H 96 Respiratory Rate 21 H 24 H 19 Blood Pressure Pulse Oximetry 100 100 100 Oxygen Delivery BiPAP Oxygen Flow Rate 03/05/25 20:15 03/05/25 20:30 03/05/25 20:36 Temperature Pulse Rate 94 91 95 Respiratory Rate 18 20 25 H Blood Pressure 122/63 Pulse Oximetry 100 98 100 Oxygen Delivery Oxygen Flow Rate 03/05/25 20:37 03/05/25 20:45 03/05/25 20:46 Temperature Pulse Rate 96 99 91 Respiratory Rate 25 H 21 H 20 Blood Pressure 122/63 117/58 L Pulse Oximetry 100 96 98 Oxygen Delivery Oxygen Flow Rate 03/05/25 21:00 03/05/25 21:15 03/05/25 21:30 Temperature Pulse Rate 97 97 95 Respiratory Rate 18 18 21 H Blood Pressure 129/64 Pulse Oximetry 99 95 97 Oxygen Delivery Oxygen Flow Rate 03/05/25 21:30 03/05/25 21:31 03/05/25 21:45 Temperature Pulse Rate 95 95 93 Respiratory Rate 15 19 19 Blood Pressure 129/64 Pulse Oximetry 98 100 97 Oxygen Delivery Oxygen Flow Rate 03/05/25 22:00 03/05/25 22:10 03/05/25 22:15 Temperature Pulse Rate 92 98 93 Respiratory Rate 20 20 21 H Blood Pressure 138/75 Pulse Oximetry 93 97 Oxygen Delivery BiPAP Oxygen Flow Rate 03/05/25 22:15 03/05/25 22:16 03/05/25 22:30 Temperature Pulse Rate 93 96 97 Respiratory Rate 20 20 19 Blood Pressure 138/75 Pulse Oximetry 96 Oxygen Delivery Oxygen Flow Rate 03/05/25 22:45 03/05/25 23:00 03/05/25 23:01 Temperature Pulse Rate 93 93 100 Respiratory Rate 21 H 21 H 18 Blood Pressure 130/63 Pulse Oximetry 98 97 98 Oxygen Delivery Oxygen Flow Rate 03/05/25 23:15 03/05/25 23:30 03/05/25 23:45 Temperature Pulse Rate 106 H 100 96 Respiratory Rate 21 H 22 H 19 Blood Pressure Pulse Oximetry 96 98 Oxygen Delivery Oxygen Flow Rate 03/05/25 23:46 03/06/25 00:00 03/06/25 00:12 Temperature Pulse Rate 102 H 107 H 91 Respiratory Rate 21 H 16 22 H Blood Pressure 117/68 Pulse Oximetry 97 96 97 Oxygen Delivery Oxygen Flow Rate 03/06/25 00:15 03/06/25 00:30 03/06/25 00:31 Temperature Pulse Rate 102 H 96 94 Respiratory Rate 15 24 H 22 H Blood Pressure 70/56 L Pulse Oximetry 96 95 95 Oxygen Delivery Oxygen Flow Rate 03/06/25 00:45 03/06/25 00:50 03/06/25 01:00 Temperature Pulse Rate 99 92 Respiratory Rate 16 20 Blood Pressure 122/68 Pulse Oximetry 94 94 95 Oxygen Delivery Oxygen Flow Rate 03/06/25 01:15 03/06/25 01:16 03/06/25 01:30 Temperature Pulse Rate Respiratory Rate Blood Pressure 114/52 L Pulse Oximetry 93 94 94 Oxygen Delivery Oxygen Flow Rate 03/06/25 01:46 03/06/25 02:00 03/06/25 02:01 Temperature Pulse Rate Respiratory Rate Blood Pressure 117/96 H Pulse Oximetry 88 L 95 94 Oxygen Delivery Oxygen Flow Rate 03/06/25 02:15 03/06/25 02:30 03/06/25 02:35 Temperature Pulse Rate 89 Respiratory Rate 20 Blood Pressure Pulse Oximetry 92 92 94 Oxygen Delivery Oxygen Flow Rate 03/06/25 02:45 03/06/25 02:46 03/06/25 03:00 Temperature Pulse Rate Respiratory Rate Blood Pressure 110/65 Pulse Oximetry 94 94 94 Oxygen Delivery Oxygen Flow Rate 03/06/25 03:15 03/06/25 03:30 03/06/25 03:31 Temperature Pulse Rate Respiratory Rate Blood Pressure 124/99 H Pulse Oximetry 94 93 94 Oxygen Delivery Oxygen Flow Rate 03/06/25 03:49 03/06/25 04:00 03/06/25 04:15 Temperature Pulse Rate 95 101 H Respiratory Rate 20 23 H Blood Pressure Pulse Oximetry 66 L 95 97 Oxygen Delivery Oxygen Flow Rate 03/06/25 04:30 Temperature Pulse Rate 107 H Respiratory Rate 20 Blood Pressure Pulse Oximetry 93 Oxygen Delivery Oxygen Flow Rate Exam 2 Narrative: Weight 112.9 kg BMI 36.8 Const: Other: Obese, no acute distress, appears stated age HENMT: Other: Mucous membranes are dry, no oral pharyngeal erythema, crowded posterior oropharynx Eyes: Other: Pupils are equal and reactive, no scleral icterus Neck: Other: Fullness of the right side of the thyroid, no lymphadenopathy, large neck circumference Resp: Other: Pain tended expiratory wheezing posterior lungs, coarse breath sounds anterior lung bailey, no increased work of breathing Cardio: Other: Sinus tachycardia, 2+ bilateral radial pedal pulses, no JVD, no murmur GI: Other: Obese, soft, nontender Skin: Other: No jaundice, no pallor, faded tattoo of old upper chronic on the left upper arm Neuro: Other: Alert oriented x4, speech is clear, no facial asymmetry Extrem: Other: Moves all extremities equally 5/5 strength, no foot wounds Psych: Other: Appropriate mood and affect, pleasant and cooperative, judgment and insight intact H&P: Results Labs Labs: Laboratory Tests 03/05/25 18:07 03/05/25 22:56 03/05/25 03/05/25 03/05/25 18:07 18:50 19:52 WBC 8.8 RBC 4.17 L Hgb 11.4 L Hct 37.2 L MCV 89.2 MCH 27.3 MCHC 30.6 L RDW 12.3 Plt Count 246 MPV 10.1 Immature Gran % (Auto) 0.9 H Neut % (Auto) 70.0 Lymph % (Auto) 20.7 Randolph % (Auto) 7.0 Eos % (Auto) 1.2 Baso % (Auto) 0.2 Lymph # (Auto) 1.83 Randolph # (Auto) 0.6 Eos # (Auto) 0.1 Baso # (Auto) 0.0 Abs Immat Gran (auto) 0.08 H Absolute Neuts (auto) 6.2 Absolute Nucleated RBC 0.000 Nucleated RBC % 0.0 PT 12.3 INR 0.9 APTT 25.8 Puncture Site Left radial ABG pH 7.191 L* ABG pCO2 96.8 H* ABG pO2 144.1 H ABG PO2/FiO2 Ratio 2.77 ABG HCO3 36.2 H ABG O2 Saturation 98.1 ABG O2 Content 17.1 ABG Base Excess 5.1 A-a Gradient 118.2 Oxyhemoglobin 98.1 Carboxyhemoglobin 0.3 Methemoglobin 0.4 Reduced Hemoglobin 1.2 Total Hemoglobin 12.2 O2 Delivery Device Nasal cannula O2 Liters/Min 8.0 Vent Rate FiO2 52 Expiratory Pressure Inspiratory Pressure Sodium 138 Potassium 5.9 H 5.7 H Chloride 90 L Carbon Dioxide 39 H Anion Gap 9 BUN 40 H D Creatinine 1.85 H Estim Creat Clear Calc Not Reportable Estimated GFR 39 L Glucose 440 H POC Capillary Glucose Calcium 9.4 Total Bilirubin 0.2 AST 16 L ALT 14 Alkaline Phosphatase 162 H NT-Pro-B Natriuret Pep 243 H Total Protein 8.6 H Albumin 4.4 Influenza A (RT-PCR) Negative Influenza B (RT-PCR) Negative RSV (RT-PCR) Negative SARS-CoV-2 RNA (RT-PCR) Negative 03/05/25 03/05/25 03/05/25 21:22 21:54 22:56 WBC RBC Hgb Hct MCV MCH MCHC RDW Plt Count MPV Immature Gran % (Auto) Neut % (Auto) Lymph % (Auto) Randolph % (Auto) Eos % (Auto) Baso % (Auto) Lymph # (Auto) Randolph # (Auto) Eos # (Auto) Baso # (Auto) Abs Immat Gran (auto) Absolute Neuts (auto) Absolute Nucleated RBC Nucleated RBC % PT INR APTT Puncture Site Left radial ABG pH 7.200 L* ABG pCO2 101.4 H* ABG pO2 75.5 L ABG PO2/FiO2 Ratio 1.89 ABG HCO3 38.7 H ABG O2 Saturation 90.7 L ABG O2 Content 14.0 L ABG Base Excess 7.9 A-a Gradient 93.1 Oxyhemoglobin 92.6 Carboxyhemoglobin 0.3 Methemoglobin 0.3 Reduced Hemoglobin 6.8 H Total Hemoglobin 10.7 L O2 Delivery Device Non-invasive vent O2 Liters/Min Not Reportable Vent Rate 24 FiO2 40 Expiratory Pressure 6 Inspiratory Pressure 20 Sodium Potassium 5.4 H Chloride Carbon Dioxide Anion Gap BUN Creatinine Estim Creat Clear Calc Estimated GFR Glucose POC Capillary Glucose 306 H Calcium Total Bilirubin AST ALT Alkaline Phosphatase NT-Pro-B Natriuret Pep Total Protein Albumin Influenza A (RT-PCR) Influenza B (RT-PCR) RSV (RT-PCR) SARS-CoV-2 RNA (RT-PCR) 03/05/25 23:43 WBC RBC Hgb Hct MCV MCH MCHC RDW Plt Count MPV Immature Gran % (Auto) Neut % (Auto) Lymph % (Auto) Randolph % (Auto) Eos % (Auto) Baso % (Auto) Lymph # (Auto) Randolph # (Auto) Eos # (Auto) Baso # (Auto) Abs Immat Gran (auto) Absolute Neuts (auto) Absolute Nucleated RBC Nucleated RBC % PT INR APTT Puncture Site Right radial ABG pH 7.261 L* ABG pCO2 87.6 H* ABG pO2 72.6 L ABG PO2/FiO2 Ratio 1.81 ABG HCO3 38.5 H ABG O2 Saturation 91.3 L ABG O2 Content 14.7 L ABG Base Excess 8.8 A-a Gradient 111.9 Oxyhemoglobin 93.6 Carboxyhemoglobin 0.3 Methemoglobin 0.2 Reduced Hemoglobin 5.9 H Total Hemoglobin 11.1 L O2 Delivery Device Other device O2 Liters/Min Vent Rate FiO2 40 Expiratory Pressure Inspiratory Pressure Sodium Potassium Chloride Carbon Dioxide Anion Gap BUN Creatinine Estim Creat Clear Calc Estimated GFR Glucose POC Capillary Glucose Calcium Total Bilirubin AST ALT Alkaline Phosphatase NT-Pro-B Natriuret Pep Total Protein Albumin Influenza A (RT-PCR) Influenza B (RT-PCR) RSV (RT-PCR) SARS-CoV-2 RNA (RT-PCR) Impressions Chest X-Ray 03/05/25 17:56 Impression: Early basilar pneumonia Assessment and Plan Assessment and plan (1) Acute on chronic respiratory failure: Qualifiers: Respiratory failure complication: hypoxia and hypercapnia Qualified Code(s): J96.21 - Acute and chronic respiratory failure with hypoxia; J96.22 - Acute and chronic respiratory failure with hypercapnia Code(s): J96.20 - Acute and chronic respiratory failure, unspecified whether with hypoxia or hypercapnia Status: Acute (2) Primary ciliary dyskinesia: Code(s): Q34.8 - Other specified congenital malformations of respiratory system Status: Acute (3) Pneumonia: Qualifiers: Laterality: right Lung location: lower lobe of lung Pneumonia type: d ue to unspecified organism Qualified Code(s): J18.9 - Pneumonia, unspecified organism Code(s): J18.9 - Pneumonia, unspecified organism Status: Acute (4) Type 2 diabetes mellitus with hyperglycemia, with long-term current use of insulin: Code(s): E11.65 - Type 2 diabetes mellitus with hyperglycemia; Z79.4 - buttermaker (current) use of insulin Status: Acute (5) Sleep apnea in adult: Code(s): G47.30 - Sleep apnea, unspecified Status: Acute (6) Primary ciliary dyskinesia: Code(s): Q34.8 - Other specified congenital malformations of respiratory system Status: Chronic Plan Patient has acute on chronic hypoxic hypercarbic respiratory failure due to the emphysema and chronic ciliary dyskinesia and affect that he has not been wearing his device with sleep and has history of obstructive sleep apnea.. Will place patient on scheduled nebulizer treatments and IV Solu-Medrol 60 mg q.6 hours. Will continue respiratory support with AVAPS. Patient is responding well to AVAPS with repeat ABG demonstrating pCO2 trending down from greater than 100 down to the mid 80s and improving pH. Will give the patient a break from BiPAP. Will continue antibiotic therapy with azithromycin and Rocephin. Blood cultures have been obtained and are pending. Once his treatment for possible pneumonia has ended he will need to be restarted on his chronic suppressive therapy with azithromycin. 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 Patient does have acute on chronic kidney injury likely in part due to hypovolemia and hypokalemia is likely multifactorial due to decreased oral intake and persistent hyperglycemia controlled diabetes. Glucoses did initially improve with IV fluid hydration. The patient did not receive his evening Lantus therapy. This morning the patient's glucoses were elevated more subsequently I gave the patient 40 units of Lantus and 10 units of subq NovoLog with repeat BMP ordered. Have also started the patient on his home Lantus 70 units at night and place patient on high-dose sliding scale insulin as well as mealtime bolus insulin especially in the setting of the patient receiving steroids and and his abated increasing glucoses. Will continue Accu-Cheks a.c. HS and place patient on a hypoglycemia protocol as needed. Consistent carbohydrate diet has been ordered. Patient does have associated hyperkalemia but potassium was trending downward. Patient has been admitted as observation status. MEDICAL DECISION MAKING NARRATIVE -Spoke with the ED provider in detail regarding patient's evaluation, workup and management -Patient seen and examined at bedside -Collaborated with patient's nurse at the bedside in detail and addressed all concerns -Labs, electrolytes, radiology, investigations and test results personally reviewed and interpreted unless otherwise specified -ED/Consult/Nursing/Ancilliary notes on the chart reviewed and appreciated -Spoke with patient at bedside and diagnosis and plan of care was discussed. All questions answered. Hospitalist [facility] Advance Care Plan I have confirmed that the patient's Advanced Care Plan is present, code status is documented, or surrogate decision maker is listed in patient medical record.: Yes Medication Reconciliation I have utilized all available resources to obtain, update and review the patients current medications (includes all prescriptions, OTC, herbals, cannabis, and nutritional supplements).: Yes
--- NOTE | 2025-03-06 05:07 | ADMGEN ---
This patient, Braydon Cole, was admitted to IMU Room 213-01 at 0441. Patient/family oriented to hospital policies and general routines including ID bracelet, bed and alarms, visiting hours, pain management, procedures, bathroom and other care routines, personal items, smoking policy, room service/diet, and visiting hours. Information on how to activate the Rapid Response Team has been discussed. Patient/Family are encouraged to report perceived risks to care and to ask questions if they do not understand what they are told or what they should do.
[2025-03-06] MEDS: INSULIN ASPART (*BKC) 100 UNITS/ML 10 UNITS SUB-Q (05:49)
[2025-03-06] MEDS: INSULIN GLARGINE (*BKC) 100 UNITS/ML 40 UNITS SUB-Q (05:49)
[2025-03-06 07:00] LABS: Hematocrit 33.6 % (42.0-52.0); Hemoglobin 10.0 g/dL (14.0-18.0); Immature Granulocyte Percent A 0.7 % (0-0.5); Lymphocytes Absolute Auto 0.54 K/mm3 (0.9-3.2); Mean Corpuscular HGB Conc 29.8 g/dl (32-36); Mean Corpuscular Hemoglobin 27.2 pg (26-34); Mean Corpuscular Volume 91.3 fl (80-100); Nucleated Red Blood Cells Absolute Auto 0.000 K/mm3 (0.0-0.012); Nucleated Red Blood Cells Perc 0.0 % (0.0-0.2); Platelet Count Result 202 k/mm3 (150-375); Red Blood Count 3.68 M/mm3 (4.6-6.20); White Blood Count 7.2 K/mm3 (4.5-10.0)
[2025-03-06 07:21] LABS: Hypochromasia Occasional; Schistocytes None Seen
[2025-03-06 07:38] LABS: Anion Gap 9 mmol/L (4-12); Blood Urea Nitrogen 44 mg/dL (9-20); Calcium 9.0 mg/dL (8.4-10.2); Carbon Dioxide 35 mmol/L (22-30); Chloride 92 mmol/L (98-107); Estimated CRCL calculation 57 ml/min; Estimated Glomerular Filt Rate 41; Glucose 604 mg/dL (65-110); Potassium 6.2 mmol/L (3.4-5.0); Sodium 136 mmol/L (137-145)
[2025-03-06] MEDS: IPRATROPIUM BR 0.02% INH SOLN 0.5 MG/2.5 ML VIAL INHALATION ×3 (07:39→20:52)
[2025-03-06] MEDS: ALBUTEROL SULFATE NEB 2.5 MG/3 ML INH 5 MG INHALATION ×3 (07:40→20:52)
[2025-03-06 07:42] LABS: Hemoglobin A1C 10.4 % (<5.7)
--- NOTE | 2025-03-06 08:06 | PC.NURSE ---
Notified Lee of patients elevated gluocse of 604, potassium 6.2. Received order for lokelma. PT had just previously been given insulin aspart and lantus at 0549. Received order to give 5 additional units of insulin aspart and to non-admin lantus due to just administered 40units on previous shift. Received order to recheck CMP and POC glucose an hour later. orders read back and verified.
[2025-03-06] MEDS: SODIUM CHLORIDE 0.9% IV 1,000 ML 125 ML IV CONT ×2 (08:35→18:39)
[2025-03-06] MEDS: SODIUM ZIRCONIUM CYCLOSILICATE 10 GM POWD.PACK PO (08:39)
[2025-03-06] MEDS: SODIUM BICARBONATE 8.4% 50 MEQ/50 ML SYRINGE IV PUSH (08:39)
[2025-03-06] MEDS: ATORVASTATIN 20 MG TABLET PO (08:40)
[2025-03-06] MEDS: MONTELUKAST SODIUM 10 MG TABLET PO (08:40)
[2025-03-06] MEDS: FAMOTIDINE 20 MG TABLET 40 MG PO (08:40)
[2025-03-06] MEDS: INSULIN ASPART (*BKC) 100 UNITS/ML SUB-Q ×4 (08:41→17:07)
[2025-03-06] MEDS: ENOXAPARIN 40 MG/0.4 ML SYRINGE SUB-Q (08:52)
[2025-03-06 11:37] LABS: Alanine Aminotransferase 21 U/L (6-50); Albumin Level 4.1 g/dL (3.5-5.1); Alkaline Phosphatase 143 U/L (38-126); Anion Gap 8 mmol/L (4-12); Aspartate Amino Transferase 21 U/L (17-59); Bilirubin,Total 0.3 mg/dL (0.2-1.3); Blood Urea Nitrogen 44 mg/dL (9-20); Calcium 8.8 mg/dL (8.4-10.2); Carbon Dioxide 35 mmol/L (22-30); Chloride 92 mmol/L (98-107); Estimated CRCL calculation 64 ml/min; Estimated Glomerular Filt Rate 47; Glucose 552 mg/dL (65-110); Magnesium 1.8 mg/dL (1.6-2.3); Potassium 5.1 mmol/L (3.4-5.0); Sodium 135 mmol/L (137-145); Total Protein 7.6 g/dL (6.3-8.2)
[2025-03-06] MEDS: INSULIN ASPART (*BKC) 100 UNITS/ML 11 UNITS SUB-Q ×2 (11:52→17:07)
--- NOTE | 2025-03-06 17:25 | P.PNIM_ITS ---
Progress Note: A&P Assessment and Plan (1) Acute on chronic respiratory failure: Qualifiers: Respiratory failure complication: hypoxia and hypercapnia Qualified Code(s): J96.21 - Acute and chronic respiratory failure with hypoxia; J96.22 - Acute and chronic respiratory failure with hypercapnia Code(s): J96.20 - Acute and chronic respiratory failure, unspecified whether with hypoxia or hypercapnia Status: Acute (2) Primary ciliary dyskinesia: Code(s): Q34.8 - Other specified congenital malformations of respiratory system Status: Acute (3) Pneumonia: Qualifiers: Laterality: right Lung location: lower lobe of lung Pneumonia type: due to unspecified organism Qualified Code(s): J18.9 - Pneumonia, unspecified organism Code(s): J18.9 - Pneumonia, unspecified organism Status: Acute (4) Type 2 diabetes mellitus with hyperglycemia, with long-term current use of insulin: Code(s): E11.65 - Type 2 diabetes mellitus with hyperglycemia; Z79.4 - longterm (current) use of insulin Status: Acute (5) Sleep apnea in adult: Code(s): G47.30 - Sleep apnea, unspecified Status: Acute Plan * Acute on Chronic Hypoxic Hypercarbic Respiratory Failure * Etiology: from pneumonia * Continue respiratory support with AVAPS. * Monitor ABGs: Patient is responding well to AVAPS with pCO2 trending down from >100 to mid-80s and improving pH. * Provide breaks from BiPAP as tolerated. * Continue antibiotic therapy with azithromycin and ceftriaxone (Rocephin). * Blood cultures obtained and pending. 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 * Acute on Chronic Kidney Injury * Likely multifactorial: hypovolemia, decreased oral intake, persistent hyperglycemia. * Plan: * Monitor renal function and volume status. * Continue IV fluid hydration as indicated. * Monitor and correct electrolyte abnormalities. * Monitor for further improvement or worsening. * Diabetes Mellitus with Persistent Hyperglycemia * Hyperglycemia likely exacerbated by steroid therapy and decreased oral intake. * Plan: * Resume home Lantus 70 units nightly. * High-dose sliding scale insulin and mealtime bolus insulin. * Administered 40 units Lantus and 10 units subq NovoLog this morning for elevated glucose. * Continue Accu-Cheks before meals and at bedtime. * Place on hypoglycemia protocol as needed. * Consistent carbohydrate diet ordered. * Monitor for further glucose excursions, especially with ongoing steroid therapy. * Hyperkalemia * Potassium abnormalities likely multifactorial: decreased intake, persistent hyperglycemia, and renal dysfunction. * Plan: * Monitor potassium closely. * Potassium is currently trending downward. * Replete or restrict as indicated based on serial labs. * Infectious Disease Considerations * Treated empirically for possible pneumonia. * Blood cultures pending. * Plan to restart chronic azithromycin for MAC after acute infection is treated. DVT prophylaxis on Sq Lovenox Subjective Date/time seen: 03/06/25 17:25 Interval history: Comfortable at bedside Review of Systems Review of Systems: 12 systems were reviewed with pertinent positives and negatives per HPI. Except as documented in the HPI, all other systems were reviewed and are negative. He denies any history of diabetic retinopathy and recently had his outpatient dilated eye exam. He denies history of diabetic peripheral neuropathy. Exam Narrative: Weight 112.9 kg BMI 36.8 Const: Other: Obese, no acute distress, appears stated age HENMT: Other: Mucous membranes are dry, no oral pharyngeal erythema, crowded posterior oropharynx Eyes: Other: Pupils are equal and reactive, no scleral icterus Neck: Other: Fullness of the right side of the thyroid, no lymphadenopathy, large neck circumference Resp: Other: Pain tended expiratory wheezing posterior lungs, coarse breath sounds anterior lung bailey, no increased work of breathing Cardio: Other: Sinus tachycardia, 2+ bilateral radial pedal pulses, no JVD, no murmur GI: Other: Obese, soft, nontender Skin: Other: No jaundice, no pallor, faded tattoo of old upper chronic on the left upper arm Neuro: Other: Alert oriented x4, speech is clear, no facial asymmetry Extrem: Other: Moves all extremities equally 5/5 strength, no foot wounds Psych: Other: Appropriate mood and affect, pleasant and cooperative, judgment and insight intact Objective Data Vital Signs Vital Signs: Vital Signs - 24 hr 03/05/25 18:00 03/05/25 19:10 03/05/25 19:16 Temperature Pulse Rate 101 H 102 H 103 H Respiratory Rate 21 H 21 H 18 Blood Pressure 138/82 Pulse Oximetry 99 Oxygen Delivery Oxygen Flow Rate 03/05/25 19:17 03/05/25 19:17 03/05/25 19:30 Temperature Pulse Rate 102 H 106 H 114 H Respiratory Rate 21 H 20 21 H Blood Pressure 91/57 L 91/57 L Pulse Oximetry 100 98 Oxygen Delivery Oxygen Flow Rate 03/05/25 19:45 03/05/25 19:57 03/05/25 20:00 Temperature Pulse Rate 106 H 102 H 96 Respiratory Rate 21 H 24 H 19 Blood Pressure Pulse Oximetry 100 100 100 Oxygen Delivery BiPAP Oxygen Flow Rate 03/05/25 20:15 03/05/25 20:30 03/05/25 20:36 Temperature Pulse Rate 94 91 95 Respiratory Rate 18 20 25 H Blood Pressure 122/63 Pulse Oximetry 100 98 100 Oxygen Delivery Oxygen Flow Rate 03/05/25 20:37 03/05/25 20:45 03/05/25 20:46 Temperature Pulse Rate 96 99 91 Respiratory Rate 25 H 21 H 20 Blood Pressure 122/63 117/58 L Pulse Oximetry 100 96 98 Oxygen Delivery Oxygen Flow Rate 03/05/25 21:00 03/05/25 21:15 03/05/25 21:30 Temperature Pulse Rate 97 97 95 Respiratory Rate 18 18 21 H Blood Pressure 129/64 Pulse Oximetry 99 95 97 Oxygen Delivery Oxygen Flow Rate 03/05/25 21:30 03/05/25 21:31 03/05/25 21:45 Temperature Pulse Rate 95 95 93 Respiratory Rate 15 19 19 Blood Pressure 129/64 Pulse Oximetry 98 100 97 Oxygen Delivery Oxygen Flow Rate 03/05/25 22:00 03/05/25 22:10 03/05/25 22:15 Temperature Pulse Rate 92 98 93 Respiratory Rate 20 20 21 H Blood Pressure 138/75 Pulse Oximetry 93 97 Oxygen Delivery BiPAP Oxygen Flow Rate 03/05/25 22:15 03/05/25 22:16 03/05/25 22:30 Temperature Pulse Rate 93 96 97 Respiratory Rate 20 20 19 Blood Pressure 138/75 Pulse Oximetry 96 Oxygen Delivery Oxygen Flow Rate 03/05/25 22:45 03/05/25 23:00 03/05/25 23:01 Temperature Pulse Rate 93 93 100 Respiratory Rate 21 H 21 H 18 Blood Pressure 130/63 Pulse Oximetry 98 97 98 Oxygen Delivery Oxygen Flow Rate 03/05/25 23:15 03/05/25 23:30 03/05/25 23:45 Temperature Pulse Rate 106 H 100 96 Respiratory Rate 21 H 22 H 19 Blood Pressure Pulse Oximetry 96 98 Oxygen Delivery Oxygen Flow Rate 03/05/25 23:46 03/06/25 00:00 03/06/25 00:12 Temperature Pulse Rate 102 H 107 H 91 Respiratory Rate 21 H 16 22 H Blood Pressure 117/68 Pulse Oximetry 97 96 97 Oxygen Delivery Oxygen Flow Rate 03/06/25 00:15 03/06/25 00:30 03/06/25 00:31 Temperature Pulse Rate 102 H 96 94 Respiratory Rate 15 24 H 22 H Blood Pressure 70/56 L Pulse Oximetry 96 95 95 Oxygen Delivery Oxygen Flow Rate 03/06/25 00:45 03/06/25 00:50 03/06/25 01:00 Temperature Pulse Rate 99 92 Respiratory Rate 16 20 Blood Pressure 122/68 Pulse Oximetry 94 94 95 Oxygen Delivery Oxygen Flow Rate 03/06/25 01:15 03/06/25 01:16 03/06/25 01:30 Temperature Pulse Rate Respiratory Rate Blood Pressure 114/52 L Pulse Oximetry 93 94 94 Oxygen Delivery Oxygen Flow Rate 03/06/25 01:46 03/06/25 02:00 03/06/25 02:01 Temperature Pulse Rate Respiratory Rate Blood Pressure 117/96 H Pulse Oximetry 88 L 95 94 Oxygen Delivery Oxygen Flow Rate 03/06/25 02:15 03/06/25 02:30 03/06/25 02:35 Temperature Pulse Rate 89 Respiratory Rate 20 Blood Pressure Pulse Oximetry 92 92 94 Oxygen Delivery Oxygen Flow Rate 03/06/25 02:45 03/06/25 02:46 03/06/25 03:00 Temperature Pulse Rate Respiratory Rate Blood Pressure 110/65 Pulse Oximetry 94 94 94 Oxygen Delivery Oxygen Flow Rate 03/06/25 03:15 03/06/25 03:30 03/06/25 03:31 Temperature Pulse Rate Respiratory Rate Blood Pressure 124/99 H Pulse Oximetry 94 93 94 Oxygen Delivery Oxygen Flow Rate 03/06/25 03:49 03/06/25 04:00 03/06/25 04:15 Temperature Pulse Rate 95 101 H Respiratory Rate 20 23 H Blood Pressure Pulse Oximetry 66 L 95 97 Oxygen Delivery Oxygen Flow Rate 03/06/25 04:30 03/06/25 04:58 03/06/25 05:32 Temperature 98.7 F Pulse Rate 107 H 99 Respiratory Rate 20 20 Blood Pressure 138/70 Pulse Oximetry 93 94 92 Oxygen Delivery High Flow Therapy with Na Oxygen Flow Rate 3 03/06/25 06:00 03/06/25 07:42 03/06/25 07:44 Temperature Pulse Rate 106 H 107 H 107 H Respiratory Rate 18 Blood Pressure Pulse Oximetry 100 Oxygen Delivery High Flow Nasal Cannula Oxygen Flow Rate 5 03/06/25 07:47 03/06/25 08:00 03/06/25 08:00 Temperature 98.3 F Pulse Rate 97 102 H 106 H Respiratory Rate 16 Blood Pressure 144/68 H Pulse Oximetry 94 Oxygen Delivery Oxygen Flow Rate 03/06/25 08:30 03/06/25 10:00 03/06/25 12:00 Temperature 98.1 F Pulse Rate 87 102 H Respiratory Rate 16 Blood Pressure 123/67 Pulse Oximetry 90 94 Oxygen Delivery High Flow Nasal Cannula Oxygen Flow Rate 3 03/06/25 12:00 03/06/25 12:00 03/06/25 14:00 Temperature Pulse Rate 106 H 90 Respiratory Rate Blood Pressure Pulse Oximetry 95 Oxygen Delivery High Flow Nasal Cannula Oxygen Flow Rate 3 03/06/25 14:15 03/06/25 14:20 03/06/25 16:00 Temperature 98.4 F Pulse Rate 95 96 102 H Respiratory Rate 18 18 20 Blood Pressure 132/74 Pulse Oximetry 95 Oxygen Delivery Oxygen Flow Rate Intake/Output Intake/Output: Intake & Output 03/03/25 03/04/25 03/05/25 03/06/25 23:59 23:59 23:59 23:59 Intake Total 1800 3070 Output Total 700 1300 Balance 1100 1770 Meds/Results Medications: Active Medications Generic Name Dose Route Start Last Admin Trade Name Freq PRN Reason Stop Dose Admin Albuterol 5 mg 03/06/25 08:00 03/06/25 14:13 Albuterol Sulfate Neb 2.5 Mg/3 Ml Inh INHALATION 5 mg Q6HRT JOSE D Administration Amlodipine Besylate 5 mg 03/06/25 09:00 03/06/25 08:40 Amlodipine Besylate 5 Mg Tablet PO 5 mg DAILY JOSE D Administration Atorvastatin Calcium 20 mg 03/06/25 09:00 03/06/25 08:40 Atorvastatin 20 Mg Tablet PO 20 mg DAILY JOSE D Administration Dextrose 12.5 gm 03/05/25 22:53 Dextrose 50% 25 Gm/50 Ml Syringe IV PUSH PRN PRN Hypoglycemia Protocol Enoxaparin Sodium 40 mg 03/06/25 09:00 03/06/25 08:52 Enoxaparin 40 Mg/0.4 Ml Syringe SUB-Q 40 mg DAILY JOSE D Administration Famotidine 40 mg 03/06/25 09:00 03/06/25 08:40 Famotidine 20 Mg Tablet PO 40 mg DAILY JOSE D Administration Glucagon 1 mg 03/05/25 22:53 Glucagon For Inj 1 Mg Vial IM PRN PRN Hypoglycemia Protocol Glucose 15 gm 03/05/25 22:53 Glucose Oral Gel 15 Gm Of Glucse In 37.5 Gm Tube PO PRN PRN Hypoglycemia Protocol Sodium Chloride 1,000 mls @ 100 mls/hr 03/05/25 22:55 03/06/25 08:35 Normal Saline Iv IV CONT 125 mls/hr .Q10H JOSE D Administration Dextrose 1,000 mls @ 100 mls/hr 03/05/25 22:53 Dextrose 5% 1,000 Ml IVPB PRN PRN Hypoglycemia Protocol Ceftriaxone Sodium 1 gm/ 50 mls @ 100 mls/hr 03/06/25 19:00 Sodium Chloride IVPB Q24H JOSE D Azithromycin 500 mg/ Sodium 250 mls @ 250 mls/hr 03/06/25 19:00 Chloride IVPB 03/09/25 19:59 Q24H JOSE D Insulin Aspart 4 - 8 units 03/06/25 08:00 03/06/25 17:07 Insulin Aspart (*Bkc) 100 Units/Ml SUB-Q 8 units TIDWM JOSE D Administration Protocol Insulin Aspart 11 units 03/06/25 08:00 03/06/25 17:07 Insulin Aspart (*Bkc) 100 Units/Ml 0.1 units/kg (11 units) 11 units SUB-Q Administration TIDWM JOSE D Insulin Glargine 70 units 03/06/25 21:00 Insulin Glargine (*Bkc) 100 Units/Ml SUB-Q HS JOSE D Ipratropium [place] 0.5 mg 03/06/25 08:00 03/06/25 14:13 Ipratropium Br 0.02% Inh Soln 0.5 Mg/2.5 Ml Vial INHALATION 0.5 mg Q6HRT JOSE D Administration Lisinopril 5 mg 03/06/25 09:00 03/06/25 08:40 Lisinopril 5 Mg Tablet PO 5 mg DAILY JOSE D Administration Montelukast Sodium 10 mg 03/06/25 09:00 03/06/25 08:40 Montelukast Sodium 10 Mg Tablet PO 10 mg DAILY JOSE D Administration Sodium Chloride 2 spray 03/06/25 05:10 Saline 0.65% Arsenio Soln 44 Ml Btl NASAL DAILY PRN Nasal Congestion Radiology Results: ITS Impressions Chest X-Ray 03/05/25 17:56 Impression: Early basilar pneumonia Labs Labs: Laboratory Results - last 24 hr 03/05/25 03/05/25 03/05/25 18:07 18:50 19:52 WBC 8.8 RBC 4.17 L Hgb 11.4 L Hct 37.2 L MCV 89.2 MCH 27.3 MCHC 30.6 L RDW 12.3 Plt Count 246 MPV 10.1 Immature Gran % (Auto) 0.9 H Neut % (Auto) 70.0 Lymph % (Auto) 20.7 Saunders % (Auto) 7.0 Eos % (Auto) 1.2 Baso % (Auto) 0.2 Lymph # (Auto) 1.83 Saunders # (Auto) 0.6 Eos # (Auto) 0.1 Baso # (Auto) 0.0 Abs Immat Gran (auto) 0.08 H Absolute Neuts (auto) 6.2 Absolute Nucleated RBC 0.000 Band Neutrophils % Nucleated RBC % 0.0 Platelet Estimate Hypochromasia Schistocytes PT 12.3 INR 0.9 APTT 25.8 Puncture Site Left radial ABG pH 7.191 L* ABG pCO2 96.8 H* ABG pO2 144.1 H ABG PO2/FiO2 Ratio 2.77 ABG HCO3 36.2 H ABG O2 Saturation 98.1 ABG O2 Content 17.1 ABG Base Excess 5.1 A-a Gradient 118.2 Oxyhemoglobin 98.1 Carboxyhemoglobin 0.3 Methemoglobin 0.4 Reduced Hemoglobin 1.2 Total Hemoglobin 12.2 O2 Delivery Device Nasal cannula O2 Liters/Min 8.0 Vent Rate FiO2 52 Expiratory Pressure Inspiratory Pressure Sodium 138 Potassium 5.9 H 5.7 H Chloride 90 L Carbon Dioxide 39 H Anion Gap 9 BUN 40 H D Creatinine 1.85 H Estim Creat Clear Calc Not Reportable Estimated GFR 39 L Glucose 440 H POC Capillary Glucose Hemoglobin A1c Calcium 9.4 Magnesium Total Bilirubin 0.2 AST 16 L ALT 14 Alkaline Phosphatase 162 H NT-Pro-B Natriuret Pep 243 H Total Protein 8.6 H Albumin 4.4 Influenza A (RT-PCR) Negative Influenza B (RT-PCR) Negative RSV (RT-PCR) Negative SARS-CoV-2 RNA (RT-PCR) Negative 03/05/25 03/05/25 03/05/25 21:22 21:54 22:56 WBC RBC Hgb Hct MCV MCH MCHC RDW Plt Count MPV Immature Gran % (Auto) Neut % (Auto) Lymph % (Auto) Saunders % (Auto) Eos % (Auto) Baso % (Auto) Lymph # (Auto) Saunders # (Auto) Eos # (Auto) Baso # (Auto) Abs Immat Gran (auto) Absolute Neuts (auto) Absolute Nucleated RBC Band Neutrophils % Nucleated RBC % Platelet Estimate Hypochromasia Schistocytes PT INR APTT Puncture Site Left radial ABG pH 7.200 L* ABG pCO2 101.4 H* ABG pO2 75.5 L ABG PO2/FiO2 Ratio 1.89 ABG HCO3 38.7 H ABG O2 Saturation 90.7 L ABG O2 Content 14.0 L ABG Base Excess 7.9 A-a Gradient 93.1 Oxyhemoglobin 92.6 Carboxyhemoglobin 0.3 Methemoglobin 0.3 Reduced Hemoglobin 6.8 H Total Hemoglobin 10.7 L O2 Delivery Device Non-invasive vent O2 Liters/Min Not Reportable Vent Rate 24 FiO2 40 Expiratory Pressure 6 Inspiratory Pressure 20 Sodium Potassium 5.4 H Chloride Carbon Dioxide Anion Gap BUN Creatinine Estim Creat Clear Calc Estimated GFR Glucose POC Capillary Glucose 306 H Hemoglobin A1c Calcium Magnesium Total Bilirubin AST ALT Alkaline Phosphatase NT-Pro-B Natriuret Pep Total Protein Albumin Influenza A (RT-PCR) Influenza B (RT-PCR) RSV (RT-PCR) SARS-CoV-2 RNA (RT-PCR) 03/05/25 03/06/25 03/06/25 23:43 05:24 06:53 WBC 7.2 RBC 3.68 L Hgb 10.0 L Hct 33.6 L MCV 91.3 MCH 27.2 MCHC 29.8 L RDW 12.4 Plt Count 202 MPV 10.2 Immature Gran % (Auto) 0.7 H Neut % (Auto) 90.7 H Lymph % (Auto) 7.6 L Saunders % (Auto) 0.6 L Eos % (Auto) 0.1 Baso % (Auto) 0.3 Lymph # (Auto) 0.54 L Saunders # (Auto) 0.0 L Eos # (Auto) 0.0 Baso # (Auto) 0.0 Abs Immat Gran (auto) 0.05 H Absolute Neuts (auto) 6.5 Absolute Nucleated RBC 0.000 Band Neutrophils % Not Reportable Nucleated RBC % 0.0 Platelet Estimate Adequate Hypochromasia Occasional Schistocytes None seen PT INR APTT Puncture Site Right radial ABG pH 7.261 L* ABG pCO2 87.6 H* ABG pO2 72.6 L ABG PO2/FiO2 Ratio 1.81 ABG HCO3 38.5 H ABG O2 Saturation 91.3 L ABG O2 Content 14.7 L ABG Base Excess 8.8 A-a Gradient 111.9 Oxyhemoglobin 93.6 Carboxyhemoglobin 0.3 Methemoglobin 0.2 Reduced Hemoglobin 5.9 H Total Hemoglobin 11.1 L O2 Delivery Device Other device O2 Liters/Min Vent Rate FiO2 40 Expiratory Pressure Inspiratory Pressure Sodium 136 L Potassium 6.2 H* Chloride 92 L Carbon Dioxide 35 H Anion Gap 9 BUN 44 H Creatinine 1.78 H Estim Creat Clear Calc 57 Estimated GFR 41 L Glucose 604 H* POC Capillary Glucose 499 H Hemoglobin A1c 10.4 H Calcium 9.0 Magnesium Total Bilirubin AST ALT Alkaline Phosphatase NT-Pro-B Natriuret Pep Total Protein Albumin Influenza A (RT-PCR) Influenza B (RT-PCR) RSV (RT-PCR) SARS-CoV-2 RNA (RT-PCR) 03/06/25 03/06/25 03/06/25 07:24 10:51 10:51 WBC RBC Hgb Hct MCV MCH MCHC RDW Plt Count MPV Immature Gran % (Auto) Neut % (Auto) Lymph % (Auto) Saunders % (Auto) Eos % (Auto) Baso % (Auto) Lymph # (Auto) Saunders # (Auto) Eos # (Auto) Baso # (Auto) Abs Immat Gran (auto) Absolute Neuts (auto) Absolute Nucleated RBC Band Neutrophils % Nucleated RBC % Platelet Estimate Hypochromasia Schistocytes PT INR APTT Puncture Site ABG pH ABG pCO2 ABG pO2 ABG PO2/FiO2 Ratio ABG HCO3 ABG O2 Saturation ABG O2 Content ABG Base Excess A-a Gradient Oxyhemoglobin Carboxyhemoglobin Methemoglobin Reduced Hemoglobin Total Hemoglobin O2 Delivery Device O2 Liters/Min Vent Rate FiO2 Expiratory Pressure Inspiratory Pressure Sodium 135 L Potassium 5.1 H Chloride 92 L Carbon Dioxide 35 H Anion Gap 8 BUN 44 H Creatinine 1.58 H Estim Creat Clear Calc 64 Estimated GFR 47 L Glucose 552 H* POC Capillary Glucose 498 H Hemoglobin A1c Calcium 8.8 Magnesium 1.8 Cancelled Total Bilirubin 0.3 AST 21 ALT 21 Alkaline Phosphatase 143 H NT-Pro-B Natriuret Pep Total Protein 7.6 Albumin 4.1 Influenza A (RT-PCR) Influenza B (RT-PCR) RSV (RT-PCR) SARS-CoV-2 RNA (RT-PCR) 03/06/25 03/06/25 11:16 15:45 WBC RBC Hgb Hct MCV MCH MCHC RDW Plt Count MPV Immature Gran % (Auto) Neut % (Auto) Lymph % (Auto) Saunders % (Auto) Eos % (Auto) Baso % (Auto) Lymph # (Auto) Saunders # (Auto) Eos # (Auto) Baso # (Auto) Abs Immat Gran (auto) Absolute Neuts (auto) Absolute Nucleated RBC Band Neutrophils % Nucleated RBC % Platelet Estimate Hypochromasia Schistocytes PT INR APTT Puncture Site ABG pH ABG pCO2 ABG pO2 ABG PO2/FiO2 Ratio ABG HCO3 ABG O2 Saturation ABG O2 Content ABG Base Excess A-a Gradient Oxyhemoglobin Carboxyhemoglobin Methemoglobin Reduced Hemoglobin Total Hemoglobin O2 Delivery Device O2 Liters/Min Vent Rate FiO2 Expiratory Pressure Inspiratory Pressure Sodium Potassium Chloride Carbon Dioxide Anion Gap BUN Creatinine Estim Creat Clear Calc Estimated GFR Glucose POC Capillary Glucose > 500 H* 445 H Hemoglobin A1c Calcium Magnesium Total Bilirubin AST ALT Alkaline Phosphatase NT-Pro-B Natriuret Pep Total Protein Albumin Influenza A (RT-PCR) Influenza B (RT-PCR) RSV (RT-PCR) SARS-CoV-2 RNA (RT-PCR)
[2025-03-06] MEDS: AZITHROMYCIN IV 500 MG in SODIUM CHLORIDE 0.9% IV 250 ML IVPB (18:35)
[2025-03-06] MEDS: cefTRIAXone 1 GM in SODIUM CHLORIDE 0.9% IV 50 ML 100 ML IVPB (20:24)
[2025-03-06] MEDS: INSULIN GLARGINE (*BKC) 100 UNITS/ML 70 UNITS SUB-Q (20:36)
[2025-03-07] VITALS (12 sets, daily range): BP systolic 121–128; BP diastolic 65–68; PULSE 71–79; RESP 16–20; TEMP 36.7–37.1; O2SAT 96–99
[2025-03-07] MEDS: ALBUTEROL SULFATE NEB 2.5 MG/3 ML INH 5 MG INHALATION ×2 (02:41→07:49)
[2025-03-07] MEDS: IPRATROPIUM BR 0.02% INH SOLN 0.5 MG/2.5 ML VIAL INHALATION ×2 (02:41→07:50)
[2025-03-07 04:18] LABS: Hematocrit 30.9 % (42.0-52.0); Hemoglobin 9.6 g/dL (14.0-18.0); Immature Granulocyte Percent A 0.6 % (0-0.5); Lymphocytes Absolute Auto 2.03 K/mm3 (0.9-3.2); Mean Corpuscular HGB Conc 31.1 g/dl (32-36); Mean Corpuscular Hemoglobin 27.4 pg (26-34); Mean Corpuscular Volume 88.3 fl (80-100); Nucleated Red Blood Cells Absolute Auto 0.000 K/mm3 (0.0-0.012); Nucleated Red Blood Cells Perc 0.0 % (0.0-0.2); Platelet Count Result 193 k/mm3 (150-375); Red Blood Count 3.50 M/mm3 (4.6-6.20); White Blood Count 6.4 K/mm3 (4.5-10.0)
[2025-03-07 04:40] LABS: Alanine Aminotransferase 11 U/L (6-50); Albumin Level 3.7 g/dL (3.5-5.1); Alkaline Phosphatase 109 U/L (38-126); Anion Gap 4 mmol/L (4-12); Aspartate Amino Transferase 18 U/L (17-59); Bilirubin,Total 0.1 mg/dL (0.2-1.3); Blood Urea Nitrogen 43 mg/dL (9-20); Calcium 8.8 mg/dL (8.4-10.2); Carbon Dioxide 37 mmol/L (22-30); Chloride 98 mmol/L (98-107); Estimated CRCL calculation 69 ml/min; Estimated Glomerular Filt Rate 52; Glucose 228 mg/dL (65-110); Magnesium 1.9 mg/dL (1.6-2.3); Potassium 4.7 mmol/L (3.4-5.0); Sodium 139 mmol/L (137-145); Total Protein 6.8 g/dL (6.3-8.2)
[2025-03-07] MEDS: SODIUM CHLORIDE 0.9% IV 1,000 ML 100 ML IV CONT (05:56)
[2025-03-07] MEDS: FAMOTIDINE 20 MG TABLET 40 MG PO (09:58)
[2025-03-07] MEDS: ATORVASTATIN 20 MG TABLET PO (09:59)
[2025-03-07] MEDS: ENOXAPARIN 40 MG/0.4 ML SYRINGE SUB-Q (10:00)
[2025-03-07] MEDS: MONTELUKAST SODIUM 10 MG TABLET PO (10:00)
[2025-03-07] MEDS: INSULIN ASPART (*BKC) 100 UNITS/ML 11 UNITS SUB-Q (10:04)
--- NOTE | 2025-03-07 10:35 | P.DS_ITS ---
DS: Admitting Diagnosis Discharge Date 03/07/25 Admitting Diagnosis ncreasing oxygen requirement DS: Discharge Diagnosis Discharge Diagnosis (1) Acute on chronic respiratory failure: Qualifiers: Respiratory failure complication: hypoxia and hypercapnia Qualified Code(s): J96.21 - Acute and chronic respiratory failure with hypoxia; J96.22 - Acute and chronic respiratory failure with hypercapnia Code(s): J96.20 - Acute and chronic respiratory failure, unspecified whether with hypoxia or hypercapnia Status: Acute (2) Pneumonia: Qualifiers: Laterality: right Lung location: lower lobe of lung Pneumonia type: due to unspecified organism Qualified Code(s): J18.9 - Pneumonia, unspecified organism Code(s): J18.9 - Pneumonia, unspecified organism Status: Acute DS: Summary Hospital Course Hospital Course: HPI per admitting provider: 49-year-old male with a past medical history a primary ciliary dyskinesia, chronic hypoxic hypercarbic respiratory failure on 4-6 L nasal cannula, essential hypertension, type 2 diabetes mellitus, chronic kidney disease, nonischemic cardiomyopathy and GERD who presented to the ER with complaints of increasing oxygen requirement. He reports that he usually uses 4-6 L while at rest and 8 L with activity. He has had increases oxygen up to 8 L while at rest. He reports that for the last 2 days he has been more somnolent. He is unintentionally fallen asleep without is Trelegy on. He woke 2-3 hours into his sleep cycle feeling more short of breath and realizing it did not have his machine on. The he has not been having any increased cough, congestion or any lower extremity edema. Any time his ciliary dyskinesia acts up has increased CO2 levels. He reports that he has not been eating or drinking much for the last week or so. He reports a lack of appetite. 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 He is on chronic suppressive therapy with azithromycin 500 mg daily. He has not had any recent steroid therapy. He admits that his glucoses on his CGM have been running in the 4 and 500s. On arrival to the ER he had acute on chronic respiratory acidosis with pH of 7.19 and pCO2 of 96. He after an hours so on BiPAP of 6 the patient's pCO2 increased to 100 wanting pH was relatively stable. Chest x- ray demonstrated possible bibasilar pneumonia and the patient was started on empiric antibiotic therapy with Rocephin and azithromycin. His labs demonstrated acute hyperkalemia and acute on chronic kidney disease. His glucoses are elevated to 440. Patient was managed for Pneumonia with Rocpehin and Azithromycin, was initially started on IV steroids from [facility] ER, which was dicontinued as patient did not have any wheezing. Also oxygen requirement has resolved to baseline of 4 liters. Patient was discharged on 2 more days of Azithromycin and 7 more days of Cefdinir. ALso managed for Hyperkalemia, resolved Sodium Zirconium. Blood sugar now controlled. Continue other home meds F/u with PCP in 3-5 days Time Spent with Patient Time attestation: Total time spent providing and/or coordinating discharge services: DS: Data Data Completed and Pending Labs on day of discharge: Labs from last 24 hours 03/07/25 03/07/25 03/06/25 07:20 04:02 20:30 WBC 6.4 RBC 3.50 L Hgb 9.6 L Hct 30.9 L MCV 88.3 MCH 27.4 MCHC 31.1 L RDW 12.3 Plt Count 193 MPV 9.7 Immature Gran % (Auto) 0.6 H Neut % (Auto) 59.8 Lymph % (Auto) 31.5 [place] % (Auto) 7.5 Eos % (Auto) 0.3 Baso % (Auto) 0.3 Lymph # (Auto) 2.03 [place] # (Auto) 0.5 Eos # (Auto) 0.0 Baso # (Auto) 0.0 Abs Immat Gran (auto) 0.04 H Absolute Neuts (auto) 3.9 Absolute Nucleated RBC 0.000 Nucleated RBC % 0.0 Sodium 139 Potassium 4.7 Chloride 98 Carbon Dioxide 37 H Anion Gap 4 BUN 43 H Creatinine 1.45 H Estim Creat Clear Calc 69 Estimated GFR 52 L Glucose 228 H POC Capillary Glucose 197 H 329 H Calcium 8.8 Magnesium 1.9 Total Bilirubin 0.1 L AST 18 ALT 11 Alkaline Phosphatase 109 Total Protein 6.8 Albumin 3.7 03/06/25 03/06/25 03/06/25 15:45 11:16 10:51 WBC RBC Hgb Hct MCV MCH MCHC RDW Plt Count MPV Immature Gran % (Auto) Neut % (Auto) Lymph % (Auto) [place] % (Auto) Eos % (Auto) Baso % (Auto) Lymph # (Auto) [place] # (Auto) Eos # (Auto) Baso # (Auto) Abs Immat Gran (auto) Absolute Neuts (auto) Absolute Nucleated RBC Nucleated RBC % Sodium Potassium Chloride Carbon Dioxide Anion Gap BUN Creatinine Estim Creat Clear Calc Estimated GFR Glucose POC Capillary Glucose 445 H > 500 H* Calcium Magnesium Cancelled Total Bilirubin 0.3 AST 21 ALT 21 Alkaline Phosphatase 143 H Total Protein 7.6 Albumin 4.1 03/06/25 10:51 WBC RBC Hgb Hct MCV MCH MCHC RDW Plt Count MPV Immature Gran % (Auto) Neut % (Auto) Lymph % (Auto) [place] % (Auto) Eos % (Auto) Baso % (Auto) Lymph # (Auto) [place] # (Auto) Eos # (Auto) Baso # (Auto) Abs Immat Gran (auto) Absolute Neuts (auto) Absolute Nucleated RBC Nucleated RBC % Sodium 135 L Potassium 5.1 H Chloride 92 L Carbon Dioxide 35 H Anion Gap 8 BUN 44 H Creatinine 1.58 H Estim Creat Clear Calc 64 Estimated GFR 47 L Glucose 552 H* POC Capillary Glucose Calcium 8.8 Magnesium 1.8 Total Bilirubin AST ALT Alkaline Phosphatase Total Protein Albumin Discharge Plan Discharge Attending physician on discharge: Yani Howard Discharging Clinician: Yani Howard Anticipated Discharge Date/Time: 03/07/25 10:16 Patient Disposition: Home Activity: as tolerated Diet: as tolerated and diabetic Patient Instructions: Antibiotic Form, Acute Respiratory Failure (GEN) Patient Language: [place] Stand Alone Forms: General Discharge Information Follow-up/Referrals: El Breen MD [Primary Care Provider, [facility]] Referral Note: F/u with PCP in 3-5 days Discharge Medications: New cefdinir 300 mg capsule 300 mg PO Q12H 7 Days Qty: 14 0RF Continued Nasal [place] (sodium chloride) 0.65 % Aerosol,[place] 2 spray INTRANASAL DAILY PRN (Reason: nasal congestion) ipratropium-albuterol 0.5 mg-3 mg(2.5 mg base)/3 mL solution for nebulization 3 ml inhalation QID Ozempic 2 mg/dose (8 mg/3 mL) pen injector 2 mg subcut WEEKLY Qty: 3 3RF Rx Instructions: Take on fridays insulin glargine-yfgn [Semglee(insulin glarg-yfgn)Pen] 100 unit/mL (3 mL) insulin pen 70 unit subcut HS Qty: 15 2RF (DME) Dexcom G6 Transmitter Device See Rx Instructions .Route Qty: 1 5RF Rx Instructions: As directed atorvastatin 20 mg tablet 20 mg PO DAILY Qty: 90 3RF azithromycin 500 mg tablet 500 mg PO DAILY Qty: 90 3RF modafinil [Provigil] 200 mg tablet 200 mg PO QAM Qty: 90 1RF (DME) Dexcom G6 Sensor Device See Rx Instructions .Route Qty: 9 2RF Rx Instructions: As directed montelukast [Singulair] 10 mg tablet 10 mg PO DAILY Qty: 90 1RF lisinopril 5 mg tablet 5 mg PO DAILY Qty: 90 1RF famotidine 20 mg tablet 40 mg PO DAILY Qty: 180 0RF amlodipine 5 mg tablet 5 mg PO DAILY Qty: 90 1RF furosemide 40 mg tablet 40 mg PO QAM Qty: 90 0RF insulin aspart U-100 100 unit/mL (3 mL) insulin pen See Rx Instructions .ROUTE .COMPLEX Qty: 15 0RF Rx Instructions: 18units breakfast, 18units lunch, 20units dinner add more for high sugar before meals see sliding scale below: 151-200: add 2 units 201-250:add 3 units 251-300:add 4 units 301-350:add 5 units 351-400:add 6 units >401:add 7 units Max 77 units daily (DME) pen needle, diabetic 32 gauge x 1/4 needle See Rx Instructions .Route Qty: 100 1RF Rx Instructions: As directed for insulin pen up to qid Date of admission: 03/06/25 09:27 Primary Care Provider: El Breen Admitting Provider: Juliana Shafer Attending physician on admission: Juliana Shafer Condition: Improved
== END 2025-03-07 12:37 | disposition home or self-care (01) | DRG 193 ==
LOC: ANHED 17:54 → ANHIMU 23:30
PROVIDERS: Admitting Provider Internal Medicine; Emergency Provider Physician Assistant; PCP Family Medicine; Visit Provider Internal Medicine
DX: J18.9 Pneumonia, unspecified organism (principal); J96.21 Acute and chronic respiratory failure with hypoxia; J96.22 Acute and chronic respiratory failure with hypercapnia; N17.9 Acute kidney failure, unspecified; I42.8 Other cardiomyopathies; Z99.11 Dependence on respirator [ventilator] status; Q60.0 Renal agenesis, unilateral; J43.9 Emphysema, unspecified; E87.5 Hyperkalemia; E86.1 Hypovolemia; E11.65 Type 2 diabetes mellitus with hyperglycemia; E11.22 Type 2 diabetes mellitus with diabetic chronic kidney disease; I12.9 Hypertensive chronic kidney disease with stage 1 through stage 4 chronic kidney disease, or unspecified chronic kidney disease; N18.9 Chronic kidney disease, unspecified; Q34.8 Other specified congenital malformations of respiratory system; E78.5 Hyperlipidemia, unspecified; K21.9 Gastro-esophageal reflux disease without esophagitis; G47.33 Obstructive sleep apnea (adult) (pediatric); R60.9 Edema, unspecified; N52.9 Male erectile dysfunction, unspecified; D23.9 Other benign neoplasm of skin, unspecified; Z20.822 Contact with and (suspected) exposure to COVID-19; R00.0 Tachycardia, unspecified; Z99.89 Dependence on other enabling machines and devices; Z79.4 Long term (current) use of insulin; Z99.81 Dependence on supplemental oxygen; Z79.2 Long term (current) use of antibiotics; Z87.891 Personal history of nicotine dependence; Z86.16 Personal history of COVID-19
CPT/HCPCS: 36415; 36600; 71046; 80048; 80053; 82375; 82805; 82948; 83036; 83050; 83735; 83880; 84132; 85018; 85025; 85610; 85730; 87040; 87637; 93005; 94002; 94003; 94640; 96365; 96367; 96375; 96376; 99291; A9270; G0378; J0456; J0612; J0696; J1650; J1815; J2919; J7030; J7040; J7050